=== PATIENT | male | born 1960 | race Caucasian/White ===

== ENCOUNTER 2019-10-15 14:21 | Outpatient (CLI) | payer MEDICARE, MEDICAID, SELFPAY ==
--- NOTE | 2019-10-15 14:45 | XR_ITS ---
WS: [id number] LUMBAR SPINE TECHNIQUE: 5 views of the lumbar spine CLINICAL INFORMATION: LOW BACK PAIN, CHRONIC COMPARISON: None. FINDINGS: Five [id number] lumbar vertebral bodies. Disc space heights are well preserved. No compression f ractures. No spondylolisthesis. Visualized sacroiliac joints are normal. Normal visualized soft tissu es. Partially visualized bowel gas pattern is normal. XR/XR lumbar spine min 4V [id number] IMPRESSION: Mild degenerative arthritis lumbar spine. Otherwise unremarkable.
== END 2019-10-15 14:22 | disposition home or self-care (01) ==
LOC: RADWPI 14:28
PROVIDERS: Family Provider Internal Medicine; PCP Internal Medicine; Visit Provider Nurse Practitioner Family
DX: M47.896 Other spondylosis, lumbar region (principal); M54.5 Low back pain; G89.29 Other chronic pain
CPT/HCPCS: 72114

== ENCOUNTER 2019-10-26 00:28 | Inpatient (IN) | payer MEDICARE, MEDICAID, SELFPAY ==
[2019-10-26] VITALS (28 sets, daily range): BP systolic 84–134; BP diastolic 51–93; PULSE 71–122; RESP 7–23; TEMP 36.8–37.1; O2SAT 95–99; BMI 25.0
--- NOTE | 2019-10-26 00:45 | ED_ITS ---
Entered by Dorinda Nichols, acting as scribe for Myah Levine HPI - Nausea/Vomiting/Diarrhea General: Chief complaint: Nausea/Vomiting/Diarrhea Stated complaint: n/v Time Seen by Provider: 10/26/19 00:44 Source: patient Mode of arrival: wheelchair Limitations: no limitations History of Present Illness: HPI Narrative: 59 yo m came to the er pov for nausea and vomiting. Pt states that he has pain in his lower abd. Pain started about 2199 last night. Pt said that he only has abd pain when he throws up. Pt said that he is diabetic as well. The patient's pain is described as cramping in nature. He states he feels like he is in diabetic ketoacidosis. He admits to being very noncompliant. MD elicited complaint: nausea and vomiting Onset (ago): day(s) (2199 last night ) Associated nausea: Yes Associated abdominal pain: Yes Location of pain: RLQ and LLQ Pain consistency: intermittent Severity: mild Relieving factors: none Associated symtoms: Reports nausea; Denies altered mental status, change in vision, chest pain or headache(s) Review of Systems General: Reports: other (negative unless marked) Const: Denies: fever Eyes: Denies: change in vision ENMT: Denies: throat pain Card: Denies: chest pain Resp: Denies: shortness of breath GI: Reports: abdominal pain, nausea and vomiting : Denies: flank pain Musc: Denies: neck pain Skin/Breast: Denies: rash Neuro: Denies: headache PFSH ED PFSH: Medical History Anxiety Chronic pain Hyperlipidemia Hypertension Insulin dependent diabetes mellitus Surgical History H/O shoulder surgery Family History Other COPD (chronic obstructive pulmonary disease) Cancer Social History Smoking and tobacco status: never smoked Physical Exam Const: COMMON NORMALS: no apparent distress, oriented x3, no limitations, healthy appearing and well nourished EXAM LIMITATIONS: no altered mental status GENERAL APPEARANCE: cooperative, well kempt and well developed ORIENTATION/CONSCIOUSNESS: Yes awake HENMT: COMMON NORMALS: normocephalic, head/scalp atraumatic, hearing grossly normal bilaterally, external ears normal, EAC's normal, external nose normal and moist oral mucous membranes HEAD & SCALP: normal to inspection, normocephalic and atraumatic FACE & SINUS: normal facial exam and face symmetric NOSE: external nose normal and nares normal EXTERNAL EAR: Yes external ears normal EXTERNAL AUDITORY CANAL: EAC's normal MOUTH: oral and palatal mucosa normal and tongue normal Eye: COMMON NORMALS: PERRL, EOMs intact bilaterally, conjunctivae normal and no scleral icterus GENERAL EYE: normal appearance of both eyes and normal light reflex CONJUNCTIVA: Yes conjunctivae normal SCLERA: sclerae normal CORNEA: Yes corneas normal PUPIL: Yes PERRL DIRECT OPHTHALMOSCOPY: Yes normal light reflex Neck/C-Spine: COMMON NORMALS: full ROM, no lymphadenopathy, supple, no meningeal signs and no JVD GENERAL: Yes normal visual inspection and Yes trachea midline CERVICAL SPINE: Yes cervical ROM normal Chest: COMMONS NORMALS: inspection of chest normal and palpation of chest normal Resp: COMMON NORMALS: normal respiratory effort, no retractions, no use of accessory muscles and clear to auscultation bilaterally EFFORT & INSPECTION: Yes able to speak in complete sentences AUSCULTATION: clear to auscultation bilaterally Cardio: COMMON NORMALS: no JVD, regular rate, regular rhythm, S1 normal heart sound, S2 normal heart sound, no gallops, no clicks, no murmurs and no rub JUGULAR VENOUS DISTENTION: no JVD RATE: regular rate RHYTHM: regular rhythm HEART SOUNDS: S1 normal and S2 normal GI: COMMON NORMALS: soft to palpation, non-tender, no hepatosplenomegaly and no masses INSPECTION: Yes normal to inspection PALPATION: Yes soft and Yes no hepatosplenomegaly : COMMON NORMALS: Yes no CVA tenderness BLADDER/KIDNEY EXAM: Yes no CVA tenderness Back/Pelvis: COMMON NORMALS: no CVA tenderness, thoracic and lumbar spine normal to inspection, no thoracic nor lumbar tenderness and thoraco-lumbar ROM normal Extremity: COMMON NORMALS: normal to inspection, full ROM, normal capillary refill, no joint enlargement, no clubbing, cyanosis or edema and no calf tenderness Neuro: COMMON NORMALS: oriented x3, CN's II-XII intact bilaterally, moves all extremities, no focal motor deficits and no sensory deficits noted MENINGEAL SIGNS: Yes no meningeal signs Psych: COMMON NORMALS: mental status grossly normal, thought process normal, cooperative, affect normal, speech normal and activity/motor behavior normal APPEARANCE: Yes well kempt SPEECH: Yes normal speech THOUGHT PROCESS: normal thought process Skin: COMMON NORMALS: no rashes or lesions noted, skin turgor normal, no jaundice, no petechiae and no mottling GENERAL SKIN EXAM: no rashes or lesions noted and turgor normal Course Vital Signs: Vital signs: Vital Signs Temperature 98.7 F 10/26/19 00:34 Pulse Rate 103 H 10/26/19 02:00 Respiratory Rate 16 10/26/19 02:00 Blood Pressure 119/76 10/26/19 02:00 Pulse Oximetry 97 10/26/19 02:00 MDM - Nausea/Vomiting/Diarrhea MDM Narrative: Medical decision making narrative: Wiliam is a 59-year-old male noncompliant and a poor historian. I found much more out about his past medical history from looking in the chart. He appears to be in diabetic ketoacidosis. Abdominal pain appears to be only cramping abdominal pain for vomiting. His abdominal exam is benign. He has anion gap acidosis. His blood sugar is not that high but after review with Dr. Britton she agrees to admit to the ICU and she will place orders for insulin drip. Lab Data: Attestation: I reviewed the patient's lab results. Labs: Lab Results 10/26/19 10/26/19 10/26/19 Range/Units 00:44 00:44 00:44 WBC 13.0 H (4.0-10.0) 10^3/ uL RBC 5.51 H (4.1-5.3) 10^6/u L Hgb 16.0 (11.7-16.6) g/dL Hct 50.3 (42.0-52.0) % MCV 91.3 (80-94) fL MCH 29.0 (28.0-34.0) pg MCHC 31.8 (30.0-36.0) g/dL RDW 12.5 (12.1-15.1) % Plt Count 298 (130-400) 10^3/c mm MPV 10.2 (7.4-10.4) fL Neut % (Auto) 79.0 % Lymph % (Auto) 14.9 % Arroyo % (Auto) 4.9 % Eos % (Auto) 0.2 % Baso % (Auto) 0.5 % Neut # (Auto) 10.3 H (1.8-7.7) 10^3/u L Lymph # (Auto) 1.9 (0.8-4.8) 10^3/u L [place] # (Auto) 0.6 (0.2-0.9) 10^3/u L Eos # (Auto) 0.0 (0.0-0.8) 10^3/u L Baso # (Auto) 0.1 (0.0-0.1) 10^3/u L Nucleated RBC % (a uto) 0 % Nucleated RBCs # 0.0 /100WBC Specimen Type Sample Site ABG pH (7.35-7.45) ABG pCO2 (35-45) mmHg ABG pO2 (80.0-100.0) mmH g ABG HCO3 (22-26) mmol/L ABG Base Excess (-2.0-2.0) mmol/ L Jefferson Test Hematocrit (42-52) % O2 Delivery Device Back Filler Operator ID Sodium 137 (136-145) mmol/L Potassium 4.6 (3.5-5.1) mmol/L Chloride 99 (98-107) mmol/L Carbon Dioxide 13 L (22-29) mmol/L Anion Gap 29.6 H (5-19) BUN 25 H (8-23) mg/dL Creatinine 0.9 (0.7-1.2) mg/dL GFR Calculation 86.1 L (90-130) mL/min Glucose 284 H (65-115) mg/dL Calculated Osmolal ity 291 (285-295) mOsm/k g Lactic Acid 1.4 (0.5-2.2) mmol/L Calcium 9.8 (8.5-10.5) mg/dL Magnesium 2.4 H (1.7-2.3) mg/dL Total Bilirubin 0.4 (0.15-1.2) mg/dL AST 13 (0-40) U/L ALT 20 (0-41) U/L Alkaline Phosphata se 83 (40-130) IU/L Troponin T Baselin e (0-15) ng/mL Total Protein 8.1 (6.6-8.7) g/dL Albumin 4.9 (3.5-5.2) g/dL Globulin 3.2 (1.3-4.6) g/dL Lipase 11 L (13-60) U/L Serum Ketones (Negative) 10/26/19 10/26/19 10/26/19 Range/Units 00:44 00:44 01:29 WBC (4.0-10.0) 10^3/ uL RBC (4.1-5.3) 10^6/u L Hgb (11.7-16.6) g/dL Hct (42.0-52.0) % MCV (80-94) fL MCH (28.0-34.0) pg MCHC (30.0-36.0) g/dL RDW (12.1-15.1) % Plt Count (130-400) 10^3/c mm MPV (7.4-10.4) fL Neut % (Auto) % Lymph % (Auto) % [place]royo % (Auto) % Eos % (Auto) % Baso % (Auto) % Neut # (Auto) (1.8-7.7) 10^3/u L Lymph # (Auto) (0.8-4.8) 10^3/u L [place] # (Auto) (0.2-0.9) 10^3/u L Eos # (Auto) (0.0-0.8) 10^3/u L Baso # (Auto) (0.0-0.1) 10^3/u L Nucleated RBC % (a uto) % Nucleated RBCs # /100WBC Specimen Type Arterial Sample Site Radial, right ABG pH 7.26 L (7.35-7.45) ABG pCO2 25.5 L (35-45) mmHg ABG pO2 106.0 H (80.0-100.0) mmH g ABG HCO3 11.3 L (22-26) mmol/L ABG Base Excess -14.0 L (-2.0-2.0) mmol/ L Jefferson Test Pos Hematocrit 46.7 (42-52) % O2 Delivery Device Room air Back Filler Operator ID [id number] Sodium (136-145) mmol/L Potassium (3.5-5.1) mmol/L Chloride (98-107) mmol/L Carbon Dioxide (22-29) mmol/L Anion Gap (5-19) BUN (8-23) mg/dL Creatinine (0.7-1.2) mg/dL GFR Calculation (90-130) mL/min Glucose (65-115) mg/dL Calculated Osmolal ity (285-295) mOsm/k g Lactic Acid (0.5-2.2) mmol/L Calcium (8.5-10.5) mg/dL Magnesium (1.7-2.3) mg/dL Total Bilirubin (0.15-1.2) mg/dL AST (0-40) U/L ALT (0-41) U/L Alkaline Phosphata se (40-130) IU/L Troponin T Baselin e 7 (0-15) ng/mL Total Protein (6.6-8.7) g/dL Albumin (3.5-5.2) g/dL Globulin (1.3-4.6) g/dL Lipase (13-60) U/L Serum Ketones Positive H (Negative) Imaging Data^: CXR: My impression: No acute cardiopulmonary findings. EKG Data^: EKG 1: Attestation: I personally reviewed and interpreted this EKG as follows: EKG interpretation date: 10/26/19 EKG interpretation time: 01:01 Interpretation: Sinus tachycardia with a ventricular rate of 112 beats a minute, left axis deviation, left anterior fascicular block, normal intervals, no blocks, nonspecific ST and T wave changes. Unchanged from previous. Discharge Plan Discharge Patient Disposition: Admitted As Inpatient Clinical Impression: DKA (diabetic ketoacidoses) Condition: Stable Referrals: JOANNE VO DO [Primary Care Provider] - Coding Level of Care Code ED Shredder Tender Peat for Chg Fwd Exam Comprehensive The documentation recorded by the Simone jennings Stephanie Lyn, accurately reflects the service I personally performed and the decisions made by , Myah Levine Oct 26, 2019 00:28
--- NOTE | 2019-10-26 00:48 | XR_ITS ---
WS: [id number] XR chest 1V portable [id number] REASON FOR EXAM: CHEST PAIN FINDINGS: The heart and mediastinal interfaces normal. The lung jenkins are well aerated. No pneumonia, pleural effusion, pulmonary edema, no pneumothorax. The hilum and apices are normal. No osseous abnormalities. XR/XR chest 1V portable [id number] IMPRESSION: No active cardiopulmonary changes.
[2019-10-26 00:55] LABS: Basophils # 0.1 10^3/uL (0.0-0.1); Basophils % 0.5 %; Eosinophils % 0.2 %; Hematocrit 50.3 % (42.0-52.0); Lymphocytes # 1.9 10^3/uL (0.8-4.8); Lymphocytes % 14.9 %; Mean Corpuscular HGB Conc 31.8 g/dL (30.0-36.0); Mean Corpuscular Volume 91.3 fL (80-94); Mean Platelet Volume 10.2 fL (7.4-10.4); Monocytes # 0.6 10^3/uL (0.2-0.9); Monocytes % 4.9 %; Neutrophils # 10.3 10^3/uL (1.8-7.7); Nucleated Red Blood Cells % 0 %; Platelet Count 298 10^3/cmm (130-400); Red Blood Count 5.51 10^6/uL (4.1-5.3); Red Cell Distribution Width 12.5 % (12.1-15.1)
[2019-10-26] MEDS: sodium chloride 0.9% 1,000 ML 999 ML IV ×2 (01:00→01:59)
[2019-10-26] MEDS: ondansetron 2 mg/ML SDV 2 mL 4 MG IVP (01:00)
[2019-10-26] MEDS: morphine 4 mg/mL SDV 1 mL IVP (01:06)
--- NOTE | 2019-10-26 01:07 | PC.NURSE ---
Blood glucose is 254, nurse and ER doctor were notified
[2019-10-26 01:08] LABS: Ketone (Acetest) Serum Positive (Negative)
[2019-10-26 01:16] LABS: Alanine Aminotransferase 20 U/L (0-41); Albumin Level 4.9 g/dL (3.5-5.2); Alkaline Phosphatase 83 IU/L (40-130); Anion Gap 29.6 (5-19); Aspartate Amino Transferase 13 U/L (0-40); Blood Urea Nitrogen 25 mg/dL (8-23); Calcium 9.8 mg/dL (8.5-10.5); Carbon Dioxide 13 mmol/L (22-29); Chloride 99 mmol/L (98-107); Globulin 3.2 g/dL (1.3-4.6); Glomerular Filtration Rate 86.1 mL/min (90-130); Glucose 284 mg/dL (65-115); Lipase 11 U/L (13-60); Magnesium 2.4 mg/dL (1.7-2.3); Osmolality Calculated 291 mOsm/kg (285-295); Potassium 4.6 mmol/L (3.5-5.1); Sodium 137 mmol/L (136-145); Total Bilirubin 0.4 mg/dL (0.15-1.2); Total Protein 8.1 g/dL (6.6-8.7)
[2019-10-26 01:17] LABS: Lactic Sepsis W/Reflex 1.4 mmol/L (0.5-2.2)
[2019-10-26 01:19] LABS: Troponin(5th) Baseline 7 ng/mL (0-15)
--- NOTE | 2019-10-26 01:29 | PC.NURSE ---
XRAY IN ROOM
[2019-10-26 01:41] LABS: ABG PCO2 25.5 mmHg (35-45); ABG PH Result 7.26 (7.35-7.45); Arterial Blood Gas Hematocrit 46.7 % (42-52); Blood Gas Allen Test Pos; Blood Gas Sample Site Radial, right; Blood Gas Sample Type Arterial; HCO3 ABG 11.3 mmol/L (22-26); Oxygen Device ROOM AIR
--- NOTE | 2019-10-26 02:04 | PM.HP ---
Providers/Chief Complaint Primary Care Provider: JOANNE VO DO Chief Complaint: n/v History of Present Illness Wiliam Rogers JR is a 59 year old male past medical history significant for hypertension, hyperlipidemia, anxiety, depression and uncontrolled diabetes mellitus with recurrent hospitalizations for diabetic ketoacidosis now presenting to the hospital with nausea, vomiting and abdominal pain. Upon arrival to emergency room he was noted to have anion gap metabolic acidosis, ketonuria and hyperglycemia c/f DKA. No recent h/o infections. No alcohol intake. Reporst complaince with his home medications including basiglar 62 units, trulicity once a week and metformin. Labs notable for WBC 13K, ABG 7.26/25.5/106/11.3, hc03 13, AG 29.6, glu 284, lipase 11, positive serum ketone. Review of Systems General: Reports: 10 or more systems reviewed and unremarkable except in HPI and below Const: Denies: fever, chills or body aches Eyes: Denies: change in vision, blurry vision or photophobia ENMT: Reports: hoarseness; Denies: throat pain, enlarged tonsils, painful swallowing or nasal congestion Card: Denies: chest pain, palpitations, irregular heart rhythm, edema, swelling of feet/ankles, lightheadedness, pre-syncope, shortness of breath on exertion or shortness of breath when lying down Resp: Denies: shortness of breath, productive cough, non-productive cough, wheezing, stridor, pain on inspiration, change in phlegm color, coughing up blood or chest congestion GI: Denies: abdominal pain, nausea, vomiting, vomiting blood, coffee grounds in vomit, difficulty swallowing, heartburn/indigestion, diarrhea, constipation, cramping, change in stool character, blood in stool or black tarry stool : Denies: flank pain, painful urination, urinary frequency, urinary urgency, urinary hesitancy or blood in urine Musc: Denies: neck pain, back pain, extremity pain, joint swelling, joint warmth or deformity Neuro: Denies: headache, numbness in extremities, weakness in extremities, changes in sensation, difficulty walking, frequent falls, dizziness, vertigo, behavioral changes, slurred speech or seizure-like activity Psych: Denies: anxiety, depression, suicidal ideation or homicidal ideation Endo: Denies: excessive urination, excessive thirst, tired all the time, cold intolerance or hot flashes Deep/Lymph: Denies: easy bruising or easy bleeding Medications/Allergies Allergies Allergy/AdvReac Type Severity Reaction Status Date / Time No Known Drug Allergies Allergy Unknown Unknown Unverified 10/26/19 00:40 PFSH Acute PFSH: Medical History Anxiety Chronic pain Hyperlipidemia Hypertension Insulin dependent diabetes mellitus Surgical History H/O shoulder surgery Family History Other COPD (chronic obstructive pulmonary disease) Cancer Social History Smoking and tobacco status: never smoked Vitals/I&O/Wt Last Vital Signs Temp 98.7 F 10/26/19 00:34 Pulse 103 H 10/26/19 02:00 Resp 16 10/26/19 02:00 BP 119/76 10/26/19 02:00 Pulse Ox 97 10/26/19 02:00 10/25/19 10/25/19 10/26/19 14:59 22:59 06:59 Intake Total 982.35 / 982.35 Balance 982.35 / 982.35 Weight last 48 hrs Weight 68.039 kg Physical Exam Narrative: EXAM NARRATIVE: GEN: Awake, alert and oriented, no acute distress CVS: S1S2 N RS: CTA B/L Abd: Soft, nt/nd , bs+ 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 Data : 10/26/19 00:44 10/26/19 00:44 A&P Assessment and plan (1) Insulin dependent diabetes mellitus: Status: Acute Code(s): E11.9 - Type 2 diabetes mellitus without complications; Z79.4 - [facility] (current) use of insulin (2) DKA (diabetic ketoacidoses): Status: Acute Code(s): E11.10 - Type 2 diabetes mellitus with ketoacidosis without coma (3) High anion gap metabolic acidosis: Status: Acute Code(s): E87.2 - Acidosis (4) Hypertension: Status: Acute Code(s): I10 - Essential (primary) hypertension (5) Hyperlipidemia: Status: Acute Code(s): E78.5 - Hyperlipidemia, unspecified Additional A&P Information Admit to ICU # Diabetic ketoacidosis: Start IV fluids with D5 1/2 NS at 150 cc/hour Start IV insulin per DKA protocol until anion gap closes Blood sugar checks q.1 hour Maintain blood sugars between 150- 200. Check BMP q3h For serum potassium between 3.3-5.5 add 20 mEq of KCl to each L bag of fluids. If serum potassium decreases below 3.3 hold insulin and administer KCl 40 mEq. Goal potassium between 4.0 to 5.0 Keep NPO for now until gap closes, once closed, can resume po intake with overlap with s/c insulin Hold OHAs Check HbA1c # Hypertension Per review of prior records, patient is on Metoprolol 25 mg extended release daily. However, at this time he denies any past h/o HTN. Reports not taking metoprolol. #Hyperlipidemia Simvastatin 20 mg qd previosuly, will start Check lipid panel # Anxiety/depression Full code Dvt ppx: lovenox Attestations Medical Necessity Statement*: anticipate > 2midnight admission for management of DKA Coding Level of Care Code Acute Production Assembler for g Fwd Diagnoses Insulin dependent diabetes mellitus E11.9; Z79.4 DKA (diabetic ketoacidoses) E11.10 High anion gap metabolic acidosis E87.2 Hypertension I10 Hyperlipidemia E78.5
--- NOTE | 2019-10-26 02:32 | PC.NURSE ---
Hospitalist in room
--- NOTE | 2019-10-26 02:44 | ECG_ITS ---
Measurements Intervals [place] Rate: 89 P: 56 DC: 175 QRS: -28 QRSD: 86 T: 48 QT: 363 QTc: 444 SINUS RHYTHM BORDERLINE LEFT AXIS DEVIATION [QRS AXIS < -20] WARNING: DATA QUALITY MAY AFFECT INTERPRETATION Compared to ECG 12/16/2018 21:16:34 Sinus tachycardia no longer present Electronically Signed On 10-26-2019 8:49:41 CDT by Andre Bateman [email or web address]
[2019-10-26] MEDS: sodium chloride 0.9% 1,000 ML 150 ML IV (02:53)
[2019-10-26 02:57] LABS: Glucose Point of Care 219 mg/dL (70-110)
[2019-10-26 02:57] LABS: Protein Urine Neg (Negative); Specific Gravity, Urine 1.025 (1.005-1.030); Urine Appearance Hazy (CLEAR); Urine Color Yellow (Yellow); pH Urine 5 (5-7)
[2019-10-26 02:58] LABS: Bilirubin Urine Neg (NEGATIVE); Blood Urine Neg (Negative); Glucose Urine UA 4+ (Normal); Ketones Urine 3+ (Negative); Leukocyte Esterase Urine Negative (Negative); Nitrate Urine Negative (Negative); Urobilinogen Urine Norm (Negative)
[2019-10-26 03:00] LABS: Coarse Granular Casts Urine 0-4 /lpf
[2019-10-26 03:02] LABS: Estmated Average Glucose 275; Hemoglobin A1C 11.2 % (4.0-6.0)
[2019-10-26 03:03] LABS: Add Urine Culture? No; Bacteria Urine TRACE; Renal Epithelial Cells Urine 0 /hpf
[2019-10-26] MEDS: insulin regular-human 250 UNIT in sodium chloride 0.9% 250 ML IV (03:15)
[2019-10-26 03:23] LABS: Alanine Aminotransferase 15 U/L (0-41); Albumin Level 4.1 g/dL (3.5-5.2); Alkaline Phosphatase 66 IU/L (40-130); Anion Gap 24.7 (5-19); Aspartate Amino Transferase 10 U/L (0-40); Blood Urea Nitrogen 23 mg/dL (8-23); Calcium 8.3 mg/dL (8.5-10.5); Carbon Dioxide 14 mmol/L (22-29); Chloride 106 mmol/L (98-107); Chol HDL Ratio 4.86 mg/dL (1.0-5.00); Cholesterol 209 mg/dL (0-200); Globulin 2.4 g/dL (1.3-4.6); Glucose 222 mg/dL (65-115); HDL Cholesterol 43 mg/dL (60-100); LDL Cholesterol Calculated 142 mg/dL (50-129); Osmolality Calculated 294 mOsm/kg (285-295); Potassium 4.7 mmol/L (3.5-5.1); Sodium 140 mmol/L (136-145); Total Bilirubin 0.3 mg/dL (0.15-1.2); Total Protein 6.5 g/dL (6.6-8.7); Triglycerides 122 mg/dL (0-150)
[2019-10-26 03:25] LABS: Troponin 5 2HR 6.66 ng/mL (0-15)
[2019-10-26 03:45] LABS: Troponin 5 2HR Delta -0.34 ABS# (0-10)
[2019-10-26 04:09] LABS: Glucose Point of Care 172 mg/dL (70-110)
[2019-10-26] MEDS: enoxaparin 40 mg/0.4 mL Syringe SUBCUT (04:41)
[2019-10-26] MEDS: D5-NS 0.45% + KCL 20 mEq 20 MEQ/1,000 ML BAG 150 MEQ IV (04:45)
--- NOTE | 2019-10-26 06:44 | ECG_ITS ---
Measurements Intervals [place] Rate: 112 P: 53 VT: 145 QRS: -46 QRSD: 89 T: 78 QT: 323 QTc: 441 SINUS TACHYCARDIA LEFT ANTERIOR FASCICULAR BLOCK [QRS AXIS <= -45, QR IN I, RS IN II] NONSPECIFIC T-WAVE ABNORMALITY Compared to ECG 12/16/2018 21:16:34 Left anterior fascicular block now present T-wave abnormality now present Electronically Signed On 10-26-2019 8:49:55 CDT by Andre Bateman [email or web address]
[2019-10-26 07:04] LABS: Alanine Aminotransferase 14 U/L (0-41); Albumin Level 3.5 g/dL (3.5-5.2); Alkaline Phosphatase 64 IU/L (40-130); Anion Gap 16.3 (5-19); Aspartate Amino Transferase 10 U/L (0-40); Blood Urea Nitrogen 18 mg/dL (8-23); Calcium 8.3 mg/dL (8.5-10.5); Carbon Dioxide 19 mmol/L (22-29); Chloride 105 mmol/L (98-107); Globulin 2.6 g/dL (1.3-4.6); Glomerular Filtration Rate 137.4 mL/min (90-130); Glucose 201 mg/dL (65-115); Osmolality Calculated 284 mOsm/kg (285-295); Potassium 4.3 mmol/L (3.5-5.1); Sodium 136 mmol/L (136-145); Total Bilirubin 0.2 mg/dL (0.15-1.2); Total Protein 6.1 g/dL (6.6-8.7)
[2019-10-26 07:06] LABS: Troponin 5 6HR 6.43 ng/mL (0-15)
[2019-10-26 07:07] LABS: Troponin 5 6HR Delta -0.57 ng/L (0-12)
[2019-10-26 08:30] LABS: Glucose Point of Care 181 mg/dL (70-110)
[2019-10-26 08:30] LABS: Glucose Point of Care 204 mg/dL (70-110)
[2019-10-26 08:30] LABS: Glucose Point of Care 171 mg/dL (70-110)
[2019-10-26 08:30] LABS: Glucose Point of Care 183 mg/dL (70-110)
[2019-10-26 08:47] LABS: Alanine Aminotransferase 13 U/L (0-41); Albumin Level 3.7 g/dL (3.5-5.2); Alkaline Phosphatase 62 IU/L (40-130); Anion Gap 15.1 (5-19); Aspartate Amino Transferase 10 U/L (0-40); Blood Urea Nitrogen 17 mg/dL (8-23); Calcium 8.3 mg/dL (8.5-10.5); Carbon Dioxide 20 mmol/L (22-29); Chloride 105 mmol/L (98-107); Globulin 2.5 g/dL (1.3-4.6); Glomerular Filtration Rate 169.6 mL/min (90-130); Glucose 206 mg/dL (65-115); Osmolality Calculated 284 mOsm/kg (285-295); Potassium 4.1 mmol/L (3.5-5.1); Sodium 136 mmol/L (136-145); Total Bilirubin 0.3 mg/dL (0.15-1.2); Total Protein 6.2 g/dL (6.6-8.7)
[2019-10-26 11:56] LABS: Glucose Point of Care 173 mg/dL (70-110)
[2019-10-26 11:56] LABS: Glucose Point of Care 167 mg/dL (70-110)
[2019-10-26 11:56] LABS: Glucose Point of Care 152 mg/dL (70-110)
[2019-10-26] MEDS: atorvastatin 40 mg Tablet 20 MG PO (12:10)
[2019-10-26] MEDS: pantoprazole DR 40 mg Tablet PO (12:10)
[2019-10-26] MEDS: citalopram 20 mg Tablet PO (12:10)
[2019-10-26 12:23] LABS: Alanine Aminotransferase 13 U/L (0-41); Albumin Level 3.8 g/dL (3.5-5.2); Alkaline Phosphatase 58 IU/L (40-130); Aspartate Amino Transferase 10 U/L (0-40); Blood Urea Nitrogen 17 mg/dL (8-23); Calcium 8.5 mg/dL (8.5-10.5); Carbon Dioxide 21 mmol/L (22-29); Chloride 105 mmol/L (98-107); Globulin 2.1 g/dL (1.3-4.6); Glomerular Filtration Rate 137.4 mL/min (90-130); Glucose 176 mg/dL (65-115); Osmolality Calculated 283 mOsm/kg (285-295); Sodium 136 mmol/L (136-145); Total Bilirubin 0.3 mg/dL (0.15-1.2); Total Protein 5.9 g/dL (6.6-8.7)
[2019-10-26] MEDS: acetaminophen 325 mg Tablet 650 MG PO (12:54)
[2019-10-26] MEDS: sodium chloride 0.9% 1,000 ML 125 ML IV ×2 (12:54→21:59)
[2019-10-26] MEDS: insulin glargine 100 units/1 mL 62 UNIT SUBCUT (12:55)
[2019-10-26 14:13] LABS: Glucose Point of Care 211 mg/dL (70-110)
[2019-10-26 14:13] LABS: Glucose Point of Care 170 mg/dL (70-110)
[2019-10-26 14:36] LABS: Alanine Aminotransferase 12 U/L (0-41); Albumin Level 3.7 g/dL (3.5-5.2); Alkaline Phosphatase 57 IU/L (40-130); Aspartate Amino Transferase 11 U/L (0-40); Blood Urea Nitrogen 18 mg/dL (8-23); Calcium 8.6 mg/dL (8.5-10.5); Carbon Dioxide 24 mmol/L (22-29); Chloride 103 mmol/L (98-107); Globulin 2.3 g/dL (1.3-4.6); Glomerular Filtration Rate 137.4 mL/min (90-130); Glucose 220 mg/dL (65-115); Osmolality Calculated 283 mOsm/kg (285-295); Sodium 135 mmol/L (136-145); Total Bilirubin 0.4 mg/dL (0.15-1.2)
--- NOTE | 2019-10-26 15:44 | P.PN_ITS ---
Subjective Subjective: Interval history: Admitted overnight. Labs noted. Overnight patient has been on D5 half NS along with insulin drip for high anion gap metabolic acidosis. This morning on evaluation his gap has closed. He denies of any nausea, vomiting, dizziness. He is complaining of headache. He states he takes metformin, Trulicity once a week, Basaglar 62 units every morning. He checks his blood sugar on a daily basis after breakfast and usually over 1 80-200. Vitals/I&O/Wt Last Vital Signs Temp 98.6 F 10/26/19 08:00 Pulse 87 10/26/19 13:00 Resp 21 H 10/26/19 13:00 BP 111/73 10/26/19 13:00 Pulse Ox 97 10/26/19 12:00 10/26/19 10/26/19 10/26/19 06:59 14:59 22:59 Intake Total 1987.925 / 4154.527 0893.55 / 1327.55 Output Total 475 / 475 Balance 1512.925 / 3059.195 6934.55 / 1327.55 Weight last 48 hrs Weight 68.039 kg Physical Exam Narrative: EXAM NARRATIVE: General: No acute distress, AO x3 HEENT: PERRLA, pupils bilaterally equal and reactive Chest: Normal vesicular breath sounds, no added sounds, equal good air entry bilaterally CVS: S1-S2 regular, no murmurs, no tachycardia, no gallops, no rubs Abdomen: Soft, nontender, no organomegaly, bowel sounds present Neuro: No focal deficits, no facial deformity, AO x3, power 5/5 in all limbs Data : 10/26/19 00:44 10/26/19 14:06 A&P Assessment and plan (1) Insulin dependent diabetes mellitus: Status: Acute Code(s): E11.9 - Type 2 diabetes mellitus without complications; 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 (2) DKA (diabetic ketoacidoses): Status: Acute Qualifiers: Diabetes mellitus complication detail: without coma Diabetes mellitus type: type 1 Qualified Code(s): E10.10 - Type 1 diabetes mellitus with ketoacidosis without coma Code(s): E11.10 - Type 2 diabetes mellitus with ketoacidosis without coma (3) High anion gap metabolic acidosis: Status: Acute Code(s): E87.2 - Acidosis (4) Hypertension: Status: Acute Code(s): I10 - Essential (primary) hypertension (5) Hyperlipidemia: Status: Acute Code(s): E78.5 - Hyperlipidemia, unspecified Additional A&P Information Diabetic ketoacidosis: As anion gap has closed will repeat BMP in 3 hours. If it continues to remain close will start him on his home dose of glargine 62 units. 30 minutes after giving him glargine can stop the insulin drip and also start him on carb consistent diet. Switch IV fluid to normal saline to 50 cc/h. Check BMP every 12 hourly. Monitor potassium given between 4 and 5. HbA1c noted. Most likely patient will need to be discharged on home dose of glargine, metformin but will have to change his Trulicity to insulin with meals according to sliding scale. Hypertension: Blood pressure well controlled. Per review of prior records, patient is on Metoprolol 25 mg extended release daily. However, at this time he denies any past h/o HTN. Reports not taking m etoprolol. Hyperlipidemia:At home suppose be taking Simvastatin 20 mg qd Lipid panel derranged. Will increase to 40 mg QD Anxiety/depression Full code Dvt ppx: lovenox Carb consistent diet. Attestations Medical Necessity Statement*: DKA Critical Care Time: Critical Care Time (min): 60 Coding Level of Care Code Acute Counterperson for g Fwd Diagnoses Insulin dependent diabetes mellitus E11.9; Z79.4 DKA (diabetic ketoacidoses) E10.10 Diabetes mellitus complication detail: without coma Diabetes mellitus type: type 1 High anion gap metabolic acidosis E87.2 Hypertension I10 Hyperlipidemia E78.5
[2019-10-26 16:21] LABS: Glucose Point of Care 179 mg/dL (70-110)
--- NOTE | 2019-10-26 16:26 | PC.NURSE ---
Orders received from Dr. Alexander to administer 1 mg morphine IV ONCE.
[2019-10-26] MEDS: morphine 4 mg/mL SDV 1 mL 1 MG IVP (16:44)
[2019-10-26 19:05] LABS: Glucose Point of Care 254 mg/dL (70-110)
[2019-10-27] VITALS: BP 101/57; PULSE 68; RESP 20; O2SAT 95
[2019-10-27 02:00] VITALS: BP 119/78; PULSE 89; RESP 12
[2019-10-27 02:54] LABS: Glucose Point of Care 242 mg/dL (70-110)
[2019-10-27 04:00] VITALS: BP 99/56; PULSE 60; RESP 15
[2019-10-27] MEDS: enoxaparin 40 mg/0.4 mL Syringe SUBCUT (05:18)
[2019-10-27 05:19] LABS: Basophils % 0.4 %; Eosinophils # 0.1 10^3/uL (0.0-0.8); Hematocrit 37.5 % (42.0-52.0); Hemoglobin 12.6 g/dL (11.7-16.6); Lymphocytes # 2.2 10^3/uL (0.8-4.8); Lymphocytes % 39.7 %; Mean Corpuscular HGB Conc 33.6 g/dL (30.0-36.0); Mean Corpuscular Hemoglobin 29.6 pg (28.0-34.0); Mean Platelet Volume 10.1 fL (7.4-10.4); Monocytes # 0.4 10^3/uL (0.2-0.9); Monocytes % 6.7 %; Neutrophils # 2.8 10^3/uL (1.8-7.7); Nucleated Red Blood Cells % 0 %; Platelet Count 194 10^3/cmm (130-400); Red Blood Count 4.26 10^6/uL (4.1-5.3); Red Cell Distribution Width 12.8 % (12.1-15.1); White Blood Count 5.5 10^3/uL (4.0-10.0)
[2019-10-27 05:46] LABS: Alanine Aminotransferase 13 U/L (0-41); Albumin Level 3.6 g/dL (3.5-5.2); Alkaline Phosphatase 57 IU/L (40-130); Anion Gap 8.7 (5-19); Aspartate Amino Transferase 14 U/L (0-40); Blood Urea Nitrogen 12 mg/dL (8-23); Calcium 8.9 mg/dL (8.5-10.5); Carbon Dioxide 29 mmol/L (22-29); Chloride 104 mmol/L (98-107); Globulin 2.3 g/dL (1.3-4.6); Glomerular Filtration Rate 169.6 mL/min (90-130); Glucose 114 mg/dL (65-115); Osmolality Calculated 283 mOsm/kg (285-295); Potassium 3.7 mmol/L (3.5-5.1); Sodium 138 mmol/L (136-145); Total Bilirubin 0.2 mg/dL (0.15-1.2); Total Protein 5.9 g/dL (6.6-8.7)
[2019-10-27 06:00] VITALS: BP 131/87; PULSE 65; RESP 17
[2019-10-27 08:00] VITALS: BP 130/86; PULSE 89; RESP 14
--- NOTE | 2019-10-27 08:14 | PM.DCS ---
Discharge Providers Date of Admission: 10/26/19 02:20 Date of Discharge: October 27, 2019 Attending Provider at Admission: Jocelyn Britton MD Attending Provider at Discharge: Jarred Santos Primary Care Provider: JOANNE VO DO Diagnoses at Discharge Discharge Diagnosis (1) Insulin dependent diabetes mellitus: Status: Acute (2) DKA (diabetic ketoacidoses): Status: Acute Qualifiers: Diabetes mellitus complication detail: without coma Diabetes mellitus type: type 1 Qualified Code(s): E10.10 - Type 1 diabetes mellitus with ketoacidosis without coma (3) High anion gap metabolic acidosis: Status: Acute (4) Hypertension: Status: Acute (5) Hyperlipidemia: Status: Acute Reason for Visit Reason for Visit: Reason For Visit: n/v Hospital Course Hospital Course: Pleasant 59-year-old gentleman with history of diabetes, HTN, HLD, anxiety, depression was admitted for treatment of diabetic ketoacidosis with insulin drip, IV fluids, electrolyte monitoring. He was transitioned off insulin drip and to subcutaneous insulin with 62 units of glargine which he takes at home. Rapid acting insulin will be added at this time in the morning and supper which is his largest meal. He is asked to monitor his blood glucose and record values. Please adjust insulin regimen according to his glucose. Continue to optimize diabetes control with a goal A1c of 8. Physical Exam Const: COMMON NORMALS: no apparent distress and oriented x3 HENMT: COMMON NORMALS: oropharynx normal Neck/C-Spine: COMMON NORMALS: no JVD Resp: COMMON NORMALS: normal respiratory effort and clear to auscultation bilaterally AUSCULTATION: clear to auscultation bilaterally Cardio: COMMON NORMALS: no JVD, regular rhythm, S1 normal heart sound, S2 normal heart sound and no murmurs RHYTHM: regular rhythm HEART SOUNDS: S1 normal and S2 normal GI: COMMON NORMALS: normal to inspection, nondistended, normoactive bowel sounds, soft to palpation and non-tender PALPATION: Yes soft Extremity: COMMON NORMALS: no joint enlargement and no pedal edema Neuro: COMMON NORMALS: oriented x3 and moves all extremities Skin: COMMON NORMALS: no rashes or lesions noted GENERAL SKIN EXAM: no rashes or lesions noted Discharge Data Data Completed and Pending: Completed Studies During Hospitalization Category Date Time Status XR chest 1V rao ble [id number] Stat Exams 10/26/19 00:48 Completed Labs from last 24 hours 10/27/19 10/27/19 10/26/19 04:11 04:11 21:09 WBC 5.5 RBC 4.26 Hgb 12.6 Hct 37.5 L MCV 88.0 MCH 29.6 MCHC 33.6 RDW 12.8 Plt Count 194 MPV 10.1 Neut % (Auto) 51.0 Lymph % (Auto) 39.7 [place] % (Auto) 6.7 Eos % (Auto) 2.0 Baso % (Auto) 0.4 Neut # (Auto) 2.8 Lymph # (Auto) 2.2 [place] # (Auto) 0.4 Eos # (Auto) 0.1 Baso # (Auto) 0.0 Nucleated RBC % (a uto) 0 Nucleated RBCs # 0.0 Sodium 138 Potassium 3.7 Chloride 104 Carbon Dioxide 29 Anion Gap 8.7 BUN 12 Creatinine 0.5 L GFR Calculation 169.6 H Glucose 114 POC Glucose 242 Calculated Osmolal ity 283 L Calcium 8.9 Total Bilirubin 0.2 AST 14 ALT 13 Alkaline Phosphata se 57 Total Protein 5.9 L Albumin 3.6 Globulin 2.3 10/26/19 10/26/19 10/26/19 16:17 14:06 14:00 WBC RBC Hgb Hct MCV MCH MCHC RDW Plt Count MPV Neut % (Auto) Lymph % (Auto) [place] % (Auto) Eos % (Auto) Baso % (Auto) Neut # (Auto) Lymph # (Auto) [place] # (Auto) Eos # (Auto) Baso # (Auto) Nucleated RBC % (a uto) Nucleated RBCs # Sodium 135 L Potassium 4.0 Chloride 103 Carbon Dioxide 24 Anion Gap 12.0 BUN 18 Creatinine 0.6 L GFR Calculation 137.4 H Glucose 220 H POC Glucose 179 211 Calculated Osmolal ity 283 L Calcium 8.6 Total Bilirubin 0.4 AST 11 ALT 12 Alkaline Phosphata se 57 Total Protein 6.0 L Albumin 3.7 Globulin 2.3 10/26/19 10/26/19 10/26/19 13:01 11:52 11:10 WBC RBC Hgb Hct MCV MCH MCHC RDW Plt Count MPV Neut % (Auto) Lymph % (Auto) [place] % (Auto) Eos % (Auto) Baso % (Auto) Neut # (Auto) Lymph # (Auto) [place] # (Auto) Eos # (Auto) Baso # (Auto) Nucleated RBC % (a uto) Nucleated RBCs # Sodium 136 Potassium 4.0 Chloride 105 Carbon Dioxide 21 L Anion Gap 14.0 BUN 17 Creatinine 0.6 L GFR Calculation 137.4 H Glucose 176 H POC Glucose 170 152 Calculated Osmolal ity 283 L Calcium 8.5 Total Bilirubin 0.3 AST 10 ALT 13 Alkaline Phosphata se 58 Total Protein 5.9 L Albumin 3.8 Globulin 2.1 10/26/19 10/26/19 10/26/19 10:30 09:32 08:26 WBC RBC Hgb Hct MCV MCH MCHC RDW Plt Count MPV Neut % (Auto) Lymph % (Auto) [place] % (Auto) Eos % (Auto) Baso % (Auto) Neut # (Auto) Lymph # (Auto) [place] # (Auto) Eos # (Auto) Baso # (Auto) Nucleated RBC % (a uto) Nucleated RBCs # Sodium Potassium Chloride Carbon Dioxide Anion Gap BUN Creatinine GFR Calculation Glucose POC Glucose 167 173 204 Calculated Osmolal ity Calcium Total Bilirubin AST ALT Alkaline Phosphata se Total Protein Albumin Globulin 10/26/19 10/26/19 10/26/19 08:22 07:21 05:58 WBC RBC Hgb Hct MCV MCH MCHC RDW Plt Count MPV Neut % (Auto) Lymph % (Auto) [place] % (Auto) Eos % (Auto) Baso % (Auto) Neut # (Auto) Lymph # (Auto) [place] # (Auto) Eos # (Auto) Baso # (Auto) Nucleated RBC % (a uto) Nucleated RBCs # Sodium 136 Potassium 4.1 Chloride 105 Carbon Dioxide 20 L Anion Gap 15.1 BUN 17 Creatinine 0.5 L GFR Calculation 169.6 H Glucose 206 H POC Glucose 181 183 Calculated Osmolal ity 284 L Calcium 8.3 L Total Bilirubin 0.3 AST 10 ALT 13 Alkaline Phosphata se 62 Total Protein 6.2 L Albumin 3.7 Globulin 2.5 10/26/19 10/26/19 04:43 01:06 WBC RBC Hgb Hct MCV MCH MCHC RDW Plt Count MPV Neut % (Auto) Lymph % (Auto) [place] % (Auto) Eos % (Auto) Baso % (Auto) Neut # (Auto) Lymph # (Auto) [place] # (Auto) Eos # (Auto) Baso # (Auto) Nucleated RBC % (a uto) Nucleated RBCs # Sodium Potassium Chloride Carbon Dioxide Anion Gap BUN Creatinine GFR Calculation Glucose POC Glucose 171 254 Calculated Osmolal ity Calcium Total Bilirubin AST ALT Alkaline Phosphata se Total Protein Albumin Globulin Vitals: Last Vital Signs Temp 98.6 F 10/26/19 08:00 Pulse 60 10/27/19 04:00 Resp 15 10/27/19 04:00 BP 99/56 10/27/19 04:00 Pulse Ox 95 10/27/19 00:00 Discharge Plan Discharge Patient Disposition: Home, Self-Care Condition: Stable Prescriptions: New insulin aspart U-100 [Novolog Flexpen U-100 Insulin] 100 unit/mL (3 mL) insulin pen See Rx Instructions .ROUTE .COMPLEX Qty: 15 RF: 0 No Action citalopram 40 mg Tablet 40 mg PO DAILY RF: 0 metformin 1,000 mg Tablet 1,000 mg PO DAILY RF: 0 trazodone 100 mg Tablet 100 mg PO BEDTIME RF: 0 Basaglar KwikPen U-100 Insulin 100 unit/mL (3 mL) Insulin Pen 62 unit SUBCUT DAILY RF: 0 Trulicity 1.5 mg/0.5 mL Pen Injector See Rx Instructions .ROUTE .COMPLEX RF: 0 Discharge Orders: Discharge Order (Routine); Ordered 10/27/19 Ordered By: Jarred Santos Referrals: JOANNE VO DO [Primary Care Provider] - 4-7 days Discharge Diet: Cardiac and Diabetic Discharge Activity: Increase activity as tolerated Activity Restrictions/Additional Instructions: Please continue to monitor your blood glucose 4 times daily, with meals and at night. Record values to bring to your appointment. At this time in addition to long-acting insulin, add rapid acting sliding scale with morning meal and supper (or 2 largest meals of the day). Continue to monitor blood pressures and record values to bring to your appointment. If you experience any kind of non-resolving chest pain, pressure, fever, cough, or other abnormal symptoms, please seek medical attention. Okay you know we had like 7 cases and I said very good doing well I am ready for you to come in usually plan so much for football games and advised nondisplaced again the hospital on the were drawn are the Discharge Attestations Time Spent in Discharge Care*: greater than 30 min Quality Metrics Clinical Quality Measures During this hospital stay, did patient experience: None Coding Level of Care Code Acute Director Of Child Welfare Services for Chg Fwd Diagnoses Insulin dependent diabetes mellitus E11.9; Z79.4 DKA (diabetic ketoacidoses) E10.10 Diabetes mellitus complication detail: without coma Diabetes mellitus type: type 1 High anion gap metabolic acidosis E87.2 Hypertension I10 Hyperlipidemia E78.5
--- NOTE | 2019-10-27 09:47 | PC.NURSE ---
preparing to discharge
--- NOTE | 2019-10-27 11:54 | PC.NURSE ---
0900 meds given but for some reason scanner didnt accept scan
--- NOTE | 2019-10-27 11:56 | PC.NURSE ---
discharge date and time put in before any completion of interventions 1045 b/p 122/78, hr-69 rr-13. am assessment wnl
== END 2019-10-27 11:15 | disposition home or self-care (01) | DRG 639 ==
LOC: ER 02:27 → ICU 04:02
PROVIDERS: Student in an Organized Health Care Education/Training Program; Admitting Provider Student in an Organized Health Care Education/Training Program; Emergency Provider Emergency Medicine; Family Provider Internal Medicine; PCP Internal Medicine; Visit Provider Internal Medicine
DX: E10.10 Type 1 diabetes mellitus with ketoacidosis without coma (principal); I10 Essential (primary) hypertension; E78.5 Hyperlipidemia, unspecified; F41.8 Other specified anxiety disorders; Z91.14 Patient's other noncompliance with medication regimen; Z79.4 Long term (current) use of insulin; Z79.84 Long term (current) use of oral hypoglycemic drugs; Z79.899 Other long term (current) drug therapy
CPT/HCPCS: 12345; 36415; 36416; 71045; 80053; 80061; 81001; 82009; 82803; 82962; 83036; 83605; 83690; 83735; 84484; 85025; 90471; 90686; 93005; 93010; 96372; 96374; 96375; 99284; J1650; J1815; J2270; J2405; J7030; J7050

== ENCOUNTER → 2020-03-10 10:46 | Outpatient (BNVA) | payer MEDICARE, MEDICAID, SELFPAY | PROVIDERS: Family Provider Internal Medicine; PCP Internal Medicine; Visit Provider Internal Medicine | DX: E11.9 Type 2 diabetes mellitus without complications (principal); Z79.4 Long term (current) use of insulin; E78.5 Hyperlipidemia, unspecified | CPT/HCPCS: 99203 ==

== ENCOUNTER 2020-03-17 13:23 | Outpatient (CLI) | payer MEDICARE, MEDICAID, SELFPAY ==
[2020-03-17 14:11] LABS: Anion Gap 10.4 (5-19); Blood Urea Nitrogen 15 mg/dL (8-23); Calcium 8.6 mg/dL (8.5-10.5); Carbon Dioxide 27 mmol/L (22-29); Chloride 103 mmol/L (98-107); Glomerular Filtration Rate 98.6 mL/min (90-130); Glucose 248 mg/dL (65-115); Osmolality Calculated 287 mOsm/kg (285-295); Potassium 4.4 mmol/L (3.5-5.1); Sodium 136 mmol/L (136-145)
[2020-03-17 14:13] LABS: Creatinine Urine, Random 57 mg/dL (39-259)
[2020-03-17 14:25] LABS: Microalbum Creatinine Ratio Ur 18 mg/dL (0-20); Microalbumin Random Urine < 1 ug/dL (0-20)
[2020-03-18 07:10] LABS: C-Peptide 0.17 ng/mL (0.80-3.85)
== END 2020-03-17 13:24 | disposition home or self-care (01) ==
LOC: LAB 13:29
PROVIDERS: PCP Internal Medicine; Visit Provider Internal Medicine
DX: E11.9 Type 2 diabetes mellitus without complications (principal); Z79.4 Long term (current) use of insulin
CPT/HCPCS: 80048; 82044; 84681

== ENCOUNTER → 2020-05-12 09:58 | Outpatient (BNVA) | payer MEDICARE, MEDICAID, SELFPAY | PROVIDERS: PCP Internal Medicine; Visit Provider Internal Medicine | DX: E11.9 Type 2 diabetes mellitus without complications (principal); Z79.4 Long term (current) use of insulin; E78.5 Hyperlipidemia, unspecified; F32.9 Major depressive disorder, single episode, unspecified | CPT/HCPCS: 99214 ==

== ENCOUNTER → 2020-08-12 14:59 | Outpatient (BNVA) | payer MEDICARE, MEDICAID, SELFPAY | PROVIDERS: PCP Internal Medicine; Visit Provider Internal Medicine | DX: E11.9 Type 2 diabetes mellitus without complications (principal); Z79.4 Long term (current) use of insulin; E78.5 Hyperlipidemia, unspecified | CPT/HCPCS: 99214 ==

== ENCOUNTER → 2021-08-26 11:22 | Outpatient (BNVA) | payer MEDICARE, MEDICAID, SELFPAY | PROVIDERS: PCP Internal Medicine; Visit Provider Internal Medicine | DX: E11.9 Type 2 diabetes mellitus without complications (principal); E78.5 Hyperlipidemia, unspecified; Z79.4 Long term (current) use of insulin; Z79.84 Long term (current) use of oral hypoglycemic drugs | CPT/HCPCS: 99214 ==

== ENCOUNTER → 2021-09-21 10:56 | Outpatient (BNVA) | payer MEDICARE, MEDICAID, SELFPAY | PROVIDERS: PCP Internal Medicine; Visit Provider Internal Medicine | DX: E11.9 Type 2 diabetes mellitus without complications (principal); E78.5 Hyperlipidemia, unspecified; Z79.4 Long term (current) use of insulin | CPT/HCPCS: 99214 ==

== ENCOUNTER 2022-06-30 08:15 | Inpatient (IN) | payer MEDICARE, MEDICAID, SELFPAY ==
[2022-06-30] VITALS (63 sets, daily range): BP systolic 101–167; BP diastolic 55–96; PULSE 87–130; RESP 17–27; TEMP 36.8–37; O2SAT 91–100; BMI 23.3
--- NOTE | 2022-06-30 08:18 | XRR_ITS ---
PROCEDURE INFORMATION: Exam: XR Chest Exam date and time: 06/30/2022 9:30 AM Age: 62 years old Clinical indication: Cough and dyspnea; Patient HX: Throwing up since last week; Additional info: Dyspnea/cough TECHNIQUE: Imaging protocol: Radiologic exam of the chest. Views: 1 view. COMPARISON: CR XR chest 1V portable [id number] 10/26/2019 1:24 AM FINDINGS: Lungs: Unremarkable. No consolidation. Pleural spaces: Unremarkable. No pleural effusion. No pneumothorax. Heart/Mediastinum: Unremarkable. No cardiomegaly. Bones/joints: Unremarkable. XR/XR chest 1V portable [id number] IMPRESSION: No acute findings.
[2022-06-30 08:30] LABS: Basophils # 0.1 10^3/uL (0.0-0.1); Basophils % 0.4 %; Eosinophils % 0.3 %; Hemoglobin 16.7 g/dL (11.7-16.6); Lymphocytes # 1.5 10^3/uL (0.8-4.8); Lymphocytes % 10.6 %; Mean Corpuscular HGB Conc 32.1 g/dL (30.0-36.0); Mean Corpuscular Hemoglobin 29.1 pg (28.0-34.0); Mean Corpuscular Volume 90.8 fl (80-94); Mean Platelet Volume 10.7 fL (7.4-10.4); Monocytes # 0.3 10^3/uL (0.2-0.9); Neutrophils # 12.43 10^3/uL (1.8-7.7); Nucleated Red Blood Cells % 0 %; Platelet Count 482 10^3/cmm (130-400); Red Blood Count 5.73 10^6/uL (4.1-5.3); Red Cell Distribution Width 12.4 % (12.1-15.1); White Blood Count 14.5 10^3/uL (4.0-10.0)
--- NOTE | 2022-06-30 08:31 | ED_ITS ---
HPI - Nausea/Vomiting/Diarrhea General: Chief complaint: Nausea/Vomiting/Diarrhea Stated complaint: Bloody Emesis Time Seen by Provider: 06/30/22 08:16 Source: patient Mode of arrival: EMS History of Present Illness: 62-year-old male presents emergency room complaining of nausea vomiting for the last several days. Some been vomiting a lot of food debris and watery vomitus. No jax blood. No coffee-ground emesis. Patient is alert and oriented he denies any chest pain denies any abdominal pain no dysuria urgency or frequency. Patient is an insulin-dependent diabetic states his blood sugars were markedly elevated recently. MD elicited complaint: nausea and vomiting Onset (ago): day(s) (2) Description of vomiting: food contents and watery Associated nausea: Yes Associated abdominal pain: Yes Location of pain: Diffuse Pain consistency: constant Severity: mild Quality: cramping Exacerbating factors: vomiting Relieving factors: none Associated symtoms: Reports fatigue, anorexia, malaise and nausea; Denies altered mental status, anxiety, bloating, change in vision, chest pain, cough, diaphoresis, decreased urine output, dizziness, dysuria, epistaxis, fecal incontinence, fevers/chills, headache(s), myalgias, numbness, palpitations, rash, short of breath, syncope, tenesmus, tinnitus or weakness Review of Systems Const: Reports: fatigue and malaise; Denies: fever(s), chills or diaphoresis Eyes: Denies: change in vision ENMT: Denies: tinnitus or epistaxis Card: Denies: chest pain, palpitations or syncope Resp: Denies: dyspnea, productive cough or non-productive cough GI: Reports: abdominal pain, nausea, vomiting and GI cramping; Denies: diarrhea, bloating or fecal incontinence : Denies: flank pain, difficulty urinating, dysuria, urinary frequency or urinary urgency Musc: Denies: neck pain or back pain Skin/Breast: Denies: rash or pruritus Neuro: Denies: headache(s) or dizziness Psych: Denies: anxiety PFSH ED PFSH: Medical History Anxiety Chronic pain Hyperlipidemia Hypertension Insulin dependent diabetes mellitus Surgical History H/O shoulder surgery Family History Other COPD (chronic obstructive pulmonary disease) Cancer Social History Smoking and tobacco status: never smoked Alcohol intake: never Physical Exam Const: EXAM LIMITATIONS: no altered mental status GENERAL APPEARANCE: cooperative and comfortable ORIENTATION/CONSCIOUSNESS: Yes awake, Yes oriented to person, Yes oriented to place and Yes oriented to time HENMT: COMMON NORMALS: normocephalic, atraumatic and hearing grossly normal bilaterally HEAD & SCALP: normocephalic and atraumatic Resp: COMMON NORMALS: normal respiratory effort, No retractions, No use of accessory muscles and clear to auscultation bilaterally AUSCULTATION: clear to auscultation bilaterally Cardio: COMMON NORMALS: regular rhythm and No murmurs present (Cardio) RATE: bradycardic RHYTHM: regular rhythm GI: COMMON NORMALS: Soft to palpation and No hepatosplenomegaly present AUSCULTATION: Yes normoactive bowel sounds PALPATION: Yes Soft to palpation, No Tenderness to palpation present (GI), No Guarding due to palpation present (GI) and Yes No hepatosplenomegaly present Extremity: COMMON NORMALS: normal to inspection, capillary refill normal, no clubbing, cyanosis or edema, no calf tenderness and no pedal edema Neuro: SENSORIUM/ORIENTATION: Yes oriented to person, Yes oriented to place and Yes oriented to time Skin: COMMON NORMALS: no rashes or lesions noted GENERAL SKIN EXAM: no rashes or lesions noted Course Vital Signs: Vital signs: Vital Signs Temperature 98.2 F 06/30/22 08:14 Pulse Rate 106 H 06/30/22 12:10 Respiratory Rate 18 06/30/22 12:10 Blood Pressure 128/66 06/30/22 12:10 Pulse Oximetry 97 06/30/22 12:10 Oxygen Delivery Me thod 06/30/22 08:14 MDM - Nausea/Vomiting/Diarrhea Medical Decision Making Acute DKA laboratory test reviewed discussed with the patient we will admit patient given IV fluids started on insulin drip. Medical Records I reviewed the patient's medical records. Lab Data I reviewed the patient's lab results. 06/30/22 08:28 06/30/22 08:28 Radiology Impressions Chest X-Ray 06/30/22 08:18 IMPRESSION: No acute findings. Laboratory Results WBC 14.5 10^3/uL (4.0-10.0) H 06/30/22 08:28 RBC 5.73 10^6/uL (4.1-5.3) H 06/30/22 08:28 Hgb 16.7 g/dL (11.7-16.6) H 06/30/22 08:28 Hct 52.0 % (42.0-52.0) 06/30/22 08:28 MCV 90.8 fl (80-94) 06/30/22 08:28 MCH 29.1 pg (28.0-34.0) 06/30/22 08:28 MCHC 32.1 g/dL (30.0-36.0) 06/30/22 08:28 RDW 12.4 % (12.1-15.1) 06/30/22 08:28 Plt Count 482 10^3/cmm (130-400) H 06/30/22 08:28 MPV 10.7 fL (7.4-10.4) H 06/30/22 08:28 Neut % (Auto) 86.0 % 06/30/22 08:28 Lymph % (Auto) 10.6 % 06/30/22 08:28 [place] % (Auto) 2.0 % 06/30/22 08:28 Eos % (Auto) 0.3 % 06/30/22 08:28 Baso % (Auto) 0.4 % 06/30/22 08:28 Neut # (Auto) 12.43 10^3/uL (1.8-7.7) H 06/30/22 08:28 Lymph # (Auto) 1.5 10^3/uL (0.8-4.8) 06/30/22 08:28 [place] # (Auto) 0.3 10^3/uL (0.2-0.9) 06/30/22 08:28 Eos # (Auto) 0.0 10^3/uL (0.0-0.8) 06/30/22 08:28 Baso # (Auto) 0.1 10^3/uL (0.0-0.1) 06/30/22 08:28 Nucleated RBC % (auto) 0 % 06/30/22 08:28 Nucleated RBCs # 0.0 /100WBC 06/30/22 08:28 Specimen Type Arterial 06/30/22 08:28 Sample Site Radial, left 06/30/22 08:28 ABG pH 7.07 (7.35-7.45) L* 06/30/22 08:28 ABG pCO2 21.2 mmHg (35-45) L 06/30/22 08:28 ABG pO2 120.0 mmHg (80.0-100.0) H 06/30/22 08:28 ABG HCO3 6.1 mmol/L (22-26) L 06/30/22 08:28 ABG O2 Saturation 98.0 06/30/22 08:28 ABG Base Excess -22.4 mmol/L (-2.0-2.0) L 06/30/22 08:28 [place] Test Pos 06/30/22 08:28 A-a O2 Gradient 0.1 mmHg (5-10) L 06/30/22 08:28 Hematocrit 50.2 % (42-52) 06/30/22 08:28 Hgb O2 Saturation 96.1 % (95-100) 06/30/22 08:28 Carboxyhemoglobin 0.9 %THgb (0.4-20.1) 06/30/22 08:28 Methemoglobin 1.0 % (0.4-1.5) 06/30/22 08:28 Total Hemoglobin 16.4 g/dL (14-18) 06/30/22 08:28 Sodium 136.0 mmol/L (131-143) 06/30/22 08:28 Potassium 5.2 mmol/L (3.5-5.0) H 06/30/22 08:28 Glucose 441.0 mg/dL (70-115) H 06/30/22 08:28 Ionized Calcium 1.4 mmol/L (1.1-1.4) 06/30/22 08:28 O2 Delivery Device Room air 06/30/22 08:28 FiO2 21.0 % 06/30/22 08:28 Plant Health Care Technician ID Cak 06/30/22 08:28 Sodium 138 mmol/L (136-145) 06/30/22 11:40 Potassium 5.2 mmol/L (3.5-5.1) H 06/30/22 11:40 Chloride 107 mmol/L (98-107) 06/30/22 11:40 Carbon Dioxide 8 mmol/L (22-29) L* 06/30/22 11:40 Anion Gap 28.2 (5-19) H 06/30/22 11:40 BUN 29 mg/dL (8-23) H 06/30/22 11:40 Creatinine 1.0 mg/dL (0.7-1.2) 06/30/22 11:40 GFR Calculation 75.5 mL/min (90-130) L 06/30/22 11:40 Glucose 306 mg/dL (65-115) H 06/30/22 11:40 POC Glucose 408 mg/dL (70-110) H 06/30/22 11:03 Estimat Average Glucose 306 06/30/22 08:28 Hemoglobin A1c 12.3 % (4.0-6.0) H 06/30/22 08:28 Calculated Osmolality 303 mOsm/kg (285-295) H 06/30/22 11:40 Lactic Acid 2.9 mmol/L (0.5-2.2) H 06/30/22 08:58 Lactic Acid (Sepsis) 1.8 mmol/L (0.5-2.2) 06/30/22 11:40 Calcium 8.6 mg/dL (8.5-10.5) 06/30/22 11:40 Magnesium 2.3 mg/dL (1.7-2.3) 06/30/22 08:28 Total Bilirubin 0.2 mg/dL (0.15-1.2) 06/30/22 08:28 AST 13 U/L (0-40) 06/30/22 08:28 ALT 21 U/L (0-41) 06/30/22 08:28 Alkaline Phosphatase 126 U/L (40-130) 06/30/22 08:28 Total Protein 8.8 g/dL (6.6-8.7) H 06/30/22 08:28 Albumin 4.8 g/dL (3.5-5.2) 06/30/22 08:28 Globulin 4.0 g/dL (1.3-4.6) 06/30/22 08:28 Lipase 110 U/L (13-60) H 06/30/22 08:28 TSH 0.42 uIU/mL (0.27-4.20) 06/30/22 08:28 Urine Color Yellow (Yellow) 06/30/22 11:11 Urine Appearance Clear (CLEAR) 06/30/22 11:11 Urine pH 5 (5-7) 06/30/22 11:11 Ur Specific [place] 1.020 (1.005-1.030) 06/30/22 11:11 Urine Protein Neg (Negative) 06/30/22 11:11 Urine Glucose (UA) 4+ (Normal) H 06/30/22 11:11 Urine Ketones 3+ (Negative) H 06/30/22 11:11 Urine Blood Neg (Negative) 06/30/22 11:11 Urine Nitrate Negative (Negative) 06/30/22 11:11 Urine Bilirubin Neg (Negative) 06/30/22 11:11 Urine Urobilinogen Norm mg/dL (Negative) 06/30/22 11:11 Ur Leukocyte Esterase Negative (Negative) 06/30/22 11:11 Gastric Occult Blood Positive (Negative) H 06/30/22 08:53 Serum Ketones Positive (Negative) H 06/30/22 08:28 Discharge Plan Discharge Condition: Stable Prescriptions: No Action hydrocodone-acetaminophen 5-325 mg tablet 1 tab PO TID PRN (Reason: Pain) aspirin [Adult Aspirin Regimen] 81 mg tablet,delayed release (DR/EC) 81 mg PO DAILY Tresiba FlexTouch U-100 100 unit/mL (3 mL) insulin pen 50 unit SUBCUT DAILY insulin aspart U-100 [Novolog Flexpen U-100 Insulin] 100 unit/mL (3 mL) insulin pen 5 unit SUBCUT TID Qty: 15 3RF Rx Instructions: Inject 5 units three times a day 15 minutes before meals. citalopram 40 mg Tablet 40 mg PO DAILY trazodone 100 mg Tablet 100 mg PO BEDTIME gabapentin 300 mg capsule 300 mg PO BID sertraline 50 mg tablet 50 mg PO DAILY Referrals: Bettina Erazo DO [Primary Care Provider] - Coding Level of Care Code ED Manager Books for Chg Fwd Exam Detailed
[2022-06-30] MEDS: sodium chloride 0.9% 1,000 ML 999 ML IV ×3 (08:33→11:16)
[2022-06-30] MEDS: ondansetron 2 mg/ML SDV 2 mL 4 MG IVP ×2 (08:37→14:02)
[2022-06-30 08:40] LABS: ABG PCO2 21.2 mmHg (35-45); ABG PH Result 7.07 (7.35-7.45); Alveolar-Arterial Oxygen Gradi 0.1 mmHg (5-10); Arterial Blood Gas Hematocrit 50.2 % (42-52); Base Excess ABG -22.4 mmol/L (-2.0-2.0); Blood Gas Allen Test Pos; Blood Gas Operator Identificat CAK; Blood Gas Sample Site Radial, left; Blood Gas Sample Type Arterial; Carboxyhemoglobin 0.9 %THgb (0.4-20.1); HCO3 ABG 6.1 mmol/L (22-26); HGB O2 Sat 96.1 % (95-100); Ionized Calcium Level - ABG 1.4 mmol/L (1.1-1.4); Oxygen Device ROOM AIR; Potassium Level - ABG 5.2 mmol/L (3.5-5.0); Total Hemoglobin 16.4 g/dL (14-18)
[2022-06-30 08:46] LABS: Glucose Point of Care 465 mg/dL (70-110)
--- NOTE | 2022-06-30 08:48 | ECG_ITS ---
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 Measurements Intervals [place] Rate: 115 P: 59 DE: 128 QRS: -54 QRSD: 84 T: 78 QT: 305 QTc: 422 Interpretive Statements SINUS TACHYCARDIA POSSIBLE LEFT ATRIAL ENLARGEMENT [-0.1mV P-WAVE IN V1/V2] LEFT ANTERIOR FASCICULAR BLOCK [QRS AXIS <= -45, QR IN I, RS IN II] MINIMAL ST DEPRESSION [0.025+ mV ST DEPRESSION] Compared to ECG 10/26/2019 04:37:03 Left anterior fascicular block now present ST (T wave) deviation now present Sinus rhythm no longer present Electronically Signed On 07-01-2022 12:32:13 TRIMMING CUTTER by Adrianne Coronado M.D. [id number]
[2022-06-30 08:49] LABS: Ketone (Acetest) Serum Positive (Negative); Magnesium 2.3 mg/dL (1.7-2.3)
[2022-06-30 08:50] LABS: Alanine Aminotransferase 21 U/L (0-41); Albumin Level 4.8 g/dL (3.5-5.2); Alkaline Phosphatase 126 U/L (40-130); Aspartate Amino Transferase 13 U/L (0-40); Blood Urea Nitrogen 29 mg/dL (8-23); Carbon Dioxide 10 mmol/L (22-29); Chloride 94 mmol/L (98-107); Glomerular Filtration Rate 67.6 mL/min (90-130); Glucose 426 mg/dL (65-115); Lipase 110 U/L (13-60); Osmolality Calculated 300 mOsm/kg (285-295); Sodium 133 mmol/L (136-145); Total Bilirubin 0.2 mg/dL (0.15-1.2); Total Protein 8.8 g/dL (6.6-8.7)
[2022-06-30 08:52] LABS: Anion Gap 34.8 (5-19); Potassium 5.8 mmol/L (3.5-5.1)
[2022-06-30 09:00] LABS: Gastricult Occult Blood Positive (Negative)
--- NOTE | 2022-06-30 09:00 | PC.NURSE ---
gastric hemocult collected and walked to lab
[2022-06-30 09:29] LABS: Lactic Sepsis W/Reflex 2.9 mmol/L (0.5-2.2)
[2022-06-30] MEDS: insulin regular-human 100 units/1 mL 10 UNIT IVP (09:41)
[2022-06-30] MEDS: pantoprazole 40 mg SDV IVP ×2 (09:45→21:02)
--- NOTE | 2022-06-30 10:00 | P.HP_ITS ---
Providers/Chief Complaint Admitting Physician: Marin Rosas MD Primary Care Provider: Bettina Erazo DO Chief Complaint: Bloody Emesis History of Present Illness Wiliam Rogers JR is a 62 year old male presenting to the emergency department with complaints of nausea, vomiting, fatigue, and eventually some coffee-ground emesis after multiple vomiting episodes over the last 3 days or so. He suspected he was in DKA, but has not checked his blood sugar in over a year. He reports he does not use any short acting insulin anymore, but does take his long-acting insulin 50 units every day. He reports no blood in his bowel movement or dark tarry bowel movements. He has not been sick lately with any fever. He reports that after multiple episodes of vomiting he started having some epigastric pain. Review of Systems General: Reports: 10 or more systems reviewed and unremarkable except in HPI a nd below Const: Reports: fatigue; Denies: fever(s) or chills Eyes: Denies: change in vision ENMT: Denies: throat pain Card: Denies: chest pain Resp: Denies: dyspnea GI: Reports: abdominal pain, nausea, vomiting and coffee ground emesis; Denies: hematochezia or melena : Denies: flank pain Musc: Reports: back pain; Denies: neck pain Skin/Breast: Denies: rash Neuro: Denies: headache(s) Psych: Denies: anxiety or depression Endo: Denies: polyuria Deep/Lymph: Denies: easy bruising All/Imm: Denies: urticaria Medications/Allergies Home Medications Medication Instructions Recorded Confirmed Last Taken Type citalopram 40 mg tablet 40 mg PO DAILY 10/26/19 06/30/22 06/29/22 History trazodone 100 mg tablet 100 mg PO BEDTIME 10/26/19 06/30/22 06/29/22 History hydrocodone 5 mg-acetaminophen 325 1 tab PO TID PRN Pain 03/10/20 06/30/22 06/29/22 History mg tablet aspirin 81 mg tablet,delayed 81 mg PO DAILY 05/12/20 06/30/22 06/29/22 History release (Adult Aspirin Regimen) insulin degludec 100 unit/mL (3 50 unit SUBCUT DAILY 09/07/21 06/30/22 06/29/22 History mL) subcutaneous pen (Tresiba FlexTouch U-100 insulin) insulin aspart U-100 100 unit/mL 5 unit (0.05 mL) SUBCUT TID #15 mL 09/21/21 06/30/22 06/29/22 Rx (3 mL) subcutaneous pen (Novolog Flexpen U-100 Insulin aspart) gabapentin 300 mg capsule 300 mg PO BID 06/30/22 06/30/22 Unknown History sertraline 50 mg tablet 50 mg PO DAILY 06/30/22 06/30/22 06/29/22 History Allergies Allergy/AdvReac Type Severity Reaction Status Date / Time No Known Drug Allergies Allergy Unknown Unknown Verified 06/30/22 10:13 PFSH Acute PFSH: Medical History (Updated 06/30/22 @ 10:58 by Marin Rosas MD) Anxiety Chronic pain Hyperlipidemia Hypertension Insulin dependent diabetes mellitus Surgical History H/O shoulder surgery Family History Other COPD (chronic obstructive pulmonary disease) Cancer Social History Smoking and tobacco status: never smoked Alcohol intake: never Vitals/I&O/Wt Last Vital Signs Temp 98.2 F 06/30/22 08:14 Pulse 118 H 06/30/22 08:50 Resp 18 06/30/22 08:50 BP 123/77 06/30/22 08:50 Pulse Ox 99 06/30/22 08:50 O2 Del Method 06/30/22 08:14 06/29/22 06/30/22 06/30/22 22:59 06:59 14:59 Intake Total 1000 / 1000 Balance 1000 / 1000 Weight last 48 hrs Weight 63.503 kg Physical Exam 2 Narrative: General exam is a white male, holding an emesis basin, in no distress HEENT: Atraumatic and normocephalic. Pupils equally round. Oropharynx clear. A dentulous. Neck is supple no lymphadenopathy or thyromegaly Cardiovascular tachycardic, no murmur Lungs clear no wheezing or crackles Abdomen is soft. Slight epigastric tenderness. No obvious organomegaly exams deferred Extremities no cyanosis clubbing or edema, cap refill brisk Skin no rash Neuro no focal deficits. Data 06/30/22 08:28 06/30/22 08:28 Other Labs: Initial ABG demonstrates pH 7.07, PCO2 of 21, PO2 of 120. Calcium elevated at 10.9 LFTs normal Lipase 110 Lactate 2.9 Gastric cult positive Serum ketones positive Chest x-ray no infiltrate EKG sinus tachycardia, left axis deviation, nonspecific ST-T wave changes A&P Assessment and plan (1) DKA (diabetic ketoacidoses): Patient presents with DKA. He does not monitor his blood sugars. He is only been taking long-acting insulin for the last year. Admission to ICU IV fluid boluses as per emergency department Insulin drip As blood sugar becomes less than 250 changed to D5 Will need education regarding medication at discharge. Check hemoglobin A1c Await urinalysis Qualifiers: Diabetes mellitus complication detail: without coma Diabetes mellitus type: type 1 Qualified Code(s): E10.10 - Type 1 diabetes mellitus with ketoacidosis without coma (2) Hyperkalemia: Secondary to severe acidosis Should decrease with hydration and treatment of acidosis (3) Coffee ground emesis: Likely secondary to repetitive vomiting Protonix IV Check hemoglobin tomorrow, sooner if clinically indicated Plan Other medical problems outlined in past medical history Full code SCDs for DVT prophylaxis. Anticoagulation contraindicated secondary to coffee- ground emesis Attestations Medical Necessity Statement*: May require less than 2 midnight stay for evaluation and treatment of DKA. Observation currently. Coding Level of Care Code Acute Research And Development Technician for [facility] Diagnoses DKA (diabetic ketoacidoses) E10.10 Diabetes mellitus complication detail: without coma Diabetes mellitus type: type 1 Hyperkalemia E87.5 Coffee ground emesis K92.0
[2022-06-30 10:21] LABS: Glucose Point of Care 380 mg/dL (70-110)
[2022-06-30 11:06] LABS: Glucose Point of Care 408 mg/dL (70-110)
[2022-06-30 11:07] LABS: Reflex Lactate Order REFLEX LACTIC ORDERD
[2022-06-30 11:18] LABS: Add Urine Microscopic? NO; Bilirubin Urine Neg (Negative); Blood Urine Neg (Negative); Glucose Urine UA 4+ (Normal); Ketones Urine 3+ (Negative); Leukocyte Esterase Urine Negative (Negative); Nitrate Urine Negative (Negative); Protein Urine Neg (Negative); Urine Appearance Clear (CLEAR); Urine Color Yellow (Yellow); Urobilinogen Urine Norm (Negative); pH Urine 5 (5-7)
[2022-06-30 11:20] LABS: Charge for UA Resulting for Rev
[2022-06-30 11:37] LABS: Thyroid Stimulating Hormone 0.42 uIU/mL (0.27-4.20)
[2022-06-30 11:47] LABS: Estmated Average Glucose 306; Hemoglobin A1C 12.3 % (4.0-6.0)
[2022-06-30 12:16] LABS: Anion Gap 28.2 (5-19); Blood Urea Nitrogen 29 mg/dL (8-23); Calcium 8.6 mg/dL (8.5-10.5); Chloride 107 mmol/L (98-107); Glomerular Filtration Rate 75.5 mL/min (90-130); Glucose 306 mg/dL (65-115); Lactic Acid level (Lactate) 1.8 mmol/L (0.5-2.2); Osmolality Calculated 303 mOsm/kg (285-295); Potassium 5.2 mmol/L (3.5-5.1); Sodium 138 mmol/L (136-145)
--- NOTE | 2022-06-30 12:18 | PC.NURSE ---
report called to KETAN Yin in ICU
[2022-06-30 12:19] LABS: Carbon Dioxide 8 mmol/L (22-29)
[2022-06-30 12:48] LABS: Glucose Point of Care 303 mg/dL (70-110)
--- NOTE | 2022-06-30 12:50 | PC.NURSE ---
Pt to Unit Pt brought to unit by ER staff via [facility]. Pt moved self from [place] to ICU bed. Pt is alert and oriented. IV to left arm patent. Pt has tshirt, plaid pants, wallet and brown house shoes all placed in the closet. Cell phone is at bedside. Pt has been oriented to room with call light within reach.
[2022-06-30] MEDS: insulin regular-human 250 UNIT in sodium chloride 0.9% 250 ML 9.1 UNIT IV (13:06)
[2022-06-30] MEDS: sodium chloride 0.9% 1,000 ML 175 ML IV (13:10)
[2022-06-30 14:04] LABS: Glucose Point of Care 285 mg/dL (70-110)
[2022-06-30 15:30] LABS: Glucose Point of Care 250 mg/dL (70-110)
[2022-06-30 16:32] LABS: Glucose Point of Care 229 mg/dL (70-110)
[2022-06-30 16:38] LABS: Blood Urea Nitrogen 24 mg/dL (8-23); Calcium 9.1 mg/dL (8.5-10.5); Carbon Dioxide 10 mmol/L (22-29); Chloride 108 mmol/L (98-107); Glomerular Filtration Rate 75.5 mL/min (90-130); Glucose 186 mg/dL (65-115); Magnesium 1.9 mg/dL (1.7-2.3); Osmolality Calculated 295 mOsm/kg (285-295); Phosphorus 2.7 mg/dL (2.5-4.5); Sodium 138 mmol/L (136-145)
[2022-06-30 17:06] LABS: Glucose Point of Care 204 mg/dL (70-110)
[2022-06-30 17:38] LABS: Glucose Point of Care 180 mg/dL (70-110)
[2022-06-30] MEDS: D5-NS 0.45% + KCL 20 mEq 20 MEQ/1,000 ML BAG 125 MEQ IV (17:43)
[2022-06-30 18:37] LABS: Glucose Point of Care 152 mg/dL (70-110)
[2022-06-30 20:21] LABS: Glucose Point of Care 148 mg/dL (70-110)
[2022-06-30 21:02] LABS: Glucose Point of Care 162 mg/dL (70-110)
[2022-06-30 22:12] LABS: Anion Gap 15.6 (5-19); Blood Urea Nitrogen 21 mg/dL (8-23); Calcium 8.7 mg/dL (8.5-10.5); Carbon Dioxide 18 mmol/L (22-29); Chloride 108 mmol/L (98-107); Glomerular Filtration Rate 97.6 mL/min (90-130); Glucose 174 mg/dL (65-115); Osmolality Calculated 291 mOsm/kg (285-295); Potassium 4.6 mmol/L (3.5-5.1); Sodium 137 mmol/L (136-145)
[2022-06-30 23:14] LABS: Glucose Point of Care 225 mg/dL (70-110)
[2022-06-30 23:14] LABS: Glucose Point of Care 174 mg/dL (70-110)
[2022-06-30] MEDS: sodium chloride 0.9% 1,000 ML 100 ML IV (23:32)
[2022-06-30] MEDS: insulin glargine 100 units/1 mL 45 UNIT SUBCUT (23:34)
[2022-07-01] VITALS (21 sets, daily range): BP systolic 95–138; BP diastolic 56–85; PULSE 66–91; RESP 16; TEMP 36.6–37.2; O2SAT 94–99
[2022-07-01 00:35] LABS: Glucose Point of Care 125 mg/dL (70-110)
[2022-07-01] MEDS: acetaminophen 325 mg Tablet 650 MG PO ×2 (03:12→15:23)
[2022-07-01 03:27] LABS: Basophils % 0.1 %; Eosinophils % 0.1 %; Hematocrit 40.4 % (42.0-52.0); Lymphocytes % 13.1 %; Mean Corpuscular HGB Conc 32.2 g/dL (30.0-36.0); Mean Corpuscular Hemoglobin 29.1 pg (28.0-34.0); Mean Corpuscular Volume 90.6 fl (80-94); Mean Platelet Volume 9.8 fL (7.4-10.4); Monocytes # 1.3 10^3/uL (0.2-0.9); Monocytes % 8.4 %; Neutrophils # 11.93 10^3/uL (1.8-7.7); Neutrophils % 77.7 %; Nucleated Red Blood Cells % 0 %; Platelet Count 319 10^3/cmm (130-400); Red Blood Count 4.46 10^6/uL (4.1-5.3); Red Cell Distribution Width 12.9 % (12.1-15.1); White Blood Count 15.4 10^3/uL (4.0-10.0)
[2022-07-01 03:51] LABS: Alanine Aminotransferase 14 U/L (0-41); Albumin Level 3.8 g/dL (3.5-5.2); Alkaline Phosphatase 85 U/L (40-130); Anion Gap 16.4 (5-19); Aspartate Amino Transferase 11 U/L (0-40); Blood Urea Nitrogen 20 mg/dL (8-23); Carbon Dioxide 17 mmol/L (22-29); Chloride 109 mmol/L (98-107); Creatinine Clr Calc Pharmacy 95.1824; Globulin 2.7 g/dL (1.3-4.6); Glomerular Filtration Rate 113.9 mL/min (90-130); Glucose 116 mg/dL (65-115); Magnesium 1.8 mg/dL (1.7-2.3); Osmolality Calculated 290 mOsm/kg (285-295); Phosphorus 1.9 mg/dL (2.5-4.5); Potassium 4.4 mmol/L (3.5-5.1); Sodium 138 mmol/L (136-145); Total Bilirubin 0.4 mg/dL (0.15-1.2); Total Protein 6.5 g/dL (6.6-8.7)
[2022-07-01 08:14] LABS: Glucose Point of Care 153 mg/dL (70-110)
[2022-07-01] MEDS: pantoprazole 40 mg SDV IVP ×2 (08:28→21:44)
[2022-07-01] MEDS: insulin lispro 100 unit/1 mL SUBCUT ×3 (08:28→17:16)
--- NOTE | 2022-07-01 11:02 | P.HP_ITS ---
Providers/Chief Complaint Admitting Physician: Marin Rosas MD Primary Care Provider: Bettina Erazo DO Chief Complaint: Bloody Emesis History of Present Illness Wiliam Rogers JR is a 62 year old male Review of Systems Const: Denies: fever(s) ENMT: Denies: nasal congestion Resp: Denies: dyspnea GI: Denies: abdominal pain, nausea or vomiting : Denies: dysuria Skin/Breast: Denies: rash Neuro: Denies: dizziness Medications/Allergies Home Medications Medication Instructions Recorded Confirmed Last Taken Type citalopram 40 mg tablet 40 mg PO DAILY 10/26/19 06/30/22 06/29/22 History trazodone 100 mg tablet 100 mg PO BEDTIME 10/26/19 06/30/22 06/29/22 History hydrocodone 5 mg-acetaminophen 325 1 tab PO TID PRN Pain 03/10/20 06/30/22 History mg tablet aspirin 81 mg tablet,delayed 81 mg PO DAILY 05/12/20 06/30/22 06/29/22 History release (Adult Aspirin Regimen) insulin degludec 100 unit/mL (3 50 unit SUBCUT DAILY 09/07/21 06/30/22 06/29/22 History mL) subcutaneous pen (Tresiba FlexTouch U-100 insulin) insulin aspart U-100 100 unit/mL 5 unit (0.05 mL) SUBCUT TID #15 mL 09/21/21 06/30/22 06/29/22 Rx (3 mL) subcutaneous pen (Novolog Flexpen U-100 Insulin aspart) gabapentin 300 mg capsule 300 mg PO BID 06/30/22 06/30/22 Unknown History sertraline 50 mg tablet 50 mg PO DAILY 06/30/22 06/30/22 06/29/22 History Allergies Allergy/AdvReac Type Severity Reaction Status Date / Time No Known Drug Allergies Allergy Unknown Unknown Verified 06/30/22 10:13 PFSH Acute PFSH: Medical History Anxiety Chronic pain Hyperlipidemia Hypertension Insulin dependent diabetes mellitus Surgical History H/O shoulder surgery Family History Other COPD (chronic obstructive pulmonary disease) Cancer Social History Smoking and tobacco status: never smoked Alcohol intake: never Vitals/I&O/Wt Last Vital Signs Temp 98.9 F 07/01/22 06:00 Pulse 89 07/01/22 10:00 Resp 18 06/30/22 18:00 BP 110/71 07/01/22 10:00 Pulse Ox 96 07/01/22 10:00 O2 Del Method 07/01/22 01:20 06/30/22 07/01/22 07/01/22 22:59 06:59 14:59 Intake Total 2072.496 / 4081.141 960.359 / 5041.500 1360 / 1360 Output Total 450 / 450 450 / 900 Balance 1622.496 / 3631.141 510.359 / 4141.500 1360 / 1360 Weight last 48 hrs Weight 64.047 kg Weight 63.503 kg Weight 63.503 kg Physical Exam Const: COMMON NORMALS: no acute distress and patient oriented x3 HENMT: COMMON NORMALS: normocephalic HEAD & SCALP: normocephalic Eye: COMMON NORMALS: Equal, round and reactive pupils present Resp: COMMON NORMALS: normal respiratory effort, No retractions, No use of accessory muscles and clear to auscultation bilaterally AUSCULTATION: clear to auscultation bilaterally Cardio: COMMON NORMALS: regular rate, regular rhythm, S1 normal heart sound present and S2 normal heart sound present RATE: regular rate RHYTHM: regular rhythm HEART SOUNDS: S1 normal heart sound present and S2 normal heart sound present GI: COMMON NORMALS: Normal to inspection, nondistended, normoactive bowel sounds present, Soft to palpation and non-tender PALPATION: Yes Soft to palpation Extremity: COMMON NORMALS: no calf tenderness and no pedal edema Neuro: COMMON NORMALS: patient oriented x3 and CN's II-XII intact bilaterally Psych: COMMON NORMALS: mental status grossly normal Data 07/01/22 03:15 07/01/22 03:15 A&P Assessment and plan (1) DKA (diabetic ketoacidoses): Out of DKA, moved out of ICU High-dose sliding scale Lantus 50 units in the morning Check hemoglobin A1c 12.3 Await urinalysis Qualifiers: Diabetes mellitus complication detail: without coma Diabetes mellitus type: type 1 Qualified Code(s): E10.10 - Type 1 diabetes mellitus with ketoacidosis without coma (2) Hyperkalemia: Resolved (3) Coffee ground emesis: Resolved Plan Other medical problems outlined in past medical history Full code SCDs for DVT prophylaxis. Attestations Medical Necessity Statement*: Patient requires hospitalization for DKA Coding Level of Care Code Acute Leather Stamper for [facility] Diagnoses DKA (diabetic ketoacidoses) E10.10 Diabetes mellitus complication detail: without coma Diabetes mellitus type: type 1 Hyperkalemia E87.5 Coffee ground emesis K92.0
[2022-07-01 11:09] LABS: Glucose Point of Care 204 mg/dL (70-110)
[2022-07-01] MEDS: heparin 5,000 unit/mL INJ 1 mL 5000 UNIT SUBCUT (12:28)
--- NOTE | 2022-07-01 17:07 | PC.NURSE ---
Report called to KETAN Seth on [facility] floor. Patient transferred to room 255-2 via wheelchair accompanied by this nurse. Patient noted to be A&Ox4 at time of transfer. Patient's belongings noted to be on bedside table.
[2022-07-01 17:16] LABS: Glucose Point of Care 312 mg/dL (70-110)
[2022-07-01] MEDS: gabapentin 300 mg Capsule PO (17:16)
[2022-07-01 20:40] LABS: Glucose Point of Care 285 mg/dL (70-110)
[2022-07-01] MEDS: trazodone 100 mg Tablet PO (21:44)
[2022-07-02] VITALS (7 sets, daily range): BP systolic 111–125; BP diastolic 65–78; PULSE 62–83; RESP 16–20; TEMP 36.7–36.9; O2SAT 94–97
[2022-07-02] MEDS: heparin 5,000 unit/mL INJ 1 mL 5000 UNIT SUBCUT (01:10)
[2022-07-02 06:02] LABS: Alanine Aminotransferase 12 U/L (0-41); Albumin Level 3.1 g/dL (3.5-5.2); Alkaline Phosphatase 68 U/L (40-130); Aspartate Amino Transferase 13 U/L (0-40); Blood Urea Nitrogen 12 mg/dL (8-23); Calcium 8.7 mg/dL (8.5-10.5); Carbon Dioxide 24 mmol/L (22-29); Chloride 107 mmol/L (98-107); Globulin 2.2 g/dL (1.3-4.6); Glomerular Filtration Rate 167.9 mL/min (90-130); Glucose 235 mg/dL (65-115); Magnesium 1.8 mg/dL (1.7-2.3); Osmolality Calculated 293 mOsm/kg (285-295); Sodium 138 mmol/L (136-145); Total Bilirubin 0.3 mg/dL (0.15-1.2); Total Protein 5.3 g/dL (6.6-8.7)
[2022-07-02 06:13] LABS: Anion Gap 10.7 (5-19); Potassium 3.7 mmol/L (3.5-5.1)
[2022-07-02] MEDS: insulin glargine 100 units/1 mL 40 UNIT SUBCUT (06:24)
[2022-07-02 06:47] LABS: Glucose Point of Care 227 mg/dL (70-110)
[2022-07-02] MEDS: insulin lispro 100 unit/1 mL SUBCUT (07:47)
[2022-07-02] MEDS: aspirin 81 mg EC Tablet PO (07:49)
[2022-07-02] MEDS: gabapentin 300 mg Capsule PO (07:51)
[2022-07-02] MEDS: pantoprazole 40 mg SDV IVP (07:51)
[2022-07-02 08:01] LABS: Basophils % 0.2 %; Eosinophils # 0.1 10^3/uL (0.0-0.8); Eosinophils % 1.7 %; Hematocrit 34.8 % (42.0-52.0); Hemoglobin 11.8 g/dL (11.7-16.6); Lymphocytes # 1.7 10^3/uL (0.8-4.8); Lymphocytes % 35.8 %; Mean Corpuscular HGB Conc 33.9 g/dL (30.0-36.0); Mean Corpuscular Hemoglobin 29.2 pg (28.0-34.0); Mean Corpuscular Volume 86.1 fl (80-94); Mean Platelet Volume 10.1 fL (7.4-10.4); Monocytes # 0.4 10^3/uL (0.2-0.9); Monocytes % 7.5 %; Neutrophils # 2.61 10^3/uL (1.8-7.7); Neutrophils % 54.6 %; Nucleated Red Blood Cells % 0 %; Platelet Count 217 10^3/cmm (130-400); Red Blood Count 4.04 10^6/uL (4.1-5.3); Red Cell Distribution Width 12.7 % (12.1-15.1); White Blood Count 4.8 10^3/uL (4.0-10.0)
--- NOTE | 2022-07-02 09:48 | PC.CHAP ---
Pastoral Care Encounter/Spiritual Assessment Type of Contact [] Declined pmp visit [] Patient/Family/Request visit [] Outpatient visit [] Follow-up visit [] Physician referral [] Code/Alert [x] Routine visit [] Staff referral [] Actively dying [] Patient sleeping [] Family support [] [] Out of room [] Palliative care [] [] Receiving care in room [] Pre-surgical visit [] Trauma [] Long length of stay [] ICU visit [] Other: Relational/Emotional Strength [] Patient feels connected with others/family/visitors/staff [] Distress [] Loneliness/isolation [] Abandonment Spirituality of Patient [] Person of Estefani [] Attends Lutheran of their Estefani [x] Believes in Prayer [] Reads Bible or Hinduism materials [] There are Spiritual issues to be addressed Reverse Unit Operator Interventions [x] Prayer [] Active listening [] Non-anxious presence [] Spiritual/emotional support [] Crisis/trauma care [] Spiritual counseling [] Bereavement support [] Provided bereavement packet [] Provided Bible/devotional materials [] Provided toy/stuffed animal, coloring book to patient or family member [] Provided Communion [] Anointing/[place] [] Salvation [] Completed spiritual assessment [] Other: Impact on Illness or Injury [] Angry [] Fearful [] Anxious [] Often cries [] Exhaustion [] Unable to work [] Unable to attend islam [] Unable to walk/stand [] Unable to read [] Unable to drive [] Unable to eat/drink [] Unable to sleep [] Unable to be with family [] Patient intubated [] Other: Summary Time spent with patient 5 min
--- NOTE | 2022-07-02 10:05 | P.DS_ITS ---
Discharge Providers Date of Admission: 07/01/22 18:04 Date of Discharge: July 02, 2022 Attending Provider at Admission: Marin Rosas MD Attending Provider at Discharge: Jules Gaitan MD Primary Care Provider: Bettina Erazo DO Diagnoses at Discharge Discharge Diagnosis (1) DKA (diabetic ketoacidoses): Status: Acute Qualifiers: Diabetes mellitus complication detail: without coma Diabetes mellitus type: type 1 Qualified Code(s): E10.10 - Type 1 diabetes mellitus with ketoacidosis without coma (2) Hyperkalemia: Status: Acute (3) Coffee ground emesis: Status: Acute Reason for Visit Reason for Visit: Bloody Emesis Hospital Course Hospital Course This is a 62-year-old male with a past medical history of insulin-dependent type 2 diabetes mellitus, depression, who presents [facility] due to nausea, vomiting, fatigue, coffee-ground emesis Patient was admitted to [facility] for diabetic ketoacidosis, admitted to ICU, received DKA protocol, fluid management, electrolyte placement. Overall patient clinically improved, anion gap closed, electrolytes replaced, hydration status improved, blood sugars improved, moved to [facility] or for the monitor for over 24 hours. Patient will be discharged home with his home Tresiba 50 units subcu daily, with his home NovoLog follow-up with Dr. Grubbs in 1 week. A1c 12.3. For his coffee-ground emesis, no recurrent episodes, likely secondary to intractable nausea vomiting, will discharge on Protonix if any recurrent episodes of nausea vomiting or diarrhea with black tarry stools emergency room given that he is Gastroccult positive I will discharge him on Protonix, with a follow-up with general surgery for consideration of EGD Physical Exam Const: COMMON NORMALS: no acute distress and patient oriented x3 Resp: COMMON NORMALS: normal respiratory effort, No retractions, No use of accessory muscles and clear to auscultation bilaterally AUSCULTATION: clear to auscultation bilaterally Cardio: COMMON NORMALS: regular rate, regular rhythm, S1 normal heart sound present and S2 normal heart sound present RATE: regular rate RHYTHM: regular rhythm HEART SOUNDS: S1 normal heart sound present and S2 normal heart sound present GI: COMMON NORMALS: Normal to inspection, nondistended, normoactive bowel sounds present and non-tender Extremity: COMMON NORMALS: no pedal edema Neuro: COMMON NORMALS: patient oriented x3 Psych: COMMON NORMALS: mental status grossly normal Discharge Data Studies Completed and Pending Completed Studies During Hospitalization Category Date Time Status XR chest 1V portable [id number] Stat Exams 06/30/22 08:18 Completed Pending at discharge Category Date Time Status Complete Blood Count w/Auto AM LABS Lab 07/03/22 04:00 Ordered Complete Blood Count w/Auto AM LABS Lab 07/04/22 04:00 Ordered Comprehensive Metabolic Panel AM LABS Lab 07/03/22 04:00 Ordered Comprehensive Metabolic Panel AM LABS Lab 07/04/22 04:00 Ordered Magnesium AM LABS Lab 07/03/22 04:00 Ordered Magnesium AM LABS Lab 07/04/22 04:00 Ordered Radiology Impressions Chest X-Ray 06/30/22 08:18 IMPRESSION: No acute findings. Laboratory Results WBC 4.8 10^3/uL (4.0-10.0) 07/02/22 07:37 Corrected WBC Cancelled 07/02/22 05:18 RBC 4.04 10^6/uL (4.1-5.3) L 07/02/22 07:37 Hgb 11.8 g/dL (11.7-16.6) 07/02/22 07:37 Hct 34.8 % (42.0-52.0) L 07/02/22 07:37 MCV 86.1 fl (80-94) 07/02/22 07:37 MCH 29.2 pg (28.0-34.0) 07/02/22 07:37 MCHC 33.9 g/dL (30.0-36.0) D 07/02/22 07:37 RDW 12.7 % (12.1-15.1) 07/02/22 07:37 Plt Count 217 10^3/cmm (130-400) D 07/02/22 07:37 MPV 10.1 fL (7.4-10.4) 07/02/22 07:37 Gran % Cancelled 07/02/22 05:18 Neut % (Auto) 54.6 % 07/02/22 07:37 Lymph % (Auto) 35.8 % 07/02/22 07:37 [place] % (Auto) 7.5 % 07/02/22 07:37 Eos % (Auto) 1.7 % 07/02/22 07:37 Baso % (Auto) 0.2 % 07/02/22 07:37 Neut # (Auto) 2.61 10^3/uL (1.8-7.7) 07/02/22 07:37 Lymph # (Auto) 1.7 10^3/uL (0.8-4.8) 07/02/22 07:37 [place] # (Auto) 0.4 10^3/uL (0.2-0.9) 07/02/22 07:37 Eos # (Auto) 0.1 10^3/uL (0.0-0.8) 07/02/22 07:37 Baso # (Auto) 0.0 10^3/uL (0.0-0.1) 07/02/22 07:37 Absolute Gran (auto) Cancelled 07/02/22 05:18 Nucleated RBC % (auto) 0 % 07/02/22 07:37 Nucleated RBCs # 0.0 /100WBC 07/02/22 07:37 Specimen Type Arterial 06/30/22 08:28 Sample Site Radial, left 06/30/22 08:28 ABG pH 7.07 (7.35-7.45) L* 06/30/22 08:28 ABG pCO2 21.2 mmHg (35-45) L 06/30/22 08:28 ABG pO2 120.0 mmHg (80.0-100.0) H 06/30/22 08:28 ABG HCO3 6.1 mmol/L (22-26) L 06/30/22 08:28 ABG O2 Saturation 98.0 06/30/22 08:28 ABG Base Excess -22.4 mmol/L (-2.0-2.0) L 06/30/22 08:28 Jefferson Test Pos 06/30/22 08:28 A-a O2 Gradient 0.1 mmHg (5-10) L 06/30/22 08:28 Hematocrit 50.2 % (42-52) 06/30/22 08:28 Hgb O2 Saturation 96.1 % (95-100) 06/30/22 08:28 Carboxyhemoglobin 0.9 %THgb (0.4-20.1) 06/30/22 08:28 Methemoglobin 1.0 % (0.4-1.5) 06/30/22 08:28 Total Hemoglobin 16.4 g/dL (14-18) 06/30/22 08:28 Sodium 136.0 mmol/L (131-143) 06/30/22 08:28 Potassium 5.2 mmol/L (3.5-5.0) H 06/30/22 08:28 Glucose 441.0 mg/dL (70-115) H 06/30/22 08:28 Ionized Calcium 1.4 mmol/L (1.1-1.4) 06/30/22 08:28 O2 Delivery Device Room air 06/30/22 08:28 FiO2 21.0 % 06/30/22 08:28 Surface Plate Finisher ID Cak 06/30/22 08:28 Sodium 138 mmol/L (136-145) 07/02/22 05:18 Potassium 3.7 mmol/L (3.5-5.1) 07/02/22 05:18 Chloride 107 mmol/L (98-107) 07/02/22 05:18 Carbon Dioxide 24 mmol/L (22-29) 07/02/22 05:18 Anion Gap 10.7 (5-19) 07/02/22 05:18 BUN 12 mg/dL (8-23) 07/02/22 05:18 Creatinine 0.5 mg/dL (0.7-1.2) L 07/02/22 05:18 GFR Calculation 167.9 mL/min (90-130) H 07/02/22 05:18 Glucose 235 mg/dL (65-115) H 07/02/22 05:18 POC Glucose 227 mg/dL (70-110) H 07/02/22 06:39 Estimat Average Glucose 306 06/30/22 08:28 Hemoglobin A1c 12.3 % (4.0-6.0) H 06/30/22 08:28 Calculated Osmolality 293 mOsm/kg (285-295) 07/02/22 05:18 Lactic Acid 2.9 mmol/L (0.5-2.2) H 06/30/22 08:58 Lactic Acid (Sepsis) 1.8 mmol/L (0.5-2.2) 06/30/22 11:40 Calcium 8.7 mg/dL (8.5-10.5) 07/02/22 05:18 Phosphorus 1.9 mg/dL (2.5-4.5) L 07/01/22 03:15 Magnesium 1.8 mg/dL (1.7-2.3) 07/02/22 05:18 Total Bilirubin 0.3 mg/dL (0.15-1.2) 07/02/22 05:18 AST 13 U/L (0-40) 07/02/22 05:18 ALT 12 U/L (0-41) 07/02/22 05:18 Alkaline Phosphatase 68 U/L (40-130) 07/02/22 05:18 Total Protein 5.3 g/dL (6.6-8.7) L 07/02/22 05:18 Albumin 3.1 g/dL (3.5-5.2) L 07/02/22 05:18 Globulin 2.2 g/dL (1.3-4.6) 07/02/22 05:18 Lipase 110 U/L (13-60) H 06/30/22 08:28 TSH 0.42 uIU/mL (0.27-4.20) 06/30/22 08:28 Urine Color Yellow (Yellow) 06/30/22 11:11 Urine Appearance Clear (CLEAR) 06/30/22 11:11 Urine pH 5 (5-7) 06/30/22 11:11 Ur Specific [place] 1.020 (1.005-1.030) 06/30/22 11:11 Urine Protein Neg (Negative) 06/30/22 11:11 Urine Glucose (UA) 4+ (Normal) H 06/30/22 11:11 Urine Ketones 3+ (Negative) H 06/30/22 11:11 Urine Blood Neg (Negative) 06/30/22 11:11 Urine Nitrate Negative (Negative) 06/30/22 11:11 Urine Bilirubin Neg (Negative) 06/30/22 11:11 Urine Urobilinogen Norm mg/dL (Negative) 06/30/22 11:11 Ur Leukocyte Esterase Negative (Negative) 06/30/22 11:11 Gastric Occult Blood Positive (Negative) H 06/30/22 08:53 Serum Ketones Positive (Negative) H 06/30/22 08:28 Vitals Last Vital Signs Temp 98.1 F 07/02/22 08:07 Pulse 83 07/02/22 09:24 Resp 16 07/02/22 08:07 BP 125/78 07/02/22 08:07 Pulse Ox 97 07/02/22 09:24 O2 Del Method 07/02/22 09:24 Discharge Plan Discharge Patient Disposition: Home Condition: Stable Prescriptions: Continued hydrocodone-acetaminophen 5-325 mg tablet 1 tab PO TID PRN (Reason: Pain) aspirin [Adult Aspirin Regimen] 81 mg tablet,delayed release (DR/EC) 81 mg PO DAILY Tresiba FlexTouch U-100 100 unit/mL (3 mL) insulin pen 50 unit SUBCUT DAILY insulin aspart U-100 [Novolog Flexpen U-100 Insulin] 100 unit/mL (3 mL) insulin pen 5 unit SUBCUT TID Qty: 15 3RF Rx Instructions: Inject 5 units three times a day 15 minutes before meals. citalopram 40 mg Tablet 40 mg PO DAILY trazodone 100 mg Tablet 100 mg PO BEDTIME gabapentin 300 mg capsule 300 mg PO BID sertraline 50 mg tablet 50 mg PO DAILY Discharge Orders: Discharge Order (Routine); Ordered 07/02/22 Ordered By: Jules Gaitan Referrals: Bettina Erazo DO [Primary Care Provider] - 1-3 days Colin Grubbs MD [Physician] - 1 week Discharge Diet: Diabetic Patient Instructions: Opioid Safety Activity Restrictions/Additional Instructions: - Monitor blood sugars closely -Please monitor your blood sugars closely -Monitor your blood sugars 3 times daily as after meals -Please record your blood sugars, and a blood sugar log -Please inject blood sugar after meals based on sliding scale provided -Do not inject insulin if you do not eat as hypoglycemia kills -If your blood sugar is greater than 500 go to the emergency room -If your blood sugar is less than 60 or at anytime you feel lightheaded or dizzy or diaphoretic or have chest palpitations check your blood sugar, and eat a hard candy or drink orange juice and go immediately to the emergency room -Remember hypoglycemia kills, so if his blood sugar is less than 60 we have to increase it by taking in a sugary meal such as a hard candy or orange juice and go to the emergency room -If you have any questions please call us where here to help - Continue your home Tresiba dose 50 units subcu daily -Follow-up with Dr. Grubbs in 1 week Discharge Attestations Time Spent in Discharge Care*: less than 30 min Quality Metrics Clinical Quality Measures [ No reported AMI, CVA or VTE this stay] Coding Level of Care Code Acute Chg FW DC note Diagnoses DKA (diabetic ketoacidoses) E10.10 Diabetes mellitus complication detail: without coma Diabetes mellitus type: type 1 Hyperkalemia E87.5 Coffee ground emesis K92.0
[2022-07-02 11:08] LABS: Glucose Point of Care 251 mg/dL (70-110)
== END 2022-07-02 11:30 | disposition home or self-care (01) | DRG 638 ==
LOC: ER 09:32 → ICU 12:43 → MEDSURG 07-01 17:05
PROVIDERS: Admitting Provider Internal Medicine; Emergency Provider Family Medicine; PCP Internal Medicine; Visit Provider Family Medicine
DX: E11.10 Type 2 diabetes mellitus with ketoacidosis without coma (principal); K92.0 Hematemesis; F41.9 Anxiety disorder, unspecified; G89.29 Other chronic pain; E78.5 Hyperlipidemia, unspecified; I10 Essential (primary) hypertension; E87.5 Hyperkalemia; F32.A Depression, unspecified; Z79.891 Long term (current) use of opiate analgesic; Z79.82 Long term (current) use of aspirin; Z79.4 Long term (current) use of insulin
CPT/HCPCS: 36415; 36416; 36600; 71045; 80048; 80051; 80053; 81003; 82009; 82271; 82330; 82805; 82962; 83036; 83605; 83690; 83735; 84100; 84443; 85025; 93005; 96361; 96372; 96374; 96375; 99285; C9113; G0378; J1644; J1815; J2405; J7030; J7050

== ENCOUNTER → 2022-11-30 09:21 | Outpatient (BNVA) | payer MEDICARE, MEDICAID, SELFPAY | PROVIDERS: PCP Nurse Practitioner Family; Visit Provider Internal Medicine | DX: E11.9 Type 2 diabetes mellitus without complications (principal); E78.5 Hyperlipidemia, unspecified; Z79.4 Long term (current) use of insulin | CPT/HCPCS: 99214 ==

== ENCOUNTER → 2023-03-03 08:25 | Outpatient (BNVA) | payer MEDICARE, MEDICAID, SELFPAY | PROVIDERS: PCP Nurse Practitioner Family; Visit Provider Internal Medicine | DX: E78.5 Hyperlipidemia, unspecified (principal); E11.9 Type 2 diabetes mellitus without complications; Z79.4 Long term (current) use of insulin | CPT/HCPCS: 99214 ==

== ENCOUNTER 2023-05-04 18:45 | Emergency (ER) | payer MEDICARE, MEDICAID, SELFPAY ==
[2023-05-04 18:49] VITALS: BP 97/68; PULSE 105; RESP 18; TEMP 37.1; O2SAT 96; BMI 23.6
[2023-05-04 19:21] LABS: Basophils # 0.1 10^3/uL (0.0-0.1); Basophils % 0.5 %; Eosinophils % 0.3 %; Hematocrit 43.3 % (37-53); Lymphocytes # 1.3 10^3/uL (0.8-4.8); Lymphocytes % 13.7 %; Mean Corpuscular HGB Conc 33.9 g/dL (30-55); Mean Corpuscular Hemoglobin 29.5 pg (27-33); Mean Corpuscular Volume 86.8 fl (82-101); Mean Platelet Volume 10.1 fL (7.4-10.4); Monocytes # 0.4 10^3/uL (0.2-0.9); Monocytes % 4.8 %; Neutrophils # 7.41 10^3/uL (1.8-7.7); Neutrophils % 80.4 %; Nucleated Red Blood Cells % 0 %; Platelet Count 280 10^3/cmm (157-399); Red Blood Count 4.99 10^6/uL (3.85-5.65); White Blood Count 9.22 10^3/uL (3.29-11.43)
[2023-05-04 19:34] LABS: Alanine Aminotransferase 18 U/L (0-41); Alkaline Phosphatase 90 U/L (40-130); Blood Urea Nitrogen 36 mg/dL (8-23); Calcium 10.2 mg/dL (8.5-10.5); Carbon Dioxide 17 mmol/L (22-29); Chloride 90 mmol/L (98-107); Globulin 3.1 g/dL (1.3-4.6); Glomerular Filtration Rate 67.6 mL/min (90-130); Glucose 487 mg/dL (65-115); Lipase 19 U/L (13-60); Osmolality Calculated 298 mOsm/kg (285-295); Sodium 129 mmol/L (136-145); Total Bilirubin 0.4 mg/dL (0.15-1.2); Total Protein 8.1 g/dL (6.6-8.7)
[2023-05-04 19:37] LABS: Anion Gap 27.3 (5-19); Potassium 5.3 mmol/L (3.5-5.1)
[2023-05-04 19:38] LABS: Aspartate Amino Transferase 13 U/L (0-40)
[2023-05-04 19:52] VITALS: BP 124/78; PULSE 97; RESP 23; O2SAT 96
[2023-05-04] MEDS: sodium chloride 0.9% 1,000 ML 999 ML IV (20:07)
[2023-05-04] MEDS: ondansetron 2 mg/ML SDV 2 mL 4 MG IVP (20:07)
[2023-05-04 20:10] VITALS: BP 126/79; PULSE 94; RESP 20; O2SAT 97
[2023-05-04 20:11] LABS: Ketone (Acetest) Serum Negative (Negative)
[2023-05-04] MEDS: insulin regular-human 100 units/1 mL 14 UNIT IVP (20:34)
[2023-05-04 20:37] VITALS: BP 132/78; PULSE 95; RESP 18; O2SAT 96
--- NOTE | 2023-05-04 20:58 | PC.NURSE ---
Dr lizarraga of blood sugar after insulin IVP. No new orders received at this time.
[2023-05-04 20:59] LABS: Glucose Point of Care 318 mg/dL (70-110)
--- NOTE | 2023-05-04 21:52 | PC.NURSE ---
Dr Ray informed that blood sugar was 223. No new orders received at this time.
[2023-05-04 21:53] LABS: Glucose Point of Care 223 mg/dL (70-110)
[2023-05-04 22:34] VITALS: BP 112/68; PULSE 95; PULSE 97; RESP 18; O2SAT 94; O2SAT 96
--- NOTE | 2023-05-04 22:39 | PC.NURSE ---
Patient was wobbly on feet upon getting up from bed after signing DC paperwork. patient refused to use wheelchair to get to vehicle, stating I go through this everyday. States now that he feels a lot better.
--- NOTE | 2023-05-04 22:57 | W.ED.NAVMDI ---
HPI - Nausea/Vomiting/Diarrhea General: Chief complaint: Nausea/Vomiting/Diarrhea Stated complaint: vomitting Time Seen by Provider: 05/04/23 19:03 History of Present Illness: This patient is a 62-year-old white male who presents to the emergency department stating that he feels like he may be in ketoacidosis. Patient is an insulin-dependent diabetic, type II. Patient states he has been vomiting today. He is feeling somewhat dizzy. He has a headache. Some mild shortness of breath. Review of Systems General: Reports: 10 or more systems reviewed and unremarkable except in HPI and below PFSH ED PFSH: Medical History (Updated 05/04/23 @ 21:55 by Osorio Ray MD) Anxiety Chronic pain Hyperlipidemia Hypertension Insulin dependent diabetes mellitus Surgical History H/O shoulder surgery Family History Other COPD (chronic obstructive pulmonary disease) Cancer Social History Smoking and tobacco status: never smoked Alcohol intake: never Substance/Drug Use: never Physical Exam Const: COMMON NORMALS: no acute distress, patient oriented x3 and no limitations GENERAL APPEARANCE: cooperative and comfortable HENMT: COMMON NORMALS: normocephalic, atraumatic, Normal nasal mucous membranes and turbinates present, moist oral mucous membranes and oropharynx normal HEAD & SCALP: normal to inspection, normocephalic and atraumatic FACE & SINUS: normal facial exam NOSE: Normal nasal mucous membranes and turbinates present Eye: COMMON NORMALS: Equal, round and reactive pupils present, EOMs intact bilaterally and conjunctivae normal GENERAL EYE: appearance normal, both eyes and all related structures CONJUNCTIVA: Yes conjunctivae normal PUPIL: Yes Equal, round and reactive pupils present Neck/C-Spine: COMMON NORMALS: supple and no JVD Chest: COMMONS NORMALS: normal inspection of the chest Resp: COMMON NORMALS: normal respiratory effort and clear to auscultation bilaterally AUSCULTATION: clear to auscultation bilaterally Cardio: COMMON NORMALS: no JVD, regular rate, regular rhythm, No gallops present (Cardio), No murmurs present (Cardio) and No rub (Cardio) RATE: regular rate RHYTHM: regular rhythm GI: COMMON NORMALS: Normal to inspection, nondistended, normoactive bowel sounds present, Soft to palpation and non-tender AUSCULTATION: Yes normoactive bowel sounds PALPATION: Yes Soft to palpation : COMMON NORMALS: Yes no CVA tenderness BLADDER/KIDNEY EXAM: Yes no CVA tenderness Back/Pelvis: COMMON NORMALS: no CVA tenderness and thoracic and lumbar spine normal to inspection Extremity: COMMON NORMALS: normal to inspection Neuro: COMMON NORMALS: patient oriented x3 and CN's II-XII intact bilaterally Psych: COMMON NORMALS: mental status grossly normal, Normal thought process present and cooperative THOUGHT PROCESS: Normal thought process present Skin: COMMON NORMALS: no rashes or lesions noted, turgor normal and no jaundice GENERAL SKIN EXAM: no rashes or lesions noted and turgor normal Course Vital Signs: Vital signs: Vital Signs Temperature 98.7 F 05/04/23 18:49 Pulse Rate 95 05/04/23 22:34 Respiratory Rate 18 05/04/23 22:34 Blood Pressure 112/68 05/04/23 22:34 Pulse Oximetry 96 05/04/23 22:34 Oxygen Delivery Me thod Room Air 05/04/23 22:34 MDM - Nausea/Vomiting/Diarrhea Medical Decision Making CBC was normal. CMP revealed a sodium of 129, potassium 5.3. Bicarb 17. BUN 36 and a creatinine of 1.1. Blood sugar was 487. Serum ketones negative. Patient was given 2 L of normal saline and 4 mg of Zofran IV. We also given 14 units of regular insulin IV. Blood sugar came down to 222. Patient feeling much improved. He was discharged in stable condition instructed to use a sliding scale insulin as needed. Follow-up with his primary care physician within the next several days for recheck. Lab Data 05/04/23 19:11 05/04/23 19:11 Laboratory Results WBC 9.22 10^3/uL (3.29-11.43) 05/04/23 19:11 RBC 4.99 10^6/uL (3.85-5.65) 05/04/23 19:11 Hgb 14.70 g/dL (11.27-16.99) 05/04/23 19:11 Hct 43.3 % (37-53) 05/04/23 19:11 MCV 86.8 fl (82-101) 05/04/23 19:11 MCH 29.5 pg (27-33) 05/04/23 19:11 MCHC 33.9 g/dL (30-55) 05/04/23 19:11 RDW 13.0 % (12.1-15.1) 05/04/23 19:11 Plt Count 280 10^3/cmm (157-399) 05/04/23 19:11 MPV 10.1 fL (7.4-10.4) 05/04/23 19:11 Neut % (Auto) 80.4 % 05/04/23 19:11 Lymph % (Auto) 13.7 % 05/04/23 19:11 [place] % (Auto) 4.8 % 05/04/23 19:11 Eos % (Auto) 0.3 % 05/04/23 19:11 Baso % (Auto) 0.5 % 05/04/23 19:11 Neut # (Auto) 7.41 10^3/uL (1.8-7.7) 05/04/23 19:11 Lymph # (Auto) 1.3 10^3/uL (0.8-4.8) 05/04/23 19:11 [place] # (Auto) 0.4 10^3/uL (0.2-0.9) 05/04/23 19:11 Eos # (Auto) 0.0 10^3/uL (0.0-0.8) 05/04/23 19:11 Baso # (Auto) 0.1 10^3/uL (0.0-0.1) 05/04/23 19:11 Nucleated RBC % (auto) 0 % 05/04/23 19:11 Nucleated RBCs # 0.0 /100WBC 05/04/23 19:11 Sodium 129 mmol/L (136-145) L 05/04/23 19:11 Potassium 5.3 mmol/L (3.5-5.1) H 05/04/23 19:11 Chloride 90 mmol/L (98-107) L 05/04/23 19:11 Carbon Dioxide 17 mmol/L (22-29) L 05/04/23 19:11 Anion Gap 27.3 (5-19) H 05/04/23 19:11 BUN 36 mg/dL (8-23) H 05/04/23 19:11 Creatinine 1.1 mg/dL (0.7-1.2) 05/04/23 19:11 GFR Calculation 67.6 mL/min (90-130) L 05/04/23 19:11 Glucose 487 mg/dL (65-115) H 05/04/23 19:11 POC Glucose 223 mg/dL (70-110) H 05/04/23 21:50 Calculated Osmolality 298 mOsm/kg (285-295) H 05/04/23 19:11 Calcium 10.2 mg/dL (8.5-10.5) 05/04/23 19:11 Total Bilirubin 0.4 mg/dL (0.15-1.2) 05/04/23 19:11 AST 13 U/L (0-40) 05/04/23 19:11 ALT 18 U/L (0-41) 05/04/23 19:11 Alkaline Phosphatase 90 U/L (40-130) 05/04/23 19:11 Total Protein 8.1 g/dL (6.6-8.7) 05/04/23 19:11 Albumin 5.0 g/dL (3.5-5.2) 05/04/23 19:11 Globulin 3.1 g/dL (1.3-4.6) 05/04/23 19:11 Lipase 19 U/L (13-60) 05/04/23 19:11 Serum Ketones Negative (Negative) 05/04/23 19:11 No radiology studies performed this visit Discharge Plan Discharge Patient Disposition: Home Clinical Impression: Hyperglycemia due to type 2 diabetes mellitus Condition: Stable Prescriptions: No Action hydrocodone-acetaminophen 5-325 mg tablet 1 tab PO TID PRN (Reason: Pain) aspirin [Adult Aspirin Regimen] 81 mg tablet,delayed release (DR/EC) 81 mg PO DAILY Tresiba FlexTouch U-100 100 unit/mL (3 mL) insulin pen 50 unit SUBCUT DAILY insulin aspart U-100 [Novolog FlexPen U-100 Insulin] 100 unit/mL (3 mL) insulin pen 5 unit SUBCUT TID Qty: 15 3RF Rx Instructions: Inject 5 units three times a day 15 minutes before meals. (DME) Dexcom G7 Stone Product Fabricator Misc See Rx Instructions .Route Qty: 1 0RF Rx Instructions: rew once a year (DME) Dexcom G7 Sensor Device See Rx Instructions .ROUTE .MEDSUPPLY Qty: 9 0RF Rx Instructions: Change every 10days citalopram 40 mg Tablet 40 mg PO DAILY trazodone 100 mg Tablet 100 mg PO BEDTIME gabapentin 300 mg capsule 300 mg PO BID sertraline 50 mg tablet 50 mg PO DAILY Discharge Orders: Discharge ED (Routine); Ordered 05/04/23 Ordered By: Osorio Ray Referrals: Hannah Jin FNP [Primary Care Provider] - Coding Level of Care Code ED Digital Traffic Coordinator for Aura Durán
[2023-05-06 14:58] LABS: Glucose Point of Care 464 mg/dL (70-110)
== END 2023-05-04 22:43 | disposition home or self-care (01) ==
PROVIDERS: Emergency Medicine; Emergency Provider Emergency Medicine; PCP Nurse Practitioner Family
DX: E11.65 Type 2 diabetes mellitus with hyperglycemia (principal); Z79.82 Long term (current) use of aspirin; Z79.4 Long term (current) use of insulin; E78.5 Hyperlipidemia, unspecified; I10 Essential (primary) hypertension
CPT/HCPCS: 36416; 80053; 82009; 82962; 83690; 85025; 96361; 96374; 96375; 99284; J1815; J2405; J7030

== ENCOUNTER → 2023-06-03 09:38 | Outpatient (BNVA) | payer MEDICARE, MEDICAID, SELFPAY | PROVIDERS: PCP Nurse Practitioner Family; Visit Provider Internal Medicine | DX: Z79.4 Long term (current) use of insulin; E78.5 Hyperlipidemia, unspecified; E11.649 Type 2 diabetes mellitus with hypoglycemia without coma | CPT/HCPCS: 99214 ==

== ENCOUNTER 2023-06-27 19:34 | Inpatient (IN) | payer MEDICARE, MEDICAID, SELFPAY ==
[2023-06-27 19:40] VITALS: BP 153/91; PULSE 126; RESP 18; TEMP 36.6; O2SAT 96; BMI 23.3
[2023-06-27 19:46] LABS: Glucose Point of Care 342 mg/dL (70-110)
--- NOTE | 2023-06-27 20:03 | XRR_ITS ---
PROCEDURE INFORMATION: Exam: XR Chest Exam date and time: 06/27/2023 9:17 PM Age: 62 years old Clinical indication: Other: Palpitaions; Additional info: Palpitations TECHNIQUE: Imaging protocol: Radiologic exam of the chest. Views: 1 view. COMPARISON: CR XR chest 1V portable [id number] 06/30/2022 9:30 AM FINDINGS: Lungs: Unremarkable. No consolidation. Pleural spaces: Unremarkable. No pleural effusion. No pneumothorax. Heart/Mediastinum: Unremarkable. No cardiomegaly. Bones/joints: Unremarkable. XR/XR chest 1V portable [id number] IMPRESSION: No acute findings.
--- NOTE | 2023-06-27 20:04 | ECG_ITS ---
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 Measurements Intervals [place] Rate: 122 P: 79 MA: 156 QRS: -64 QRSD: 85 T: 86 QT: 291 QTc: 415 Interpretive Statements SINUS TACHYCARDIA LEFT ANTERIOR FASCICULAR BLOCK [QRS AXIS <= -45, QR IN I, RS IN II] Nonspecific ST changes Compared to ECG 06/30/2022 08:48:10 No significant change Electronically Signed On 06-28-2023 14:28:11 RESIDENTIAL SALES ASSOCIATE by Rashaun Rehman M.D. https://[employer].H[employer] Control Systemsloma [facility].[employer]/store/NU/[id number] homero
[2023-06-27 20:15] LABS: Basophils # 0.1 10^3/uL (0.0-0.1); Basophils % 0.6 %; Eosinophils % 0.2 %; Hematocrit 48.7 % (37-53); Lymphocytes # 1.2 10^3/uL (0.8-4.8); Lymphocytes % 10.1 %; Mean Corpuscular HGB Conc 32.4 g/dL (30-55); Mean Corpuscular Hemoglobin 29.8 pg (27-33); Mean Corpuscular Volume 91.9 fl (82-101); Mean Platelet Volume 10.4 fL (7.4-10.4); Monocytes # 0.3 10^3/uL (0.2-0.9); Monocytes % 2.2 %; Neutrophils # 10.18 10^3/uL (1.8-7.7); Neutrophils % 86.2 %; Nucleated Red Blood Cells % 0 %; Platelet Count 360 10^3/cmm (157-399); Red Cell Distribution Width 12.9 % (12.1-15.1)
[2023-06-27 20:27] LABS: INR 1.02 (0.8-1.2); Partial Thromboplastin Time 22.1 SECONDS (23.9-36.7)
[2023-06-27 20:33] VITALS: BP 155/91; PULSE 116; RESP 17; O2SAT 98
[2023-06-27 20:33] LABS: Troponin(5th) Baseline 7 ng/L (0-15)
[2023-06-27 20:38] LABS: Ketone (Acetest) Serum Positive (Negative)
[2023-06-27 20:48] LABS: Alanine Aminotransferase 17 U/L (0-41); Albumin Level 5.1 g/dL (3.5-5.2); Alkaline Phosphatase 87 U/L (40-130); Anion Gap 35.4 (5-19); Aspartate Amino Transferase 12 U/L (0-40); Blood Urea Nitrogen 34 mg/dL (8-23); Calcium 10.3 mg/dL (8.5-10.5); Carbon Dioxide 11 mmol/L (22-29); Chloride 93 mmol/L (98-107); Glomerular Filtration Rate 67.6 mL/min (90-130); Glucose 387 mg/dL (65-115); Lipase 11 U/L (13-60); Magnesium 2.2 mg/dL (1.7-2.3); NT Pro B Type Natriuretic Pept 36 pg/mL (0-125); Osmolality Calculated 302 mOsm/kg (285-295); Potassium 5.4 mmol/L (3.5-5.1); Sodium 134 mmol/L (136-145); Total Bilirubin 0.3 mg/dL (0.15-1.2); Total Protein 8.1 g/dL (6.6-8.7)
[2023-06-27] MEDS: ondansetron 2 mg/ML SDV 2 mL 4 MG IVP (20:51)
--- NOTE | 2023-06-27 20:51 | W.ED.NAVMDI ---
HPI - Nausea/Vomiting/Diarrhea General: Chief complaint: Nausea/Vomiting/Diarrhea Stated complaint: N\V\Diabetic\Cant Stand Up Straight Time Seen by Provider: 06/27/23 20:02 History of Present Illness: 63-year-old male presents emergency department with complaints of nausea and vomiting for the previous 3 to 4 days. He states he has not been unable to take his insulin because he is excessively weak and fatigued. He started vomiting and was unable to stop which prompted him to come to the emergency department. He states he feels extremely weak and fatigued. Associated nausea: Yes Associated symtoms: Reports fatigue, malaise and nausea Review of Systems General: Reports: 10 or more systems reviewed and unremarkable except in HPI and below Const: Reports: fatigue and malaise GI: Reports: nausea and vomiting [facility] ED PFSH: Medical History (Updated 07/02/23 @ 20:55 by Ignacio Perez MD) Anxiety Chronic pain Hyperlipidemia Hypertension Insulin dependent diabetes mellitus Surgical History H/O shoulder surgery Family History Other COPD (chronic obstructive pulmonary disease) Cancer Social History Smoking and tobacco/nicotine status: never used tobacco/nicotine Alcohol intake: never Substance/Drug Use: never Physical Exam Narrative: EXAM NARRATIVE: Constitutional: the patient appears well nourished and with normal development. Vital signs reviewed as documented. HENMT: Normocephalic, atraumatic. Extermal ears with normal appearance without drainage. Nose without drainage, normal appearance. Mucus membranes moist. Neck is supple, No jugular venous distension, trachea is midline, no appreciable carotid bruits. No lymphadenopathy. No meningeal signs. Flexion, extension and lateral rotation is without pain. Eyes: Pupils are equal, round, reactive to light and accommodation. No scleral icterus. Extra-ocular movement are intact. Thorax is symmetrical and with equal rise and fall with respirations. Resp: Lungs are clear to auscultation. No wheezes, rales, crackles or ronchi at present. Cardio: Regular rate and rhythm. Positive S1, S2. No appreciable murmurs, rubs or gallops. GI: Abdominal exam reveals normal bowel sounds to all quadrants. No organomegaly. No obvious palpable masses noted. No hepatomegally appreciated. Soft, nontender to palpation. Extremity: Extremities are non-edematous and both femoral and pedal pulses are 2+ and equal bilaterally. Moves all extremities well, sensation in all extremities. Neuro: Alert and oriented x4, person, place, time and situation. Cranial nerves II through XII are grossly intact, there is no focal neurological deficits that I can appreciate at present. Motor strength in the upper and lower extremities are equal and bilateral 5/5. Psych: Cooperative, calm, normal thought process, appropriate judgment. Skin: No lesions, rashes. No gross abnormalities noted. Back: Symmetrical, no obvious deformity, No CVA tenderness Course Vital Signs: Vital signs: Vital Signs Temperature 98.4 F 06/28/23 07:35 Pulse Rate 65 06/29/23 13:22 Respiratory Rate 16 06/29/23 13:22 Blood Pressure 124/64 06/29/23 07:35 Pulse Oximetry 94 06/29/23 13:22 Oxygen Delivery Me thod Room Air 06/29/23 08:00 MDM - Nausea/Vomiting/Diarrhea Medical Decision Making Physical exam completed and documented, laboratory examination to include CBC, CMP, chest x-ray and serum ketones. Lab Data 06/29/23 05:20 06/29/23 05:20 Radiology Impressions Chest X-Ray 06/27/23 20:03 IMPRESSION: No acute findings. Laboratory Results WBC 11.80 10^3/uL (3.29-11.43) H 06/27/23 20:05 RBC 5.30 10^6/uL (3.85-5.65) 06/27/23 20:05 Hgb 15.80 g/dL (11.27-16.99) 06/27/23 20:05 Hct 48.7 % (37-53) 06/27/23 20:05 MCV 91.9 fl (82-101) 06/27/23 20:05 MCH 29.8 pg (27-33) 06/27/23 20:05 MCHC 32.4 g/dL (30-55) 06/27/23 20:05 RDW 12.9 % (12.1-15.1) 06/27/23 20:05 Plt Count 360 10^3/cmm (157-399) 06/27/23 20:05 MPV 10.4 fL (7.4-10.4) 06/27/23 20:05 Neut % (Auto) 86.2 % 06/27/23 20:05 Lymph % (Auto) 10.1 % 06/27/23 20:05 [place] % (Auto) 2.2 % 06/27/23 20:05 Eos % (Auto) 0.2 % 06/27/23 20:05 Baso % (Auto) 0.6 % 06/27/23 20:05 Neut # (Auto) 10.18 10^3/uL (1.8-7.7) H 06/27/23 20:05 Lymph # (Auto) 1.2 10^3/uL (0.8-4.8) 06/27/23 20:05 [place] # (Auto) 0.3 10^3/uL (0.2-0.9) 06/27/23 20:05 Eos # (Auto) 0.0 10^3/uL (0.0-0.8) 06/27/23 20:05 Baso # (Auto) 0.1 10^3/uL (0.0-0.1) 06/27/23 20:05 Nucleated RBC % (auto) 0 % 06/27/23 20:05 Nucleated RBCs # 0.0 /100WBC 06/27/23 20:05 PT 13.70 SECONDS (12.1-14.9) 06/27/23 20:05 INR 1.02 (0.8-1.2) 06/27/23 20:05 APTT 22.1 SECONDS (23.9-36.7) L 06/27/23 20:05 Sodium 138 mmol/L (136-145) 06/27/23 21:48 Potassium 5.0 mmol/L (3.5-5.1) 06/27/23 21:48 Chloride 101 mmol/L (98-107) 06/27/23 21:48 Carbon Dioxide 8 mmol/L (22-29) L* 06/27/23 21:48 Anion Gap 34.0 (5-19) H 06/27/23 21:48 BUN 35 mg/dL (8-23) H 06/27/23 21:48 Creatinine 1.1 mg/dL (0.7-1.2) 06/27/23 21:48 GFR Calculation 67.6 mL/min (90-130) L 06/27/23 21:48 Glucose 388 mg/dL (65-115) H 06/27/23 21:48 POC Glucose 274 mg/dL (70-110) H 06/27/23 22:36 Estimat Average Glucose 349 06/27/23 20:05 Hemoglobin A1c 13.8 % (4.0-6.0) H 06/27/23 20:05 Calculated Osmolality 310 mOsm/kg (285-295) H 06/27/23 21:48 Calcium 9.3 mg/dL (8.5-10.5) 06/27/23 21:48 Phosphorus 4.9 mg/dL (2.5-4.5) H 06/27/23 21:48 Magnesium 2.2 mg/dL (1.7-2.3) 06/27/23 20:05 Total Bilirubin 0.3 mg/dL (0.15-1.2) 06/27/23 20:05 AST 12 U/L (0-40) 06/27/23 20:05 ALT 17 U/L (0-41) 06/27/23 20:05 Alkaline Phosphatase 87 U/L (40-130) 06/27/23 20:05 Troponin T Baseline 7 ng/L (0-15) 06/27/23 20:05 Troponin T 120 Minute < 6.0 ng/L (0-15) 06/27/23 21:54 Delta Troponin T -1.0 ABS# (0-10) L 06/27/23 21:54 NT-Pro-B Natriuret Pep 36 pg/mL (0-125) 06/27/23 20:05 Total Protein 8.1 g/dL (6.6-8.7) 06/27/23 20:05 Albumin 5.1 g/dL (3.5-5.2) 06/27/23 20:05 Globulin 3.0 g/dL (1.3-4.6) 06/27/23 20:05 Lipase 11 U/L (13-60) L 06/27/23 20:05 Vitamin B12 966 pg/mL (232-1245) 06/27/23 21:48 Serum Ketones Positive (Negative) H 06/27/23 20:05 All radiology interpretation(s) finalized by discharge Critical Care Time Critical Care Time: Critical Care Time: Yes Total Critical Care Time: 65 Attestation: This case had a high probability of a clinically significant, sudden, or life threatening deterioration of this patient's condition which required my full and direct attention, intervention and personal management. Discharge Plan Discharge Patient Disposition: Admitted As Inpatient Admit Provider: Courtney Medel Clinical Impression: DKA (diabetic ketoacidosis), Nausea & vomiting Condition: Stable Discharge Diet: Cardiac Discharge Activity: Resume usual activity Coding Level of Care Code ED Geotechnical Department Manager for Aura Durán
[2023-06-27] MEDS: insulin regular-human 100 units/1 mL 10 UNIT IVP (21:27)
[2023-06-27] MEDS: sodium chloride 0.9% 1,000 ML 999 ML IV ×2 (21:28→22:04)
--- NOTE | 2023-06-27 21:35 | P.HP_ITS ---
Providers/Chief Complaint Primary Care Provider: Hannah Jin Chief Complaint: N\V\Diabetic\Cant Stand Up Straight History of Present Illness Wiliam Rogers JR is a 62 year old male with history of insulin-dependent diabetes presented with recurrent nausea vomiting generalized fatigue and malaise. Patient has been sick sick for last 3 to 4 days, did not take his insulin because of weakness and fatigue, today started vomiting that prompted his visit to the ER, In the ER he was diagnosed with DKA, Review of Systems Const: Denies: fever(s) Eyes: Denies: change in vision ENMT: Denies: throat pain Card: Denies: chest pain Resp: Reports: dyspnea GI: Denies: abdominal pain : Denies: flank pain Musc: Denies: neck pain Skin/Breast: Denies: rash Medications/Allergies Home Medications Medication Instructions Recorded Confirmed Last Taken Type citalopram 40 mg tablet 40 mg PO DAILY 10/26/19 06/03/23 03/27/23 History trazodone 100 mg tablet 100 mg PO BEDTIME 10/26/19 06/03/23 02/26/23 History hydrocodone 5 mg-acetaminophen 325 1 tab PO TID PRN Pain 03/10/20 06/03/23 03/27/23 History mg tablet aspirin 81 mg tablet,delayed 81 mg PO DAILY 05/12/20 06/03/23 03/27/23 History release (Adult Aspirin Regimen) insulin degludec 100 unit/mL (3 50 unit SUBCUT DAILY 09/07/21 06/03/23 03/27/23 History mL) subcutaneous pen (Tresiba FlexTouch U-100 insulin) insulin aspart U-100 100 unit/mL 5 unit (0.05 mL) SUBCUT TID #15 mL 09/21/21 06/03/23 03/27/23 Rx (3 mL) subcutaneous pen (Novolog FlexPen U-100 Insulin aspart) gabapentin 300 mg capsule 300 mg PO BID 06/30/22 06/03/23 03/27/23 History sertraline 50 mg tablet 50 mg PO DAILY 06/30/22 06/03/23 03/27/23 History blood-glucose meter,continuous #1 ea 11/30/22 06/03/23 Unknown Rx (Dexcom G7 Hydraulic Controls Technician) blood-glucose sensor (Dexcom G7 #9 ea 05/30/23 06/03/23 Unknown Rx Sensor device) Allergies Allergy/AdvReac Type Severity Reaction Status Date / Time No Known Drug Allergies Allergy Unknown Unknown Verified 06/03/23 07:43 PFSH Acute PFSH: Medical History Anxiety Chronic pain Hyperlipidemia Hypertension Insulin dependent diabetes mellitus Surgical History H/O shoulder surgery Family History Other COPD (chronic obstructive pulmonary disease) Cancer Social History Smoking and tobacco/nicotine status: never used tobacco/nicotine Alcohol intake: never Substance/Drug Use: never Vitals/I&O/Wt Last Vital Signs Temp 97.9 F 06/27/23 19:40 Pulse 116 H 06/27/23 20:33 Resp 17 06/27/23 20:33 BP 155/91 06/27/23 20:33 Pulse Ox 98 06/27/23 20:33 O2 Del Method Room Air 06/27/23 19:40 Weight last 48 hrs Weight 61.689 kg Physical Exam Narrative: Pleasant and cooperative Dehydrated GCS 15 Abdomen soft Nonfocal neuro exam Currently on room air Arlyne S1, S2 tachycardia Nonfocal exam Data 06/27/23 20:05 06/27/23 21:48 A&P Assessment and plan (1) Hyperkalemia: (2) High anion gap metabolic acidosis: (3) DKA (diabetic ketoacidoses): Qualifiers: Diabetes mellitus complication detail: without coma Diabetes mellitus type: type 1 Qualified Code(s): E10.10 - Type 1 diabetes mellitus with ketoacidosis without coma (4) Hypertension: (5) Insulin dependent diabetes mellitus: Plan Metabolic acidosis with DKA Start bicarb drip Start DKA protocol I will give another bolus of normal saline, he only received 1 L in the ER Check phosphorus magnesium& A1c level Potassium at 5.4 without kidney function abnormality Severe metabolic acidosis with anion gap and positive ketones Patient is type II diabetic We will request troponin and EKG N.p.o. Full code DVT prophylaxis heparin Attestations Medical Necessity Statement*: More than 2 midnights anticipated Diagnoses Hyperkalemia E87.5 High anion gap metabolic acidosis E87.2 DKA (diabetic ketoacidoses) E10.10 Diabetes mellitus complication detail: without coma Diabetes mellitus type: type 1 Hypertension I10 Insulin dependent diabetes mellitus E11.9; Z79.4
[2023-06-27] MEDS: enoxaparin 40 mg/0.4 mL Syringe SUBCUT (21:59)
[2023-06-27] MEDS: sodium chlor 0.9% + KCl 20 mEq 20 MEQ/1,000 ML BAG 100 MEQ IV (22:05)
[2023-06-27 22:14] LABS: Estmated Average Glucose 349; Hemoglobin A1C 13.8 % (4.0-6.0)
[2023-06-27 22:20] LABS: Blood Urea Nitrogen 35 mg/dL (8-23); Calcium 9.3 mg/dL (8.5-10.5); Chloride 101 mmol/L (98-107); Glomerular Filtration Rate 67.6 mL/min (90-130); Glucose 388 mg/dL (65-115); Osmolality Calculated 310 mOsm/kg (285-295); Sodium 138 mmol/L (136-145)
[2023-06-27 22:21] LABS: Carbon Dioxide 8 mmol/L (22-29)
[2023-06-27 22:35] LABS: Troponin 5 2HR < 6.0 ng/L (0-15)
[2023-06-27 22:42] VITALS: BP 149/87; PULSE 119; RESP 22; O2SAT 97
[2023-06-27 22:42] LABS: Glucose Point of Care 274 mg/dL (70-110)
[2023-06-27 23:06] VITALS: BP 135/75; PULSE 113; RESP 25; O2SAT 98
[2023-06-27 23:21] VITALS: BMI 23.8
[2023-06-27] MEDS: sodium bicarbonate 150 MEQ in dextrose 5% 1,000 ML 100 MEQ IV (23:39)
[2023-06-27] MEDS: insulin regular-human 250 UNIT in sodium chloride 0.9% 250 ML 6.06 UNIT IV (23:48)
[2023-06-28 00:07] LABS: Glucose Point of Care 272 mg/dL (70-110)
[2023-06-28 00:42] LABS: Phosphorus 4.9 mg/dL (2.5-4.5)
[2023-06-28 00:58] LABS: Vitamin B12 966 pg/mL (232-1245)
[2023-06-28 01:02] VITALS: BP 135/75; PULSE 113; RESP 25; O2SAT 98
[2023-06-28 01:14] LABS: Glucose Point of Care 252 mg/dL (70-110)
[2023-06-28 02:15] LABS: Glucose Point of Care 242 mg/dL (70-110)
[2023-06-28 02:26] LABS: Anion Gap 26.7 (5-19); Blood Urea Nitrogen 30 mg/dL (8-23); Calcium 8.5 mg/dL (8.5-10.5); Carbon Dioxide 10 mmol/L (22-29); Chloride 104 mmol/L (98-107); Glucose 259 mg/dL (65-115); Osmolality Calculated 297 mOsm/kg (285-295); Potassium 4.7 mmol/L (3.5-5.1); Sodium 136 mmol/L (136-145)
[2023-06-28 03:12] LABS: Glucose Point of Care 229 mg/dL (70-110)
[2023-06-28 04:17] LABS: Glucose Point of Care 200 mg/dL (70-110)
[2023-06-28] MEDS: acetaminophen 500 mg Tablet PO ×3 (04:48→14:31)
[2023-06-28 05:14] LABS: Glucose Point of Care 206 mg/dL (70-110)
[2023-06-28 05:52] LABS: Basophils % 0.3 %; Lymphocytes # 2.4 10^3/uL (0.8-4.8); Lymphocytes % 15.9 %; Mean Corpuscular Volume 91.1 fl (82-101); Mean Platelet Volume 10.6 fL (7.4-10.4); Monocytes # 1.4 10^3/uL (0.2-0.9); Monocytes % 8.9 %; Neutrophils # 11.26 10^3/uL (1.8-7.7); Neutrophils % 74.2 %; Nucleated Red Blood Cells % 0 %; Platelet Count 243 10^3/cmm (157-399); Red Blood Count 4.06 10^6/uL (3.85-5.65); Red Cell Distribution Width 12.8 % (12.1-15.1); White Blood Count 15.16 10^3/uL (3.29-11.43)
[2023-06-28 06:14] LABS: Glucose Point of Care 199 mg/dL (70-110)
[2023-06-28 06:38] LABS: Anion Gap 21.4 (5-19); Blood Urea Nitrogen 26 mg/dL (8-23); Calcium 8.4 mg/dL (8.5-10.5); Carbon Dioxide 14 mmol/L (22-29); Chloride 104 mmol/L (98-107); Glomerular Filtration Rate 97.3 mL/min (90-130); Glucose 182 mg/dL (65-115); Osmolality Calculated 289 mOsm/kg (285-295); Potassium 4.4 mmol/L (3.5-5.1); Sodium 135 mmol/L (136-145)
[2023-06-28 07:28] LABS: Glucose Point of Care 220 mg/dL (70-110)
[2023-06-28] MEDS: potassium chloride ER 20 mEq Tablet 40 MEQ PO (07:34)
[2023-06-28] MEDS: sodium chlor 0.9% + KCl 20 mEq 20 MEQ/1,000 ML BAG 100 MEQ IV (07:34)
[2023-06-28 07:35] VITALS: TEMP 36.9
[2023-06-28 07:58] LABS: Anion Gap 17.1 (5-19); Blood Urea Nitrogen 25 mg/dL (8-23); Carbon Dioxide 16 mmol/L (22-29); Chloride 104 mmol/L (98-107); Creatinine Clr Calc Pharmacy 91.5915; Glomerular Filtration Rate 113.5 mL/min (90-130); Glucose 213 mg/dL (65-115); Osmolality Calculated 287 mOsm/kg (285-295); Potassium 4.1 mmol/L (3.5-5.1); Sodium 133 mmol/L (136-145)
[2023-06-28 08:00] VITALS: PULSE 87; RESP 16; O2SAT 98
--- NOTE | 2023-06-28 08:20 | ECG_ITS ---
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 Measurements Intervals [place] Rate: 122 P: 79 TN: 156 QRS: -64 QRSD: 85 T: 86 QT: 291 QTc: 415 Interpretive Statements SINUS TACHYCARDIA LEFT AXIS DEVIATION DUE TO LEFT ANTERIOR FASCICULAR BLOCK [QRS AXIS <= -45, QR IN I, RS IN II] Compared to ECG 06/30/2022 08:48:10 No significant change Electronically Signed On 06-28-2023 14:29:02 CHILD SUPPORT SPECIALIST by Rashaun Rehman M.D. [email or web address].Numedeonmerit health natchezSihua Technologyvan wert county hospital.[employer]/store/NU/[id number] f
[2023-06-28 08:45] LABS: Alcohol Level < 10 mg/dL (0-10)
[2023-06-28] MEDS: dextrose 5%-ns 0.45% + KCl 40 1,000 ML 125 MEQ IV (08:46)
[2023-06-28 08:48] LABS: Troponin(5th) Baseline 9 ng/L (0-15)
--- NOTE | 2023-06-28 09:20 | ECG_ITS ---
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 Measurements Intervals [place] Rate: 75 P: 63 [place]: 164 QRS: -20 QRSD: 89 T: 43 QT: 380 QTc: 425 Interpretive Statements SINUS RHYTHM Compared to ECG 06/27/2023 19:57:31 Sinus tachycardia no longer present Electronically Signed On 06-28-2023 14:32:34 MEDICAL STAFF SERVICES MANAGER by Rashaun Rehman M.D. [email or web address] Systemsmarion general hospitalPadloccleveland clinic children's hospital for rehabilitationSiNode Systems/store/OM/[id number]
[2023-06-28 09:37] LABS: Add Urine Microscopic? NO; Charge for UA Resulting for Rev
[2023-06-28 09:49] LABS: Bilirubin Urine Neg (Negative); Blood Urine Neg (Negative); Glucose Urine UA 4+ (Normal); Ketones Urine 2+ (Negative); Leukocyte Esterase Urine Negative (Negative); Nitrate Urine Negative (Negative); Protein Urine Neg (Negative); Urine Appearance Clear (CLEAR); Urine Color Yellow (Yellow); Urobilinogen Urine Norm (Negative); pH Urine 5 (5-7)
[2023-06-28 09:54] LABS: Troponin 5 2HR 9.51 ng/L (0-15); Troponin 5 2HR Delta 0.51 ABS# (0-10)
[2023-06-28 09:58] LABS: Glucose Point of Care 219 mg/dL (70-110)
[2023-06-28 09:58] LABS: Amphetamines Screen Urine Negative (Negative); Barbiturates Screen Urine Negative (Negative); Benzodiazepines Screen Urine Negative (Negative); Cocaine Screen Urine Negative (Negative); Opiate Screen Urine Negative (Negative); PCP Screen Urine Negative (Negative); THC Screen Urine Negative (Negative)
[2023-06-28 11:11] LABS: Glucose Point of Care 295 mg/dL (70-110)
[2023-06-28 11:22] LABS: Anion Gap 18.6 (5-19); Blood Urea Nitrogen 23 mg/dL (8-23); Calcium 8.2 mg/dL (8.5-10.5); Carbon Dioxide 17 mmol/L (22-29); Chloride 102 mmol/L (98-107); Creatinine Clr Calc Pharmacy 91.5915; Glomerular Filtration Rate 113.5 mL/min (90-130); Glucose 249 mg/dL (65-115); Osmolality Calculated 288 mOsm/kg (285-295); Potassium 4.6 mmol/L (3.5-5.1); Sodium 133 mmol/L (136-145)
[2023-06-28 12:23] LABS: Glucose Point of Care 261 mg/dL (70-110)
[2023-06-28 12:47] LABS: Glucose Point of Care 258 mg/dL (70-110)
[2023-06-28 13:36] LABS: Troponin 5 6HR 8.29 ng/L (0-15); Troponin 5 6HR Delta -0.71 ng/L (0-12)
--- NOTE | 2023-06-28 14:20 | ECG_ITS ---
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 Measurements Intervals [place] Rate: 76 P: 63 NM: 160 QRS: -18 QRSD: 87 T: 46 QT: 370 QTc: 418 Interpretive Statements SINUS RHYTHM Compared to ECG 06/28/2023 09:20:23 No significant changes Electronically Signed On 06-28-2023 14:29:59 SNACK BAR ATTENDANT by Rashaun Rehman M.D. [email or web address]Fashion For Homemendocino coast district hospitalAntrad Medical/store/OM/[id number]
[2023-06-28 14:35] LABS: Glucose Point of Care 232 mg/dL (70-110)
--- NOTE | 2023-06-28 14:39 | P.PN_ITS ---
Subjective Subjective: Patient was seen this morning, anion gap 17, blood sugars over 200, denies any lightheadedness, dizziness, currently no nausea, no vomiting, will plan on getting insulin drip, monitor BMP, received potassium replacement Vitals/I&O/Wt Last Vital Signs Temp 98.4 F 06/28/23 07:35 Pulse 87 06/28/23 08:00 Resp 16 06/28/23 08:00 BP 135/75 06/28/23 01:02 Pulse Ox 98 06/28/23 08:00 O2 Del Method Room Air 06/28/23 08:00 06/27/23 06/28/23 06/28/23 22:59 06:59 14:59 Intake Total 1000 / 1000 30.828 / 1030.828 956.884 / 956.884 Output Total 600 / 600 Balance 1000 / 1000 -569.172 / 430.828 956.884 / 956.884 Weight last 48 hrs Weight 63.049 kg Weight 63.049 kg Weight 61.689 kg Physical Exam Const: COMMON NORMALS: no acute distress and patient oriented x3 Resp: COMMON NORMALS: normal respiratory effort, No retractions, No use of accessory muscles and clear to auscultation bilaterally AUSCULTATION: clear to auscultation bilaterally Cardio: COMMON NORMALS: regular rate, regular rhythm, S1 normal heart sound present and S2 normal heart sound present RATE: regular rate RHYTHM: regular rhythm HEART SOUNDS: S1 normal heart sound present and S2 normal heart sound present GI: COMMON NORMALS: Normal to inspection, nondistended, normoactive bowel sounds present and non-tender Extremity: COMMON NORMALS: no pedal edema Neuro: COMMON NORMALS: patient oriented x3 Psych: COMMON NORMALS: mental status grossly normal Data 06/28/23 05:00 06/28/23 10:57 A&P Assessment and plan (1) Hyperkalemia: (2) High anion gap metabolic acidosis: (3) DKA (diabetic ketoacidoses): Qualifiers: Diabetes mellitus complication detail: without coma Diabetes mellitus type: type 1 Qualified Code(s): E10.10 - Type 1 diabetes mellitus with ketoacidosis without coma (4) Hypertension: (5) Insulin dependent diabetes mellitus: Plan Metabolic acidosis with DKA Stop bicarb drip, switch to D5 half-normal saline Start DKA protocol Monitor serum potassium, serum magnesium, stop to drip switch to subcu insulin once anion gap has closed Check phosphorus magnesium& A1c level Severe metabolic acidosis with anion gap and positive ketones Patient is type II diabetic We will request troponin and EKG N.p.o. Full code DVT prophylaxis heparin Attestations Medical Necessity Statement*: Patient requires hospitalization for diabetic ketoacidosis, currently on insulin drip last anion gap 17, blood sugars over 200, plan D5 half-normal saline, add on 125 cc, on insulin drip Coding Level of Care Code Critical Care >/= 30 minutes Critical care time (in minutes): 45 The high probability of a clinically significant, sudden or life threatening deterioration, as referenced in this documentation, required my full and direct attention, intervention and personal management. The critical care time shown is in addition to time spent performing any reported separately billable procedures and includes the following: [x] Data and vital sign review and interpretation [x ] Patient assessment, examination and intervention [x] Medication orders and management [x] Patient/Family updates as able [x] Care Coordination and Documentation. Diagnoses Hyperkalemia E87.5 High anion gap metabolic acidosis E87.2 DKA (diabetic ketoacidoses) E10.10 Diabetes mellitus complication detail: without coma Diabetes mellitus type: type 1 Hypertension I10 Insulin dependent diabetes mellitus E11.9; Z79.4
[2023-06-28 15:43] LABS: Glucose Point of Care 259 mg/dL (70-110)
[2023-06-28 16:16] LABS: Anion Gap 14.2 (5-19); Blood Urea Nitrogen 18 mg/dL (8-23); Calcium 8.4 mg/dL (8.5-10.5); Carbon Dioxide 21 mmol/L (22-29); Chloride 103 mmol/L (98-107); Glomerular Filtration Rate 135.6 mL/min (90-130); Glucose 230 mg/dL (65-115); Osmolality Calculated 287 mOsm/kg (285-295); Phosphorus 1.1 mg/dL (2.5-4.5); Potassium 4.2 mmol/L (3.5-5.1); Sodium 134 mmol/L (136-145)
[2023-06-28] MEDS: insulin glargine 100 units/1 mL 20 UNIT SUBCUT (17:05)
[2023-06-28 18:09] LABS: Glucose Point of Care 188 mg/dL (70-110)
[2023-06-28] MEDS: insulin lispro 100 unit/1 mL SUBCUT ×2 (18:16→21:00)
[2023-06-28] MEDS: enoxaparin 40 mg/0.4 mL Syringe SUBCUT (19:31)
[2023-06-28 22:00] VITALS: PULSE 88
[2023-06-28 22:06] LABS: Glucose Point of Care 287 mg/dL (70-110)
[2023-06-29 05:33] LABS: Basophils % 0.5 %; Eosinophils # 0.1 10^3/uL (0.0-0.8); Eosinophils % 1.1 %; Hematocrit 36.9 % (37-53); Lymphocytes % 31.7 %; Mean Corpuscular HGB Conc 33.3 g/dL (30-55); Mean Corpuscular Hemoglobin 29.8 pg (27-33); Mean Corpuscular Volume 89.3 fl (82-101); Mean Platelet Volume 10.2 fL (7.4-10.4); Monocytes # 0.4 10^3/uL (0.2-0.9); Monocytes % 6.5 %; Neutrophils # 3.72 10^3/uL (1.8-7.7); Nucleated Red Blood Cells % 0 %; Platelet Count 193 10^3/cmm (157-399); Red Blood Count 4.13 10^6/uL (3.85-5.65); White Blood Count 6.19 10^3/uL (3.29-11.43)
[2023-06-29 05:57] LABS: Alanine Aminotransferase 13 U/L (0-41); Albumin Level 3.6 g/dL (3.5-5.2); Alkaline Phosphatase 60 U/L (40-130); Anion Gap 13.3 (5-19); Aspartate Amino Transferase 12 U/L (0-40); Blood Urea Nitrogen 14 mg/dL (8-23); Calcium 9.1 mg/dL (8.5-10.5); Carbon Dioxide 25 mmol/L (22-29); Chloride 102 mmol/L (98-107); Globulin 2.2 g/dL (1.3-4.6); Glomerular Filtration Rate 135.6 mL/min (90-130); Glucose 274 mg/dL (65-115); Osmolality Calculated 292 mOsm/kg (285-295); Potassium 4.3 mmol/L (3.5-5.1); Sodium 136 mmol/L (136-145); Total Bilirubin 0.2 mg/dL (0.15-1.2); Total Protein 5.8 g/dL (6.6-8.7)
[2023-06-29 06:00] VITALS: PULSE 59
[2023-06-29 07:35] VITALS: BP 124/64; PULSE 80; RESP 18; O2SAT 97
[2023-06-29 07:35] LABS: Glucose Point of Care 250 mg/dL (70-110)
[2023-06-29 08:00] VITALS: PULSE 65; RESP 16; O2SAT 94
[2023-06-29] MEDS: insulin lispro 100 unit/1 mL SUBCUT ×2 (08:10→11:29)
--- NOTE | 2023-06-29 09:00 | PC.SOCIAL ---
IMM Update pg 2 of IMM updated and reviewed w/ patient. Copy provided and copy dated, initialed and placed in chart.
[2023-06-29] MEDS: insulin glargine 100 units/1 mL 50 UNIT SUBCUT (09:12)
--- NOTE | 2023-06-29 11:16 | PM.DCS ---
Discharge Providers Date of Admission: 06/27/23 23:05 Date of Discharge: June 29, 2023 Attending Provider at Admission: Courtney Medel MD Attending Provider at Discharge: Jules Gaitan MD Primary Care Provider: Hannah Jin Diagnoses at Discharge Discharge Diagnosis (1) Hyperkalemia: Status: Acute (2) High anion gap metabolic acidosis: Status: Acute (3) DKA (diabetic ketoacidoses): Status: Acute Qualifiers: Diabetes mellitus complication detail: without coma Diabetes mellitus type: type 1 Qualified Code(s): E10.10 - Type 1 diabetes mellitus with ketoacidosis without coma (4) Hypertension: Status: Acute (5) Insulin dependent diabetes mellitus: Status: Acute Reason for Visit Reason for Visit: N\V\Diabetic\Cant Stand Up Straight Hospital Course Hospital Course Wiliam Rogers JR is a 62 year old male with history of insulin-dependent diabetes presented with recurrent nausea vomiting generalized fatigue and malaise. Patient has been sick sick for last 3 to 4 days, did not take his insulin because of weakness and fatigue, today started vomiting that prompted his visit to the ER, In the ER he was diagnosed with DKA, Patient was admitted to [facility] for diabetic ketoacidosis, received DKA protocol, remained on insulin drip, required IV replacement fluids, potassium, electrolytes, overall gap improved, transition to Lantus, subcu insulin, monitored for 24 hours, blood sugars reasonable, gap remains closed, patient is alert awake, following all commands, no nausea, vomiting, no fevers, no chills, no chest pain. Will be discharged on his home Tresiba 50 units at every morning, with a NovoLog sliding scale, monitor blood sugars closely, if blood sugar than 500 or less than 60 please come back to emergency room, please follow-up with primary care provider 1 week, follow-up with Dr. Grubbs in 1 week -Please monitor your blood sugars closely -Monitor your blood sugars 3 times daily as after meals -Please record your blood sugars, and a blood sugar log -For your NovoLog -Please inject blood sugar after meals based on sliding scale provided -Do not inject insulin if you do not eat as hypoglycemia kills -This is a NovoLog sliding scale -Insulin sliding ?fingerstick? Insulin ?141-180?0 units/sq 181-220?2 units/sq ?221-260?4 units/sq ?261-300 6 units/sq ?301-350?8 units/sq ?351-400 10 units/sq ?401-450?12 units/sq >450? 14units/sq -If your blood sugar is greater than 500 go to the emergency room -If your blood sugar is less than 60 or at anytime you feel lightheaded or dizzy or diaphoretic or have chest palpitations check your blood sugar, and eat a hard candy or drink orange juice and go immediately to the emergency room -Remember hypoglycemia kills, so if his blood sugar is less than 60 we have to increase it by taking in a sugary meal such as a hard candy or orange juice and go to the emergency room -If you have any questions please call us where here to help Physical Exam Const: COMMON NORMALS: no acute distress and patient oriented x3 Resp: COMMON NORMALS: normal respiratory effort, No retractions, No use of accessory muscles and clear to auscultation bilaterally AUSCULTATION: clear to auscultation bilaterally Cardio: COMMON NORMALS: regular rate, regular rhythm, S1 normal heart sound present and S2 normal heart sound present RATE: regular rate RHYTHM: regular rhythm HEART SOUNDS: S1 normal heart sound present and S2 normal heart sound present GI: COMMON NORMALS: Normal to inspection, nondistended, normoactive bowel sounds present and non-tender Extremity: COMMON NORMALS: no pedal edema Neuro: COMMON NORMALS: patient oriented x3 Psych: COMMON NORMALS: mental status grossly normal Discharge Data Studies Completed and Pending Completed Studies During Hospitalization Category Date Time Status XR chest 1V portable [id number] Stat Exams 06/27/23 20:03 Completed Radiology Impressions Chest X-Ray 06/27/23 20:03 IMPRESSION: No acute findings. Laboratory Results WBC 6.19 10^3/uL (3.29-11.43) 06/29/23 05:20 RBC 4.13 10^6/uL (3.85-5.65) 06/29/23 05:20 Hgb 12.30 g/dL (11.27-16.99) 06/29/23 05:20 Hct 36.9 % (37-53) L 06/29/23 05:20 MCV 89.3 fl (82-101) 06/29/23 05:20 MCH 29.8 pg (27-33) 06/29/23 05:20 MCHC 33.3 g/dL (30-55) 06/29/23 05:20 RDW 13.0 % (12.1-15.1) 06/29/23 05:20 Plt Count 193 10^3/cmm (157-399) 06/29/23 05:20 MPV 10.2 fL (7.4-10.4) 06/29/23 05:20 Neut % (Auto) 60.0 % 06/29/23 05:20 Lymph % (Auto) 31.7 % 06/29/23 05:20 [place] % (Auto) 6.5 % 06/29/23 05:20 Eos % (Auto) 1.1 % 06/29/23 05:20 Baso % (Auto) 0.5 % 06/29/23 05:20 Neut # (Auto) 3.72 10^3/uL (1.8-7.7) 06/29/23 05:20 Lymph # (Auto) 2.0 10^3/uL (0.8-4.8) 06/29/23 05:20 [place] # (Auto) 0.4 10^3/uL (0.2-0.9) 06/29/23 05:20 Eos # (Auto) 0.1 10^3/uL (0.0-0.8) 06/29/23 05:20 Baso # (Auto) 0.0 10^3/uL (0.0-0.1) 06/29/23 05:20 Nucleated RBC % (auto) 0 % 06/29/23 05:20 Nucleated RBCs # 0.0 /100WBC 06/29/23 05:20 PT 13.70 SECONDS (12.1-14.9) 06/27/23 20:05 INR 1.02 (0.8-1.2) 06/27/23 20:05 APTT 22.1 SECONDS (23.9-36.7) L 06/27/23 20:05 Sodium 136 mmol/L (136-145) 06/29/23 05:20 Potassium 4.3 mmol/L (3.5-5.1) 06/29/23 05:20 Chloride 102 mmol/L (98-107) 06/29/23 05:20 Carbon Dioxide 25 mmol/L (22-29) 06/29/23 05:20 Anion Gap 13.3 (5-19) 06/29/23 05:20 BUN 14 mg/dL (8-23) 06/29/23 05:20 Creatinine 0.6 mg/dL (0.7-1.2) L 06/29/23 05:20 GFR Calculation 135.6 mL/min (90-130) H 06/29/23 05:20 Glucose 274 mg/dL (65-115) H 06/29/23 05:20 POC Glucose 250 mg/dL (70-110) H 06/29/23 07:30 Estimat Average Glucose 349 06/27/23 20:05 Hemoglobin A1c 13.8 % (4.0-6.0) H 06/27/23 20:05 Calculated Osmolality 292 mOsm/kg (285-295) 06/29/23 05:20 Calcium 9.1 mg/dL (8.5-10.5) 06/29/23 05:20 Phosphorus 1.1 mg/dL (2.5-4.5) L D 06/28/23 15:50 Magnesium 2.0 mg/dL (1.7-2.3) 06/28/23 15:50 Total Bilirubin 0.2 mg/dL (0.15-1.2) 06/29/23 05:20 AST 12 U/L (0-40) 06/29/23 05:20 ALT 13 U/L (0-41) 06/29/23 05:20 Alkaline Phosphatase 60 U/L (40-130) 06/29/23 05:20 Troponin T Baseline 9 ng/L (0-15) 06/28/23 07:24 Troponin T 120 Minute 9.51 ng/L (0-15) 06/28/23 09:17 Delta Troponin T 0.51 ABS# (0-10) 06/28/23 09:17 Troponin T Hi Sens 6Hr 8.29 ng/L (0-15) 06/28/23 13:00 Troponin T Hi Sens 6Hr Delta -0.71 ng/L (0-12) L 06/28/23 13:00 NT-Pro-B Natriuret Pep 36 pg/mL (0-125) 06/27/23 20:05 Total Protein 5.8 g/dL (6.6-8.7) L 06/29/23 05:20 Albumin 3.6 g/dL (3.5-5.2) 06/29/23 05:20 Globulin 2.2 g/dL (1.3-4.6) 06/29/23 05:20 Lipase 11 U/L (13-60) L 06/27/23 20:05 Vitamin B12 966 pg/mL (232-1245) 06/27/23 21:48 Urine Color Yellow (Yellow) 06/28/23 09:20 Urine Appearance Clear (CLEAR) 06/28/23 09:20 Urine pH 5 (5-7) 06/28/23 09:20 Ur Specific [place] 1.020 (1.005-1.030) 06/28/23 09:20 Urine Protein Neg (Negative) 06/28/23 09:20 Urine Glucose (UA) 4+ (Normal) H 06/28/23 09:20 Urine Ketones 2+ (Negative) H 06/28/23 09:20 Urine Blood Neg (Negative) 06/28/23 09:20 Urine Nitrate Negative (Negative) 06/28/23 09:20 Urine Bilirubin Neg (Negative) 06/28/23 09:20 Urine Urobilinogen Norm mg/dL (Negative) 06/28/23 09:20 Ur Leukocyte Esterase Negative (Negative) 06/28/23 09:20 Urine Opiates Screen Negative ng/mL (Negative) 06/28/23 09:20 Ur Barbiturates Screen Negative ng/mL (Negative) 06/28/23 09:20 Ur Phencyclidine Scrn Negative ng/mL (Negative) 06/28/23 09:20 Ur Amphetamines Screen Negative ng/mL (Negative) 06/28/23 09:20 U Benzodiazepines Scrn Negative ng/mL (Negative) 06/28/23 09:20 Urine Cocaine Screen Negative ng/mL (Negative) 06/28/23 09:20 U Marijuana (THC) Screen Negative ng/mL (Negative) 06/28/23 09:20 Ethyl Alcohol < 10 mg/dL (0-10) 06/28/23 07:24 Serum Ketones Positive (Negative) H 06/27/23 20:05 Vitals Last Vital Signs Temp 98.4 F 06/28/23 07:35 Pulse 65 06/29/23 08:00 Resp 16 06/29/23 08:00 BP 124/64 06/29/23 07:35 Pulse Ox 94 06/29/23 08:00 O2 Del Method Room Air 06/29/23 08:00 Discharge Plan Discharge Patient Disposition: Home Condition: Stable Prescriptions: Continued aspirin [Adult Aspirin Regimen] 81 mg tablet,delayed release (DR/EC) 81 mg PO DAILY (DME) Dexcom G7 [employer] Misc See Rx Instructions .Route Qty: 1 0RF Rx Instructions: rew once a year (DME) Dexcom G7 Sensor Device See Rx Instructions .ROUTE .MEDSUPPLY Qty: 9 0RF Rx Instructions: Change every 10days citalopram 40 mg Tablet 40 mg PO DAILY trazodone 100 mg Tablet 100 mg PO BEDTIME gabapentin 300 mg capsule 300 mg PO BID sertraline 50 mg tablet 50 mg PO DAILY hydrocodone-acetaminophen 10-325 mg tablet 1 tab PO TID atorvastatin 40 mg tablet 40 mg PO QPM pantoprazole 40 mg tablet,delayed release (DR/EC) 40 mg PO BID Rybelsus 14 mg tablet 14 mg PO DAILY Changed Tresiba FlexTouch U-100 100 unit/mL (3 mL) insulin pen 50 unit SUBCUT DAILY Qty: 15 0RF insulin aspart U-100 [Novolog FlexPen U-100 Insulin] 100 unit/mL (3 mL) insulin pen See Rx Instructions .ROUTE .COMPLEX Qty: 15 3RF Rx Instructions: Inject, subcut, 3 times daily, after meals, based on sliding scale provided Discharge Orders: Discharge Order (Routine); Ordered 06/29/23 Ordered By: Jules Gaitan Referrals: Hannah Jin FNP [Primary Care Provider] - Colin Grubbs MD [Physician] - 1 week Discharge Diet: Cardiac Discharge Activity: Resume usual activity Patient Instructions: Diabetic Ketoacidosis (GEN), Hypoglycemia in a Person with Diabetes (DC), Opioid Safety Activity Restrictions/Additional Instructions: -Please monitor your blood sugars closely -Monitor your blood sugars 3 times daily as after meals -Please record your blood sugars, and a blood sugar log -For your NovoLog -Please inject blood sugar after meals based on sliding scale provided -Do not inject insulin if you do not eat as hypoglycemia kills -This is a NovoLog sliding scale -Insulin sliding ?fingerstick? Insulin ?141-180?0 units/sq 181-220?2 units/sq ?221-260?4 units/sq ?261-300 6 units/sq ?301-350?8 units/sq ?351-400 10 units/sq ?401-450?12 units/sq >450? 14units/sq -If your blood sugar is greater than 500 go to the emergency room -If your blood sugar is less than 60 or at anytime you feel lightheaded or dizzy or diaphoretic or have chest palpitations check your blood sugar, and eat a hard candy or drink orange juice and go immediately to the emergency room -Remember hypoglycemia kills, so if his blood sugar is less than 60 we have to increase it by taking in a sugary meal such as a hard candy or orange juice and go to the emergency room -If you have any questions please call us where here to help Discharge Attestations Time Spent in Discharge Care*: greater than 30 min Quality Metrics Clinical Quality Measures [ No reported AMI, CVA or VTE this stay] Coding Level of Care Code 78240 Total time (in minutes) for Discharge: 45 Diagnoses Hyperkalemia E87.5 High anion gap metabolic acidosis E87.2 DKA (diabetic ketoacidoses) E10.10 Diabetes mellitus complication detail: without coma Diabetes mellitus type: type 1 Hypertension I10 Insulin dependent diabetes mellitus E11.9; Z79.4
[2023-06-29 11:24] LABS: Glucose Point of Care 350 mg/dL (70-110)
[2023-06-29 13:22] VITALS: PULSE 65; RESP 16; O2SAT 94
== END 2023-06-29 13:24 | disposition home or self-care (01) | DRG 639 ==
LOC: ER 20:51 → ICU 23:05
PROVIDERS: Emergency Medicine; Admitting Provider Internal Medicine; Emergency Provider Internal Medicine; PCP Nurse Practitioner Family; Visit Provider Family Medicine
DX: E11.10 Type 2 diabetes mellitus with ketoacidosis without coma (principal); Z79.4 Long term (current) use of insulin; E87.5 Hyperkalemia; I10 Essential (primary) hypertension; E78.5 Hyperlipidemia, unspecified; G89.29 Other chronic pain; F41.9 Anxiety disorder, unspecified
CPT/HCPCS: 36415; 36416; 71045; 80048; 80053; 80306; 80307; 81003; 82009; 82607; 82962; 83036; 83690; 83735; 83880; 84100; 84484; 85025; 85610; 85730; 93005; 93010; 96365; 96366; 96367; 96372; 96375; 96376; 99291; J1650; J1815; J2405; J3480; J7030; J7050; J7070

== ENCOUNTER 2023-10-17 15:59 | Emergency (ER) | payer MEDICARE, MEDICAID, SELFPAY ==
[2023-10-17 16:08] VITALS: BMI 24.2
[2023-10-17 16:10] VITALS: BP 135/92; PULSE 96; RESP 16; TEMP 36.9; O2SAT 99
--- NOTE | 2023-10-17 16:34 | PC.PHAR ---
PT STATES HE TOOK MEDS THIS MORNING BUT NOT SURE HOW EFFECTIVE DUE TO THROWING THEM BACK UP AFTERWARD. 10/17/23
--- NOTE | 2023-10-17 16:35 | ED_ITS ---
HPI - Nausea/Vomiting/Diarrhea 2 General: Chief complaint: Nausea/Vomiting/Diarrhea Stated complaint: nausea with headache Time Seen by Provider: 10/17/23 16:03 History of Present Illness: Patient presents to the ER with complaints of nausea vomiting and headache. Patient says these all started about 3:00 this morning. Patient was given Zofran on route per EMS and he said his nausea is feeling better but he still has a headache. Patient is a insulin-dependent diabetic who says he thinks he is in DKA. Accu-Chek per EMS was 250 patient says it is pretty low for him usually runs 350+. Review of Systems 2 General: Reports: 10 or more systems reviewed and unremarkable except in HPI and below PFSH ED 2 PFSH: Medical History (Updated 10/17/23 @ 17:59 by Joce Remy DO) Hypertension Anxiety Hyperlipidemia Chronic pain Insulin dependent diabetes mellitus Surgical History H/O shoulder surgery Family History Other COPD (chronic obstructive pulmonary disease) Cancer Social History Smoking and tobacco/nicotine status: never used tobacco/nicotine Alcohol intake: never Substance/Drug Use: never Physical Exam 2 Const: COMMON NORMALS: no acute distress, average body habitus, patient oriented x3, no limitations, healthy appearing, alert and well nourished HENMT: COMMON NORMALS: normocephalic, atraumatic, hearing grossly normal bilaterally, external ears normal, Normal external nose present, moist oral mucous membranes and oropharynx normal HEAD & SCALP: normocephalic and atraumatic NOSE: Normal external nose present EXTERNAL EAR: Yes external ears normal Neck/C-Spine: COMMON NORMALS: no JVD Chest: COMMONS NORMALS: normal inspection of the chest and normal palpation of entire chest wall Resp: COMMON NORMALS: normal respiratory effort, No retractions, No use of accessory muscles and clear to auscultation bilaterally AUSCULTATION: clear to auscultation bilaterally Cardio: COMMON NORMALS: no JVD, regular rate, regular rhythm, S1 normal heart sound present, S2 normal heart sound present, No gallops present (Cardio), No clicks present (Cardio), No murmurs present (Cardio) and No rub (Cardio) R ATE: regular rate RHYTHM: regular rhythm HEART SOUNDS: S1 normal heart sound present and S2 normal heart sound present GI: COMMON NORMALS: Normal to inspection, nondistended, normoactive bowel sounds present, Soft to palpation, non-tender, No hepatosplenomegaly present and no masses PALPATION: Yes Soft to palpation and Yes No hepatosplenomegaly present Neuro: COMMON NORMALS: patient oriented x3 SENSORIUM/ORIENTATION: Yes alert Course 2 Vital Signs: Vital signs: Vital Signs Temperature 98.4 F 10/17/23 16:10 Pulse Rate 96 10/17/23 18:32 Respiratory Rate 16 10/17/23 16:10 Blood Pressure 165/97 10/17/23 18:32 Pulse Oximetry 99 10/17/23 18:32 Oxygen Delivery Me thod Room Air 10/17/23 16:10 MDM - Nausea/Vomiting/Diarrhea Medical Decision Making Patient had lab work done revealed he was not in DKA, he was given a liter normal saline syncope about a headache. He was given 4 mg Zofran and 30 mg Toradol IV which helped his headache. Patient be discharged on Zofran. Differential Diagnosis Likely gastroenteritis; Unlikely traveler's diarrhea, food poisoning, clostridium difficile infection, drug-induced nausea and vomiting or dehydration Medical Records I reviewed the patient's medical records. Lab Data I reviewed the patient's lab results. 10/17/23 16:19 10/17/23 16:19 Laboratory Results WBC 5.36 10^3/uL (3.29-11.43) 10/17/23 16:19 RBC 4.94 10^6/uL (3.85-5.65) 10/17/23 16:19 Hgb 14.90 g/dL (11.27-16.99) 10/17/23 16:19 Hct 44.5 % (37-53) 10/17/23 16:19 MCV 90.1 fl (82-101) 10/17/23 16:19 MCH 30.2 pg (27-33) 10/17/23 16:19 MCHC 33.5 g/dL (30-55) 10/17/23 16:19 RDW 13.0 % (12.1-15.1) 10/17/23 16:19 Plt Count 279 10^3/cmm (157-399) 10/17/23 16:19 MPV 10.4 fL (7.4-10.4) 10/17/23 16:19 Neut % (Auto) 70.8 % 10/17/23 16:19 Lymph % (Auto) 22.6 % 10/17/23 16:19 [place] % (Auto) 4.9 % 10/17/23 16:19 Eos % (Auto) 1.1 % 10/17/23 16:19 Baso % (Auto) 0.4 % 10/17/23 16:19 Neut # (Auto) 3.80 10^3/uL (1.8-7.7) 10/17/23 16:19 Lymph # (Auto) 1.2 10^3/uL (0.8-4.8) 10/17/23 16:19 [place] # (Auto) 0.3 10^3/uL (0.2-0.9) 10/17/23 16:19 Eos # (Auto) 0.1 10^3/uL (0.0-0.8) 10/17/23 16:19 Baso # (Auto) 0.0 10^3/uL (0.0-0.1) 10/17/23 16:19 Nucleated RBC % (auto) 0 % 10/17/23 16:19 Nucleated RBCs # 0.0 /100WBC 10/17/23 16:19 Sodium 139 mmol/L (136-145) 10/17/23 16:19 Potassium 4.0 mmol/L (3.5-5.1) 10/17/23 16:19 Chloride 100 mmol/L (98-107) 10/17/23 16:19 Carbon Dioxide 28 mmol/L (22-29) 10/17/23 16:19 Anion Gap 15.0 (5-19) 10/17/23 16:19 BUN 21 mg/dL (8-23) 10/17/23 16:19 Creatinine 0.6 mg/dL (0.7-1.2) L 10/17/23 16:19 GFR Calculation 135.6 mL/min (90-130) H 10/17/23 16:19 Glucose 189 mg/dL (65-115) H 10/17/23 16:19 Calculated Osmolality 296 mOsm/kg (285-295) H 10/17/23 16:19 Calcium 9.7 mg/dL (8.5-10.5) 10/17/23 16:19 Total Bilirubin 0.4 mg/dL (0.15-1.2) 10/17/23 16:19 AST 13 U/L (0-40) 10/17/23 16:19 ALT 16 U/L (0-41) 10/17/23 16:19 Alkaline Phosphatase 73 U/L (40-130) 10/17/23 16:19 Total Protein 7.6 g/dL (6.6-8.7) 10/17/23 16:19 Albumin 4.6 g/dL (3.5-5.2) 10/17/23 16:19 Globulin 3.0 g/dL (1.3-4.6) 10/17/23 16:19 Urine Color Yellow (Yellow) 10/17/23 16:58 Urine Appearance Clear (CLEAR) 10/17/23 16:58 Urine pH 7 (5-7) 10/17/23 16:58 Ur Specific [place] 1.010 (1.005-1.030) 10/17/23 16:58 Urine Protein Trace (Negative) 10/17/23 16:58 Urine Glucose (UA) 4+ (Normal) H 10/17/23 16:58 Urine Ketones Negative (Negative) 10/17/23 16:58 Urine Blood Neg (Negative) 10/17/23 16:58 Urine Nitrate Negative (Negative) 10/17/23 16:58 Urine Bilirubin Neg (Negative) 10/17/23 16:58 Urine Urobilinogen Norm mg/dL (Negative) 10/17/23 16:58 Ur Leukocyte Esterase Negative (Negative) 10/17/23 16:58 Urine RBC 0-4 /hpf (0-2) H 10/17/23 16:58 Urine WBC 0-4 /hpf (0-5) H 10/17/23 16:58 Ur Squamous Epith Cells 0-4 /hpf (0-5) H 10/17/23 16:58 Amorphous Sediment Trace /hpf 10/17/23 16:58 Urine Bacteria Trace /hpf (NONE) 10/17/23 16:58 Urine Mucus 1+ /hpf 10/17/23 16:58 Serum Ketones Negative (Negative) 10/17/23 16:19 All radiology interpretation(s) finalized by discharge Discharge Plan Discharge Patient Disposition: Home Clinical Impression: Dehydration Headache Qualifiers: Headache type: unspecified Headache chronicity pattern: acute headache I ntractability: not intractable Qualified Code(s): R51.9 - Headache, unspecified Condition: Stable Prescriptions: New ondansetron HCl 4 mg tablet 4 mg PO Q8H PRN (Reason: nausea and vomiting) Qty: 14 0RF No Action aspirin [Adult Aspirin Regimen] 81 mg tablet,delayed release (DR/EC) 81 mg PO QAM (DME) Dexcom G7 [employer]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 Misc See Rx Instructions .Route Qty: 1 0RF Rx Instructions: rew once a year (DME) Dexcom G7 Sensor Device See Rx Instructions .ROUTE .MEDSUPPLY Qty: 9 0RF Rx Instructions: Change every 10days trazodone 100 mg Tablet 100 mg PO BEDTIME gabapentin 300 mg capsule 300 mg PO BID sertraline 50 mg tablet 50 mg PO DAILY hydrocodone-acetaminophen 10-325 mg tablet 1 tab PO TID atorvastatin 40 mg tablet 40 mg PO QPM pantoprazole 40 mg tablet,delayed release (DR/EC) 40 mg PO BID PRN (Reason: Acid Reflux) Rybelsus 14 mg tablet 14 mg PO DAILY insulin aspart U-100 [Novolog FlexPen U-100 Insulin] 100 unit/mL (3 mL) insulin pen See Rx Instructions .ROUTE .COMPLEX Qty: 15 3RF Rx Instructions: Inject, subcut, 3 times daily, after meals, based on sliding scale provided Tresiba FlexTouch U-100 100 unit/mL (3 mL) insulin pen 50 unit SUBCUT QAM Discharge Orders: Discharge ED (Routine); Ordered 10/17/23 Ordered By: Joce Remy Referrals: Hannah Jin FNP [Primary Care Provider] - 1 week Patient Instructions: Dehydration - Adult, Acute Headache (DC) Activity Restrictions/Additional Instructions: Please push plenty of fluids, please take all antiemetics as directed. Please follow-up with your family practitioner within next 7 to 10 days for further evaluation and treatment. Coding Level of Care Code ED Binder Fixer for Aura Durán
[2023-10-17 16:39] LABS: Basophils % 0.4 %; Eosinophils # 0.1 10^3/uL (0.0-0.8); Eosinophils % 1.1 %; Hematocrit 44.5 % (37-53); Lymphocytes # 1.2 10^3/uL (0.8-4.8); Lymphocytes % 22.6 %; Mean Corpuscular HGB Conc 33.5 g/dL (30-55); Mean Corpuscular Hemoglobin 30.2 pg (27-33); Mean Corpuscular Volume 90.1 fl (82-101); Mean Platelet Volume 10.4 fL (7.4-10.4); Monocytes # 0.3 10^3/uL (0.2-0.9); Monocytes % 4.9 %; Neutrophils % 70.8 %; Nucleated Red Blood Cells % 0 %; Platelet Count 279 10^3/cmm (157-399); Red Blood Count 4.94 10^6/uL (3.85-5.65); White Blood Count 5.36 10^3/uL (3.29-11.43)
[2023-10-17] MEDS: sodium chloride 0.9% 1,000 ML 999 ML IV (16:40)
[2023-10-17 16:46] LABS: Alanine Aminotransferase 16 U/L (0-41); Albumin Level 4.6 g/dL (3.5-5.2); Alkaline Phosphatase 73 U/L (40-130); Aspartate Amino Transferase 13 U/L (0-40); Blood Urea Nitrogen 21 mg/dL (8-23); Calcium 9.7 mg/dL (8.5-10.5); Carbon Dioxide 28 mmol/L (22-29); Chloride 100 mmol/L (98-107); Glomerular Filtration Rate 135.6 mL/min (90-130); Glucose 189 mg/dL (65-115); Osmolality Calculated 296 mOsm/kg (285-295); Sodium 139 mmol/L (136-145); Total Bilirubin 0.4 mg/dL (0.15-1.2); Total Protein 7.6 g/dL (6.6-8.7)
[2023-10-17 16:49] LABS: Creatinine Clr Calc Pharmacy 107.4957
[2023-10-17 16:51] LABS: Ketone (Acetest) Serum Negative (Negative)
[2023-10-17 17:13] VITALS: BP 151/95; PULSE 91; O2SAT 96
[2023-10-17 17:47] LABS: Bilirubin Urine Neg (Negative); Blood Urine Neg (Negative); Glucose Urine UA 4+ (Normal); Ketones Urine Negative (Negative); Leukocyte Esterase Urine Negative (Negative); Nitrate Urine Negative (Negative); Protein Urine Trace (Negative); Urine Appearance Clear (CLEAR); Urine Color Yellow (Yellow); Urobilinogen Urine Norm (Negative); pH Urine 7 (5-7)
[2023-10-17 17:48] LABS: Add Urine Culture? No; Add Urine Microscopic? YES; Amorphous Sediment Urine TRACE /hpf; Bacteria Urine TRACE /hpf; Mucus Urine 1+ /hpf; RBC Urine 0-4 /hpf (0-2); Squamous Epithelial Cell Urine 0-4 /hpf (0-5); WBC Urine 0-4 /hpf (0-5)
[2023-10-17] MEDS: ketorolac 30 mg/mL INJ IVP (18:22)
[2023-10-17 18:32] VITALS: BP 165/97; PULSE 96; O2SAT 99
== END 2023-10-17 18:33 | disposition home or self-care (01) ==
PROVIDERS: Emergency Provider Emergency Medicine; PCP Nurse Practitioner Family
DX: R51.9 Headache, unspecified (principal); E86.0 Dehydration; Z79.82 Long term (current) use of aspirin; Z79.4 Long term (current) use of insulin; I10 Essential (primary) hypertension; E78.5 Hyperlipidemia, unspecified; E11.9 Type 2 diabetes mellitus without complications
CPT/HCPCS: 80053; 81001; 82009; 85025; 96361; 96374; 99284; J1885; J7030

== ENCOUNTER → 2023-11-21 07:58 | Outpatient (BNVA) | payer MEDICARE, MEDICAID, SELFPAY | PROVIDERS: PCP Nurse Practitioner Family; Visit Provider Internal Medicine | DX: E11.649 Type 2 diabetes mellitus with hypoglycemia without coma; Z79.4 Long term (current) use of insulin; E78.5 Hyperlipidemia, unspecified | CPT/HCPCS: 99214 ==

== ENCOUNTER → 2024-02-21 09:20 | Outpatient (BNVA) | payer MEDICARE, MEDICAID, SELFPAY | PROVIDERS: PCP Nurse Practitioner Family; Visit Provider Internal Medicine | DX: E11.649 Type 2 diabetes mellitus with hypoglycemia without coma; Z79.4 Long term (current) use of insulin; E78.5 Hyperlipidemia, unspecified | CPT/HCPCS: 99214 ==

== ENCOUNTER → 2024-04-02 09:40 | Outpatient (BNVA) | payer MEDICARE, MEDICAID, SELFPAY | PROVIDERS: PCP Nurse Practitioner Family; Visit Provider Surgery | DX: R19.5 Other fecal abnormalities (principal) | CPT/HCPCS: 99204 ==

== ENCOUNTER → 2024-04-12 11:28 | Outpatient (BNVA) | payer MEDICARE, MEDICAID, SELFPAY | PROVIDERS: PCP Nurse Practitioner Family; Visit Provider Internal Medicine | DX: Z79.4 Long term (current) use of insulin; E78.5 Hyperlipidemia, unspecified; E11.649 Type 2 diabetes mellitus with hypoglycemia without coma | CPT/HCPCS: 99214 ==

== ENCOUNTER 2024-05-02 12:36 | Emergency (ER) | payer MEDICARE, MEDICAID, SELFPAY ==
[2024-05-02] VITALS (27 sets, daily range): BP systolic 115–130; BP diastolic 66–81; PULSE 72–93; RESP 13–30; TEMP 36.4; O2SAT 93–100; BMI 24.0
--- NOTE | 2024-05-02 14:07 | ECG_ITS ---
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 Measurements Intervals Exchange Rate: 83 P: 68 TX: 155 QRS: -14 QRSD: 84 T: 68 QT: 351 QTc: 413 Interpretive Statements SINUS RHYTHM EARLY REPOLARIZATION [ST ELEVATION WITH NORMALLY INFLECTED T-WAVE] Compared to ECG 06/28/2023 13:37:58 Early repolarization now present Electronically Signed On 05-02-2024 23:01:23 CDT by Adrianne Coronado M.D. [id number]
--- NOTE | 2024-05-02 14:07 | XRR_ITS ---
PROCEDURE INFORMATION: Exam: XR Chest Exam date and time: 05/02/2024 2:11 PM Age: 63 years old Clinical indication: Other: Dizzy TECHNIQUE: Imaging protocol: Radiologic exam of the chest. Views: 1 view. COMPARISON: CR (CHEST, ) 06/27/2023 9:17 PM FINDINGS: Lungs: Unremarkable. No consolidation. Pleural spaces: Unremarkable. No pleural effusion. No pneumothorax. Heart/Mediastinum: Unremarkable. No cardiomegaly. Bones/joints: No acute findings. XR/XR chest 1V portable [id number] IMPRESSION: No acute findings.
--- NOTE | 2024-05-02 14:07 | CT_ITS ---
WS: [id number] CT HEAD TECHNIQUE: Noncontrast CT of the head obtained from the skullbase to the vertex. CLINICAL INFORMATION: dizzy COMPARISON: None. DLP: 1025.[address] scans at [facility] use at least one of these dose optimization techniques: automated e xposure control; mA and/or kV adjustment per patient size (includes targeted exams where dose is matc hed to clinical indication); or iterative reconstruction. FINDINGS: No evidence of intracranial hemorrhage or mass effect. Ventricular system and basal cisterns are palacio nt. Mild small vessel changes with mild parenchymal volume loss. No extra-axial fluid collections. No evidence of mass or mass effect. Normal rodriguez-white differentiation. Paranasal sinuses and mastoid air cells are well aerated. .Normal visualized soft tissues. CT/CT head wo con* [id number] IMPRESSION: 1. No evidence of intracranial hemorrhage or mass effect. 2. Mild small vessel changes. Mild parenchymal volume loss. 3. No acute intracranial findings.
--- NOTE | 2024-05-02 14:09 | ED_ITS ---
HPI - Dizziness 2 General: Chief Complaint: Dizziness Stated Complaint: dizzy, unstable, blood sugar 373 Time Seen by Provider: 05/02/24 14:01 Source: patient Mode of arrival: ambulatory Limitations: no limitations History of Present Illness: HPI Narrative: 63-year-old male states that over the la st month he has been feeling dizzy lightheaded with general malaise and fatigue he does have a history of diabetes. States that seems to be worse after he goes to the bathroom. He denies any focal weakness Related Data Home Medications Medication Instructions Recorded Confirmed trazodone 100 mg tablet 100 mg PO BEDTIME 10/26/19 05/02/24 aspirin 81 mg tablet,delayed 81 mg PO QAM 05/12/20 05/02/24 release (Adult Aspirin Regimen) gabapentin 300 mg capsule 300 mg PO BID 06/30/22 05/02/24 sertraline 50 mg tablet 50 mg PO DAILY 06/30/22 05/02/24 atorvastatin 40 mg tablet 40 mg PO QPM 06/28/23 05/02/24 hydrocodone 10 mg-acetaminophen 1 tab PO TID 06/28/23 05/02/24 325 mg tablet semaglutide 14 mg tablet (Rybelsus) 14 mg PO DAILY 06/28/23 05/02/24 insulin aspart U-100 100 unit/mL See Rx Instructions .ROUTE 05/02/24 05/02/24 (3 mL) subcutaneous pen (Novolog .COMPLEX PRN sliding scale FlexPen U-100 Insulin aspart) Previous Rx's Medication Instructions Recorded blood-glucose meter,continuous #1 ea 11/30/22 (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) blood-glucose sensor (Dexcom G7 #9 ea 05/30/23 Sensor device) insulin degludec 100 unit/mL (3 60 unit (0.6 mL) SUBCUT QAM #60 mL 04/02/24 mL) subcutaneous pen (Tresiba FlexTouch U-100 insulin) Allergies Allergy/AdvReac Type Severity Reaction Status Date / Time No Known Drug Allergies Allergy Unknown Unknown Verified 04/12/24 07:52 PFS ED 2 PFSH: Medical History Hypertension Anxiety Hyperlipidemia Chronic pain Insulin dependent diabetes mellitus Surgical History H/O shoulder surgery Family History Father Colon cancer Other COPD (chronic obstructive pulmonary disease) Cancer Social History Smoking and tobacco/nicotine status: never used tobacco/nicotine Alcohol intake: never Substance/Drug Use: never Course 2 Vital Signs: Vital signs: Vital Signs Temperature 97.6 F 05/02/24 12:54 Pulse Rate 73 05/02/24 16:35 Respiratory Rate 18 05/02/24 16:35 Blood Pressure 130/77 05/02/24 16:35 Pulse Oximetry 98 05/02/24 16:35 Oxygen Delivery Me thod Room Air 05/02/24 16:20 MDM - Dizziness Medical Decision Making Patient presents here with feelings of lightheadedness at times feels much improved here after IV fluids had some hyperglycemia improved as well he is no signs of stroke no vertigo he has had no chest pain he is stable for discharge follow-up with PCP return if worsening Medical Records I reviewed the patient's medical records. Lab Data I reviewed the patient's lab results. 05/02/24 14:22 05/02/24 16:10 Radiology Impressions Chest X-Ray 05/02/24 14:07 IMPRESSION: No acute findings. Head CT 05/02/24 14:07 IMPRESSION: 1. No evidence of intracranial hemorrhage or mass effect. 2. Mild small vessel changes. Mild parenchymal volume loss. 3. No acute intracranial findings. Laboratory Results WBC 6.80 10^3/uL (3.29-11.43) 05/02/24 14:22 RBC 4.80 10^6/uL (3.85-5.65) 05/02/24 14:22 Hgb 14.20 g/dL (11.27-16.99) 05/02/24 14:22 Hct 43.5 % (37-53) 05/02/24 14:22 MCV 90.6 fl (82-101) 05/02/24 14:22 MCH 29.6 pg (27-33) 05/02/24 14:22 MCHC 32.6 g/dL (30-55) 05/02/24 14:22 RDW 12.7 % (12.1-15.1) 05/02/24 14:22 Plt Count 232 10^3/cmm (157-399) 05/02/24 14:22 MPV 10.4 fL (7.4-10.4) 05/02/24 14:22 Neut % (Auto) 73.8 % 05/02/24 14:22 Lymph % (Auto) 18.8 % 05/02/24 14:22 [place] % (Auto) 5.7 % 05/02/24 14:22 Eos % (Auto) 0.7 % 05/02/24 14:22 Baso % (Auto) 0.6 % 05/02/24 14:22 Neut # (Auto) 5.01 10^3/uL (1.8-7.7) 05/02/24 14:22 Lymph # (Auto) 1.3 10^3/uL (0.8-4.8) 05/02/24 14:22 [place] # (Auto) 0.4 10^3/uL (0.2-0.9) 05/02/24 14:22 Eos # (Auto) 0.1 10^3/uL (0.0-0.8) 05/02/24 14:22 Baso # (Auto) 0.0 10^3/uL (0.0-0.1) 05/02/24 14:22 Nucleated RBC % (auto) 0 % 05/02/24 14:22 Nucleated RBCs # 0.0 /100WBC 05/02/24 14:22 Sodium 132 mmol/L (136-145) L 05/02/24 16:10 Potassium 4.6 mmol/L (3.5-5.1) 05/02/24 16:10 Chloride 98 mmol/L (98-107) 05/02/24 16:10 Carbon Dioxide 16 mmol/L (22-29) L 05/02/24 16:10 Anion Gap 22.6 (5-19) H 05/02/24 16:10 BUN 26 mg/dL (8-23) H 05/02/24 16:10 Creatinine 0.8 mg/dL (0.7-1.2) 05/02/24 16:10 GFR Calculation 97.3 mL/min (90-130) 05/02/24 16:10 Glucose 261 mg/dL (65-115) H 05/02/24 16:10 Calculated Osmolality 288 mOsm/kg (285-295) 05/02/24 16:10 Calcium 8.6 mg/dL (8.5-10.5) 05/02/24 16:10 Total Bilirubin 0.4 mg/dL (0.15-1.2) 05/02/24 14:22 AST 11 U/L (0-40) 05/02/24 14:22 ALT 21 U/L (0-41) 05/02/24 14:22 Alkaline Phosphatase 86 U/L (40-130) 05/02/24 14:22 Troponin T Baseline 13 ng/L (0-15) 05/02/24 14:22 Troponin T 120 Minute 12.16 ng/L (0-15) 05/02/24 16:10 Delta Troponin T -0.84 ABS# (0-10) L 05/02/24 16:10 Total Protein 7.1 g/dL (6.6-8.7) 05/02/24 14:22 Albumin 4.7 g/dL (3.5-5.2) 05/02/24 14:22 Globulin 2.4 g/dL (1.3-4.6) 05/02/24 14:22 All radiology interpretation(s) finalized by discharge EKG Data EKG 1: I personally reviewed and interpreted this EKG as follows: EKG interpretation date: 05/02/24 EKG interpretation time: 14:32 Interpretation: nsr hr [address] elevation qrs 84 qtc 390 Discharge Plan Discharge Patient Disposition: Home Clinical Impression: Hyperglycemia, Dizziness Condition: Stable Prescriptions: No Action aspirin [Adult Aspirin Regimen] 81 mg tablet,delayed release (DR/EC) 81 mg PO QAM (DME) 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 Misc See Rx Instructions .Route Qty: 1 0RF Rx Instructions: rew once a year (DME) Dexcom G7 Sensor Device See Rx Instructions .ROUTE .MEDSUPPLY Qty: 9 0RF Rx Instructions: Change every 10days Tresiba FlexTouch U-100 100 unit/mL (3 mL) insulin pen 60 unit SUBCUT QAM Qty: 60 1RF trazodone 100 mg Tablet 100 mg PO BEDTIME gabapentin 300 mg capsule 300 mg PO BID sertraline 50 mg tablet 50 mg PO DAILY Novolog FlexPen U-100 Insulin 100 unit/mL (3 mL) insulin pen See Rx Instructions .ROUTE .COMPLEX PRN (Reason: sliding scale) Rx Instructions: Inject, subcut, 3 times daily, after meals, based on sliding scale provided hydrocodone-acetaminophen 10-325 mg tablet 1 tab PO TID atorvastatin 40 mg tablet 40 mg PO QPM Rybelsus 14 mg tablet 14 mg PO DAILY Discharge Orders: Discharge ED (Routine); Ordered 05/02/24 Ordered By: Estefania Mcgowan Referrals: Hannah Jin CAKE MAKER [Primary Care Provider] - 4-7 days Discharge Diet: Advance as tolerated Discharge Activity: Resume usual activity Patient Instructions: Dizziness (ED), Diabetic Hyperglycemia (ED) Coding Level of Care Code ED Blower Installer for Aura Durán
[2024-05-02 14:29] LABS: Basophils % 0.6 %; Eosinophils # 0.1 10^3/uL (0.0-0.8); Eosinophils % 0.7 %; Hematocrit 43.5 % (37-53); Lymphocytes # 1.3 10^3/uL (0.8-4.8); Lymphocytes % 18.8 %; Mean Corpuscular HGB Conc 32.6 g/dL (30-55); Mean Corpuscular Hemoglobin 29.6 pg (27-33); Mean Corpuscular Volume 90.6 fl (82-101); Mean Platelet Volume 10.4 fL (7.4-10.4); Monocytes # 0.4 10^3/uL (0.2-0.9); Monocytes % 5.7 %; Neutrophils # 5.01 10^3/uL (1.8-7.7); Neutrophils % 73.8 %; Nucleated Red Blood Cells % 0 %; Platelet Count 232 10^3/cmm (157-399); Red Cell Distribution Width 12.7 % (12.1-15.1)
[2024-05-02 14:46] LABS: Troponin(5th) Baseline 13 ng/L (0-15)
[2024-05-02] MEDS: sodium chloride 0.9% 1,000 ML 999 ML IV ×2 (14:50→15:46)
[2024-05-02] MEDS: meclizine 25 mg tablet 50 MG PO (14:51)
[2024-05-02 14:52] LABS: Alanine Aminotransferase 21 U/L (0-41); Albumin Level 4.7 g/dL (3.5-5.2); Alkaline Phosphatase 86 U/L (40-130); Anion Gap 27.4 (5-19); Aspartate Amino Transferase 11 U/L (0-40); Blood Urea Nitrogen 29 mg/dL (8-23); Calcium 9.5 mg/dL (8.5-10.5); Carbon Dioxide 15 mmol/L (22-29); Chloride 95 mmol/L (98-107); Creatinine Clr Calc Pharmacy 71.4508; Globulin 2.4 g/dL (1.3-4.6); Glucose 314 mg/dL (65-115); Osmolality Calculated 292 mOsm/kg (285-295); Potassium 5.4 mmol/L (3.5-5.1); Sodium 132 mmol/L (136-145); Total Bilirubin 0.4 mg/dL (0.15-1.2); Total Protein 7.1 g/dL (6.6-8.7)
--- NOTE | 2024-05-02 16:07 | ECG_ITS ---
[facility] Test Date: 2024-05-02 Pat Name: Wiliam Rogers Department: Room: Gender: Male Technical Support Intern: : 1960 Requested By: Estefania Mcgowan Order Number: [id number] Catrachito MD: Adrianne Coronado M.D. Measurements Intervals [place] Rate: 75 P: 64 ME: 166 QRS: -15 QRSD: 92 T: 63 QT: 376 QTc: 422 Interpretive Statements SINUS RHYTHM Compared to ECG 05/02/2024 14:32:40 Early repolarization no longer present Electronically Signed On 05-02-2024 23:10:14 CDT by Adrianne Coronado M.D. [id number]
[2024-05-02 16:34] LABS: Troponin 5 2HR 12.16 ng/L (0-15)
[2024-05-02 16:35] LABS: Anion Gap 22.6 (5-19); Blood Urea Nitrogen 26 mg/dL (8-23); Calcium 8.6 mg/dL (8.5-10.5); Carbon Dioxide 16 mmol/L (22-29); Chloride 98 mmol/L (98-107); Creatinine Clr Calc Pharmacy 80.3821; Glomerular Filtration Rate 97.3 mL/min (90-130); Glucose 261 mg/dL (65-115); Osmolality Calculated 288 mOsm/kg (285-295); Potassium 4.6 mmol/L (3.5-5.1); Sodium 132 mmol/L (136-145)
[2024-05-02 16:36] LABS: Troponin 5 2HR Delta -0.84 ABS# (0-10)
== END 2024-05-02 17:01 | disposition home or self-care (01) ==
PROVIDERS: Emergency Provider Emergency Medicine; PCP Nurse Practitioner Family
DX: E11.65 Type 2 diabetes mellitus with hyperglycemia (principal); R42 Dizziness and giddiness; Z79.82 Long term (current) use of aspirin; Z79.4 Long term (current) use of insulin; I10 Essential (primary) hypertension; E78.5 Hyperlipidemia, unspecified
CPT/HCPCS: 36415; 70450; 71045; 80048; 80053; 84484; 85025; 93005; 99285; J7030; J8597

== ENCOUNTER 2024-05-16 07:54 | Day surgery (SDC) | payer MEDICARE, MEDICAID, SELFPAY ==
[2024-05-16 08:14] VITALS: BP 127/77; PULSE 71; RESP 17; TEMP 36.3; O2SAT 98; BMI 22.9
--- NOTE | 2024-05-16 08:19 | ANES.PREANE2 ---
Pre-Anesthetic Assessment Height/Weight: Height 1.65 m Weight 62.596 kg Temp Pulse Resp BP Pulse Ox O2 Del Method 97.4 F L 71 17 127/77 98 Room Air 05/16/24 08:14 05/16/24 08:14 05/16/24 08:14 05/16/24 08:14 05/16/24 08:14 05/16/24 08:14 Operation Date: 05/16/24 09:00 Proposed Procedures p Colonoscopy - 98419, G0105, R19.5(Not Applicable) - Luis Rivers DO Familial anesthetic complications: none Was Beta Bekah taken within 24 hours: N/A Was Clonidine taken within 24 hours: N/A Last intake: Intake Last Liquid Date 05/15/24 Last Liquid Time 20:00 Last Solid Date 05/14/24 Last Solid Time 18:00 Social No alcohol and No tobacco Exam alert and oriented x 3 Airway Submandibular: within normal limits Cervical ROM: within normal limits Mallampati: Class I Dentition: false Pulmonary None reported CV/HEM Hypertension None reported Hepatic None reported GI None reported Metabolic Diabetes Mellitus and Hyperlipidemia [facility] Osteoarthritis/DJD Neuropsych Anxiety and Neuropathy Anesthetic Plan ASA status: 3 Anesthesia: Anesthesia Evaluation and MAC Medications/Allergies Home Medications Medication Instructions Recorded Confirmed Last Taken Type trazodone 100 mg tablet 100 mg PO BEDTIME PRN Sleep 10/26/19 05/16/24 05/13/24 History aspirin 81 mg tablet,delayed 81 mg PO QAM 05/12/20 05/14/24 05/14/24 History release (Adult Aspirin Regimen) gabapentin 300 mg capsule 300 mg PO BID 06/30/22 05/16/24 05/15/24 History sertraline 50 mg tablet 50 mg PO DAILY 06/30/22 05/16/24 05/14/24 History blood-glucose meter,continuous #1 ea 11/30/22 05/02/24 Unknown Rx (Dexcom G7 Finance Clerk) blood-glucose sensor (Dexcom G7 #9 ea 05/30/23 05/02/24 Unknown Rx Sensor device) atorvastatin 40 mg tablet 40 mg PO QPM 06/28/23 05/16/24 05/15/24 History hydrocodone 10 mg-acetaminophen 1 tab PO TID 06/28/23 05/16/24 05/01/24 History 325 mg tablet semaglutide 14 mg tablet (Rybelsus) 14 mg PO DAILY 06/28/23 05/16/24 05/14/24 History insulin degludec 100 unit/mL (3 60 unit (0.6 mL) SUBCUT QAM #60 mL 04/02/24 05/16/24 05/15/24 Rx mL) subcutaneous pen (Tresiba FlexTouch U-100 insulin) insulin aspart U-100 100 unit/mL See Rx Instructions .ROUTE 05/02/24 05/16/24 05/15/24 History (3 mL) subcutaneous pen (Novolog .COMPLEX PRN sliding scale FlexPen U-100 Insulin aspart) Allergies Allergy/AdvReac Type Severity Reaction Status Date / Time No Known Drug Allergies Allergy Unknown Unknown Verified 05/14/24 11:28 [facility] Anesthesia Medical History Hypertension Anxiety Hyperlipidemia Chronic pain Insulin dependent diabetes mellitus Surgical History H/O shoulder surgery Family History Father Colon cancer Other COPD (chronic obstructive pulmonary disease) Cancer Social History Smoking and tobacco/nicotine status: never used tobacco/nicotine Alcohol intake: never Substance/Drug Use: never Data Anesthesia Cardiac Studies: No Data to Display
[2024-05-16] MEDS: sodium chloride 0.9% 1,000 ML 30 ML IV (08:29)
[2024-05-16 08:32] LABS: Glucose Point of Care 154 mg/dL (70-110)
--- NOTE | 2024-05-16 08:54 | P.HP_ITS ---
Providers/Chief Complaint Primary Care Provider: Hannah Jin Chief Complaint: R19.5 History of Present Illness Wiliam Rogers is a 63 year old male Review of Systems General: Reports: 10 or more systems reviewed and unremarkable except in HPI and below Medications/Allergies Home Medications Medication Instructions Recorded Confirmed Last Taken Type trazodone 100 mg tablet 100 mg PO BEDTIME PRN Sleep 10/26/19 05/16/24 05/13/24 History aspirin 81 mg tablet,delayed 81 mg PO QAM 05/12/20 05/14/24 05/14/24 History release (Adult Aspirin Regimen) gabapentin 300 mg capsule 300 mg PO BID 06/30/22 05/16/24 05/15/24 History sertraline 50 mg tablet 50 mg PO DAILY 06/30/22 05/16/24 05/14/24 History blood-glucose meter,continuous #1 ea 11/30/22 05/02/24 Unknown Rx (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) blood-glucose sensor (Dexcom G7 #9 ea 05/30/23 05/02/24 Unknown Rx Sensor device) atorvastatin 40 mg tablet 40 mg PO QPM 06/28/23 05/16/24 05/15/24 History hydrocodone 10 mg-acetaminophen 1 tab PO TID 06/28/23 05/16/24 05/01/24 History 325 mg tablet semaglutide 14 mg tablet (Rybelsus) 14 mg PO DAILY 06/28/23 05/16/24 05/14/24 History insulin degludec 100 unit/mL (3 60 unit (0.6 mL) SUBCUT QAM #60 mL 04/02/24 05/16/24 05/15/24 Rx mL) subcutaneous pen (Tresiba FlexTouch U-100 insulin) insulin aspart U-100 100 unit/mL See Rx Instructions .ROUTE 05/02/24 05/16/24 05/15/24 History (3 mL) subcutaneous pen (Novolog .COMPLEX PRN sliding scale FlexPen U-100 Insulin aspart) Allergies Allergy/AdvReac Type Severity Reaction Status Date / Time No Known Drug Allergies Allergy Unknown Unknown Verified 05/14/24 11:28 PFSH Acute PFSH: Medical History Hypertension Anxiety Hyperlipidemia Chronic pain Insulin dependent diabetes mellitus Surgical History H/O shoulder surgery Family History Father Colon cancer Other COPD (chronic obstructive pulmonary disease) Cancer Social History Smoking and tobacco/nicotine status: never used tobacco/nicotine Alcohol intake: never Substance/Drug Use: never Vitals/I&O/Wt Last Vital Signs Temp 97.4 F L 05/16/24 08:14 Pulse 71 05/16/24 08:14 Resp 17 05/16/24 08:14 BP 127/77 05/16/24 08:14 Pulse Ox 98 05/16/24 08:14 O2 Del Method Room Air 05/16/24 08:14 Weight last 48 hrs Weight 138 lb A&P Assessment and plan (1) Positive colorectal cancer screening using Cologuard test: Plan Diagnostic colonoscopy Attestations Medical Necessity Statement*: Home Coding Level of Care Code Acute Code for Chg Fwd Diagnoses Positive colorectal cancer screening using Cologuard test R19.5
[2024-05-16 09:12] VITALS: BP 98/69; PULSE 65; RESP 16; TEMP 36.1; O2SAT 98
[2024-05-16 09:26] VITALS: BP 109/75; PULSE 65; RESP 18; O2SAT 98
--- NOTE | 2024-05-16 09:32 | ANE.PACU2 ---
Inpatient post-anesthesia follow up: Airway intact: Yes Vital signs: Temperature 97 F Pulse Rate 65 Respiratory Rate 18 Blood Pressure 109/75 Pulse Oximetry 98 Oxygen Delivery Me thod Room Air Oxygen Flow Rate Fraction of Inspir ed Oxygen Hydration adequate: Yes Nausea and vomiting: No Pain level: 1 Mental status: Baseline
== END 2024-05-16 09:48 | disposition home or self-care (01) ==
PROVIDERS: PCP Nurse Practitioner Family; Visit Provider Surgery
PROC: 0DJD8ZZ Inspection of Lower Intestinal Tract, Via Natural or Artificial Opening Endoscopic (ICD-10-PCS; CPT 45378; principal; 2024-05-16 09:00)
DX: Z12.11 Encounter for screening for malignant neoplasm of colon (principal); I10 Essential (primary) hypertension; F41.9 Anxiety disorder, unspecified; E78.5 Hyperlipidemia, unspecified; E11.40 Type 2 diabetes mellitus with diabetic neuropathy, unspecified; Z79.4 Long term (current) use of insulin; Z79.82 Long term (current) use of aspirin
CPT/HCPCS: 36416; 82962; G0121; J2704; J7030

== ENCOUNTER 2024-06-20 12:22 | Outpatient (CLI) | payer MEDICARE, MEDICAID, SELFPAY ==
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
== END 2024-06-20 12:23 | disposition home or self-care (01) ==
LOC: RAD 12:24
PROVIDERS: PCP Nurse Practitioner Family; Visit Provider Family Medicine
DX: M25.569 Pain in unspecified knee (principal); M25.552 Pain in left hip; M25.551 Pain in right hip
CPT/HCPCS: 73522; 73562

== ENCOUNTER → 2024-07-13 11:00 | Outpatient (BNVA) | payer MEDICARE, MEDICAID, SELFPAY | PROVIDERS: PCP Nurse Practitioner Family; Visit Provider Internal Medicine | DX: E78.5 Hyperlipidemia, unspecified; Z79.4 Long term (current) use of insulin; E11.649 Type 2 diabetes mellitus with hypoglycemia without coma | CPT/HCPCS: 99214 ==

== ENCOUNTER 2024-07-24 15:52 | Outpatient (CLI) | payer MEDICARE, MEDICAID, SELFPAY ==
[2024-07-24 17:57] LABS: Alanine Aminotransferase 16 U/L (0-41); Albumin Level 4.3 g/dL (3.5-5.2); Alkaline Phosphatase 63 U/L (40-130); Anion Gap 21.9 (5-19); Aspartate Amino Transferase 13 U/L (0-40); Blood Urea Nitrogen 20 mg/dL (8-23); Calcium 9.6 mg/dL (8.5-10.5); Carbon Dioxide 28 mmol/L (22-29); Chloride 95 mmol/L (98-107); Chol HDL Ratio 7.73 mg/dL (1.0-5.00); Cholesterol 255 mg/dL (0-200); Globulin 2.3 g/dL (1.3-4.6); Glomerular Filtration Rate 135.2 mL/min (90-130); Glucose 445 mg/dL (65-115); HDL Cholesterol 33 mg/dL (60-100); LDL Cholesterol Calculated 152 mg/dL (50-129); LDL HDL Ratio 4.61 RATIO (0.00-3.22); Osmolality Calculated 312 mOsm/kg (285-295); Potassium 4.9 mmol/L (3.5-5.1); Sodium 140 mmol/L (136-145); Total Bilirubin 0.2 mg/dL (0.15-1.2); Total Protein 6.6 g/dL (6.6-8.7); Triglycerides 352 mg/dL (0-150)
[2024-07-24 18:19] LABS: Creatinine Urine, Random 35 mg/dL (39-259); Microalbumin Random Urine 2 ug/dL (0-20)
[2024-07-24 18:20] LABS: Microalbum Creatinine Ratio Ur 57 mg/dL (0-20)
[2024-07-24 19:42] LABS: Estmated Average Glucose 318; Hemoglobin A1C 12.7 % (4.0-6.0)
== END 2024-07-24 15:53 | disposition home or self-care (01) ==
PROVIDERS: PCP Nurse Practitioner Family; Visit Provider Internal Medicine
DX: E78.5 Hyperlipidemia, unspecified (principal); E11.9 Type 2 diabetes mellitus without complications; Z79.4 Long term (current) use of insulin; E16.2 Hypoglycemia, unspecified
CPT/HCPCS: 36415; 80053; 80061; 82044; 83036

== ENCOUNTER 2024-07-31 09:04 | Inpatient (IN) | payer MEDICARE, MEDICAID, SELFPAY ==
[2024-07-31] VITALS (44 sets, daily range): BP systolic 134–188; BP diastolic 84–109; PULSE 86–122; RESP 9–40; TEMP 36.6–38; O2SAT 92–97; BMI 25.6; BMI 23.3
--- NOTE | 2024-07-31 09:22 | CT_ITS ---
WS: [id number] CT ABDOMEN AND PELVIS WITH CONTRAST HISTORY: abd pain TECHNIQUE: Imaging performed of the abdomen and pelvis with IV contrast. Single phase imaging of the abdomen. Coronal and sagittal reformats are submitted. All CT scans at [facility] use at [address] one of these dose optimization techniques: automated exposure control; mA and/or kV adjustment per patient size (includes targeted exams where dose is matched to clinical indication); or iterative re construction. IV CONTRAST: Omnipaque 350; 100 mL IV. Oral contrast: No DLP: 383.11 mGy.cm COMPARISON: None available. Lower thorax: Lung bases are clear. Heart is normal size. Small hiatal hernia. Liver/biliary system: Normal size with no intrahepatic dilatation. Normal superior mesenteric and por agapito veins. Gallbladder: Motion artifact. Gallbladder appears normal size with no obvious abnormality. Pancreas: Mild pancreatic atrophy. No duct dilatation. Spleen: Normal size spleen. No mass or infarct. Adrenal glands: Normal. Right kidney: Normal size kidney. 2.3 cm cyst upper pole. No obstruction. Left kidney: Normal. Aorta: Mild atherosclerotic plaque. Mesenteric arteries are patent with a small amount of atheroscler otic plaque. Lymphadenopathy: None. Free fluid: None. GI tract: Stomach is moderately distended with fluid and air. Duodenal C-loop is normal. There is sev eral abnormal small bowel loops in the RIGHT upper quadrant and mid abdomen. Small bowel loops are di lated with fluid to 2.8 cm. Area of stricture in the mid RIGHT abdomen, best seen on image 35 of seri es 3. There is distortion of the loop which may represent an adhesion. Mild hyperemia of the wall. St randing within the adjacent mesentery. The more distal small bowel loops are normal. There is diffuse marked constipation in the colon. Normal appendix. Abdominal wall: Unremarkable abdominal wall. No hernia. Pelvis: No free fluid or adenopathy within the pelvis. Urinary bladder is slightly over distended. No free fluid. Bones: Unremarkable. CT/CT abdomen pelvis w con* [id number] IMPRESSION: 1. High-grade small bowel obstruction. Obstructed small bowel loops in the mid RIGHT and central abdomen. Abnormal small bowel loop extends over a length of at least 13 cm. Transition point noted at image 35 of series 3. Adhesions versu s internal hernia. No free air is identified. Small bowel loops associated at t he obstruction site demonstrate mild hyperemia. 2. Associated mesenteric edema at the site of the obstruction. This can be an early sign of ischemia. 3. No free fluid.
[2024-07-31 09:23] LABS: Basophils # 0.1 10^3/uL (0.0-0.1); Basophils % 0.5 %; Eosinophils % 0.3 %; Hematocrit 45.6 % (37-53); Lymphocytes # 1.2 10^3/uL (0.8-4.8); Lymphocytes % 11.4 %; Mean Corpuscular Hemoglobin 29.8 pg (27-33); Mean Corpuscular Volume 87.7 fl (82-101); Mean Platelet Volume 10.9 fL (7.4-10.4); Monocytes # 0.5 10^3/uL (0.2-0.9); Monocytes % 4.5 %; Neutrophils # 8.95 10^3/uL (1.8-7.7); Neutrophils % 82.7 %; Nucleated Red Blood Cells % 0 %; Platelet Count 252 10^3/cmm (157-399); Red Cell Distribution Width 12.1 % (12.1-15.1); White Blood Count 10.81 10^3/uL (3.29-11.43)
--- NOTE | 2024-07-31 09:24 | W.ED.ABDPA2 ---
HPI - Abdominal Pain General: Chief Complaint: Abdominal Pain Stated Complaint: Abd pain, n/v/d Time Seen by Provider: 07/31/24 09:06 History of Present Illness: 64-year-old male presents emergency room complaining of nausea and vomiting the left upper quadrant abdominal pain that began this morning at around 3 or 4 AM. Patient denies any chest pain send several episodes of vomiting denies any medic easy melena hematemesis coffee-ground emesis. No fever sweats or chills. Patient states she had 1 normal bowel movements morning then after that had 3 very loose stools. No dysuria urgency or frequency. Associated Symptoms: Reports diarrhea, nausea and vomiting; Denies chills, coffee ground emesis, dysuria, fever(s), hematochezia, hematemesis and melena Related Data Home Medications Medication Instructions Recorded Confirmed trazodone 100 mg tablet 100 mg PO BEDTIME PRN Sleep 10/26/19 07/31/24 aspirin 81 mg tablet,delayed 81 mg PO QAM 05/12/20 07/31/24 release (Adult Aspirin Regimen) gabapentin 300 mg capsule 300 mg PO BID 06/30/22 07/31/24 sertraline 50 mg tablet 50 mg PO DAILY 06/30/22 07/31/24 atorvastatin 40 mg tablet 40 mg PO QPM 06/28/23 07/31/24 hydrocodone 10 mg-acetaminophen 1 tab PO TID 06/28/23 07/31/24 325 mg tablet semaglutide 14 mg tablet (Rybelsus) 14 mg PO DAILY 06/28/23 07/31/24 insulin aspart U-100 100 unit/mL See Rx Instructions .Route 05/02/24 07/31/24 (3 mL) subcutaneous pen (Novolog .COMPLEX PRN sliding scale FlexPen U-100 Insulin aspart) ezetimibe 10 mg tablet 10 mg PO DAILY 07/31/24 07/31/24 Previous Rx's Medication Instructions Recorded blood-glucose meter,continuous #1 ea 11/30/22 (Dexcom G7 Coating Machine Helper) blood-glucose sensor (Dexcom G7 #9 ea 05/30/23 Sensor device) insulin degludec 100 unit/mL (3 60 unit (0.6 mL) SUBCUT QAM #60 mL 04/02/24 mL) subcutaneous pen (Tresiba FlexTouch U-100 insulin) Allergies Allergy/AdvReac Type Severity Reaction Status Date / Time No Known Drug Allergies Allergy Unknown Unknown Verified 07/31/24 09:08 Review of Systems Const: Denies: fever(s) or chills Card: Denies: chest pain Resp: Denies: dyspnea GI: Reports: abdominal pain, nausea, vomiting and diarrhea; Denies: hematemesis, coffee ground emesis, hematochezia or melena : Denies: dysuria, urinary frequency or urinary urgency Musc: Denies: neck pain or back pain Skin/Breast: Denies: rash PFSH ED PFSH: Medical History Depression Hypertension Anxiety Hyperlipidemia Chronic pain Insulin dependent diabetes mellitus Surgical History Hx of colonoscopy 18 years ago [facility] [place] H/O shoulder surgery Family History Father Colon cancer Other COPD (chronic obstructive pulmonary disease) Cancer Social History Smoking and tobacco/nicotine status: never used tobacco/nicotine Alcohol intake: never Substance/Drug Use: never Physical Exam Const: GENERAL APPEARANCE: cooperative ORIENTATION/CONSCIOUSNESS: Yes awake, Yes oriented to person, Yes oriented to place and Yes oriented to time HENMT: COMMON NORMALS: normocephalic, atraumatic and hearing grossly normal bilaterally HEAD & SCALP: normocephalic and atraumatic Resp: COMMON NORMALS: normal respiratory effort, No retractions, No use of accessory muscles and clear to auscultation bilaterally AUSCULTATION: clear to auscultation bilaterally Cardio: COMMON NORMALS: regular rate, regular rhythm and No murmurs present (Cardio) RATE: regular rate RHYTHM: regular rhythm GI: COMMON NORMALS: No hepatosplenomegaly present AUSCULTATION: Yes Absent bowel sounds PALPATION: Yes Tenderness to palpation present (GI), No Guarding due to palpation present (GI) and Yes No hepatosplenomegaly present Extremity: COMMON NORMALS: normal to inspection, capillary refill normal, no clubbing, cyanosis or edema, no calf tenderness and no pedal edema Neuro: SENSORIUM/ORIENTATION: Yes oriented to person, Yes oriented to place and Yes oriented to time Skin: COMMON NORMALS: no rashes or lesions noted GENERAL SKIN EXAM: no rashes or lesions noted Course Vital Signs: Vital signs: Vital Signs Temperature 97.8 F 07/31/24 09:05 Pulse Rate 110 H 07/31/24 13:23 Respiratory Rate 25 H 07/31/24 13:05 Blood Pressure 165/102 07/31/24 13:23 Pulse Oximetry 95 07/31/24 13:23 Oxygen Delivery Me thod Room Air 07/31/24 14:05 MDM - Abdominal Pain Medical Decision Making CT shows small bowel obstruction with a large segment of transition at 13 cm. NG placed. Discussed consult surgery. Admit to hospitalist. Lactic acid 2.0. X-ray confirms NG tube placement IV fluids started as well as Zosyn. Medical Records I reviewed the patient's medical records. Lab Data I reviewed the patient's lab results. 07/31/24 08:37 07/31/24 08:37 Labs/Radiology: Radiology Impressions Abdomen/Pelvis CT 07/31/24 09:22 IMPRESSION: 1. High-grade small bowel obstruction. Obstructed small bowel loops in the mid RIGHT and central abdomen. Abnormal small bowel loop extends over a length of at least 13 cm. Transition point noted at image 35 of series 3. Adhesions versus internal hernia. No free air is identified. Small bowel loops associated at the obstruction site demonstrate mild hyperemia. 2. Associated mesenteric edema at the site of the obstruction. This can be an early sign of ischemia. 3. No free fluid. Chest X-Ray 07/31/24 11:34 IMPRESSION: Lungs are well aerated without a focal area of consolidation. Laboratory Results WBC 10.81 10^3/uL (3.29-11.43) 07/31/24 08:37 RBC 5.20 10^6/uL (3.85-5.65) 07/31/24 08:37 Hgb 15.50 g/dL (11.27-16.99) 07/31/24 08:37 Hct 45.6 % (37-53) 07/31/24 08:37 MCV 87.7 fl (82-101) 07/31/24 08:37 MCH 29.8 pg (27-33) 07/31/24 08:37 MCHC 34.0 g/dL (30-55) 07/31/24 08:37 RDW 12.1 % (12.1-15.1) 07/31/24 08:37 Plt Count 252 10^3/cmm (157-399) 07/31/24 08:37 MPV 10.9 fL (7.4-10.4) H 07/31/24 08:37 Neut % (Auto) 82.7 % 07/31/24 08:37 Lymph % (Auto) 11.4 % 07/31/24 08:37 [place] % (Auto) 4.5 % 07/31/24 08:37 Eos % (Auto) 0.3 % 07/31/24 08:37 Baso % (Auto) 0.5 % 07/31/24 08:37 Neut # (Auto) 8.95 10^3/uL (1.8-7.7) H 07/31/24 08:37 Lymph # (Auto) 1.2 10^3/uL (0.8-4.8) 07/31/24 08:37 [place] # (Auto) 0.5 10^3/uL (0.2-0.9) 07/31/24 08:37 Eos # (Auto) 0.0 10^3/uL (0.0-0.8) 07/31/24 08:37 Baso # (Auto) 0.1 10^3/uL (0.0-0.1) 07/31/24 08:37 Nucleated RBC % (auto) 0 % 07/31/24 08:37 Nucleated RBCs # 0.0 /100WBC 07/31/24 08:37 Sodium 140 mmol/L (136-145) 07/31/24 08:37 Potassium 3.8 mmol/L (3.5-5.1) 07/31/24 08:37 Chloride 97 mmol/L (98-107) L 07/31/24 08:37 Carbon Dioxide 29 mmol/L (22-29) 07/31/24 08:37 Anion Gap 17.8 (5-19) 07/31/24 08:37 BUN 18 mg/dL (8-23) 07/31/24 08:37 Creatinine 0.6 mg/dL (0.7-1.2) L 07/31/24 08:37 GFR Calculation 135.2 mL/min (90-130) H 07/31/24 08:37 Glucose 285 mg/dL (65-115) H 07/31/24 08:37 POC Glucose 221 mg/dL (70-110) H 07/31/24 11:58 Calculated Osmolality 302 mOsm/kg (285-295) H 07/31/24 08:37 Lactic Acid 2.0 mmol/L (0.5-2.2) 07/31/24 08:37 Calcium 10.6 mg/dL (8.5-10.5) H 07/31/24 08:37 Total Bilirubin 0.3 mg/dL (0.15-1.2) 07/31/24 08:37 AST 12 U/L (0-40) 07/31/24 08:37 ALT 15 U/L (0-41) 07/31/24 08:37 Alkaline Phosphatase 74 U/L (40-130) 07/31/24 08:37 Total Protein 8.3 g/dL (6.6-8.7) 07/31/24 08:37 Albumin 5.1 g/dL (3.5-5.2) 07/31/24 08:37 Globulin 3.2 g/dL (1.3-4.6) 07/31/24 08:37 Lipase 15 U/L (13-60) 07/31/24 08:37 Urine Color Yellow (Yellow) 07/31/24 09:48 Urine Appearance Clear (CLEAR) 07/31/24 09:48 Urine pH 6.5 (5-7) 07/31/24 09:48 Ur Specific [place] 1.056 (1.005-1.030) H 07/31/24 09:48 Urine Protein 2+ (Negative) A 07/31/24 09:48 Urine Glucose (UA) 3+ (Normal) H 07/31/24 09:48 Urine Ketones 2+ (Negative) H 07/31/24 09:48 Urine Blood Negative (Negative) 07/31/24 09:48 Urine Nitrate Negative (Negative) 07/31/24 09:48 Urine Bilirubin Negative (Negative) 07/31/24 09:48 Urine Urobilinogen 0.2 mg/dL (Negative) 07/31/24 09:48 Ur Leukocyte Esterase Negative (Negative) 07/31/24 09:48 Urine RBC 0-2 /hpf (0-2) 07/31/24 09:48 Urine WBC 0-5 /hpf (0-5) 07/31/24 09:48 Ur Squamous Epith Cells 0-5 /hpf (0-5) 07/31/24 09:48 Amorphous Sediment Not Reportable 07/31/24 09:48 Urine Bacteria None seen /hpf (NONE) 07/31/24 09:48 Hyaline Casts 1.21 /lpf 07/31/24 09:48 All radiology interpretation(s) finalized by discharge Discharge Plan Discharge Patient Disposition: Admitted As Inpatient Admit Provider: Marin Rosas Clinical Impression: Small bowel obstruction, Insulin dependent diabetes mellitus, Hypertension Condition: Stable Coding Level of Care Code ED Senior Information Developer for Aura Durán
[2024-07-31 09:42] LABS: Alanine Aminotransferase 15 U/L (0-41); Albumin Level 5.1 g/dL (3.5-5.2); Alkaline Phosphatase 74 U/L (40-130); Anion Gap 17.8 (5-19); Aspartate Amino Transferase 12 U/L (0-40); Blood Urea Nitrogen 18 mg/dL (8-23); Calcium 10.6 mg/dL (8.5-10.5); Carbon Dioxide 29 mmol/L (22-29); Chloride 97 mmol/L (98-107); Creatinine Clr Calc Pharmacy 84.4286; Globulin 3.2 g/dL (1.3-4.6); Glomerular Filtration Rate 135.2 mL/min (90-130); Glucose 285 mg/dL (65-115); Lipase 15 U/L (13-60); Osmolality Calculated 302 mOsm/kg (285-295); Potassium 3.8 mmol/L (3.5-5.1); Sodium 140 mmol/L (136-145); Total Bilirubin 0.3 mg/dL (0.15-1.2); Total Protein 8.3 g/dL (6.6-8.7)
[2024-07-31] MEDS: iohexol 350 mg/mL 500 mL Btl (per mL) IV (09:43)
[2024-07-31 10:01] LABS: Bilirubin Urine Negative (Negative); Blood Urine Negative (Negative); Glucose Urine UA 3+ (Normal); Ketones Urine 2+ (Negative); Leukocyte Esterase Urine Negative (Negative); Nitrate Urine Negative (Negative); Protein Urine 2+ (Negative); Urine Appearance Clear (CLEAR); Urine Color Yellow (Yellow); Urobilinogen Urine 0.2 mg/dL (Negative); pH Urine 6.5 (5-7)
[2024-07-31 10:06] LABS: Add Urine Microscopic? YES; Bacteria Urine None Seen /hpf; Hyaline Casts Urine 1.21 /lpf; RBC Urine 0-2 /hpf (0-2); Squamous Epithelial Cell Urine 0-5 /hpf (0-5); WBC Urine 0-5 /hpf (0-5)
[2024-07-31 10:07] LABS: Specific Gravity, Urine 1.056 (1.005-1.030)
[2024-07-31 10:08] LABS: Add Urine Culture? No
[2024-07-31] MEDS: sodium chloride 0.9% 1,000 ML 999 ML IV (10:33)
[2024-07-31] MEDS: ondansetron 2 mg/ML SDV 2 mL 4 MG IVP (10:35)
[2024-07-31] MEDS: morphine 4 mg/mL SDV 1 mL IVP ×2 (10:39→16:06)
--- NOTE | 2024-07-31 10:48 | P.HP_ITS ---
Providers/Chief Complaint 2 Admitting Physician: Marin Rosas MD Primary Care Provider: Hannah Jin Chief Complaint: Abd pain, n/v/d History of Present Illness Wiliam Rogers Jr is a 64 year old male who reports around 3 AM he got nauseated, and vomited multiple times, a little less than 10. He reports it was mainly mucus in his stomach, and slightly yellowish. He reports he had several bowel movements this morning as well, after vomiting. He is still having significant abdominal pain, and nausea. He reports no prior history of abdominal surgery. Denies any fever, blood in stool, black or tarry stool. Patient reports no prior history of heart disease, stroke, bowel obstruction. In the emergency department there is concern for small bowel obstruction on CT. Morphine, Zofran, and an NG have been ordered. Surgery has been consulted. Review of Systems 2 General: Reports: 10 or more systems reviewed and unremarkable except in HPI and below Card: Denies: chest pain Resp: Denies: dyspnea GI: Reports: abdominal pain, nausea and vomiting; Denies: hematochezia or melena Medications/Allergies Home Medications Medication Instructions Recorded Confirmed Last Taken Type trazodone 100 mg tablet 100 mg PO BEDTIME PRN Sleep 10/26/19 07/31/24 05/13/24 History aspirin 81 mg tablet,delayed 81 mg PO QAM 05/12/20 07/31/24 05/14/24 History release (Adult Aspirin Regimen) gabapentin 300 mg capsule 300 mg PO BID 06/30/22 07/31/24 05/15/24 History sertraline 50 mg tablet 50 mg PO DAILY 06/30/22 07/31/24 05/14/24 History blood-glucose meter,continuous #1 ea 11/30/22 07/31/24 Unknown Rx (Dexcom G7 Wildlife Conservation Professor) blood-glucose sensor (Dexcom G7 #9 ea 05/30/23 07/31/24 Unknown Rx Sensor device) atorvastatin 40 mg tablet 40 mg PO QPM 06/28/23 07/31/24 05/15/24 History hydrocodone 10 mg-acetaminophen 1 tab PO TID 06/28/23 07/31/24 05/01/24 History 325 mg tablet semaglutide 14 mg tablet (Rybelsus) 14 mg PO DAILY 06/28/23 07/31/24 05/14/24 History insulin degludec 100 unit/mL (3 60 unit (0.6 mL) SUBCUT QAM #60 mL 04/02/24 07/31/24 05/15/24 Rx mL) subcutaneous pen (Tresiba FlexTouch U-100 insulin) insulin aspart U-100 100 unit/mL See Rx Instructions .Route 05/02/24 07/31/24 05/15/24 History (3 mL) subcutaneous pen (Novolog .COMPLEX PRN sliding scale FlexPen U-100 Insulin aspart) ezetimibe 10 mg tablet 10 mg PO DAILY 07/31/24 07/31/24 Unknown History Allergies Allergy/AdvReac Type Severity Reaction Status Date / Time No Known Drug Allergies Allergy Unknown Unknown Verified 07/31/24 09:08 PFSH Acute 2 PFSH: Medical History (Updated 07/31/24 @ 10:53 by Marin Rosas MD) Depression Hypertension Anxiety Hyperlipidemia Chronic pain Insulin dependent diabetes mellitus Surgical History Hx of colonoscopy 18 years ago [facility] [place] H/O shoulder surgery Family History Father Colon cancer Other COPD (chronic obstructive pulmonary disease) Cancer Social History Smoking and tobacco/nicotine status: never used tobacco/nicotine Alcohol intake: never Substance/Drug Use: never Vitals/I&O/Wt Last Vital Signs Temp 97.8 F 07/31/24 09:05 Pulse 105 H 07/31/24 10:40 Resp 25 H 07/31/24 10:25 BP 158/94 07/31/24 10:45 Pulse Ox 96 07/31/24 10:40 O2 Del Method Room Air 07/31/24 10:02 07/30/24 07/31/24 07/31/24 22:59 06:59 14:59 Intake Total 0 / 0 Balance 0 / 0 Weight last 48 hrs Weight 69.853 kg Physical Exam 2 Narrative: General exam is a white male, reporting abdominal pain, holding an emesis bag HEENT: Atraumatic normocephalic. Oropharynx clear Neck is supple no lymphadenopathy thyromegaly Cardiovascular tachycardic, regular, no murmur Lungs clear Abdomen is tender, soft. Hypoactive bowel sounds. No obvious organomegaly exam is deferred Extremities no cyanosis clubbing or edema, cap refill brisk Skin no rash Neuro no obvious focal deficits Data 07/31/24 08:37 07/31/24 08:37 Other Labs: Calcium 10.6, albumin 5.1, LFTs normal, urinalysis with 0-2 reds 0-5 whites, 2+ protein Lipase normal CT which I reviewed demonstrates a high-grade small bowel obstruction, with some mesenteric edema and small bowel hyperemia. Concern on scan of adhesions versus internal hernia A&P Assessment and plan (1) Small bowel obstruction: Patient presents with small bowel obstruction Note that he did have a bowel movement this morning Await lactate that has been drawn NG tube will be placed Pain control Hydration. N.p.o. status Protonix 40 mg IV every 12 hours Surgery consult. (2) Insulin dependent diabetes mellitus: Patient with past history of DKA He will need to have long-acting insulin continue even though he is NPO with his history of DKA and insulin-dependent diabetes. Will give him 10 units of Lantus, this is 1/6 of his usual dose as well as sliding scale. Close follow-up of electrolytes tomorrow. If he runs low, we will need to start D5 and his fluids. Sliding scale insulin (3) Hypertension: Monitor blood pressures Plan Other medical problems as outlined in his past medical history Full code Lovenox for DVT prophylaxis will be initiated. Attestations 2 Medical Necessity Statement*: Will need greater than 2 midnight stay for evaluation and treatment of small bowel obstruction with need for NG tube placement Diagnoses Small bowel obstruction K56.609 Insulin dependent diabetes mellitus E11.9; Z79.4 Hypertension I10 Time Spent (min) 44
--- NOTE | 2024-07-31 11:34 | XRR_ITS ---
PROCEDURE INFORMATION: Exam: XR Chest Exam date and time: 07/31/2024 11:38 AM Age: 64 years old Clinical indication: Device placement; Ng tube; Additional info: Ng tube placement TECHNIQUE: Imaging protocol: Radiologic exam of the chest. Views: 1 view. COMPARISON: CR XR chest 1V portable [id number] 05/02/2024 2:11 PM FINDINGS: Tubes, catheters and devices: Nasogastric tube extends slightly below the diaphragm with the tip projecting over the body of the stomach. Lungs: Lungs are well aerated without a focal area of consolidation. Pleural spaces: Unremarkable. No pleural effusion. No pneumothorax. Heart/Mediastinum: Unremarkable. No cardiomegaly. Bones/joints: Unremarkable. XR/XR chest 1V portable [id number] IMPRESSION: Lungs are well aerated without a focal area of consolidation.
[2024-07-31 12:02] LABS: Glucose Point of Care 221 mg/dL (70-110)
[2024-07-31] MEDS: insulin glargine 100 units/1 mL 10 UNIT SUBCUT (12:13)
[2024-07-31] MEDS: insulin lispro 100 unit/1 mL SUBCUT (12:38)
[2024-07-31 13:11] LABS: Glucose Point of Care 231 mg/dL (70-110)
--- NOTE | 2024-07-31 14:01 | P.CONIM_ITS ---
Providers/Reason For Consult 2 Consulting Physician/Specialty*: Dr. Luis Rivers, DO/General Surgery Reason for Consult*: Small bowel obstruction Attending Physician: Marin Rosas MD Primary Care Provider: Hannah Jin History of Present Illness History of Present Illness Wiliam Rogers Jr is a 64 year old male who presented to the hospital with a 1 day history of diffuse abdominal pain. The pain is sharp and constant and does not radiate. Palpation makes pain worse. Nothing makes pain better. He endorses nausea and emesis without hematemesis. He had some diarrhea and was passing flatus prior to arrival Review of Systems 2 General: Reports: 10 or more systems reviewed and unremarkable except in HPI and below Medications/Allergies Home Medications Medication Instructions Recorded Confirmed Last Taken Type trazodone 100 mg tablet 100 mg PO BEDTIME PRN Sleep 10/26/19 07/31/24 05/13/24 History aspirin 81 mg tablet,delayed 81 mg PO QAM 05/12/20 07/31/24 05/14/24 History release (Adult Aspirin Regimen) gabapentin 300 mg capsule 300 mg PO BID 06/30/22 07/31/24 05/15/24 History sertraline 50 mg tablet 50 mg PO DAILY 06/30/22 07/31/24 05/14/24 History blood-glucose meter,continuous #1 ea 11/30/22 07/31/24 Unknown Rx (Dexcom G7 Physiotherapy Aide) blood-glucose sensor (Dexcom G7 #9 ea 05/30/23 07/31/24 Unknown Rx Sensor device) atorvastatin 40 mg tablet 40 mg PO QPM 06/28/23 07/31/24 05/15/24 History hydrocodone 10 mg-acetaminophen 1 tab PO TID 06/28/23 07/31/24 05/01/24 History 325 mg tablet semaglutide 14 mg tablet (Rybelsus) 14 mg PO DAILY 06/28/23 07/31/24 05/14/24 History insulin degludec 100 unit/mL (3 60 unit (0.6 mL) SUBCUT QAM #60 mL 04/02/24 07/31/24 05/15/24 Rx mL) subcutaneous pen (Tresiba FlexTouch U-100 insulin) insulin aspart U-100 100 unit/mL See Rx Instructions .Route 05/02/24 07/31/24 05/15/24 History (3 mL) subcutaneous pen (Novolog .COMPLEX PRN sliding scale FlexPen U-100 Insulin aspart) ezetimibe 10 mg tablet 10 mg PO DAILY 07/31/24 07/31/24 Unknown History Allergies Allergy/AdvReac Type Severity Reaction Status Date / Time No Known Drug Allergies Allergy Unknown Unknown Verified 07/31/24 09:08 Current Medications Generic Name Dose Route Start Last Admin Trade Name Freq PRN Reason Stop Dose Admin Insulin Glargine 10 unit 07/31/24 11:00 07/31/24 12:13 Insulin Glargine 100 Units/1 Ml SUBCUT 10 unit Q24H LUIS Administration Insulin Human Lispro 0 unit 07/31/24 12:00 07/31/24 12:38 Insulin Lispro 100 Unit/1 Ml SUBCUT 6 unit WM&BEDTIME LUIS Administration Protocol PFSH Acute 2 PFSH: Medical History Depression Hypertension Anxiety Hyperlipidemia Chronic pain Insulin dependent diabetes mellitus Surgical History [place] [facility] [place] Family History Father Colon cancer Other COPD (chronic obstructive pulmonary disease) Cancer Social History Smoking and tobacco/nicotine status: never used tobacco/nicotine Alcohol intake: never Substance/Drug Use: never Vitals/I&O/Wt Last Vital Signs Temp 97.8 F 07/31/24 09:05 Pulse 110 H 07/31/24 13:23 Resp 25 H 07/31/24 13:05 BP 165/102 07/31/24 13:23 Pulse Ox 95 07/31/24 13:23 O2 Del Method Room Air 07/31/24 12:15 07/30/24 07/31/24 07/31/24 22:59 06:59 14:59 Intake Total 1000 / 1000 Balance 1000 / 1000 Weight last 48 hrs Weight 154 lb Physical Exam 2 Narrative: General : Patient is well developed , no acute distress, oriented x3 Head : Normal cephalic, a-traumatic. Ears : Pinnae and external canal are normal. Hearing is normal. Eyes : PERRLA, Sclera and injection are normal. No conjunctival discharge. Nose : Mucous membranes are without erythema. Throat : buccal mucosa is normal, gums are without significant recession or hypertrophy. Lungs : Equal chest rise bilaterally, no use of accessory muscles, trachea is midline. Cor : Rate and rhythm are normal. Abdomen : Soft, minimally distended and minimally tender no g/r/m Extremities : No edema, no cyanosis or clubbing, dorsalis pedis pulses are present bilaterally, non-tender to palpation of calves. Upper extremities are normal bilaterally. Back : non-tender to palpation, no CVA tenderness. Neuro : CN II - XII intact, Upper and lower extremities have equal and full strength Data 07/31/24 08:37 07/31/24 08:37 A&P Assessment and plan (1) Partial small bowel obstruction: Plan Admit to hospitalist NG tube to low intermittent wall suction IV fluids Conservative management for now. If he fails conservative management over the next few days, we will have to consider exploratory laparotomy Medical management per hospitalist Coding Level of Care Code 37099 Diagnoses Partial small bowel obstruction K56.600
[2024-07-31] MEDS: sodium chloride 0.9% 1,000 ML 150 ML IV ×2 (14:41→21:03)
[2024-07-31] MEDS: pantoprazole 40 mg SDV IVP (14:42)
[2024-07-31 16:47] LABS: Glucose Point of Care 156 mg/dL (70-110)
[2024-07-31] MEDS: piperacillin-tazobactam 3.375 GM in sodium chloride 0.9% (plus) 50 ML IV (18:02)
[2024-07-31] MEDS: gabapentin 300 mg Capsule PO (18:03)
[2024-07-31 20:43] LABS: Glucose Point of Care 140 mg/dL (70-110)
[2024-07-31] MEDS: enoxaparin 40 mg/0.4 mL Syringe SUBCUT (21:03)
[2024-07-31] MEDS: lanolin oint 7 gm 1 APPLIC TOPICAL (21:31)
[2024-07-31] MEDS: phenol oral Spray 177 mL 3 SPRAY MUCOUS MEM (21:31)
[2024-08-01] VITALS (8 sets, daily range): BP systolic 118–171; BP diastolic 73–86; PULSE 82–93; RESP 16–18; TEMP 36.2–37.8; O2SAT 94–96
[2024-08-01] MEDS: piperacillin-tazobactam 3.375 GM in sodium chloride 0.9% (plus) 50 ML IV ×3 (01:26→17:25)
[2024-08-01] MEDS: pantoprazole 40 mg SDV IVP ×2 (01:28→14:38)
--- NOTE | 2024-08-01 01:32 | PC.NURSE ---
Dr. Gautam notified of patient c/o headache. Patient is NPO and has NG to suction. Toradol IV x1 ordered.
[2024-08-01] MEDS: ketorolac 30 mg/mL INJ IVP (02:03)
[2024-08-01] MEDS: sodium chloride 0.9% 1,000 ML 150 ML IV (05:06)
[2024-08-01 05:43] LABS: Basophils % 0.4 %; Eosinophils % 0.4 %; Hematocrit 36.9 % (37-53); Lymphocytes # 1.5 10^3/uL (0.8-4.8); Lymphocytes % 17.8 %; Mean Corpuscular HGB Conc 33.1 g/dL (30-55); Mean Corpuscular Hemoglobin 29.4 pg (27-33); Mean Corpuscular Volume 88.9 fl (82-101); Mean Platelet Volume 10.6 fL (7.4-10.4); Monocytes # 0.7 10^3/uL (0.2-0.9); Monocytes % 8.2 %; Neutrophils # 6.03 10^3/uL (1.8-7.7); Neutrophils % 72.7 %; Nucleated Red Blood Cells % 0 %; Platelet Count 205 10^3/cmm (157-399); Red Blood Count 4.15 10^6/uL (3.85-5.65); Red Cell Distribution Width 12.6 % (12.1-15.1); White Blood Count 8.28 10^3/uL (3.29-11.43)
[2024-08-01 06:06] LABS: Alanine Aminotransferase 10 U/L (0-41); Albumin Level 3.6 g/dL (3.5-5.2); Alkaline Phosphatase 51 U/L (40-130); Anion Gap 14.2 (5-19); Aspartate Amino Transferase 11 U/L (0-40); Blood Urea Nitrogen 18 mg/dL (8-23); Calcium 8.5 mg/dL (8.5-10.5); Carbon Dioxide 26 mmol/L (22-29); Chloride 104 mmol/L (98-107); Creatinine Clr Calc Pharmacy 81.6885; Glomerular Filtration Rate 135.2 mL/min (90-130); Glucose 85 mg/dL (65-115); Magnesium 1.7 mg/dL (1.7-2.3); Osmolality Calculated 293 mOsm/kg (285-295); Potassium 3.2 mmol/L (3.5-5.1); Sodium 141 mmol/L (136-145); Total Bilirubin 0.3 mg/dL (0.15-1.2); Total Protein 5.6 g/dL (6.6-8.7)
[2024-08-01 06:28] LABS: Glucose Point of Care 86 mg/dL (70-110)
[2024-08-01] MEDS: morphine 4 mg/mL SDV 1 mL IVP (08:09)
[2024-08-01 09:31] LABS: Glucose Point of Care 89 mg/dL (70-110)
--- NOTE | 2024-08-01 09:36 | PC.CHAP ---
Pastoral Care Encounter/Spiritual Assessment Type of Contact [] Declined child welfare worker visit [] Patient/Family/Request visit [] Outpatient visit [] Follow-up visit [] Physician referral [] Code/Alert [x] Routine visit [] Staff referral [] Actively dying [] Patient sleeping [x] Family support [] [] Out of room [] Palliative care [] [] Receiving care in room [] Pre-surgical visit [] Trauma [] Long length of stay [] ICU visit [] Other: Relational/Emotional Strength [x] Patient feels connected with others/family/visitors/staff [] Distress [] Loneliness/isolation [] Abandonment Spirituality of Patient [x] Person of Estefani [] Attends Yazdanism of their Estefani [x] Believes in Prayer [] Reads Bible or Baptist materials [] There are Spiritual issues to be addressed High Voltage Electrician Interventions [x] Prayer [x] Active listening [] Non-anxious presence [x] Spiritual/emotional support [] Crisis/trauma care [] Spiritual counseling [] Bereavement support [] Provided bereavement packet [] Provided Bible/devotional materials [] Provided toy/stuffed animal, coloring book to patient or family member [] Provided Communion [] Anointing/[place] [] Salvation [x] Completed spiritual assessment [] Other: Impact on Illness or Injury [] Angry [] Fearful [] Anxious [] Often cries [] Exhaustion [] Unable to work [] Unable to attend quaker [] Unable to walk/stand [] Unable to read [] Unable to drive [] Unable to eat/drink [] Unable to sleep [] Unable to be with family [] Patient intubated [] Other: Summary Time spent with patient 5 min
[2024-08-01 11:17] LABS: Glucose Point of Care 79 mg/dL (70-110)
[2024-08-01] MEDS: dextrose 5%-sod chloride 0.9% 1,000 ML 100 ML IV (12:57)
--- NOTE | 2024-08-01 15:40 | P.PN_ITS ---
Subjective 2 Subjective: Patient was seen this morning, has not passed gas from below, abdominal pain is well-controlled, no fevers, no nausea Vitals/I&O/Wt Last Vital Signs Temp 97.1 F L 08/01/24 11:01 Pulse 82 08/01/24 11:01 Resp 16 08/01/24 11:01 BP 144/79 08/01/24 11:01 Pulse Ox 95 08/01/24 11:01 O2 Del Method Room Air 08/01/24 11:01 08/01/24 08/01/24 08/01/24 06:59 14:59 22:59 Intake Total 1032.5 / 3037.5 1050 / 1050 Balance 1032.5 / 3037.5 1050 / 1050 Weight last 48 hrs Weight 64.592 kg Weight 63.458 kg Weight 69.853 kg Physical Exam 2 Const: COMMON NORMALS: no acute distress and patient oriented x3 Resp: COMMON NORMALS: normal respiratory effort, No retractions, No use of accessory muscles and clear to auscultation bilaterally AUSCULTATION: clear to auscultation bilaterally Cardio: COMMON NORMALS: regular rate, regular rhythm, S1 normal heart sound present and S2 normal heart sound present RATE: regular rate RHYTHM: r egular rhythm HEART SOUNDS: S1 normal heart sound present and S2 normal heart sound present GI: OTHER: Abdomen soft, slightly distended, tenderness bowel sounds in all 4 quadrants, no guarding, no rebound, no rigidity Extremity: COMMON NORMALS: no pedal edema Neuro: COMMON NORMALS: patient oriented x3 Psych: COMMON NORMALS: mental status grossly normal Data 08/01/24 04:56 08/01/24 04:56 A&P Assessment and plan (1) Small bowel obstruction: CT/CT abdomen pelvis w con* [id number] IMPRESSION: 1. High-grade small bowel obstruction. Obstructed small bowel loops in the mid RIGHT and central abdomen. Abnormal small bowel loop extends over a length of at least 13 cm. Transition point noted at image 35 of series 3. Adhesions versus internal hernia. No free air is identified. Small bowel loops associated at the obstruction site demonstrate mild hyperemia. 2. Associated mesenteric edema at the site of the obstruction. This can be an early sign of ischemia. 3. No free fluid. -Lactic acid 2.0 Plan N.p.o. NG tube in place Morphine for pain control D5 normal saline at 100 cc an hour Protonix 40 mg IV every 12 hours Surgery on consult. (2) Insulin dependent diabetes mellitus: - Continue Lantus -Continue insulin (3) Hypertension: Monitor blood pressures Plan Other medical problems as outlined in his past medical history Full code Lovenox for DVT prophylaxis will be initiated. Attestations 2 Medical Necessity Statement*: Patient requires hospitalization for bowel obstruction, Diagnoses Small bowel obstruction K56.609 Insulin dependent diabetes mellitus E11.9; Z79.4 Hypertension I10
--- NOTE | 2024-08-01 16:02 | P.PN_ITS ---
Subjective 2 Subjective: Patient seen and examined. He had a small bowel movement and denies any abdominal pain Vitals/I&O/Wt Last Vital Signs Temp 98.4 F 08/02/24 11:20 Pulse 78 08/02/24 11:20 Resp 17 08/02/24 11:20 BP 147/84 08/02/24 11:20 Pulse Ox 95 08/02/24 11:20 O2 Del Method Room Air 08/02/24 11:20 O2 Flow Rate 96 08/02/24 07:46 08/01/24 08/02/24 08/02/24 22:59 06:59 14:59 Intake Total 2372.000 / 3422.000 50 / 3472.000 770 / 770 Balance 2372.000 / 3422.000 50 / 3472.000 770 / 770 Weight last 48 hrs Weight 141 lb 12.8 oz Weight 142 lb 6.4 oz Weight 139 lb 14.4 oz Physical Exam 2 Narrative: General: No acute distress, awake alert and oriented x 3 Abdomen: Soft, nontender, nondistended Data 08/02/24 05:21 08/02/24 05:21 A&P Assessment and plan (1) Partial small bowel obstruction: Plan NG tube removed Clear liquid diet Medical management per hospitalist Attestations 2 Medical Necessity Statement*: Per primary Coding Level of Care Code 96832 Diagnoses Partial small bowel obstruction K56.600
[2024-08-01 17:00] LABS: Glucose Point of Care 118 mg/dL (70-110)
[2024-08-01] MEDS: gabapentin 300 mg Capsule PO (17:25)
[2024-08-01] MEDS: enoxaparin 40 mg/0.4 mL Syringe SUBCUT (20:33)
[2024-08-01] MEDS: insulin lispro 100 unit/1 mL SUBCUT (20:33)
[2024-08-01] MEDS: trazodone 100 mg Tablet PO (20:33)
--- NOTE | 2024-08-01 20:38 | PC.NURSE ---
D5 NS discontinued due to elevated blood sugars per Dr. Gautam. Patient is now on a clear liquid diet and is no longer NPO.
[2024-08-01 20:49] LABS: Glucose Point of Care 292 mg/dL (70-110)
[2024-08-01] MEDS: acetaminophen 325 mg Tablet 650 MG PO (21:15)
[2024-08-02] MEDS: piperacillin-tazobactam 3.375 GM in sodium chloride 0.9% (plus) 50 ML IV ×2 (02:14→08:57)
[2024-08-02] MEDS: pantoprazole 40 mg SDV IVP (02:14)
[2024-08-02 04:00] VITALS: BP 141/80; PULSE 80; RESP 16; TEMP 36.9; O2SAT 95
[2024-08-02 06:10] LABS: Basophils % 0.5 %; Eosinophils # 0.1 10^3/uL (0.0-0.8); Eosinophils % 2.3 %; Lymphocytes # 1.5 10^3/uL (0.8-4.8); Lymphocytes % 26.5 %; Mean Corpuscular Hemoglobin 29.8 pg (27-33); Mean Corpuscular Volume 87.7 fl (82-101); Mean Platelet Volume 10.3 fL (7.4-10.4); Monocytes # 0.5 10^3/uL (0.2-0.9); Monocytes % 8.8 %; Neutrophils # 3.46 10^3/uL (1.8-7.7); Neutrophils % 61.2 %; Nucleated Red Blood Cells % 0 %; Platelet Count 191 10^3/cmm (157-399); Red Blood Count 3.99 10^6/uL (3.85-5.65); Red Cell Distribution Width 12.4 % (12.1-15.1); White Blood Count 5.66 10^3/uL (3.29-11.43)
[2024-08-02 06:16] LABS: Glucose Point of Care 99 mg/dL (70-110)
[2024-08-02 06:17] LABS: Alanine Aminotransferase 8 U/L (0-41); Albumin Level 3.4 g/dL (3.5-5.2); Alkaline Phosphatase 50 U/L (40-130); Anion Gap 11.4 (5-19); Aspartate Amino Transferase 10 U/L (0-40); Blood Urea Nitrogen 10 mg/dL (8-23); Calcium 8.6 mg/dL (8.5-10.5); Carbon Dioxide 28 mmol/L (22-29); Chloride 105 mmol/L (98-107); Creatinine Clr Calc Pharmacy 81.5464; Globulin 1.9 g/dL (1.3-4.6); Glomerular Filtration Rate 215.9 mL/min (90-130); Glucose 92 mg/dL (65-115); Magnesium 1.8 mg/dL (1.7-2.3); Osmolality Calculated 291 mOsm/kg (285-295); Phosphorus 2.6 mg/dL (2.5-4.5); Potassium 3.4 mmol/L (3.5-5.1); Sodium 141 mmol/L (136-145); Total Bilirubin 0.5 mg/dL (0.15-1.2); Total Protein 5.3 g/dL (6.6-8.7)
[2024-08-02 07:43] VITALS: RESP 18
[2024-08-02] MEDS: morphine 4 mg/mL SDV 1 mL IVP (07:43)
[2024-08-02 07:46] VITALS: BP 138/81; PULSE 82; TEMP 36.8
[2024-08-02] MEDS: ondansetron 2 mg/ML SDV 2 mL 4 MG IVP (07:56)
[2024-08-02] MEDS: gabapentin 300 mg Capsule PO (08:57)
[2024-08-02] MEDS: sertraline 50 mg Tablet PO (08:57)
--- NOTE | 2024-08-02 10:07 | CT_ITS ---
WS: [id number] CT HEAD NONCONTRAST HISTORY: persistent headache TECHNIQUE: Contiguous axial imaging performed through the brain. Bone and soft tissue windows. Sagitt al and coronal reformats reviewed. All CT scans at [facility] use at least one of these dose optimization techniques: automated exposure control; mA and/or kV adjustment per patient size (includ es targeted exams where dose is matched to clinical indication); or iterative reconstruction. DLP: 1117.98 mGy.cm COMPARISON: 05/02/2024 No acute intracranial hemorrhage, midline shift or mass effect. Mild small vessel disease and mild volume loss. No interval change since the prior study. Ventricles: Normal size with no hydrocephalus. No inferior displacement of the cerebellar tonsils. Paranasal sinuses: As visualized are clear. Mastoid air cells: Well pneumatized. Calvarium and scalp: Skull is intact with no soft tissue edema or swelling. CT/CT head wo con* [id number] IMPRESSION: 1. No acute intracranial hemorrhage or edema. 2. Mild cerebral atrophy and small vessel disease. 3. No paranasal sinus disease.
[2024-08-02 10:53] LABS: Glucose Point of Care 302 mg/dL (70-110)
[2024-08-02] MEDS: insulin glargine 100 units/1 mL 10 UNIT SUBCUT (10:58)
[2024-08-02 11:20] VITALS: BP 147/84; PULSE 78; RESP 17; TEMP 36.9; O2SAT 95
[2024-08-02] MEDS: insulin lispro 100 unit/1 mL SUBCUT (11:47)
--- NOTE | 2024-08-02 12:52 | PM.DCS ---
Discharge Providers Date of Admission: 07/31/24 12:26 Date of Discharge: August 02, 2024 Attending Provider at Admission: Marin Rosas MD Attending Provider at Discharge: Jules Gaitan MD Primary Care Provider: Hannah Jin Diagnoses at Discharge Discharge Diagnosis (1) Small bowel obstruction: Status: Acute (2) Insulin dependent diabetes mellitus: Status: Acute (3) Hypertension: Status: Acute Reason for Visit Reason for Visit: Abd pain, n/v/d Hospital Course Hospital Course This is a 64-year-old male with a past medical history of type 2 diabetes mellitus, who presents [facility] due to nausea vomiting Patient was admitted to [facility] for small bowel obstruction, managed on IV fluids, n.p.o., Protonix, overall clinically improved, passing gas, abdominal pain resolved, NG tube removed, transition to diet, will be discharged with a close follow-up with primary care as outpatient Physical Exam Const: COMMON NORMALS: no acute distress and patient oriented x3 Resp: COMMON NORMALS: normal respiratory effort, No retractions, No use of accessory muscles and clear to auscultation bilaterally AUSCULTATION: clear to auscultation bilaterally Cardio: COMMON NORMALS: regular rate, regular rhythm, S1 normal heart sound present and S2 normal heart sound present RATE: regular rate RHYTHM: regular rhythm HEART SOUNDS: S1 normal heart sound present and S2 normal heart sound present GI: COMMON NORMALS: Normal to inspection, nondistended, normoactive bowel sounds present and non-tender Extremity: COMMON NORMALS: no pedal edema Neuro: COMMON NORMALS: patient oriented x3 Psych: COMMON NORMALS: mental status grossly normal Discharge Data Studies Completed and Pending Completed Studies During Hospitalization Category Date Time Status CT abdomen pelvis w con* [id number] Stat Cat Scan 07/31/24 09:[address] head wo con* [id number] Routine Cat Scan 08/02/24 10:07 Completed XR chest 1V portable [id number] Stat Exams 07/31/24 11:34 Completed Pending at discharge Category Date Time Status Complete Blood Count w/Auto AM LABS Lab 08/03/24 04:00 Ordered Complete Blood Count w/Auto AM LABS Lab 08/04/24 04:00 Ordered Comprehensive Metabolic Panel AM LABS Lab 08/03/24 04:00 Ordered Comprehensive Metabolic Panel AM LABS Lab 08/04/24 04:00 Ordered Magnesium AM LABS Lab 08/03/24 04:00 Ordered Magnesium AM LABS Lab 08/04/24 04:00 Ordered Phosphorus AM LABS Lab 08/03/24 04:00 Ordered Phosphorus AM LABS Lab 08/04/24 04:00 Ordered Radiology Impressions Abdomen/Pelvis CT 07/31/24 09:22 IMPRESSION: 1. High-grade small bowel obstruction. Obstructed small bowel loops in the mid RIGHT and central abdomen. Abnormal small bowel loop extends over a length of at least 13 cm. Transition point noted at image 35 of series 3. Adhesions versus internal hernia. No free air is identified. Small bowel loops associated at the obstruction site demonstrate mild hyperemia. 2. Associated mesenteric edema at the site of the obstruction. This can be an early sign of ischemia. 3. No free fluid. Chest X-Ray 07/31/24 11:34 IMPRESSION: Lungs are well aerated without a focal area of consolidation. Head CT 08/02/24 10:07 IMPRESSION: 1. No acute intracranial hemorrhage or edema. 2. Mild cerebral atrophy and small vessel disease. 3. No paranasal sinus disease. Laboratory Results WBC 5.66 10^3/uL (3.29-11.43) 08/02/24 05:21 RBC 3.99 10^6/uL (3.85-5.65) 08/02/24 05:21 Hgb 11.90 g/dL (11.27-16.99) 08/02/24 05:21 Hct 35.0 % (37-53) L 08/02/24 05:21 MCV 87.7 fl (82-101) 08/02/24 05:21 MCH 29.8 pg (27-33) 08/02/24 05:21 MCHC 34.0 g/dL (30-55) 08/02/24 05:21 RDW 12.4 % (12.1-15.1) 08/02/24 05:21 Plt Count 191 10^3/cmm (157-399) 08/02/24 05:21 MPV 10.3 fL (7.4-10.4) 08/02/24 05:21 Neut % (Auto) 61.2 % 08/02/24 05:21 Lymph % (Auto) 26.5 % 08/02/24 05:21 [place] % (Auto) 8.8 % 08/02/24 05:21 Eos % (Auto) 2.3 % 08/02/24 05:21 Baso % (Auto) 0.5 % 08/02/24 05:21 Neut # (Auto) 3.46 10^3/uL (1.8-7.7) 08/02/24 05:21 Lymph # (Auto) 1.5 10^3/uL (0.8-4.8) 08/02/24 05:21 [place] # (Auto) 0.5 10^3/uL (0.2-0.9) 08/02/24 05:21 Eos # (Auto) 0.1 10^3/uL (0.0-0.8) 08/02/24 05:21 Baso # (Auto) 0.0 10^3/uL (0.0-0.1) 08/02/24 05:21 Nucleated RBC % (auto) 0 % 08/02/24 05:21 Nucleated RBCs # 0.0 /100WBC 08/02/24 05:21 Sodium 141 mmol/L (136-145) 08/02/24 05:21 Potassium 3.4 mmol/L (3.5-5.1) L 08/02/24 05:21 Chloride 105 mmol/L (98-107) 08/02/24 05:21 Carbon Dioxide 28 mmol/L (22-29) 08/02/24 05:21 Anion Gap 11.4 (5-19) 08/02/24 05:21 BUN 10 mg/dL (8-23) 08/02/24 05:21 Creatinine 0.4 mg/dL (0.7-1.2) L 08/02/24 05:21 GFR Calculation 215.9 mL/min (90-130) H 08/02/24 05:21 Glucose 92 mg/dL (65-115) 08/02/24 05:21 POC Glucose 302 mg/dL (70-110) H 08/02/24 10:50 Calculated Osmolality 291 mOsm/kg (285-295) 08/02/24 05:21 Lactic Acid 2.0 mmol/L (0.5-2.2) 07/31/24 08:37 Calcium 8.6 mg/dL (8.5-10.5) 08/02/24 05:21 Phosphorus 2.6 mg/dL (2.5-4.5) 08/02/24 05:21 Magnesium 1.8 mg/dL (1.7-2.3) 08/02/24 05:21 Total Bilirubin 0.5 mg/dL (0.15-1.2) 08/02/24 05:21 AST 10 U/L (0-40) 08/02/24 05:21 ALT 8 U/L (0-41) 08/02/24 05:21 Alkaline Phosphatase 50 U/L (40-130) 08/02/24 05:21 Total Protein 5.3 g/dL (6.6-8.7) L 08/02/24 05:21 Albumin 3.4 g/dL (3.5-5.2) L 08/02/24 05:21 Globulin 1.9 g/dL (1.3-4.6) 08/02/24 05:21 Lipase 15 U/L (13-60) 07/31/24 08:37 Urine Color Yellow (Yellow) 07/31/24 09:48 Urine Appearance Clear (CLEAR) 07/31/24 09:48 Urine pH 6.5 (5-7) 07/31/24 09:48 Ur Specific [place] 1.056 (1.005-1.030) H 07/31/24 09:48 Urine Protein 2+ (Negative) A 07/31/24 09:48 Urine Glucose (UA) 3+ (Normal) H 07/31/24 09:48 Urine Ketones 2+ (Negative) H 07/31/24 09:48 Urine Blood Negative (Negative) 07/31/24 09:48 Urine Nitrate Negative (Negative) 07/31/24 09:48 Urine Bilirubin Negative (Negative) 07/31/24 09:48 Urine Urobilinogen 0.2 mg/dL (Negative) 07/31/24 09:48 Ur Leukocyte Esterase Negative (Negative) 07/31/24 09:48 Urine RBC 0-2 /hpf (0-2) 07/31/24 09:48 Urine WBC 0-5 /hpf (0-5) 07/31/24 09:48 Ur Squamous Epith Cells 0-5 /hpf (0-5) 07/31/24 09:48 Amorphous Sediment Not Reportable 07/31/24 09:48 Urine Bacteria None seen /hpf (NONE) 07/31/24 09:48 Hyaline Casts 1.21 /lpf 07/31/24 09:48 Vitals Last Vital Signs Temp 98.4 F 08/02/24 11:20 Pulse 78 08/02/24 11:20 Resp 17 08/02/24 11:20 BP 147/84 08/02/24 11:20 Pulse Ox 95 08/02/24 11:20 O2 Del Method Room Air 08/02/24 11:20 O2 Flow Rate 96 08/02/24 07:46 Discharge Plan Discharge Patient Disposition: Home Condition: Stable Prescriptions: Continued aspirin [Adult Aspirin Regimen] 81 mg tablet,delayed release (DR/EC) 81 mg PO QAM (DME) Dexcom G7 Lead 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 Misc See Rx Instructions .Route Qty: 1 0RF Rx Instructions: rew once a year (DME) Dexcom G7 Sensor Device See Rx Instructions .ROUTE .MEDSUPPLY Qty: 9 0RF Rx Instructions: Change every 10days trazodone 100 mg Tablet 100 mg PO BEDTIME PRN (Reason: Sleep) gabapentin 300 mg capsule 300 mg PO BID sertraline 50 mg tablet 50 mg PO DAILY insulin aspart U-100 [Novolog FlexPen U-100 Insulin] 100 unit/mL (3 mL) insulin pen See Rx Instructions .Route .COMPLEX PRN (Reason: sliding scale) Rx Instructions: Inject, subcut, 3 times daily, after meals, based on sliding scale provided hydrocodone-acetaminophen 10-325 mg tablet 1 tab PO TID atorvastatin 40 mg tablet 40 mg PO QPM Rybelsus 14 mg tablet 14 mg PO DAILY ezetimibe 10 mg tablet 10 mg PO DAILY Changed insulin degludec [Tresiba FlexTouch U-100] 100 unit/mL (3 mL) insulin pen 30 unit SUBCUT QAM Qty: 60 1RF Discharge Orders: Discharge Order (Routine); Ordered 08/02/24 Ordered By: Jules Gaitan Referrals: Luis Rivers DO [Physician] - 1 week (We have notified your physician's clinic of the need for a follow-up appointment to be scheduled. If you have not heard from them within the next 2 business days, please call them directly. SENT MESSAGE) Hannah Jin FNP [Primary Care Provider] - 08/13/24 1:30 pm Discharge Diet: Cardiac Discharge Activity: Resume usual activity Patient Instructions: Bowel Obstruction (GEN), GI (Gastrointestinal) Soft Diet (GEN), Opioid Safety Activity Restrictions/Additional Instructions: - Follow-up with Dr. Rivers in 1 to 2 weeks Discharge Attestations Time Spent in Discharge Care*: greater than 30 min Quality Metrics Clinical Quality Measures [ No reported AMI, CVA or VTE this stay] Coding Level of Care Code 06413 Total time (in minutes) for Discharge: 45 Diagnoses Small bowel obstruction K56.609 Insulin dependent diabetes mellitus E11.9; Z79.4 Hypertension I10
--- NOTE | 2024-08-02 14:28 | P.PN_ITS ---
Subjective 2 Subjective: Patient seen and examined. Is now tolerating a soft diet without nausea or emesis Vitals/I&O/Wt Last Vital Signs Temp 98.4 F 08/02/24 11:20 Pulse 78 08/02/24 11:20 Resp 17 08/02/24 11:20 BP 147/84 08/02/24 11:20 Pulse Ox 95 08/02/24 11:20 O2 Del Method Room Air 08/02/24 11:20 O2 Flow Rate 96 08/02/24 07:46 08/01/24 08/02/24 08/02/24 22:59 06:59 14:59 Intake Total 2372.000 / 3422.000 50 / 3472.000 770 / 770 Balance 2372.000 / 3422.000 50 / 3472.000 770 / 770 Weight last 48 hrs Weight 141 lb 12.8 oz Weight 142 lb 6.4 oz Physical Exam 2 Narrative: General: No acute distress, awake alert and oriented x 3 Abdomen: Soft, nontender, nondistended Data 08/02/24 05:21 08/02/24 05:21 A&P Assessment and plan (1) Partial small bowel obstruction: Plan Surgically stable for discharge Medical management per hospitalist Attestations 2 Medical Necessity Statement*: Per primary Coding Level of Care Code 08562 Diagnoses Partial small bowel obstruction K56.600
[2024-08-02 17:06] VITALS: BP 147/84; PULSE 78; RESP 17; TEMP 36.9; O2SAT 95
== END 2024-08-02 15:30 | disposition home or self-care (01) | DRG 390 ==
LOC: ER 10:43 → MEDSURG 12:27
PROVIDERS: Admitting Provider Internal Medicine; Emergency Provider Family Medicine; PCP Nurse Practitioner Family; Visit Provider Family Medicine
DX: K56.600 Partial intestinal obstruction, unspecified as to cause (principal); E11.9 Type 2 diabetes mellitus without complications; I10 Essential (primary) hypertension; F32.A Depression, unspecified; F41.9 Anxiety disorder, unspecified; E78.5 Hyperlipidemia, unspecified; Z79.4 Long term (current) use of insulin; Z79.84 Long term (current) use of oral hypoglycemic drugs; Z79.82 Long term (current) use of aspirin
CPT/HCPCS: 36415; 36416; 70450; 71045; 74177; 80053; 81001; 82962; 83605; 83690; 83735; 84100; 85025; 96372; J1650; J1815; J1885; J2270; J2405; J2470; J2543; J7030; J7042

== ENCOUNTER 2024-08-11 05:29 | Inpatient (IN) | payer MEDICARE, MEDICAID, SELFPAY ==
[2024-08-11] VITALS (36 sets, daily range): BP systolic 117–151; BP diastolic 57–96; PULSE 0–130; RESP 13–25; TEMP 36.4–37.7; O2SAT 96–99; BMI 23.3
[2024-08-11 05:55] LABS: Basophils # 0.1 10^3/uL (0.0-0.1); Basophils % 0.4 %; Hematocrit 49.6 % (37-53); Lymphocytes # 1.9 10^3/uL (0.8-4.8); Lymphocytes % 8.1 %; Mean Corpuscular HGB Conc 31.3 g/dL (30-55); Mean Corpuscular Hemoglobin 29.5 pg (27-33); Mean Corpuscular Volume 94.5 fl (82-101); Mean Platelet Volume 10.3 fL (7.4-10.4); Monocytes # 1.2 10^3/uL (0.2-0.9); Monocytes % 4.9 %; Neutrophils # 20.44 10^3/uL (1.8-7.7); Nucleated Red Blood Cells % 0 %; Platelet Count 417 10^3/cmm (157-399); Red Blood Count 5.25 10^6/uL (3.85-5.65); Red Cell Distribution Width 12.7 % (12.1-15.1); White Blood Count 23.79 10^3/uL (3.29-11.43)
[2024-08-11 06:11] LABS: Blood Urea Nitrogen 34 mg/dL (8-23); Calcium 10.2 mg/dL (8.5-10.5); Chloride 88 mmol/L (98-107); Creatinine Clr Calc Pharmacy 46.3551; Glomerular Filtration Rate 50.9 mL/min (90-130); Osmolality Calculated 315 mOsm/kg (285-295); Sodium 135 mmol/L (136-145)
[2024-08-11 06:12] LABS: Anion Gap 45.4 (5-19); Potassium 5.4 mmol/L (3.5-5.1)
--- NOTE | 2024-08-11 06:13 | XRR_ITS ---
PROCEDURE INFORMATION: Exam: XR Chest Exam date and time: 08/11/2024 6:40 AM Age: 64 years old Clinical indication: Cough and dyspnea; Additional info: Dyspnea/cough TECHNIQUE: Imaging protocol: Radiologic exam of the chest. Views: 1 view. COMPARISON: CR (CHEST, ) 07/31/2024 11:38 AM FINDINGS: Lungs: Unremarkable. No consolidation. Pleural spaces: Unremarkable. No pleural effusion. No pneumothorax. Heart/Mediastinum: Unremarkable. No cardiomegaly. Bones/joints: Moderate degenerative disease of bilateral acromioclavicular joints. There are moderate degenerative changes of the glenohumeral joints. The thoracic spine demonstrates mild degenerative changes at multiple levels. XR/XR chest 1V portable [id number] IMPRESSION: No acute cardiopulmonary process.
--- NOTE | 2024-08-11 06:13 | ECG_ITS ---
[employer] Test Date: 2024-08-11 Pat Name: Wiliam Rogers Jr Department: Room: [id number] Gender: Male Case Briefer: : 1960 Requested By: Garrett Carrillo Order Number: [id number] Catrachito MD: Adrianne Coronado M.D. Measurements Intervals [place] Rate: 129 P: 77 SD: 143 QRS: -68 QRSD: 85 T: 80 QT: 306 QTc: 449 Interpretive Statements SINUS TACHYCARDIA LEFT ANTERIOR FASCICULAR BLOCK [QRS AXIS <= -45, QR IN I, RS IN II] No previous ECG available for comparison Electronically Signed On 08-11-2024 21:27:34 INDUSTRIAL STAFF NURSE by Adrianne Coronado M.D. [email or web address]
--- NOTE | 2024-08-11 06:13 | ED_ITS ---
HPI - Weakness 2 General: Chief complaint: Weakness Stated complaint: WEAKNESS Time Seen by Provider: 08/11/24 06:02 History of Present Illness: 64-year-old male presents to the emergen cy room with complaints of nausea and vomiting. Began last night around 9 PM. He has not felt well for the last several days. The vomiting began last night around 9 AM and got progressively worse throughout the evening has not been able to keep anything down. Patient is an insulin-dependent diabetic. Has had episodes of DKA prior. He denies fever shortness of breath complaining of abdominal discomfort related to multiple episodes of vomiting. He denies any diarrhea. No chest pain. No dysuria urgency or frequency does not had a fever. Associated symptoms: Reports nausea and vomiting; Denies chest pain, chills, dysuria or fever(s) Review of Systems 2 Const: Denies: fever(s) or chills Card: Denies: chest pain Resp: Denies: dyspnea GI: Reports: nausea and vomiting; Denies: abdominal pain, hematemesis, coffee ground emesis or diarrhea : Denies: dysuria, urinary frequency or urinary urgency Musc: Denies: neck pain or back pain Skin/Breast: Denies: rash PFSH ED 2 PFSH: Medical History Depression Hypertension Anxiety Hyperlipidemia Chronic pain Insulin dependent diabetes mellitus Surgical History Hx of colonoscopy 18 years ago [facility] [place] H/O shoulder surgery Family History Father Colon cancer Other COPD (chronic obstructive pulmonary disease) Cancer Social History Smoking and tobacco/nicotine status: never used tobacco/nicotine Alcohol intake: never Substance/Drug Use: never Physical Exam 2 Const: GENERAL APPEARANCE: cooperative ORIENTATION/CONSCIOUSNESS: Yes awake, Yes oriented to person, Yes oriented to place and Yes oriented to time HENMT: COMMON NORMALS: normocephalic, atraumatic and hearing grossly normal bilaterally HEAD & SCALP: normocephalic and atraumatic Resp: COMMON NORMALS: normal respiratory effort, No retractions, No use of accessory muscles and clear to auscultation bilaterally AUSCULTATION: clear to auscultation bilaterally Cardio: COMMON NORMALS: regular rate, regular rhythm and No murmurs present (Cardio) RATE: regular rate RHYTHM: regular rhythm GI: COMMON NORMALS: Soft to palpation and No hepatosplenomegaly present A USCULTATION: Yes normoactive bowel sounds PALPATION: Yes Soft to palpation, No Tenderness to palpation present (GI), No Guarding due to palpation present (GI) and Yes No hepatosplenomegaly present Extremity: COMMON NORMALS: normal to inspection, capillary refill normal, no clubbing, cyanosis or edema, no calf tenderness and no pedal edema Neuro: SENSORIUM/ORIENTATION: Yes oriented to person, Yes oriented to place and Yes oriented to time Skin: COMMON NORMALS: no rashes or lesions noted GENERAL SKIN EXAM: no rashes or lesions noted Course 2 Vital Signs: Vital signs: Vital Signs Temperature 97.6 F 08/11/24 05:33 Pulse Rate 125 H 08/11/24 06:49 Respiratory Rate 23 H 08/11/24 06:49 Blood Pressure 119/63 08/11/24 06:49 Pulse Oximetry 98 08/11/24 06:49 Oxygen Delivery Me thod Room Air 08/11/24 06:49 MDM - Weakness Medical Decision Making DKA. Evaluating for signs of secondary infection. Fluids given initial IV bolus given as well. Drip ordered. Has mild hyperkalemia at the time and his fluids and the insulin should resolve that. He had been does have a pretty significant anion gap and acidosis. Ketones also positive. Discussed with Dr. Medel orders written for ICU admission Lab Data 08/11/24 05:49 08/11/24 05:49 Laboratory Results WBC 23.79 10^3/uL (3.29-11.43) H 08/11/24 05:49 RBC 5.25 10^6/uL (3.85-5.65) 08/11/24 05:49 Hgb 15.50 g/dL (11.27-16.99) 08/11/24 05:49 Hct 49.6 % (37-53) 08/11/24 05:49 MCV 94.5 fl (82-101) 08/11/24 05:49 MCH 29.5 pg (27-33) 08/11/24 05:49 MCHC 31.3 g/dL (30-55) 08/11/24 05:49 RDW 12.7 % (12.1-15.1) 08/11/24 05:49 Plt Count 417 10^3/cmm (157-399) H 08/11/24 05:49 MPV 10.3 fL (7.4-10.4) 08/11/24 05:49 Neut % (Auto) 86.0 % 08/11/24 05:49 Lymph % (Auto) 8.1 % 08/11/24 05:49 [place] % (Auto) 4.9 % 08/11/24 05:49 Eos % (Auto) 0.0 % 08/11/24 05:49 Baso % (Auto) 0.4 % 08/11/24 05:49 Neut # (Auto) 20.44 10^3/uL (1.8-7.7) H 08/11/24 05:49 Lymph # (Auto) 1.9 10^3/uL (0.8-4.8) 08/11/24 05:49 [place] # (Auto) 1.2 10^3/uL (0.2-0.9) H 08/11/24 05:49 Eos # (Auto) 0.0 10^3/uL (0.0-0.8) 08/11/24 05:49 Baso # (Auto) 0.1 10^3/uL (0.0-0.1) 08/11/24 05:49 Nucleated RBC % (auto) 0 % 08/11/24 05:49 Nucleated RBCs # 0.0 /100WBC 08/11/24 05:49 Specimen Type Arterial 08/11/24 06:25 Sample Site Brachial, right 08/11/24 06:25 ABG pH 7.04 (7.35-7.45) L* 08/11/24 06:25 ABG pCO2 15.9 mmHg (35-45) L* 08/11/24 06:25 ABG pO2 123.0 mmHg (80.0-100.0) H 08/11/24 06:25 ABG PO2/FiO2 Ratio 585 08/11/24 06:25 ABG HCO3 4.3 mmol/L (22-26) L 08/11/24 06:25 ABG O2 Saturation 97.6 08/11/24 06:25 ABG Base Excess -24.4 mmol/L (-2.0-2.0) L 08/11/24 06:25 Jfeferson Test Pos 08/11/24 06:25 A-a O2 Gradient 0.7 mmHg (5-10) L 08/11/24 06:25 Hematocrit 43.8 % (42-52) 08/11/24 06:25 Hgb O2 Saturation 95.4 % (95-100) 08/11/24 06:25 Carboxyhemoglobin 0.7 %THgb (0.4-20.1) 08/11/24 06:25 Methemoglobin 1.6 % (0.4-1.5) H 08/11/24 06:25 Total Hemoglobin 14.3 g/dL (14-18) 08/11/24 06:25 Sodium 140.0 mmol/L (131-143) 08/11/24 06:25 Potassium 5.4 mmol/L (3.5-5.0) H 08/11/24 06:25 Glucose 576.0 mg/dL (70-115) H 08/11/24 06:25 Ionized Calcium 1.3 mmol/L (1.1-1.4) 08/11/24 06:25 O2 Delivery Device None 08/11/24 06:25 FiO2 21.0 % 08/11/24 06:25 Bottle Sorter ID [email or web address] 08/11/24 06:25 Sodium 135 mmol/L (136-145) L 08/11/24 05:49 Potassium 5.4 mmol/L (3.5-5.1) H 08/11/24 05:49 Chloride 88 mmol/L (98-107) L 08/11/24 05:49 Carbon Dioxide 7 mmol/L (22-29) L* 08/11/24 05:49 Anion Gap 45.4 (5-19) H 08/11/24 05:49 BUN 34 mg/dL (8-23) H 08/11/24 05:49 Creatinine 1.4 mg/dL (0.7-1.2) H 08/11/24 05:49 GFR Calculation 50.9 mL/min (90-130) L 08/11/24 05:49 Glucose 594 mg/dL (65-115) H* 08/11/24 05:49 Calculated Osmolality 315 mOsm/kg (285-295) H 08/11/24 05:49 Lactic Acid 5.6 mmol/L (0.5-2.2) H* 08/11/24 05:49 Calcium 10.2 mg/dL (8.5-10.5) 08/11/24 05:49 Serum Ketones Positive (Negative) H 08/11/24 05:49 All radiology interpretation(s) finalized by discharge Discharge Plan Discharge Patient Disposition: Admitted As Inpatient Admit Provider: Courtney Medel Clinical Impression: DKA (diabetic ketoacidosis), Insulin dependent diabetes mellitus Condition: Stable Coding Level of Care Code ED Offensive Coordinator for Chg Fwd Related Data Home Medications Medication Instructions Recorded Confirmed trazodone 100 mg tablet 100 mg PO BEDTIME PRN Sleep 10/26/19 07/31/24 aspirin 81 mg tablet,delayed 81 mg PO QAM 05/12/20 07/31/24 release (Adult Aspirin Regimen) gabapentin 300 mg capsule 300 mg PO BID 06/30/22 07/31/24 sertraline 50 mg tablet 50 mg PO DAILY 06/30/22 07/31/24 atorvastatin 40 mg tablet 40 mg PO QPM 06/28/23 07/31/24 hydrocodone 10 mg-acetaminophen 1 tab PO TID 06/28/23 07/31/24 325 mg tablet semaglutide 14 mg tablet (Rybelsus) 14 mg PO DAILY 06/28/23 07/31/24 insulin aspart U-100 100 unit/mL See Rx Instructions .Route 05/02/24 07/31/24 (3 mL) subcutaneous pen (Novolog .COMPLEX PRN sliding scale FlexPen U-100 Insulin aspart) ezetimibe 10 mg tablet 10 mg PO DAILY 07/31/24 07/31/24 Previous Rx's Medication Instructions Recorded blood-glucose meter,continuous #1 ea 11/30/22 (Dexcom G7 Couples Therapist) blood-glucose sensor (Dexcom G7 #9 ea 05/30/23 Sensor device) insulin degludec 100 unit/mL (3 30 unit (0.3 mL) SUBCUT QAM #60 mL 08/02/24 mL) subcutaneous pen (Tresiba FlexTouch U-100 insulin) Allergies Allergy/AdvReac Type Severity Reaction Status Date / Time No Known Drug Allergies Allergy Unknown Unknown Verified 07/31/24 09:08
[2024-08-11 06:14] LABS: Carbon Dioxide 7 mmol/L (22-29); Glucose 594 mg/dL (65-115)
[2024-08-11 06:19] LABS: Ketone (Acetest) Serum Positive (Negative)
[2024-08-11 06:32] LABS: Alveolar-Arterial Oxygen Gradi 0.7 mmHg (5-10); Arterial Blood Gas Hematocrit 43.8 % (42-52); Base Excess ABG -24.4 mmol/L (-2.0-2.0); Blood Gas Allen Test Pos; Blood Gas Sample Site Brachial, right; Blood Gas Sample Type Arterial; Carboxyhemoglobin 0.7 %THgb (0.4-20.1); HCO3 ABG 4.3 mmol/L (22-26); HGB O2 Sat 95.4 % (95-100); Ionized Calcium Level - ABG 1.3 mmol/L (1.1-1.4); Methemoglobin 1.6 % (0.4-1.5); Oxygen Saturation ABG 97.6; PO2 FiO2 Ratio Arterial Blood 585; Potassium Level - ABG 5.4 mmol/L (3.5-5.0); Total Hemoglobin 14.3 g/dL (14-18)
[2024-08-11 06:33] LABS: ABG PH Result 7.04 (7.35-7.45)
[2024-08-11 06:34] LABS: ABG PCO2 15.9 mmHg (35-45)
[2024-08-11] MEDS: sodium chloride 0.9% 1,000 ML 999 ML IV ×3 (06:38→10:23)
[2024-08-11] MEDS: insulin regular-human 100 units/1 mL 10 UNIT IVP (06:38)
[2024-08-11] MEDS: ondansetron 2 mg/ML SDV 2 mL 4 MG IVP (06:38)
[2024-08-11 06:44] LABS: Lactic Sepsis W/Reflex 5.6 mmol/L (0.5-2.2)
[2024-08-11 07:19] LABS: Covid PCR NEGATIVE (Negative); Influenza A NEGATIVE (Negative); Influenza B NEGATIVE (Negative); Respiratory Syncytial Virus Ce NEGATIVE (Negative)
--- NOTE | 2024-08-11 07:23 | P.HP_ITS ---
Providers/Chief Complaint 2 Admitting Physician: Courtney Medel MD Primary Care Provider: Hannah Jin Chief Complaint: WEAKNESS History of Present Illness Wiliam Rogers Jr is a 64 year old male who is presenting today with chief complaint of recurrent nausea vomiting, coffee-ground emesis, takes Tresiba for insulin-dependent diabetes, patient is stating that he is type II, in the ER he was diagnosed with DKA. Severe electrolyte imbalance, JUAN PABLO, hyperkalemia, severe dehydration. Patient is not endorsing previous history of gastric or duodenal ulcer. Patient is stating that his nausea vomiting started 9 PM 08/10 since then he has not stopped at all. He has not taken his insulin regularly in last 4 to 5 days because of nausea. He has not noticed any fever, signs of UTI. His UA is pending in the ER. Review of Systems 2 Const: Denies: fever(s) Eyes: Denies: change in vision ENMT: Denies: throat pain Card: Denies: chest pain Resp: Reports: dyspnea GI: Reports: abdominal pain, nausea and coffee ground emesis Medications/Allergies Home Medications Medication Instructions Recorded Confirmed Last Taken Type trazodone 100 mg tablet 100 mg PO BEDTIME PRN Sleep 10/26/19 07/31/24 05/13/24 History aspirin 81 mg tablet,delayed 81 mg PO QAM 05/12/20 07/31/24 05/14/24 History release (Adult Aspirin Regimen) gabapentin 300 mg capsule 300 mg PO BID 06/30/22 07/31/24 05/15/24 History sertraline 50 mg tablet 50 mg PO DAILY 06/30/22 07/31/24 05/14/24 History blood-glucose meter,continuous #1 ea 11/30/22 07/31/24 Unknown Rx (Dexcom G7 Manager Pet) blood-glucose sensor (Dexcom G7 #9 ea 05/30/23 07/31/24 Unknown Rx Sensor device) atorvastatin 40 mg tablet 40 mg PO QPM 06/28/23 07/31/24 05/15/24 History hydrocodone 10 mg-acetaminophen 1 tab PO TID 06/28/23 07/31/24 05/01/24 History 325 mg tablet semaglutide 14 mg tablet (Rybelsus) 14 mg PO DAILY 06/28/23 07/31/24 05/14/24 History insulin aspart U-100 100 unit/mL See Rx Instructions .Route 05/02/24 07/31/24 05/15/24 History (3 mL) subcutaneous pen (Novolog .COMPLEX PRN sliding scale FlexPen U-100 Insulin aspart) ezetimibe 10 mg tablet 10 mg PO DAILY 07/31/24 07/31/24 Unknown History insulin degludec 100 unit/mL (3 30 unit (0.3 mL) SUBCUT QAM #60 mL 08/02/24 07/31/24 05/15/24 Rx mL) subcutaneous pen (Tresiba FlexTouch U-100 insulin) Allergies Allergy/AdvReac Type Severity Reaction Status Date / Time No Known Drug Allergies Allergy Unknown Unknown Verified 07/31/24 09:08 PFSH Acute 2 PFSH: Medical History Depression Hypertension Anxiety Hyperlipidemia Chronic pain Insulin dependent diabetes mellitus Surgical History Hx of colonoscopy 18 years ago [facility] H/O shoulder surgery Family History Father Colon cancer Other COPD (chronic obstructive pulmonary disease) Cancer Social History Smoking and tobacco/nicotine status: never used tobacco/nicotine Alcohol intake: never Substance/Drug Use: never Vitals/I&O/Wt Last Vital Signs Temp 97.6 F 08/11/24 05:33 Pulse 125 H 08/11/24 06:49 Resp 23 H 08/11/24 06:49 BP 119/63 08/11/24 06:49 Pulse Ox 98 08/11/24 06:49 O2 Del Method Room Air 08/11/24 06:49 08/10/24 08/11/24 08/11/24 22:59 06:59 14:59 Intake Total 1000 / 1000 Balance 1000 / 1000 Weight last 48 hrs Weight 63.503 kg Physical Exam 2 Narrative: Patient is awake and alert GCS 15 Dehydration Abdomen tender/sore from vomiting Nonfocal neuroexam Sarcopenia Protein calorie malnourishment No sign of meningitis Nonfocal neuroexam S1, S2 tachycardia Dried blood around the lips Data 08/11/24 05:49 08/11/24 05:49 Micro: Microbiology 08/11/24 06:35 Blood Culture - Preliminary Blood SPECIMEN COLLECTED 08/11/24 06:32 Blood Culture - Preliminary Blood SPECIMEN COLLECTED A&P Assessment and plan (1) DKA (diabetic ketoacidoses): Qualifiers: Diabetes mellitus complication detail: without coma Diabetes mellitus type: type 1 Qualified Code(s): E10.10 - Type 1 diabetes mellitus with ketoacidosis without coma (2) Nausea & vomiting: (3) Coffee ground emesis: Plan Severe DKA Admit to ICU Start DKA protocol Start normal saline without potassium supplementation BMP every 4 hours Recurrent nausea vomiting Coffee-ground emesis Start Protonix Will request KUB to rule out obstruction No previous history of gastric ulcer Hemoglobin is stable If his hemoglobin started dropping and if patient gets recurrent coffee-ground emesis he may need an EGD JUAN PABLO related to dehydration Full code N.p.o. DVT prophylaxis: Heparin Attestations 2 Medical Necessity Statement*: More than 2 midnights anticipated Diagnoses DKA (diabetic ketoacidoses) E10.10 Diabetes mellitus complication detail: without coma Diabetes mellitus type: type 1 Nausea & vomiting R11.2 Coffee ground emesis K92.0
--- NOTE | 2024-08-11 07:30 | CTR_ITS ---
PROCEDURE INFORMATION: Exam: CT Abdomen And Pelvis Without Contrast Exam date and time: 08/11/2024 7:35 AM Age: 64 years old Clinical indication: Nausea and vomiting; Additional info: Sbo? TECHNIQUE: Imaging protocol: Computed tomography of the abdomen and pelvis without contrast. Radiation optimization: All CT scans at this facility use at least one of these dose optimization techniques: automated exposure control; mA and/or kV adjustment per patient size (includes targeted exams where dose is matched to clinical indication); or iterative reconstruction. COMPARISON: CT abdomen pelvis w con* [id number] 07/31/2024 9:37 AM RADIATION DOSE METRICS: Total DLP (mGy-cm): 341.26 FINDINGS: Lungs: 4 mm ground-glass opacity in the right lower lobe, likely infectious/inflammatory. Calcified granulomas in the right lower lobe. Diaphragm: Small hiatal hernia. Liver: Normal. No mass. Gallbladder and biliary ducts: Normal. No calcified stones. No ductal dilation. Pancreas: Normal. No ductal dilation. Spleen: Normal. No splenomegaly. Adrenal glands: Normal. No mass. Kidneys and ureters: Simple cyst in the interpolar region of the right kidney measuring 3.2 cm. There is no evidence of hydronephrosis. Stomach and bowel: Unremarkable. No obstruction. No mucosal thickening. Appendix: No evidence of appendicitis. Intraperitoneal space: Unremarkable. No free air. No significant fluid collection. Vasculature: Vascular calcifications. Lymph nodes: Unremarkable. No enlarged lymph nodes. Urinary bladder: Unremarkable as visualized. Reproductive: The prostate gland demonstrates nonspecific parenchymal calcifications. Bones/joints: There are mild degenerative changes of the hip joints. The lumbar spine demonstrates mild degenerative changes at multiple levels. Soft tissues: Unremarkable. CT/CT abdomen pelvis wo con [id number] IMPRESSION: No acute intra-abdominal process. COMMENTS: Consistent with the [employer]'s Incidental Findings Committee white paper (J Am Deirdre Radiol 2018): Any incidental renal lesion less than 1 cm or classified as too small to characterize, or any incidental cystic renal lesion characterized as simple-appearing, is likely benign. No follow-up imaging is recommended for these lesions per consensus recommendations based on imaging criteria.
[2024-08-11 07:31] LABS: Bilirubin Urine Negative (Negative); Blood Urine Negative (Negative); Glucose Urine UA 1+ (Normal); Ketones Urine 4+ (Negative); Leukocyte Esterase Urine Negative (Negative); Nitrate Urine Negative (Negative); Protein Urine 1+ (Negative); Specific Gravity, Urine 1.022 (1.005-1.030); Urine Appearance Clear (CLEAR); Urine Color Yellow (Yellow); Urobilinogen Urine 0.2 mg/dL (Negative)
[2024-08-11 07:33] LABS: Add Urine Microscopic? YES; Bacteria Urine None Seen /hpf; Hyaline Casts Urine 16.53 /lpf; Squamous Epithelial Cell Urine 0-5 /hpf (0-5); WBC Urine 0-5 /hpf (0-5)
[2024-08-11 07:36] LABS: Add Urine Culture? No; UA Slide Review UA Slide Review Perf
[2024-08-11] MEDS: INSULIN REGULAR IN 0.9 % NACL 100 UNIT/100 ML BAG 6 UNIT IV (07:58)
[2024-08-11] MEDS: sodium chloride 0.9% 1,000 ML 150 ML IV ×2 (07:58→14:00)
[2024-08-11] MEDS: pantoprazole 40 mg SDV IVP ×2 (07:58→18:00)
[2024-08-11 07:59] LABS: Estmated Average Glucose 315; Hemoglobin A1C 12.6 % (4.0-6.0)
[2024-08-11 08:04] LABS: Reflex Lactate Order REFLEX LACTIC ORDERD
[2024-08-11 08:40] LABS: Anion Gap 39.7 (5-19); Blood Urea Nitrogen 36 mg/dL (8-23); Calcium 9.3 mg/dL (8.5-10.5); Chloride 97 mmol/L (98-107); Creatinine Clr Calc Pharmacy 49.9208; Glomerular Filtration Rate 55.4 mL/min (90-130); Osmolality Calculated 320 mOsm/kg (285-295); Potassium 4.7 mmol/L (3.5-5.1); Sodium 139 mmol/L (136-145)
[2024-08-11 08:43] LABS: Glucose Point of Care 458 mg/dL (70-110)
[2024-08-11 08:49] LABS: Carbon Dioxide 7 mmol/L (22-29); Glucose 526 mg/dL (65-115)
[2024-08-11 09:15] LABS: Glucose Point of Care 464 mg/dL (70-110)
[2024-08-11 09:56] LABS: Glucose Point of Care 409 mg/dL (70-110)
[2024-08-11 10:56] LABS: Glucose Point of Care 429 mg/dL (70-110)
[2024-08-11 12:01] LABS: Glucose Point of Care 490 mg/dL (70-110)
[2024-08-11 12:01] LABS: Glucose Point of Care 438 mg/dL (70-110)
[2024-08-11 12:33] LABS: Anion Gap 31.6 (5-19); Blood Urea Nitrogen 34 mg/dL (8-23); Calcium 9.3 mg/dL (8.5-10.5); Carbon Dioxide 11 mmol/L (22-29); Chloride 102 mmol/L (98-107); Creatinine Clr Calc Pharmacy 58.9973; Glomerular Filtration Rate 67.2 mL/min (90-130); Glucose 301 mg/dL (65-115); Osmolality Calculated 309 mOsm/kg (285-295); Potassium 4.6 mmol/L (3.5-5.1); Sodium 140 mmol/L (136-145)
[2024-08-11 12:57] LABS: Glucose Point of Care 292 mg/dL (70-110)
[2024-08-11 14:00] LABS: Glucose Point of Care 309 mg/dL (70-110)
--- NOTE | 2024-08-11 14:04 | PM.MISC ---
Miscellaneous Note Note: Seen this morning. Anion gap still elevated at 39. Bicarb 11. Blood bicarb drip at this time. Continue DKA protocol. Patient states this is not the first time he has had DKA. Continue management as per assessment and plan.
[2024-08-11] MEDS: sodium bicarbonate 150 MEQ in dextrose 5% 1,000 ML 75 MEQ IV (14:45)
[2024-08-11] MEDS: INSULIN REGULAR IN 0.9 % NACL 100 UNIT/100 ML BAG 18 UNIT IV (15:04)
[2024-08-11 15:06] LABS: Glucose Point of Care 224 mg/dL (70-110)
[2024-08-11 15:57] LABS: Glucose Point of Care 245 mg/dL (70-110)
--- NOTE | 2024-08-11 17:08 | PC.PHAR ---
Patient states he hasn't had any medicine or Insuline in over 4 days from being sick and he couldn't keep it down .
[2024-08-11 17:13] LABS: Glucose Point of Care 186 mg/dL (70-110)
[2024-08-11 17:23] LABS: Anion Gap 20.2 (5-19); Blood Urea Nitrogen 30 mg/dL (8-23); Calcium 9.5 mg/dL (8.5-10.5); Carbon Dioxide 17 mmol/L (22-29); Chloride 108 mmol/L (98-107); Creatinine Clr Calc Pharmacy 72.1079; Glomerular Filtration Rate 84.7 mL/min (90-130); Glucose 194 mg/dL (65-115); Osmolality Calculated 303 mOsm/kg (285-295); Potassium 4.2 mmol/L (3.5-5.1); Sodium 141 mmol/L (136-145)
[2024-08-11 18:01] LABS: Glucose Point of Care 202 mg/dL (70-110)
[2024-08-11] MEDS: D5-NS 0.45% + KCL 20 mEq 20 MEQ/1,000 ML BAG 125 MEQ IV ×2 (18:30→23:45)
[2024-08-11 18:57] LABS: Glucose Point of Care 176 mg/dL (70-110)
--- NOTE | 2024-08-11 19:00 | PC.NURSE ---
Fluids Upon initial assessment of patient, D5-1/2NS with 20 meq KCL administering at 125 ml/hr while MAR displayed NS administering at 150 ml/hr. MAR updated to reflect administration of D5-1/2NS with [address] of NS.
[2024-08-11 21:39] LABS: Glucose Point of Care 176 mg/dL (70-110)
[2024-08-11 21:39] LABS: Anion Gap 25.1 (5-19); Blood Urea Nitrogen 29 mg/dL (8-23); Calcium 9.1 mg/dL (8.5-10.5); Carbon Dioxide 22 mmol/L (22-29); Chloride 98 mmol/L (98-107); Creatinine Clr Calc Pharmacy 81.1214; Glucose 189 mg/dL (65-115); Osmolality Calculated 303 mOsm/kg (285-295); Potassium 4.1 mmol/L (3.5-5.1); Sodium 141 mmol/L (136-145)
[2024-08-11 21:39] LABS: Glucose Point of Care 178 mg/dL (70-110)
[2024-08-11 23:16] LABS: Glucose Point of Care 204 mg/dL (70-110)
[2024-08-11 23:32] LABS: Glucose Point of Care 200 mg/dL (70-110)
[2024-08-12] VITALS (48 sets, daily range): BP systolic 105–166; BP diastolic 64–91; PULSE 76–116; RESP 0–30; TEMP 36.9–37.2; O2SAT 91–100; BMI 21.4
[2024-08-12 00:13] LABS: Glucose Point of Care 216 mg/dL (70-110)
[2024-08-12 00:57] LABS: Glucose Point of Care 233 mg/dL (70-110)
[2024-08-12 02:02] LABS: Anion Gap 25.8 (5-19); Blood Urea Nitrogen 25 mg/dL (8-23); Calcium 8.7 mg/dL (8.5-10.5); Carbon Dioxide 22 mmol/L (22-29); Chloride 97 mmol/L (98-107); Creatinine Clr Calc Pharmacy 81.1214; Glomerular Filtration Rate 113.2 mL/min (90-130); Glucose 243 mg/dL (65-115); Magnesium 1.9 mg/dL (1.7-2.3); Osmolality Calculated 304 mOsm/kg (285-295); Phosphorus 1.5 mg/dL (2.5-4.5); Potassium 3.8 mmol/L (3.5-5.1); Sodium 141 mmol/L (136-145)
[2024-08-12 02:19] LABS: Glucose Point of Care 249 mg/dL (70-110)
[2024-08-12 03:14] LABS: Glucose Point of Care 275 mg/dL (70-110)
[2024-08-12] MEDS: ondansetron 2 mg/ML SDV 2 mL 4 MG IVP ×2 (03:25→21:23)
[2024-08-12 04:18] LABS: Glucose Point of Care 247 mg/dL (70-110)
[2024-08-12 05:15] LABS: Glucose Point of Care 261 mg/dL (70-110)
[2024-08-12] MEDS: sodium bicarbonate 150 MEQ in dextrose 5% 1,000 ML 75 MEQ IV (05:22)
[2024-08-12 05:36] LABS: Basophils % 0.1 %; Hematocrit 33.4 % (37-53); Lymphocytes % 7.7 %; Mean Corpuscular HGB Conc 33.8 g/dL (30-55); Mean Corpuscular Hemoglobin 29.4 pg (27-33); Mean Corpuscular Volume 86.8 fl (82-101); Mean Platelet Volume 9.7 fL (7.4-10.4); Monocytes # 0.8 10^3/uL (0.2-0.9); Monocytes % 6.2 %; Neutrophils # 11.08 10^3/uL (1.8-7.7); Neutrophils % 85.4 %; Nucleated Red Blood Cells % 0 %; Platelet Count 231 10^3/cmm (157-399); Red Blood Count 3.85 10^6/uL (3.85-5.65); Red Cell Distribution Width 13.2 % (12.1-15.1); White Blood Count 12.98 10^3/uL (3.29-11.43)
[2024-08-12 05:54] LABS: Alanine Aminotransferase 7 U/L (0-41); Albumin Level 3.4 g/dL (3.5-5.2); Alkaline Phosphatase 54 U/L (40-130); Anion Gap 23.9 (5-19); Aspartate Amino Transferase 9 U/L (0-40); Blood Urea Nitrogen 21 mg/dL (8-23); Calcium 8.4 mg/dL (8.5-10.5); Carbon Dioxide 23 mmol/L (22-29); Chloride 97 mmol/L (98-107); Creatinine Clr Calc Pharmacy 78.5156; Globulin 1.8 g/dL (1.3-4.6); Glomerular Filtration Rate 135.2 mL/min (90-130); Glucose 273 mg/dL (65-115); Magnesium 1.9 mg/dL (1.7-2.3); Osmolality Calculated 303 mOsm/kg (285-295); Potassium 3.9 mmol/L (3.5-5.1); Sodium 140 mmol/L (136-145); Total Bilirubin 0.5 mg/dL (0.15-1.2); Total Protein 5.2 g/dL (6.6-8.7)
[2024-08-12 06:20] LABS: Glucose Point of Care 235 mg/dL (70-110)
--- NOTE | 2024-08-12 06:20 | P.PN_ITS ---
Subjective 2 Subjective: Seen this morning. Anion gap is still elevated at 21. Patient states he starting to feel better. Vitals/I&O/Wt Last Vital Signs Temp 98.6 F 08/12/24 03:30 Pulse 96 08/12/24 05:58 Resp 19 H 08/12/24 04:00 BP 110/64 08/12/24 04:00 Pulse Ox 97 08/12/24 04:00 O2 Del Method Room Air 08/12/24 03:30 08/11/24 08/11/24 08/12/24 14:59 22:59 06:59 Intake Total 2943.859 / 2943.859 957.483 / 3901.342 2308.884 / 6210.226 Output Total 550 / 550 300 / 850 385 / 1235 Balance 2393.859 / 2393.859 657.483 / 3051.342 1923.884 / 4975.226 Weight last 48 hrs Weight 58.5 kg Weight 63.503 kg Weight 63.503 kg Physical Exam 2 Narrative: Patient is awake and alert GCS 15 Lungs clear to auscultation bilaterally no wheezes or rhonchi. Nonfocal neuroexam Sarcopenia Protein calorie malnourishment No sign of meningitis Nonfocal neuroexam S1, S2, regular rate rhythm. Data 08/12/24 05:11 08/12/24 11:25 Micro: Microbiology 08/11/24 06:35 Blood Culture - Preliminary Blood SPECIMEN COLLECTED 08/11/24 06:32 Blood Culture - Preliminary Blood SPECIMEN COLLECTED A&P Assessment and plan (1) DKA (diabetic ketoacidoses): Qualifiers: Diabetes mellitus complication detail: without coma Diabetes mellitus type: type 1 Qualified Code(s): E10.10 - Type 1 diabetes mellitus with ketoacidosis without coma (2) Nausea & vomiting: (3) Coffee ground emesis: Plan Severe DKA Admit to ICU Start DKA protocol Start normal saline without potassium supplementation BMP every 4 hours Recurrent nausea vomiting Coffee-ground emesis Start Protonix Will request KUB to rule out obstruction No previous history of gastric ulcer Hemoglobin is stable If his hemoglobin started dropping and if patient gets recurrent coffee-ground emesis he may need an EGD JUAN PABLO related to dehydration Full code N.p.o. DVT prophylaxis: Heparin 08/12/2024 -Anion gap still open ? Order normal saline bolus 1 L x 1 ? Continue as per DKA protocol ? Replete phosphorus, potassium ? Continue insulin drip. Will bridge to Lantus once gap closes ? Hemoglobin A1c 12 Attestations 2 Medical Necessity Statement*: More than 2 midnights anticipated Diagnoses DKA (diabetic ketoacidoses) E10.10 Diabetes mellitus complication detail: without coma Diabetes mellitus type: type 1 Nausea & vomiting R11.2 Coffee ground emesis K92.0
[2024-08-12 07:21] LABS: Glucose Point of Care 229 mg/dL (70-110)
[2024-08-12] MEDS: INSULIN REGULAR IN 0.9 % NACL 100 UNIT/100 ML BAG IV (07:59)
[2024-08-12] MEDS: D5-NS 0.45% + KCL 20 mEq 20 MEQ/1,000 ML BAG 125 MEQ IV ×2 (07:59→16:07)
[2024-08-12 08:07] LABS: Glucose Point of Care 201 mg/dL (70-110)
[2024-08-12 08:59] LABS: Glucose Point of Care 207 mg/dL (70-110)
[2024-08-12] MEDS: pantoprazole 40 mg SDV IVP ×2 (09:39→16:08)
[2024-08-12 09:47] LABS: Glucose Point of Care 176 mg/dL (70-110)
--- NOTE | 2024-08-12 09:50 | PC.NURSE ---
c/o lugo tylenol pulled but pt refused wants hydrocodone order from home
[2024-08-12] MEDS: HYDROcodone-acetaminophen 5-325 mg Tablet 1 TAB PO ×3 (10:07→21:23)
[2024-08-12 11:14] LABS: Glucose Point of Care 202 mg/dL (70-110)
[2024-08-12 11:56] LABS: Glucose Point of Care 189 mg/dL (70-110)
[2024-08-12 12:00] LABS: Alanine Aminotransferase 9 U/L (0-41); Albumin Level 3.6 g/dL (3.5-5.2); Alkaline Phosphatase 56 U/L (40-130); Anion Gap 21.8 (5-19); Aspartate Amino Transferase 10 U/L (0-40); Blood Urea Nitrogen 18 mg/dL (8-23); Calcium 8.6 mg/dL (8.5-10.5); Carbon Dioxide 26 mmol/L (22-29); Chloride 96 mmol/L (98-107); Creatinine Clr Calc Pharmacy 78.5156; Globulin 1.9 g/dL (1.3-4.6); Glomerular Filtration Rate 135.2 mL/min (90-130); Glucose 193 mg/dL (65-115); Osmolality Calculated 297 mOsm/kg (285-295); Potassium 3.8 mmol/L (3.5-5.1); Sodium 140 mmol/L (136-145); Total Bilirubin 0.5 mg/dL (0.15-1.2); Total Protein 5.5 g/dL (6.6-8.7)
[2024-08-12 13:10] LABS: Glucose Point of Care 223 mg/dL (70-110)
[2024-08-12] MEDS: sodium chloride 0.9% 1,000 ML 999 ML IV (14:32)
[2024-08-12 14:43] LABS: Glucose Point of Care 205 mg/dL (70-110)
[2024-08-12 15:16] LABS: Anion Gap 21.8 (5-19); Blood Urea Nitrogen 17 mg/dL (8-23); Calcium 8.3 mg/dL (8.5-10.5); Carbon Dioxide 25 mmol/L (22-29); Chloride 96 mmol/L (98-107); Creatinine Clr Calc Pharmacy 78.5156; Glomerular Filtration Rate 166.9 mL/min (90-130); Glucose 229 mg/dL (65-115); Osmolality Calculated 297 mOsm/kg (285-295); Potassium 3.8 mmol/L (3.5-5.1); Sodium 139 mmol/L (136-145)
[2024-08-12 16:14] LABS: Glucose Point of Care 373 mg/dL (70-110)
[2024-08-12 16:14] LABS: Glucose Point of Care 217 mg/dL (70-110)
--- NOTE | 2024-08-12 16:14 | PC.NURSE ---
pt c/o lugo now because i have done without food for 2 and 1/2 days , pain medicine given and bloodsugar check done
[2024-08-12 17:14] LABS: Glucose Point of Care 191 mg/dL (70-110)
[2024-08-12 18:07] LABS: Glucose Point of Care 215 mg/dL (70-110)
[2024-08-12 18:51] LABS: Anion Gap 10.5 (5-19); Blood Urea Nitrogen 15 mg/dL (8-23); Calcium 8.4 mg/dL (8.5-10.5); Carbon Dioxide 26 mmol/L (22-29); Chloride 102 mmol/L (98-107); Creatinine Clr Calc Pharmacy 78.5156; Glomerular Filtration Rate 166.9 mL/min (90-130); Glucose 217 mg/dL (65-115); Osmolality Calculated 287 mOsm/kg (285-295); Potassium 3.5 mmol/L (3.5-5.1); Sodium 135 mmol/L (136-145)
[2024-08-12 19:13] LABS: Glucose Point of Care 221 mg/dL (70-110)
[2024-08-12 20:54] LABS: Glucose Point of Care 221 mg/dL (70-110)
[2024-08-12 21:31] LABS: Glucose Point of Care 196 mg/dL (70-110)
--- NOTE | 2024-08-12 22:00 | PC.NURSE ---
Trazodone Patient complaining of severe headache and insomnia. Patient states he typically takes 100 mg trazodone nightly as a sleep aid as well as hydrocodone 10-325 PRN TID for pain. PRN Hydrocodone 5-325 PO administered per OCT. Dr[address] Medel contacted and order received for 100 mg trazodone PO nightly PRN for insomnia.
[2024-08-12 22:32] LABS: Glucose Point of Care 206 mg/dL (70-110)
[2024-08-12 22:50] LABS: Anion Gap 13.5 (5-19); Blood Urea Nitrogen 11 mg/dL (8-23); Calcium 8.2 mg/dL (8.5-10.5); Carbon Dioxide 24 mmol/L (22-29); Chloride 99 mmol/L (98-107); Creatinine Clr Calc Pharmacy 78.5156; Glomerular Filtration Rate 166.9 mL/min (90-130); Glucose 234 mg/dL (65-115); Osmolality Calculated 283 mOsm/kg (285-295); Potassium 3.5 mmol/L (3.5-5.1); Sodium 133 mmol/L (136-145)
[2024-08-12] MEDS: insulin glargine 100 units/1 mL 30 UNIT SUBCUT (23:27)
[2024-08-12 23:43] LABS: Glucose Point of Care 213 mg/dL (70-110)
[2024-08-13] VITALS (47 sets, daily range): BP systolic 106–200; BP diastolic 48–109; PULSE 70–103; RESP 1–95; TEMP 36.8–37.1; O2SAT 93–99; BMI 21.8
[2024-08-13] MEDS: D5-NS 0.45% + KCL 20 mEq 20 MEQ/1,000 ML BAG 125 MEQ IV (00:08)
[2024-08-13 00:39] LABS: Glucose Point of Care 260 mg/dL (70-110)
[2024-08-13 01:45] LABS: Glucose Point of Care 264 mg/dL (70-110)
[2024-08-13 05:54] LABS: Basophils % 0.3 %; Eosinophils % 0.7 %; Hematocrit 32.7 % (37-53); Lymphocytes # 1.6 10^3/uL (0.8-4.8); Lymphocytes % 25.9 %; Mean Corpuscular HGB Conc 33.6 g/dL (30-55); Mean Corpuscular Hemoglobin 29.9 pg (27-33); Mean Corpuscular Volume 88.9 fl (82-101); Mean Platelet Volume 9.9 fL (7.4-10.4); Monocytes # 0.4 10^3/uL (0.2-0.9); Monocytes % 5.9 %; Neutrophils % 66.9 %; Nucleated Red Blood Cells % 0 %; Platelet Count 174 10^3/cmm (157-399); Red Blood Count 3.68 10^6/uL (3.85-5.65); Red Cell Distribution Width 12.9 % (12.1-15.1); White Blood Count 6.13 10^3/uL (3.29-11.43)
[2024-08-13 06:08] LABS: Anion Gap 9.7 (5-19); Blood Urea Nitrogen 9 mg/dL (8-23); Calcium 8.8 mg/dL (8.5-10.5); Carbon Dioxide 28 mmol/L (22-29); Chloride 102 mmol/L (98-107); Creatinine Clr Calc Pharmacy 79.0365; Glomerular Filtration Rate 215.9 mL/min (90-130); Glucose 217 mg/dL (65-115); Magnesium 1.9 mg/dL (1.7-2.3); Osmolality Calculated 287 mOsm/kg (285-295); Phosphorus 1.5 mg/dL (2.5-4.5); Potassium 3.7 mmol/L (3.5-5.1); Sodium 136 mmol/L (136-145)
[2024-08-13] MEDS: insulin lispro 100 unit/1 mL SUBCUT ×4 (08:17→20:55)
[2024-08-13] MEDS: pantoprazole 40 mg SDV IVP (08:17)
[2024-08-13 11:00] LABS: Anion Gap 10.9 (5-19); Blood Urea Nitrogen 9 mg/dL (8-23); Calcium 9.1 mg/dL (8.5-10.5); Carbon Dioxide 28 mmol/L (22-29); Chloride 100 mmol/L (98-107); Creatinine Clr Calc Pharmacy 79.0365; Glomerular Filtration Rate 215.9 mL/min (90-130); Glucose 263 mg/dL (65-115); Osmolality Calculated 288 mOsm/kg (285-295); Potassium 3.9 mmol/L (3.5-5.1); Sodium 135 mmol/L (136-145)
--- NOTE | 2024-08-13 14:29 | P.PN_ITS ---
Subjective 2 Subjective: DKA now resolved. Patient states he is nauseous. Having bowel movements. Recent admission revealed for possible SBO., Managed conservatively. Medications: Reviewed: Yes Vitals/I&O/Wt Last Vital Signs Temp 98.5 F 08/13/24 12:00 Pulse 80 08/13/24 14:00 Resp 16 08/13/24 14:00 BP 147/88 08/13/24 14:00 Pulse Ox 98 08/13/24 14:00 O2 Del Method Room Air 08/13/24 10:06 08/12/24 08/13/24 08/13/24 22:59 06:59 14:59 Intake Total 2160.233 / 3321.850 1676.917 / 4998.767 480 / 480 Output Total 900 / 1950 1150 / 3100 Balance 1260.233 / 1371.850 526.917 / 1898.767 480 / 480 Weight last 48 hrs Weight 59.5 kg Weight 58.5 kg Physical Exam 2 Narrative: General: No acute distress, AO x3 HEENT: PERRLA, pupils bilaterally equal and reactive, pallors not present Chest: Normal vesicular breath sounds, no added sounds, equal good air entry bilaterally CVS: S1-S2 regular, no murmurs, no tachycardia, no gallops, no rubs Abdomen: Soft, nontender, no organomegaly, bowel sounds present Neuro: No focal deficits, no facial deformity, AO x3, power 5/5 in all limbs Data 08/13/24 05:08 08/13/24 10:19 A&P Assessment and plan (1) DKA (diabetic ketoacidoses): Qualifiers: Diabetes mellitus complication detail: without coma Diabetes mellitus type: type 1 Qualified Code(s): E10.10 - Type 1 diabetes mellitus with ketoacidosis without coma (2) Nausea & vomiting: (3) Coffee ground emesis: Plan Severe DKA Admit to ICU Start DKA protocol Start normal saline without potassium supplementation BMP every 4 hours Recurrent nausea vomiting Coffee-ground emesis Start Protonix Will request KUB to rule out obstruction No previous history of gastric ulcer Hemoglobin is stable If his hemoglobin started dropping and if patient gets recurrent coffee-ground emesis he may need an EGD JUAN PABLO related to dehydration Full code N.p.o. DVT prophylaxis: Heparin 08/12/2024 -Anion gap still open ? Order normal saline bolus 1 L x 1 ? Continue as per DKA protocol ? Replete phosphorus, potassium ? Continue insulin drip. Will bridge to Lantus once gap closes ? Hemoglobin A1c August 13, 2024. Anion gap close last evening. He was transitioned to sliding scale insulin medium dose and also Lantus 30 units of insulin overnight. His blood sugar this afternoon is ranging at 300s. Increase sliding scale to high-dose. Add Lantus 20 units in the a.m. additionally. In reviewing his outpatient notes, patient was recently seen by Dr. Neumann as outpatient and prescribed to be on 62 units of Tresiba twice daily. He has only been doing 30 units of Tresiba since his most recent hospital discharge for SBO as he was instructed at discharge.. States that his Dexcom has been reading his blood sugar as high (>300) at home. Suspect DKA may have been precipitated by underdosing on insulin. Also has been c/o persistent nausea and vomiting for about a month- concern for gastroparesis- check gastric emptying study Transfer out of ICU Attestations 2 Medical Necessity Statement*: estimate 24 hr insulin requirements for discharge, gastric emptying study Coding Level of Care Code Acute Code for Chg Fwd High MDM includes number and complexity of problems actively addressed during encounter, amount and/or complexity of data reviewed/ordered and described risk of complication, morbidity or mortality of management as documented Diagnoses DKA (diabetic ketoacidoses) E10.10 Diabetes mellitus complication detail: without coma Diabetes mellitus type: type 1 Nausea & vomiting R11.2 Coffee ground emesis K92.0
--- NOTE | 2024-08-13 14:30 | PC.SOCIAL ---
IMM updated IMM dated and initialed, copy given to patient and copy placed in chart.
[2024-08-13] MEDS: pantoprazole DR 40 mg Tablet PO (18:41)
[2024-08-13] MEDS: atorvastatin 40 mg Tablet PO (18:41)
[2024-08-13] MEDS: gabapentin 300 mg Capsule PO (18:41)
[2024-08-13] MEDS: insulin glargine 100 units/1 mL 30 UNIT SUBCUT (20:55)
[2024-08-13] MEDS: trazodone 100 mg Tablet PO ×2 (22:29)
[2024-08-14] VITALS (7 sets, daily range): BP systolic 124–154; BP diastolic 64–92; PULSE 60–89; RESP 14–19; TEMP 36.5–36.9; O2SAT 94–96; BMI 21.8
[2024-08-14 04:48] LABS: Basophils % 0.7 %; Eosinophils # 0.1 10^3/uL (0.0-0.8); Eosinophils % 1.5 %; Hematocrit 35.3 % (37-53); Lymphocytes # 1.7 10^3/uL (0.8-4.8); Lymphocytes % 41.9 %; Mean Corpuscular HGB Conc 33.1 g/dL (30-55); Mean Corpuscular Volume 87.6 fl (82-101); Mean Platelet Volume 10.1 fL (7.4-10.4); Monocytes # 0.3 10^3/uL (0.2-0.9); Neutrophils # 1.97 10^3/uL (1.8-7.7); Neutrophils % 47.7 %; Nucleated Red Blood Cells % 0 %; Platelet Count 165 10^3/cmm (157-399); Red Blood Count 4.03 10^6/uL (3.85-5.65); Red Cell Distribution Width 12.8 % (12.1-15.1); White Blood Count 4.13 10^3/uL (3.29-11.43)
[2024-08-14 05:18] LABS: Alanine Aminotransferase 11 U/L (0-41); Albumin Level 3.3 g/dL (3.5-5.2); Alkaline Phosphatase 58 U/L (40-130); Anion Gap 12.9 (5-19); Aspartate Amino Transferase 12 U/L (0-40); Blood Urea Nitrogen 9 mg/dL (8-23); Calcium 9.1 mg/dL (8.5-10.5); Carbon Dioxide 29 mmol/L (22-29); Chloride 103 mmol/L (98-107); Creatinine Clr Calc Pharmacy 79.0365; Globulin 2.1 g/dL (1.3-4.6); Glomerular Filtration Rate 166.9 mL/min (90-130); Glucose 207 mg/dL (65-115); Osmolality Calculated 297 mOsm/kg (285-295); Potassium 3.9 mmol/L (3.5-5.1); Sodium 141 mmol/L (136-145); Total Bilirubin 0.4 mg/dL (0.15-1.2); Total Protein 5.4 g/dL (6.6-8.7)
[2024-08-14 08:33] LABS: Glucose Point of Care 247 mg/dL (70-110)
[2024-08-14] MEDS: fenofibrate 145 mg Tablet PO (08:40)
[2024-08-14] MEDS: insulin lispro 100 unit/1 mL SUBCUT ×2 (08:40→11:33)
[2024-08-14] MEDS: pantoprazole DR 40 mg Tablet PO (08:40)
[2024-08-14] MEDS: gabapentin 300 mg Capsule PO (08:40)
[2024-08-14] MEDS: insulin glargine 100 units/1 mL 20 UNIT SUBCUT (08:40)
[2024-08-14] MEDS: aspirin 81 mg EC Tablet PO (08:40)
[2024-08-14 11:43] LABS: Glucose Point of Care 270 mg/dL (70-110)
[2024-08-14 11:45] LABS: Glucose Point of Care 392 mg/dL (70-110)
[2024-08-14 11:45] LABS: Glucose Point of Care 196 mg/dL (70-110)
[2024-08-14 11:45] LABS: Glucose Point of Care 167 mg/dL (70-110)
[2024-08-14 11:45] LABS: Glucose Point of Care 268 mg/dL (70-110)
--- NOTE | 2024-08-14 13:51 | PC.NURSE ---
Discharge instructions provided to pt at this time. Verbalizes understanding. Sports Medicine Coordinator has seen pt. No questions or concerns voiced. Awaiting ride home as well as meds to beds.
--- NOTE | 2024-08-14 14:28 | NM_ITS ---
WS: [id number] NUCLEAR MEDICINE GASTRIC STUDY CLINICAL INFORMATION: gastroparesis TECHNIQUE: Following oral ingestion of cooked egg mixed with 1.1 mCi technetium 99m sulfur colloid, a nterior images of the stomach were obtained over the course of 90 minutes. Activity curve was perform ed over the course of 90 minutes with linear regression analysis. FINDINGS: Oral ingestion of cooked egg mixture. T1 half emptying 241.68 minutes Only 11% emptying at 60 minutes. Only 27% emptying at 120 minutes MO/NM gastric [place] st [id number] IMPRESSION: Significantly delayed gastric emptying. *Normal median T1 half 90 minutes for solid egg meal (45-110 minutes). Delayed gastric retention is defined as 90% retained at 1 hour, 60% at 2 hour s, 30% at 3 hours, and 10% at 4 hours (normal percent gastric retention is 37-9 0% at 1 hour, 30-60% at 2 hours, and 0-10% at 4 hours).
--- NOTE | 2024-08-14 16:26 | P.DS_ITS ---
Discharge Providers Date of Admission: 08/11/24 06:30 Date of Discharge: August 14, 2024 Attending Provider at Admission: Courtney Medel MD Attending Provider at Discharge: Jocelyn Britton MD Primary Care Provider: Hannah Jin Diagnoses at Discharge Discharge Diagnosis (1) DKA (diabetic ketoacidoses): Status: Acute Qualifiers: Diabetes mellitus complication detail: without coma Diabetes mellitus type: type 1 Qualified Code(s): E10.10 - Type 1 diabetes mellitus with ketoacidosis without coma (2) Nausea & vomiting: Status: Acute (3) Gastroparesis: Status: Acute Reason for Visit Reason for Visit: WEAKNESS Brief History: Patient is a 64-year-old male with uncontrolled diabetes mellitus who was recently in the hospital around [place] for suspected SBO. At this time at discharge his regular Tresiba was reduced from 62 units to 30 units at the time of discharge. He presented to the ER on August 11, 2023 with DKA. He states that his Dexcom has been reading high blood sugar over several days. For DKA he was started with insulin drip, IV fluids per DKA protocol. His anion gap eventually resolved on the evening of August 12, 2024 and he transitioned to subcutaneous and sliding scale insulin. At this present time his daily insulin requirement has been calculated to be 84 units. He is being discharged today with recommendations to continue 62 units of Tresiba as recommended per last endocrinology visit along with a sliding scale insulin at mealtime. Additionally patient reported longstanding nausea and recurrent episodes of vomiting over the past many months. Due to high suspicion for diabetic gastrop aresis he underwent a gastric emptying study and this morning. Results confirmed significantly delayed gastric emptying with only 11% emptying at 60 minutes and 27% emptying at 120 minutes. He has been started on Reglan 5 mg p.o. 3 times daily, recommended to follow-up with gastroenterology and primary care physician, if tolerates Reglan without significant extraparametal symptoms, then attempt to uptitrate dose to 10 mg 3 times daily. Additionally he is recommended to optimize his glycemic control, most recent A1c is at 12. Follow- up arranged with Dr. Neumann later this week to further address. It appears she was supposed to get an insulin pump but has been having insurance issues with the same. Nutrition services were consulted and patient was extensively counseled with regards to eating small frequent meals and dietary modifications related to diabetes mellitus and gastroparesis. He is being discharged today in stable to improved condition. His hB remained remained stable during admission course. There were no noted hematemesis episodes during admission course here. Physical Exam Narrative: General: No acute distress, AO x3 HEENT: PERRLA, pupils bilaterally equal and reactive, pallors not present Chest: Normal vesicular breath sounds, no added sounds, equal good air entry bilaterally CVS: S1-S2 regular, no murmurs, no tachycardia, no gallops, no rubs Abdomen: Soft, nontender, no organomegaly, bowel sounds present Neuro: No focal deficits, no facial deformity, AO x3, power 5/5 in all limbs Discharge Data Studies Completed and Pending Completed Studies During Hospitalization Category Date Time Status CT abdomen pelvis wo con [id number] Stat Cat Scan 08/11/24 07:30 Completed XR chest 1V portable [id number] Stat Exams 08/11/24 06:13 [place] [id number] Routine Nuc Med 08/14/24 14:28 Completed Pending at discharge Category Date Time Status Blood Culture Stat Lab 08/11/24 06:35 Results Radiology Impressions Chest X-Ray 08/11/24 06:13 IMPRESSION: No acute cardiopulmonary process. Abdomen/Pelvis CT 08/11/24 07:30 IMPRESSION: No acute intra-abdominal process. COMMENTS: Consistent with the [employer]'s Incidental Findings Committee white paper (J Am Deirdre Radiol 2018): Any incidental renal lesion less than 1 cm or classified as too small to characterize, or any incidental cystic renal lesion characterized as simple-appearing, is likely benign. No follow-up imaging is recommended for these lesions per consensus recommendations based on imaging criteria. Gastric Emptying Nuclear Medicine 08/14/24 14:28 IMPRESSION: Significantly delayed gastric emptying. *Normal median T1 half 90 minutes for solid egg meal (45-110 minutes). Delayed gastric retention is defined as 90% retained at 1 hour, 60% at 2 hours, 30% at 3 hours, and 10% at 4 hours (normal percent gastric retention is 37-90% at 1 hour, 30-60% at 2 hours, and 0-10% at 4 hours). Laboratory Results WBC 4.13 10^3/uL (3.29-11.43) 08/14/24 04:24 RBC 4.03 10^6/uL (3.85-5.65) 08/14/24 04:24 Hgb 11.70 g/dL (11.27-16.99) 08/14/24 04:24 Hct 35.3 % (37-53) L 08/14/24 04:24 MCV 87.6 fl (82-101) 08/14/24 04:24 MCH 29.0 pg (27-33) 08/14/24 04:24 MCHC 33.1 g/dL (30-55) 08/14/24 04:24 RDW 12.8 % (12.1-15.1) 08/14/24 04:24 Plt Count 165 10^3/cmm (157-399) 08/14/24 04:24 MPV 10.1 fL (7.4-10.4) 08/14/24 04:24 Neut % (Auto) 47.7 % 08/14/24 04:24 Lymph % (Auto) 41.9 % 08/14/24 04:24 Cecil % (Auto) 8.0 % 08/14/24 04:24 Eos % (Auto) 1.5 % 08/14/24 04:24 Baso % (Auto) 0.7 % 08/14/24 04:24 Neut # (Auto) 1.97 10^3/uL (1.8-7.7) 08/14/24 04:24 Lymph # (Auto) 1.7 10^3/uL (0.8-4.8) 08/14/24 04:24 Cecil # (Auto) 0.3 10^3/uL (0.2-0.9) 08/14/24 04:24 Eos # (Auto) 0.1 10^3/uL (0.0-0.8) 08/14/24 04:24 Baso # (Auto) 0.0 10^3/uL (0.0-0.1) 08/14/24 04:24 Nucleated RBC % (auto) 0 % 08/14/24 04:24 Nucleated RBCs # 0.0 /100WBC 08/14/24 04:24 Specimen Type Arterial 08/11/24 06:25 Sample Site Brachial, right 08/11/24 06:25 ABG pH 7.04 (7.35-7.45) L* 08/11/24 06:25 ABG pCO2 15.9 mmHg (35-45) L* 08/11/24 06:25 ABG pO2 123.0 mmHg (80.0-100.0) H 08/11/24 06:25 ABG PO2/FiO2 Ratio 585 08/11/24 06:25 ABG HCO3 4.3 mmol/L (22-26) L 08/11/24 06:25 ABG O2 Saturation 97.6 08/11/24 06:25 ABG Base Excess -24.4 mmol/L (-2.0-2.0) L 08/11/24 06:25 Jefferson Test Pos 08/11/24 06:25 A-a O2 Gradient 0.7 mmHg (5-10) L 08/11/24 06:25 Hematocrit 43.8 % (42-52) 08/11/24 06:25 Hgb O2 Saturation 95.4 % (95-100) 08/11/24 06:25 Carboxyhemoglobin 0.7 %THgb (0.4-20.1) 08/11/24 06:25 Methemoglobin 1.6 % (0.4-1.5) H 08/11/24 06:25 Total Hemoglobin 14.3 g/dL (14-18) 08/11/24 06:25 Sodium 140.0 mmol/L (131-143) 08/11/24 06:25 Potassium 5.4 mmol/L (3.5-5.0) H 08/11/24 06:25 Glucose 576.0 mg/dL (70-115) H 08/11/24 06:25 Ionized Calcium 1.3 mmol/L (1.1-1.4) 08/11/24 06:25 O2 Delivery Device None 08/11/24 06:25 FiO2 21.0 % 08/11/24 06:25 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 ID [email or web address] 08/11/24 06:25 Sodium 141 mmol/L (136-145) 08/14/24 04:24 Potassium 3.9 mmol/L (3.5-5.1) 08/14/24 04:24 Chloride 103 mmol/L (98-107) 08/14/24 04:24 Carbon Dioxide 29 mmol/L (22-29) 08/14/24 04:24 Anion Gap 12.9 (5-19) 08/14/24 04:24 BUN 9 mg/dL (8-23) 08/14/24 04:24 Creatinine 0.5 mg/dL (0.7-1.2) L 08/14/24 04:24 GFR Calculation 166.9 mL/min (90-130) H 08/14/24 04:24 Glucose 207 mg/dL (65-115) H 08/14/24 04:24 POC Glucose 270 mg/dL (70-110) H 08/14/24 11:30 Estimat Average Glucose 315 08/11/24 05:49 Hemoglobin A1c 12.6 % (4.0-6.0) H 08/11/24 05:49 Calculated Osmolality 297 mOsm/kg (285-295) H 08/14/24 04:24 Lactic Acid 5.6 mmol/L (0.5-2.2) H* 08/11/24 05:49 Lactic Acid (Sepsis) 2.0 mmol/L (0.5-2.2) 08/11/24 11:45 Calcium 9.1 mg/dL (8.5-10.5) 08/14/24 04:24 Phosphorus 1.5 mg/dL (2.5-4.5) L 08/13/24 05:08 Magnesium 1.9 mg/dL (1.7-2.3) 08/13/24 05:08 Total Bilirubin 0.4 mg/dL (0.15-1.2) 08/14/24 04:24 AST 12 U/L (0-40) 08/14/24 04:24 ALT 11 U/L (0-41) 08/14/24 04:24 Alkaline Phosphatase 58 U/L (40-130) 08/14/24 04:24 Total Protein 5.4 g/dL (6.6-8.7) L 08/14/24 04:24 Albumin 3.3 g/dL (3.5-5.2) L 08/14/24 04:24 Globulin 2.1 g/dL (1.3-4.6) 08/14/24 04:24 Urine Color Yellow (Yellow) 08/11/24 06:48 Urine Appearance Clear (CLEAR) 08/11/24 06:48 Urine pH 5.0 (5-7) 08/11/24 06:48 Ur Specific [place] 1.022 (1.005-1.030) 08/11/24 06:48 Urine Protein 1+ (Negative) A 08/11/24 06:48 Urine Glucose (UA) 1+ (Normal) H 08/11/24 06:48 Urine Ketones 4+ (Negative) 08/11/24 06:48 Urine Blood Negative (Negative) 08/11/24 06:48 Urine Nitrate Negative (Negative) 08/11/24 06:48 Urine Bilirubin Negative (Negative) 08/11/24 06:48 Urine Urobilinogen 0.2 mg/dL (Negative) 08/11/24 06:48 Ur Leukocyte Esterase Negative (Negative) 08/11/24 06:48 Urine RBC 3-5 /hpf (0-2) 08/11/24 06:48 Urine WBC 0-5 /hpf (0-5) 08/11/24 06:48 Ur Squamous Epith Cells 0-5 /hpf (0-5) 08/11/24 06:48 Amorphous Sediment Not Reportable 08/11/24 06:48 Urine Bacteria None seen /hpf (NONE) 08/11/24 06:48 Hyaline Casts 16.53 /lpf 08/11/24 06:48 Serum Ketones Positive (Negative) H 08/11/24 05:49 Coronavirus (PCR) Negative (Negative) 08/11/24 06:20 Influenza A (PCR) Negative (Negative) 08/11/24 06:20 Influenza Type B (PCR) Negative (Negative) 08/11/24 06:20 RSV (PCR) Negative (Negative) 08/11/24 06:20 Vitals Last Vital Signs Temp 98.5 F 08/14/24 13:23 Pulse 89 08/14/24 13:23 Resp 16 08/14/24 13:23 BP 144/82 08/14/24 13:23 Pulse Ox 94 08/14/24 13:23 O2 Del Method Room Air 08/14/24 12:31 Discharge Plan Discharge Patient Disposition: Home Condition: Stable Prescriptions: New metoclopramide HCl [Reglan] 10 mg tablet 5 mg PO TID 30 Days Qty: 45 0RF pantoprazole [Protonix] 40 mg tablet,delayed release (DR/EC) 40 mg PO DAILY 28 Days Qty: 30 0RF Continued aspirin [Adult Aspirin Regimen] 81 mg tablet,delayed release (DR/EC) 81 mg PO QAM (DME) Dexcom G7 Super[employer] Misc See Rx Instructions .Route Qty: 1 0RF Rx Instructions: rew once a year (DME) Dexcom G7 Sensor Device See Rx Instructions .ROUTE .MEDSUPPLY Qty: 9 0RF Rx Instructions: Change every 10days gabapentin 300 mg capsule 300 mg PO BID insulin aspart U-100 [Novolog FlexPen U-100 Insulin] 100 unit/mL (3 mL) insulin pen See Rx Instructions .Route .COMPLEX PRN (Reason: sliding scale) Rx Instructions: Inject, subcut, 3 times daily, after meals, based on sliding scale provided fenofibrate nanocrystallized 145 mg tablet 145 mg PO DAILY trazodone 100 mg tablet 100 mg PO BEDTIME hydrocodone-acetaminophen 10-325 mg tablet 1 tab PO TID atorvastatin 40 mg tablet 40 mg PO QPM Changed insulin degludec [Tresiba FlexTouch U-100] 100 unit/mL (3 mL) insulin pen 62 unit SUBCUT QAM Qty: 60 1RF Discharge Orders: Discharge Order (Routine); Ordered 08/14/24 Ordered By: Jocelyn Britton Referrals: Phuc Pope MD [Referring] - 3 weeks (We have faxed your information to Dr. Pope in [place] with a follow up appointment. If you do not hear from them in 2 business days give them a call at [phone].) Hannah Jin FNP [Primary Care Provider] - 08/16/24 9:30 am Colin Grubbs MD [Physician] - 08/16/24 9:30 am () Patient Instructions: Metoclopramide (By mouth), Diabetic Gastroparesis (GEN), Opioid Safety Discharge Attestations Time Spent in Discharge Care*: greater than 30 min Quality Metrics Clinical Quality Measures [ No reported AMI, CVA or VTE this stay] Coding Level of Care Code Acute Code for Chg Fwd Diagnoses DKA (diabetic ketoacidoses) E10.10 Diabetes mellitus complication detail: without coma Diabetes mellitus type: type 1 Nausea & vomiting R11.2 Gastroparesis K31.84
== END 2024-08-14 14:27 | disposition home or self-care (01) | DRG 638 ==
LOC: ER 06:39 → ICU 06:45 → MEDSURG 08-14 08:26
PROVIDERS: General Practice; Internal Medicine; Admitting Provider Internal Medicine; Emergency Provider Family Medicine; PCP Nurse Practitioner Family; Visit Provider Student in an Organized Health Care Education/Training Program
DX: E10.10 Type 1 diabetes mellitus with ketoacidosis without coma (principal); N17.9 Acute kidney failure, unspecified; E10.43 Type 1 diabetes mellitus with diabetic autonomic (poly)neuropathy; K31.84 Gastroparesis; E86.0 Dehydration; G89.29 Other chronic pain; F32.A Depression, unspecified; I10 Essential (primary) hypertension; E78.5 Hyperlipidemia, unspecified; M62.84 Sarcopenia; Z79.82 Long term (current) use of aspirin; Z79.4 Long term (current) use of insulin; Z79.891 Long term (current) use of opiate analgesic; Z79.85 Long-term (current) use of injectable non-insulin antidiabetic drugs; Z80.0 Family history of malignant neoplasm of digestive organs
CPT/HCPCS: 36415; 36416; 36600; 71045; 74176; 78264; 80048; 80051; 80053; 81001; 82009; 82330; 82805; 82962; 83036; 83605; 83735; 84100; 85025; 87040; 87637; 93005; 96372; 96374; 96375; 99285; A9541; J1815; J2405; J2470; J7030; J7070

== ENCOUNTER → 2024-08-16 09:30 | Outpatient (BNVA) | payer MEDICARE, MEDICAID, SELFPAY | PROVIDERS: PCP Nurse Practitioner Family; Visit Provider Internal Medicine | DX: E16.2 Hypoglycemia, unspecified (principal); E11.9 Type 2 diabetes mellitus without complications; Z79.4 Long term (current) use of insulin; E78.5 Hyperlipidemia, unspecified | CPT/HCPCS: 99214 ==

== ENCOUNTER → 2024-10-11 10:49 | Outpatient (BNVA) | payer MEDICARE, MEDICAID, SELFPAY | PROVIDERS: PCP Nurse Practitioner Family; Visit Provider Internal Medicine | DX: E11.10 Type 2 diabetes mellitus with ketoacidosis without coma (principal); E11.9 Type 2 diabetes mellitus without complications; Z79.4 Long term (current) use of insulin; E78.5 Hyperlipidemia, unspecified; E16.2 Hypoglycemia, unspecified | CPT/HCPCS: 99214 ==

== ENCOUNTER 2024-10-18 10:49 | Outpatient (CLI) | payer MEDICARE, MEDICAID, SELFPAY ==
[2024-10-18 11:55] LABS: Alanine Aminotransferase 13 U/L (0-41); Albumin Level 4.3 g/dL (3.5-5.2); Alkaline Phosphatase 60 U/L (40-130); Aspartate Amino Transferase 15 U/L (0-40); Blood Urea Nitrogen 24 mg/dL (8-23); Calcium 9.4 mg/dL (8.5-10.5); Carbon Dioxide 28 mmol/L (22-29); Chloride 101 mmol/L (98-107); Chol HDL Ratio 3.57 mg/dL (1.0-5.00); Cholesterol 182 mg/dL (0-200); Globulin 2.7 g/dL (1.3-4.6); Glomerular Filtration Rate 135.2 mL/min (90-130); Glucose 95 mg/dL (65-115); HDL Cholesterol 51 mg/dL (60-100); LDL Cholesterol Calculated 113 mg/dL (50-129); LDL HDL Ratio 2.22 RATIO (0.00-3.22); Osmolality Calculated 290 mOsm/kg (285-295); Sodium 138 mmol/L (136-145); Total Bilirubin 0.3 mg/dL (0.15-1.2); Triglycerides 92 mg/dL (0-150)
[2024-10-18 11:58] LABS: Anion Gap 13.2 (5-19); Potassium 4.2 mmol/L (3.5-5.1)
[2024-10-18 11:59] LABS: Estmated Average Glucose 295; Hemoglobin A1C 11.9 % (4.0-6.0)
[2024-10-18 12:36] LABS: Creatinine Urine, Random 123 mg/dL (39-259); Microalbum Creatinine Ratio Ur 33 mg/dL (0-20); Microalbumin Random Urine 4 ug/dL (0-20)
== END 2024-10-18 10:50 | disposition home or self-care (01) ==
PROVIDERS: PCP Nurse Practitioner Family; Visit Provider Internal Medicine
DX: E11.9 Type 2 diabetes mellitus without complications (principal); Z79.4 Long term (current) use of insulin; E78.5 Hyperlipidemia, unspecified; E16.2 Hypoglycemia, unspecified
CPT/HCPCS: 36415; 80053; 80061; 82044; 83036

== ENCOUNTER 2024-11-10 15:19 | Emergency (ER) | payer MEDICARE, SELFPAY ==
[2024-11-10 15:26] VITALS: BP 147/86; PULSE 83; RESP 16; TEMP 36.6; O2SAT 99; BMI 22.8
--- NOTE | 2024-11-10 15:45 | XRR_ITS ---
PROCEDURE INFORMATION: Exam: XR Lumbosacral Spine Exam date and time: 11/10/2024 3:55 PM Age: 64 years old Clinical indication: Lumbago with sciatica; Lower back pain with right sciatica post fall TECHNIQUE: Imaging protocol: Radiologic exam of the lumbosacral spine. Views: 2 or 3 views. COMPARISON: CR XR lumbar spine min 4V [id number] 10/15/2019 2:52 PM FINDINGS: Bones/joints: No acute fracture. Normal alignment. Mild multilevel, multifactorial degenerative changes along the spine. Soft tissues: Unremarkable. Vasculature: Mild aortoiliac atherosclerotic calcification. XR/XR lumbar spine 2-3V* [id number] IMPRESSION: No acute findings.
--- NOTE | 2024-11-10 15:46 | W.ED.BACK ---
HPI - Back Pain/Injury General: Chief Complaint: Back Pain/Injury Stated Complaint: fell and popped back , severe back pain Time Seen by Provider: 11/10/24 15:35 Source: patient Mode of arrival: ambulatory Limitations: no limitations History of Present Illness: 64yo male presents with low back pain that started when he fell while attempting to sit in his recliner. Patient reports that his recliner does have a removable back that came loose when he went to sit down. Patient states he fell backwards and felt a pop in his back. States this occurred 2 to 3 days ago. States that he is having increased pain with movement of the right leg. He reports a remote history of a back fracture when he was 14 years old. Patient denies incontinence, previous back surgery, recent illness, fever, any other concerns at this time. Associated symptoms: Deny chills, fever(s) or vomiting Related Data Home Medications ?Medication ?Instructions ?Recorded ?Confirmed aspirin 81 mg tablet,delayed 81 mg PO QAM 05/12/20 10/10/24 release (Adult Aspirin Regimen) gabapentin 300 mg capsule 300 mg PO BID 06/30/22 10/10/24 atorvastatin 40 mg tablet 40 mg PO QPM 06/28/23 10/10/24 hydrocodone 10 mg-acetaminophen 1 tab PO TID 06/28/23 10/10/24 325 mg tablet insulin aspart U-100 100 unit/mL See Rx Instructions .Route 05/02/24 10/10/24 (3 mL) subcutaneous pen (Novolog .COMPLEX PRN sliding scale FlexPen U-100 Insulin aspart) fenofibrate nanocrystallized 145 145 mg PO DAILY 08/11/24 10/10/24 mg tablet trazodone 100 mg tablet 100 mg PO BEDTIME 08/12/24 10/10/24 Previous Rx's ?Medication ?Instructions ?Recorded blood-glucose meter,continuous #1 ea 11/30/22 (Dexcom G7 Store Lead) blood-glucose sensor (Dexcom G7 #9 ea 05/30/23 Sensor device) insulin degludec 100 unit/mL (3 See Rx Instructions .Route 10/08/24 mL) subcutaneous pen (Tresiba .COMPLEX #15 mL FlexTouch U-100 insulin) ketorolac 10 mg tablet 10 mg PO Q6H PRN pain 5 days #20 04/05/25 tabs tizanidine 2 mg tablet 2 mg PO Q8H PRN muscle spasticity 11/10/24 #20 tabs Allergies Allergy/AdvReac Type Severity Reaction Status Date / Time No Known Drug Allergies Allergy Unknown Unknown Verified 11/10/24 15:32 Review of Systems Const: Denies: fever(s), chills or body aches GI: Denies: vomiting Musc: Reports: back pain (Lumbar) PFSH ED PFSH: Medical History Depression Hypertension Anxiety Hyperlipidemia Chronic pain Insulin dependent diabetes mellitus Surgical History [place] of [place] [facility] [place] Family History Father Colon cancer Other COPD (chronic obstructive pulmonary disease) Cancer Social History Smoking and tobacco/nicotine status: never used tobacco/nicotine Alcohol intake: never Substance/Drug Use: never Physical Exam Const: COMMON NORMALS: no acute distress, patient oriented x3 and alert GENERAL APPEARANCE: cooperative ORIENTATION/CONSCIOUSNESS: Yes awake OTHER: Patient is sitting upright on the stretcher in no acute distress. He is able to make position changes with no difficulty. He is interactive with exam appropriately. No family is at bedside HENMT: COMMON NORMALS: normocephalic and atraumatic HEAD & SCALP: normocephalic and atraumatic Neck/C-Spine: COMMON NORMALS: full ROM Chest: CHEST: Yes Symmetrical chest wall rise Resp: COMMON NORMALS: normal respiratory effort EFFORT & INSPECTION: Yes able to speak in complete sentences, Yes symmetric chest movement and No abnormal respiratory pattern Back/Pelvis: GENERAL BACK: No erythema, No ecchymosis and Yes tenderness (lumbar, no step-offs noted) LUMBAR SPINE/LOWER BACK: Yes paraspinal muscle tenderness Lumbar paraspinal muscle tenderness: right Right lumbar paraspinal muscle tenderness: L3 Neuro: COMMON NORMALS: patient oriented x3 and moves all extremities SENSORIUM/ORIENTATION: Yes alert Psych: COMMON NORMALS: cooperative ATTITUDE: Yes calm Course Vital Signs: Vital signs: Vital Signs Temperature 97.8 F 11/10/24 15:26 Pulse Rate 83 11/10/24 15:26 Respiratory Rate 16 11/10/24 15:26 Blood Pressure 147/86 11/10/24 15:26 Pulse Oximetry 99 11/10/24 15:26 Oxygen Delivery Me thod Room Air 11/10/24 15:26 MDM - Back Pain/Injury Medical Decision Making 64yo male presents with low back pain that started when he fell while attempting to sit in his recliner. Patient reports that his recliner does have a removable back that came loose when he went to sit down. Patient states he fell backwards and felt a pop in his back. States this occurred 2 to 3 days ago. States that he is having increased pain with movement of the right leg. He reports a remote history of a back fracture when he was 14 years old. Patient denies incontinence, previous back surgery, recent illness, fever, any other concerns at this time. Patient is nontoxic in appearance. Vital signs are stable. Will proceed with x-ray imaging. No acute findings noted on lumbar spine x-ray. Mild multilevel multifactorial degenerative changes are noted along the spine. Discussed findings with patient. Will proceed with ketorolac and tizanidine to help with pain. Sedation precautions provided for tizanidine. Recommend range of motion exercises. Advise follow-up with primary care, call in 2 to 3 days with an update of symptoms and to discuss a recheck. Return precautions provided. Patient states understanding and has no further questions or concerns at this time. Medical Records I reviewed the patient's medical records. Labs Radiology Impressions Lumbar Spine X-Ray 11/10/24 15:45 IMPRESSION: No acute findings. All radiology interpretation(s) finalized by discharge Discharge Plan Discharge Patient Disposition: Home Clinical Impression: Fall from chair, initial encounter Back pain Qualifiers: Back pain location: low back pain Chronicity: acute Back pain laterality: midline Sciatica presence: without sciatica Qualified Code(s): M54.50 - Low back pain, unspecified Condition: Stable Prescriptions: New ketorolac 10 mg tablet 10 mg PO Q6H PRN (Reason: pain) 5 Days Qty: 20 0RF tizanidine 2 mg tablet 2 mg PO Q8H PRN (Reason: muscle spasticity) Qty: 20 0RF No Action aspirin [Adult Aspirin Regimen] 81 mg tablet,delayed release (DR/EC) 81 mg PO QAM (DME) Dexcom G7 Store Lead Misc See Rx Instructions .Route Qty: 1 0RF Rx Instructions: rew once a year (DME) Dexcom G7 Sensor Device See Rx Instructions .ROUTE .MEDSUPPLY Qty: 9 0RF Rx Instructions: Change every 10days insulin degludec [Tresiba FlexTouch U-100] 100 unit/mL (3 mL) insulin pen See Rx Instructions .ROUTE .COMPLEX Qty: 15 2RF Dose Instruction: INJECT 60 UNITS SUBCUTANEOUSLY EVERY MORNING Rx Instructions: INJECT 60 UNITS SUBCUTANEOUSLY EVERY MORNING gabapentin 300 mg capsule 300 mg PO BID insulin aspart U-100 [Novolog FlexPen U-100 Insulin] 100 unit/mL (3 mL) insulin pen See Rx Instructions .Route .COMPLEX PRN (Reason: sliding scale) Rx Instructions: Inject, subcut, 3 times daily, after meals, based on sliding scale provided fenofibrate nanocrystallized 145 mg tablet 145 mg PO DAILY trazodone 100 mg tablet 100 mg PO BEDTIME hydrocodone-acetaminophen 10-325 mg tablet 1 tab PO TID atorvastatin 40 mg tablet 40 mg PO QPM Discharge Orders: Discharge ED (Routine); Ordered 11/10/24 Ordered By: Driss Rossi Referrals: Hannah Jin, MARINE D[employer] TECHNICIAN [Primary Care Provider] - Discharge Diet: Usual diet Discharge Activity: Increase activity as tolerated Patient Instructions: Acute Low Back Pain (ED), Lower Back Exercises (ED) Activity Restrictions/Additional Instructions: Ketorolac and tizanidine have been sent to the pharmacy on file to help with your back pain. Please do not drive or operate heavy machinery while taking tizanidine See provided handout with information about low back pain and lower back exercises Follow-up with primary care, call in 2 to 3 days with an update of symptoms and to discuss to recheck Return to the emergency department if any further injury, rapid worsening pain, and as needed Print Language: Vietnamese Coding Level of Care Code ED [place] [facility] Department Supervisor for Aura Durán
[2024-11-10 17:26] VITALS: BP 132/86; PULSE 80; RESP 17; O2SAT 99
== END 2024-11-10 17:26 | disposition home or self-care (01) ==
PROVIDERS: Emergency Provider Nurse Practitioner; PCP Nurse Practitioner Family
DX: M54.50 Low back pain, unspecified (principal); W07.XXXA Fall from chair, initial encounter; Z79.82 Long term (current) use of aspirin; Z79.4 Long term (current) use of insulin; I10 Essential (primary) hypertension; E78.5 Hyperlipidemia, unspecified; E11.9 Type 2 diabetes mellitus without complications
CPT/HCPCS: 72100; 99283

== ENCOUNTER → 2024-12-06 09:54 | Outpatient (BNVA) | payer MEDICARE, SELFPAY | PROVIDERS: PCP Nurse Practitioner Family; Visit Provider Internal Medicine | DX: E10.9 Type 1 diabetes mellitus without complications (principal); Z79.4 Long term (current) use of insulin; E78.5 Hyperlipidemia, unspecified; E16.2 Hypoglycemia, unspecified | CPT/HCPCS: 99214 ==

== ENCOUNTER 2025-02-18 17:01 | Observation (INO) | payer MEDICARE, SELFPAY ==
--- OUTSIDE RECORDS SUMMARY | 2025-02-14 05:20 | XMS_ITS ---
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 Name Role Phone Gary Cardona MD Primary Care Provider Sven Huerta Unavailable [phone] Nan Hernandez Unavailable [phone] Allergies No Known Allergies Results Component Value Reference Range Notes Urine Drug Screen (cup read) - 35416 Reviewed date:02/14/2025 12:32:04 PM Interpretation: Performing Lab: Notes/Report: OPI + REASON FOR VISIT 2 month f/u Medications Medication SIG (Take, Route, Frequency, Duration) Notes Start Date End Date Status Novolin R Regular U-100 Insuln *Reorder from [facility] for eRx and Interaction Alerts* Active HYDROcodone-Acetami nophen 10-325 MG Tablet 1 tablet as needed Orally every 8 hrs; Duration: 30 days As needed Do not exceed 3 per day Fill on 01-19-25 12/12/2024 02/18/2025 Active Citalopram *[facility]order from [facility] for eRx and Interaction Alerts* Active Metformin *Reorder from [facility] for eRx and Interaction Alerts* Active Aspirin *Pick strength-f orm from [facility] for eRX* Active Social History Social History Additional Details Category Social Info Options Details Migrated Social History Migrated Social History Smoking - No Vital Signs Height 64.00 in 02/14/2025 Weight 132 lbs 02/14/2025 BMI 22.66 kg/m2 02/14/2025 Height-cm 162.56 cm 02/14/2025 Weight-kg 59.87 kg 02/14/2025 Encounters Encounter Location Date Provider Diagnosis [facility] [address] [place] [address] 02/14/2025 Nan Hernandez Chronic pain syndrom e G89.4 ; Unspecified mononeuropathy of bilateral lower limbs G57.93 ; Degeneration of intervertebral disc of lumbosacral region with discogenic back pain M51.370 ; Radiculopathy, lumbar region M54.16 ; Primary generalized (osteo)arthritis M15.0 and custodial (current) use of opiate analgesic Z79.891 Assessments Encounter Date Diagnosis (ICD Code) Assessment Notes Treatment Notes Treatment Clinical Notes Section Notes 02/14/2025 Chronic pain syndrome (ICD-10 - G89.4) I had a nice discussion with the patient today regarding his chronic pain complaints. He continues with lower back pain as well as multiple joint pain. He defers any interventional procedures. I did discuss lifestyle modifications as well as a bowel regimen. He states he is doing well on his current medication regimen and allows him to function better overall. He denies any changes in his health since we last seen him or any untoward side effects of the medication. He will continue his medication at present level and return to clinic in 2 months to monitor for treatment effectiveness and compliance. The patient continues with chronic pain requiring treatment to help restore function and improve quality of life. Risks of opioid therapy as well as interaction of opioids with alcohol, illicit drugs, muscle relaxers, and other sedative medications are reviewed briefly with patient again today. The patient has trialed all other reasonable treatment options and uses the medication to alleviate pain in order to remain active and rest with less pain. No clinically relevant medication side effects are noted. Last UDS and [place] [employer]ILD ADOLESCENT PSYCHIATRIST reviewed today. Patient is advised that best long-term goals include increased activity, core strengthening, proper weight management, coping strategies, avoidance of painful triggers, and targeted interventional therapy. We will see the patient for routine follow up in accordance with all clinic policies. We did remind patient today of current guidelines to decrease opioid when possible. We will continue to stress nonopioid treatment. RECOMMEND URINE TESTING TODAY Urine drug screening will be performed today to monitor compliance with opioid therapy or to serve as a baseline screen for a patient who may be a candidate for opioid therapy in the future, pending UDS results. We will monitor with in-office testing (rapid testing) today and review the results prior to dispensing prescription. All positive results will be sent for quantitative analysis to ensure accuracy and quantify amounts. Any expected positive results that return negative will also be sent for quantitative analysis. Any questionable read or any medication we cannot test for in the office confidently will be sent for quantitative analysis, as well. Patient has been made aware of this policy and agrees to abide by our urine testing policy. 02/14/2025 Unspecified mononeuropathy of bilateral lower limbs (ICD-10 - G57.93) 02/14/2025 Degeneration of intervertebral disc of lumbosacral region with discogenic back pain (ICD-10 - M51.370) 02/14/2025 Radiculopathy, lumbar region (ICD-10 - M54.16) 02/14/2025 Primary generalized (osteo)arthritis (ICD-10 - M15.0) 02/14/2025 custodial (current) use of opiate analgesic (ICD-10 - Z79.891) Plan Of Treatment Treatment Notes Assessment Notes Chronic pain syndrome I had a nice discussion with the patient today regarding his chronic pain complaints. He continues with lower back pain as well as multiple joint pain. He defers any interventional procedures. I did discuss lifestyle modifications as well as a bowel regimen. He states he is doing well on his current medication regimen and allows him to function better overall. He denies any changes in his health since we last seen him or any untoward side effects of the medication. He will continue his medication at present level and return to clinic in 2 months to monitor for treatment effectiveness and compliance. The patient continues with chronic pain requiring treatment to help restore function and improve quality of life. Risks of opioid therapy as well as interaction of opioids with alcohol, illicit drugs, muscle relaxers, and other sedative medications are reviewed briefly with patient again today. The patient has trialed all other reasonable treatment options and uses the medication to alleviate pain in order to remain active and rest with less pain. No clinically relevant medication side effects are noted. Last UDS and [place] [employer]OLESCENT PSYCHIATRIST reviewed today. Patient is advised that best long-term goals include increased activity, core strengthening, proper weight management, coping strategies, avoidance of painful triggers, and targeted interventional therapy. We will see the patient for routine follow up in accordance with all clinic policies. We did remind patient today of current guidelines to decrease opioid when possible. We will continue to stress nonopioid treatment. RECOMMEND URINE TESTING TODAY Urine drug screening will be performed today to monitor compliance with opioid therapy or to serve as a baseline screen for a patient who may be a candidate for opioid therapy in the future, pending UDS results. We will monitor with in-office testing (rapid testing) today and review the results prior to dispensing prescription. All positive results will be sent for quantitative analysis to ensure accuracy and quantify amounts. Any expected positive results that return negative will also be sent for quantitative analysis. Any questionable read or any medication we cannot test for in the office confidently will be sent for quantitative analysis, as well. Patient has been made aware of this policy and agrees to abide by our urine testing policy. Pending Test Test Name Order Date Urine Confirmation Panel (instrument) - [id number] 02/14/2025 Next Appt Details Follow Up: 2 Months, Reason: Provider Name:Nan oreilly, 04/18/2025 11:00:00 AM, [address] [place], [address], History and Physical Notes * HPI (History of Present Illness) Category Sub-Category Detail Notes Category Not es Pain Details Pain Location Lower back My meds are d oing ok. Working on lots of lawn mowers. Quality Sharp, Stabbing, Num bness Severity of pain at its worst 9/10 Severity of pain at its best 3/10 Severity of average pain 7/10 Severity of pain right now 6/10 Severity of pain on medication 3/10 When did you last take your pain medicin e 02/14/2025 Medication Details Do you have a lock b ox or safe place for medication away from minors and/or others? Yes Do you have any leftover pain medication building up at your house? No Do you understand that pain medication c an be addicting and can cause overdose? Yes Do you feel you can REDUCE the amount of medication you take today? No Opioid Assessment Tools Pill Count 11 pills , Essentially consistent pill count at today's visit (within 1 to 2 days of expected) Last Urine Drug Screen 10/11/2024 Conf Today's Rapid Urine Drug Screen [facility] [place], found to be consistent with treatment history, reviewed today Treatment History Test undergone in the past 0 Lumbar MRI Past medication you have taken hydrocodo ne 10/325 #90 Treatments you have had 2019 LESI L4-5 Examination Category Sub-Category Detail Notes Category Not es General Examination General patient is w ell developed, well-nourished, alert and oriented, has good hygiene ENT oral mucosa moist an d pink Eyes pupils are equal, ro und and reactive to light, sclera/conjuctiva normal Lumbar Spine Palpation of Lumbar Spine reveal s hyperextension of lumbar spine and bilateral palpitation of lumbar facets reproduces back pain Palpation of Lumbar Intervertebral Space (Discs) there is no pain noted Bilateral Palpation of Sacroiliac Joint reveals no pain Palpation of Greater Trochanteric Bursa reveals no tenderness on both sides Musculoskeletal - Low Back Muscles Trigger Point s no palpable trigger points are noted Gaenslen's Test Negative Neurological Mental Status awake, oriented to person, oriented to place, oriented to time, memory intact, mood and affect are normal Motor Strength Left UE strength - Flexors: 5/5 Right UE strength - Flexors: 5/5 Left UE strength - Extensors: 5/5 Right UE strength - Extensors: 5/5 Left UE Tone: normal Right UE Tone: normal Left LE strength - Flexors: 5/5 Right LE strength - Flexors: 5/5 Left LE strength - Extensors: 5/5 Right LE strength - Extensors: 5/5 Left LE Tone: normal Right LE Tone: normal Progress Notes * Wiliam AVALOSDOB:1960 (64 yo M)Acc No.[id number]:02/14/2025 Progress Notes Patient: Wiliam Holland Provider: DARON Aldridge :1960 A ge:64 Y S ex:Male Date:02/14/2025 Address:[address] [place], [place] [id number] Pcp:Gary Cardona MD 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 Quality S harp, Stabbing, Numbness . Severity of pain at its worst /10. Severity of pain at its best /10. Severity of pain on medication /10. Severity of average pain . Severity of pain right now . When did you last take your pain medicine . My meds are doing ok. Working on lots of lawn mowers. . M edication Details: Do you have a lock box or safe place for medication away from minors and/or others? Y es. Do you have any leftover pain medication building up at your house? N o. Do you understand that pain medication can be addicting and can cause overdose? Y es. Do you feel you can REDUCE the amount of medication you take today? N o. O pioid Assessment Tools: Pill Count 1 1 pills, Essentially consistent pill count at today's visit (within 1 to 2 days of expected). Last Urine Drug Screen 0 10/11/2024 Conf. Today's Rapid Urine Drug Screen c onfirmation. [place] Prescription Monitoring Program [place], found to be consistent with treatment history, reviewed today. T reatment History: Test undergone in the past 0 04/15/2020 Lumbar MRI. Past medication you have taken h ydrocodone 10/325 #90.? Treatments you have had 2 020 LESI L4-5. P zaida Note: The patient presents today for 2-month follow-up. He is currently prescribed hydrocodone 10/325 3/day which is working reasonably well for him. Last UDS was consistent. UDS was collected today and will be sent to lab for reference. We will review results with patient at next visit. PDMP was reviewed and found to be compliant with care. Pill count is accurate today. * ROS: G eneral - Multi System: Constitutional D enies, f ever, recent weight gain, recent weight loss, fatigue. R espiratory D enies, wheezing, shortness of breath, cough, snoring. G astrointestinal D enies, nausea, vomiting, constipation, abdominal pain. P sychiatric D enies, , anxiety, depression, panic attacks, suicidal thoughts. * Medical History: Arthritis, D epression, D iabetes, H eadache, Medical History Verified * Surgical History: left shoulder surgery Surgical History verified. * Social History: M igrated Social History: M igrated Social History: Smoking - No. S ocial History Verified. * Medications: T Jasonspirin , Notes to Pharmacist: *Pick strength-form from [facility] for eRX*Citalopram , Notes to Pharmacist: *Reorder from [facility] for eRx and Interaction Alerts*HYDROcodone-Acetaminophen 10-325 MG Tablet 1 tablet as needed Orally every 8 hrs As needed Do not exceed 3 per day, stop date 02/18/2025, Notes to Pharmacist: Fill on 4-27-23Lxuaruhks , Notes to Pharmacist: *Reorder from [facility] for eRx and Interaction Alerts*Novolin R Regular U-100 Insuln , Notes to Pharmacist: *Reorder from [facility] for eRx and Interaction Alerts*Medication List reviewed and reconciled with the patientTaking Aspirin , Notes to Pharmacist: *Pick strength-form from [facility] for eRX*Taking Citalopram , Notes to Pharmacist: *Reorder from [facility] for eRx and Interaction Alerts*Taking HYDROcodone-Acetaminophen 10-325 MG Tablet 1 tablet as needed Orally every 8 hrs As needed Do not exceed 3 per day, stop date 02/18/2025, Notes to Pharmacist: Fill on [id number] Metformin , Notes to Pharmacist: *Reorder from [facility] for eRx and Interaction Alerts*Taking Novolin R Regular U-100 Insuln , Notes to Pharmacist: *Reorder from [facility] for eRx and Interaction Alerts*Medication List reviewed and reconciled with the patient * Allergies: N .K.D.A.yesAllergies Verified. Objective: * Vitals: H t: 64.00 in, Wt:132lbs, Wt-k.87 kg, BMI:22.66Index, Ht-cm: 162.56 cm. * Examination: G eneral Examination: General p atient is well developed, well-nourished, alert and oriented, has good hygiene. ENT o ral mucosa moist and pink. Eyes p upils are equal, round and reactive to light, sclera/conjuctiva normal. L umbar Spine: Palpation of Lumbar Spine r eveals hyperextension of lumbar spine and bilateral palpitation of lumbar facets reproduces back pain. Palpation of Lumbar Intervertebral Space (Discs) t here is no pain noted. Bilateral Palpation of Sacroiliac Joint r eveals no pain.? Palpation of Greater Trochanteric Bursa r eveals no tenderness on both sides. M usculoskeletal - Low Back Muscles: Trigger Points n o palpable trigger points are noted. Gaenslen's Test N egative. N eurological: Mental Status a wake, oriented to person, oriented to place, oriented to time, memory intact, mood and affect are normal. Motor Strength ? Right UE strength - Flexors ? Left UE strength - E xtensors ? Right UE strength - Extensors / ? Left UE Tone n ormal ? Right UE Tone n ormal ? Left LE strength - F lexors ? Right LE strength - Flexors ? Left LE strength - E xtensors ? Right LE strength - Extensors ? Left LE Tone n ormal ? Right LE Tone n ormal ? Assessment: * Assessment: 1. C hronic pain syndrome - G89.4 (Primary) 2 . U nspecified mononeuropathy of bilateral lower limbs - G57.93 3 . D egeneration of intervertebral disc of lumbosacral region with discogenic back pain - M51.370 4 . R adiculopathy, lumbar region - M54.16 5 . P rimary generalized (osteo)arthritis - M15.0 ?6. L komal term (current) use of opiate analgesic - Z79.891 Plan: * Treatment: 2. L komal term (current) use of opiate analgesic L AB: Urine Drug Screen (cup read) - 34348 (Collection Date & Time - 02/14/2025) Value Reference Range O PI + ?LAB: Urine Confirmation Panel (instrument) - [id number] (Collection Date & Time - 02/14/2025) * Procedure Codes: 8 0305 DRUG TEST PRSMV DIR OPT OBS [id number] DRUG TEST PRSMV CHEM ANLYZR * Follow Up: 2 Months Billing Information: * Procedure Codes: 13913 DRUG TEST PRSMV DIR OPT OBS IH. 00511 DRUG TEST PRSMV CHEM ANLYZR. Care Plan Details* * Electronic signature of Ama Hernandez APRN on 02/18/2025 at 05:05 PM CDT Sign off status: Pending * Provider: DARON Aldridge Date: 02/14/2025 Generated for Margareth parker/Ronal/Kaylee on: 02/18/2025 05:05 PM CDT
--- OUTSIDE RECORDS SUMMARY | 2025-02-14 05:20 | XMS_ITS ---
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 Role Phone Gary Cardona MD Primary Care Provider Yonatana Sven Morris Unavailable [phone] Nan Hernandez Unavailable [phone] Allergies No Known Allergies Results Component Value Reference Range Flag Notes Urine Drug Screen (cup read) - 65469 Reviewed date:02/14/2025 12:32:04 PM Interpretation: Performing Lab: Notes/Report: OPI + Urine Confirmation Panel (in strument) - [id number] Reviewed date:02/20/2025 03:07:52 PM Interpretation: Performing Lab: Notes/Report: 6-Acetylmorphine 0 <6 ng/mL N This pily t was developed and its performance characteristics determined by [facility]. It has not been cleared or approved by the U.S. Food and Drug Administration. 7-Aminoclonazepam 0 <60 ng/mL N This te st was developed and its performance characteristics determined by [facility]. It has not been cleared or approved by the U.S. Food and Drug Administration. Alprazolam 0 <60 ng/mL N This test was developed and its performance characteristics determined by [facility]. It has not been cleared or approved by the U.S. Food and Drug Administration. Amphetamine 0 <75 ng/mL N This test was developed and its performance characteristics determined by [facility]. It has not been cleared or approved by the U.S. Food and Drug Administration. aOH-Alprazolam 0 <60 ng/mL N This test was developed and its performance characteristics determined by [facility]. It has not been cleared or approved by the U.S. Food and Drug Administration. Buprenorphine 0.0 <7.5 ng/mL N This test w as developed and its performance characteristics determined by [facility]. It has not been cleared or approved by the U.S. Food and Drug Administration. Norbuprenorphine 0.0 <37.5 ng/mL N This te st was developed and its performance characteristics determined by [facility]. It has not been cleared or approved by the U.S. Food and Drug Administration. Carisoprodol 0 <75 ng/mL N This test wa s developed and its performance characteristics determined by [facility]. It has not been cleared or approved by the U.S. Food and Drug Administration. Codeine 0 <75 ng/mL N This test was developed and its performance characteristics determined by [facility]. It has not been cleared or approved by the U.S. Food and Drug Administration. EDDP 0 <75 ng/mL N This test was developed and its performance characteristics determined by [facility]. It has not been cleared or approved by the U.S. Food and Drug Administration. Fentanyl 0 <6 ng/mL N This test was developed and its performance characteristics determined by [facility]. It has not been cleared or approved by the U.S. Food and Drug Administration. Hydrocodone 1769 <75 ng/mL H This test was developed and its performance characteristics determined by [facility]. It has not been cleared or approved by the U.S. Food and Drug Administration. Hydromorphone 85 <75 ng/mL H This test w as developed and its performance characteristics determined by [facility]. It has not been cleared or approved by the U.S. Food and Drug Administration. Lorazepam 0 <60 ng/mL N This test was developed and its performance characteristics determined by [facility]. It has not been cleared or approved by the U.S. Food and Drug Administration. MDMA 0 <75 ng/mL N This test was developed and its performance characteristics determined by [facility]. It has not been cleared or approved by the U.S. Food and Drug Administration. Meperidine 0.0 <37.5 ng/mL N This test was developed and its performance characteristics determined by [facility]. It has not been cleared or approved by the U.S. Food and Drug Administration. Meprobamate 0 <75 ng/mL N This test was developed and its performance characteristics determined by [facility]. It has not been cleared or approved by the U.S. Food and Drug Administration. Methamphetamine 0 <75 ng/mL N This test was developed and its performance characteristics determined by [facility]. It has not been cleared or approved by the U.S. Food and Drug Administration. Methadone 0 <75 ng/mL N This test was developed and its performance characteristics determined by [facility]. It has not been cleared or approved by the U.S. Food and Drug Administration. Morphine 0 <75 ng/mL N This test was developed and its performance characteristics determined by [facility]. It has not been cleared or approved by the U.S. Food and Drug Administration. Nordiazepam 0 <60 ng/mL N This test was developed and its performance characteristics determined by [facility]. It has not been cleared or approved by the U.S. Food and Drug Administration. Norfentanyl 0 <6 ng/mL N This test was developed and its performance characteristics determined by [facility]. It has not been cleared or approved by the U.S. Food and Drug Administration. Normeperidine 0.0 <37.5 ng/mL N This test was developed and its performance characteristics determined by [facility]. It has not been cleared or approved by the U.S. Food and Drug Administration. O-desmethyltramadol 0 <75 ng/mL N This test was developed and its performance characteristics determined by [facility]. It has not been cleared or approved by the U.S. Food and Drug Administration. Oxazepam 0 <60 ng/mL N This test was developed and its performance characteristics determined by [facility]. It has not been cleared or approved by the U.S. Food and Drug Administration. Oxycodone 0.0 <37.5 ng/mL N This test was developed and its performance characteristics determined by [facility]. It has not been cleared or approved by the U.S. Food and Drug Administration. Oxymorphone 0 <75 ng/mL N This test was developed and its performance characteristics determined by [facility]. It has not been cleared or approved by the U.S. Food and Drug Administration. Phencyclidine 0.0 <7.5 ng/mL N This test w as developed and its performance characteristics determined by [facility]. It has not been cleared or approved by the U.S. Food and Drug Administration. Tapentadol 0.0 <37.5 ng/mL N This test was developed and its performance characteristics determined by [facility]. It has not been cleared or approved by the U.S. Food and Drug Administration. Temazepam 0 <60 ng/mL N This test was developed and its performance characteristics determined by [facility]. It has not been cleared or approved by the U.S. Food and Drug Administration. Tramadol 0 <75 ng/mL N This test was developed and its performance characteristics determined by [facility]. It has not been cleared or approved by the U.S. Food and Drug Administration. Norhydrocodone >5000 <75 ng/mL > This test was developed and its performance characteristics determined by [facility]. It has not been cleared or approved by the U.S. Food and Drug Administration. Noroxycodone 0 <38 ng/mL N This test wa s developed and its performance characteristics determined by [facility]. It has not been cleared or approved by the U.S. Food and Drug Administration. Pregabalin 0 <225 ng/mL N This test was developed and its performance characteristics determined by [facility]. It has not been cleared or approved by the U.S. Food and Drug Administration. Gabapentin >48927 <225 ng/mL > This test was developed and its performance characteristics determined by [facility]. It has not been cleared or approved by the U.S. Food and Drug Administration. Benzoylecgonine 0.0 <37.5 ng/mL N This pily t was developed and its performance characteristics determined by [facility]. It has not been cleared or approved by the U.S. Food and Drug Administration. 4-Hydroxy Xylazine 0 <25 ng/mL N This t est was developed and its performance characteristics determined by [facility]. It has not been cleared or approved by the U.S. Food and Drug Administration. REASON FOR VISIT 2 month f/u Medications Medication SIG (Take, Route, Frequency, Duration) Notes Start Date End Date Status Novolin R Regular U-100 Insuln *Reorder from [facility] [employer] for eRx and Interaction Alerts* Active HYDROcodone-Acetami nophen 10-325 MG Tablet 1 tablet as needed Orally every 8 hrs; Duration: 30 days As needed Do not exceed 3 per day Fill on 01-19-25 12/12/2024 02/18/2025 Active Citalopram *Reorder from [employer] for eRx and Interaction Alerts* Active Metformin *Reorder from [employer] for eRx and Interaction Alerts* Active Aspirin *Pick strength-f orm from [employer] for eRX* Active Social History Social History Additional Details Category Social Info Options Details Migrated Social History Migrated Social History Smoking - No Vital Signs Height 64.00 in 02/14/2025 Weight 132 lbs 02/14/2025 BMI 22.66 kg/m2 02/14/2025 Height-cm 162.56 cm 02/14/2025 Weight-kg 59.87 kg 02/14/2025 Encounters Encounter Location Date Provider Diagnosis [facility] [place] [address] [place] [id number] 02/14/2025 Nan Hernandez Chronic pain syndrom e G89.4 ; Unspecified mononeuropathy of bilateral lower limbs G57.93 ; Degeneration of intervertebral disc of lumbosacral region with discogenic back pain M51.370 ; Radiculopathy, lumbar region M54.16 ; Primary generalized (osteo)arthritis M15.0 and 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 Last UDS and AR PARTS FACILITATOR reviewed today. 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 Last UDS and AR PARTS FACILITATOR reviewed today. Patient is advised that best [...] to abide by our urine testing policy. Next Appt Details Follow Up: 2 Months, Reason: Provider Name:Nan oreilly, 04/18/2025 11:00:00 AM, [address] [place], [id number], History and Physical Notes * HPI (History [...] Conf Today's Rapid Urine Drug Screen confirma tion [place] Prescription Monitoring Program [place] PDMP, found to be consistent with treatment history, reviewed today Treatment History Test undergone in the past 0 Lumbar MRI Past medication you have taken hydrocodo ne #90 Treatments you have had 2019 LESI [...] LE Tone: normal Progress Notes * Wiliam AVALOSDOBryan:1960 (64 yo M)Acc No.[id number]:02/14/2025 Progress Notes Patient: Wiliam Holland Provider: DARON Aldridge :1960 A ge:64 Y S ex:Male Date:02/14/2025 Address:[address] [place], [place] [id number] Pcp:Gary Cardona MD Check 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 Quality S harp, Stabbing, Numbness . Severity of pain at its worst . Severity of pain at its best . Severity of pain on medication . Severity of average pain . Severity of [...] Today's Rapid Urine Drug Screen c onfirmation. [place]cription Monitoring [place], found to be consistent with treatment history, reviewed today. T reatment History: Test undergone in the past 0 04/15/2020 Lumbar MRI. Past medication you have taken h ydrocodone 10/325 #90.? Treatments you have had 2 020 LESI L4-5. Jaun cerda Note: The patient presents today for 2-month [...] S ocial History Verified. * Medications: T akingAspirin , Notes to Pharmacist: *Pick strength-form from [employer] for eRX*Citalopram , Notes to Pharmacist: *Reorder from [employer] for eRx and Interaction Alerts*HYDROcodone-Acetaminophen 10-325 MG Tablet 1 tablet as needed Orally every 8 hrs As needed Do not exceed 3 per day, stop date 02/18/2025, Notes to Pharmacist: Fill on [id number] , Notes to Pharmacist: *Reorder from [facility] [...] date 02/18/2025, Notes to Pharmacist: Fill on [id number] Metformin , Notes to Pharmacist: *Reorder from [...] Strength ? Right UE strength - Flexors 5 /5 ? Left UE strength - E xtensors 5 /5 ? Right UE strength - Extensors 5 /5 ? Left UE Tone n ormal ? Right UE Tone n ormal ? Left LE strength - F lexors 5 /5 ? Right LE strength - Flexors 5 /5 ? Left LE strength - E xtensors 5 /5 ? Right LE strength - Extensors 5 /5 ? Left LE Tone n ormal ? [...] AB: Urine Drug Screen (cup read) - [id number] (Collection Date & Time - 02/14/2025) Value Reference Range O PI + ?LAB: Urine Confirmation Panel (instrument) - [id number] (Collection Date & Time - 02/14/2025) * Procedure Codes: 8 0305 DRUG TEST PRSMV DIR OPT OBS [id number] DRUG TEST PRSMV CHEM ANLYZR * Follow Up: 2 Months Billing Information: * Procedure Codes: 26377 DRUG TEST PRSMV DIR OPT OBS IH. [address] DRUG TEST PRSMV CHEM ANLYZR. Care Plan Details* * Electronic signature of Ama Hernandez APRN on 02/22/2025 at 10:07 AM CDT Sign off status: Pending * Provider: DARON Aldridge Date: 0 02/14/2025 Generated for Margareth parker/Ronal/Kaylee on: 0 02/22/2025 10:07 AM CDT
[2025-02-18] VITALS (37 sets, daily range): BP systolic 91–144; BP diastolic 59–83; PULSE 91–110; RESP 13–21; TEMP 36.6–37.3; O2SAT 94–99; BMI 22.1; BMI 21.4
--- OUTSIDE RECORDS SUMMARY | 2025-02-18 17:06 | XMS_ITS | Patient Health Record ---
Author Organization [facility] Address [address] [place] [address] Care Team Providers Care Varnish Inspector Name Role Phone Gary Cardona MD Primary Care Provider Unavaila Sven Morris Unavailable [phone] Migration, Provider Unavailable Unavailable David Nan Unavailable [phone] Joseph Fernandez Unavailable [phone] Allergies No Known Allergies Results Component Value Reference Range Flag Notes Urine Drug Screen (cup read) - [id number] Reviewed date:02/14/2025 12:32:04 PM Interpretation: Performing Lab: Notes/Report: OPI + zzzUrine Drug Screen (confir mation by instrument) - [id number] Reviewed date:08/14/2024 12:53:49 PM Interpretation: Performing Lab: Notes/Report: Tox Results Reviewed date:10/16/2024 02:20:09 PM Interpretation: Performing Lab: Notes/Report: Urine Confirmation Panel (in strument) - [id number] Reviewed date:10/16/2024 01:52:55 PM Interpretation: Performing Lab: Notes/Report: 6-Acetylmorphine 0 [...] the U.S. Food and Drug Administration. Hydrocodone 1693 <75 ng/mL H This test was developed and its performance characteristics determined by [facility]. It has not been cleared or approved by the U.S. Food and Drug Administration. Hydromorphone 71 <75 ng/mL N This test w as developed [...] the U.S. Food and Drug Administration. Norhydrocodone 935 <75 ng/mL H This test was developed [...] the U.S. Food and Drug Administration. Gabapentin 29465 <225 ng/mL H This test was developed and [...] by the U.S. Food and Drug Administration. Urine Drug Screen (cup read) - 76212 Reviewed date:10/11/2024 03:55:43 PM Interpretation: Performing Lab: Notes/Report: OXY + Reason For Referral No Information Medications Medication SIG (Take, Route, Frequency, Duration) Notes Start Date End Date Status Novolin R Regular U-100 Insuln *Reorder from Median for eRx and Interaction Alerts* Active [facility]* Active HYDROcodone-Acetami nophen 10-325 MG Tablet 1 tablet as needed Orally every 8 hrs; Duration: 30 days As needed Do not exceed 3 per day Fill on 02-18-25 02/14/2025 03/20/2025 Active Metformin *Reorder from Median for eRx and Interaction Alerts* Active HYDROcodone-Acetami nophen 10-325 MG Tablet 1 tablet as needed Orally every 8 hrs; Duration: 30 days As needed Do not exceed 3 per day Fill on 03-20-25 02/14/2025 04/19/2025 Active Aspirin *Pick strength-f [facility]m from [facility] for eRX* Active Social History Social History Additional Details Category Social Info Options Details Migrated Social History Migrated Social History Smoking - No Problems Problem Type SNOMED Code ICD Code Onset Dates Problem Status W/U Status Risk Notes Problem Chronic pain syndrome (280362888) Chronic pain syndrome (G89.4) 12/15/19 24 Active confirmed Problem Primary generalised osteoarthritis (118867335) Primary generalized (osteo)arthritis (M15.0) Active confirmed Problem Osteoarthritis (659419045) Unspecified osteoarthritis, unspecified site (M19.90) 12/15/19 24 Active confirmed Problem Solitary sacroiliitis (798361404) Sacroiliitis, not elsewhere classified (M46.1) 12/15/19 24 Active confirmed Problem Degeneration of lumbosacral intervertebral disc (42467785) Other intervertebral disc degeneration, lumbosacral region (M51.37) 12/15/19 24 Active confirmed Problem Lumbar radiculopathy (983123277) Radiculopathy, lumbar region (M54.16) 12/15/19 24 Active confirmed Problem Mononeuropathy of lower limb (907959221) Unspecified mononeuropathy of bilateral lower limbs (G57.93) 12/15/19 24 Active confirmed Problem Abnormal gait (17923823) Abnormality of gait and mobility (R26.9) Active confirmed Vital Signs Height-cm 162.56 cm 02/14/2025 Weight-kg 59.87 kg 02/14/2025 Height 64.00 in 02/14/2025 Weight 132 lbs 02/14/2025 BMI 22.66 kg/m2 02/14/2025 Encounters Encounter Location Date Provider Diagnosis Migrated_Facility 0 0 06/02/2024 Provider Migration Migrated_Facility 0 0 06/03/2024 Provider Migration [facility] [address] [place] [place] [address] 08/09/2024 Sven [facility] [place] [address] [place] [place] [address] 08/14/2024 Sven [facility] [place] [address] [place] [address] 10/11/2024 Sven [facility] [place] [address] [place] [address] 02/14/2025 Sven Hernadez Radiculopathy, lumba r region M54.16 [facility] [place] [address] [place] [address] 02/14/2025 Nan Hernandez Chronic pain syndrom e G89.4 ; Unspecified mononeuropathy of bilateral lower limbs G57.93 ; Degeneration of intervertebral disc of lumbosacral region with discogenic back pain M51.370 ; Radiculopathy, lumbar region M54.16 ; Primary generalized (osteo)arthritis M15.0 and nursing home (current) use of opiate analgesic Z79.891 [facility] [place] [address] [place] [facility] [place] [address] [facility] [place] [address] [place] [address] 06/07/2024 Nan Hernandez [facility] [place] [address] [place] [address] 08/09/2024 Joseph Jim Chronic pain syndrom e G89.4 ; Unspecified mononeuropathy of bilateral lower limbs G57.93 ; Degeneration of intervertebral disc of lumbosacral region with discogenic back pain M51.370 ; Radiculopathy, lumbar region M54.16 ; Primary generalized (osteo)arthritis M15.0 and 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 Z79.891 [facility] [address] [address] 10/11/2024 Nan Hernandez Chronic pain syndrom e G89.4 ; Unspecified mononeuropathy of bilateral lower limbs G57.93 ; Degeneration of intervertebral disc of lumbosacral region with discogenic back pain M51.370 ; Radiculopathy, lumbar region M54.16 ; Primary generalized (osteo)arthritis M15.0 and 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 Z79.891 [facility] [address] [address] 12/12/2024 Sven Hernadez Chronic pain syndrom e G89.4 ; Unspecified mononeuropathy of bilateral lower limbs G57.93 ; Degeneration of intervertebral disc of lumbosacral region with discogenic back pain M51.370 ; Radiculopathy, lumbar region M54.16 ; Primary generalized (osteo)arthritis M15.0 ; Abnormality of gait and mobility R26.9 and 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 Z79.891 Assessments Encounter Date Diagnosis (ICD Code) Assessment Notes Treatment Notes Treatment Clinical Notes Section Notes 08/09/2024 Chronic pain syndrome (ICD-10 - G89.4) I had a nice discussion with the patient today regarding his chronic pain complaints. He states that he was hospitalized for a few days due to blockage but he is doing slightly better now. He does report increased pain in his lower back and he was supposed to have a lumbar MRI done previously but he has not completed that. He was advised to call the scheduling center to get this scheduled which she plans on doing prior to his next visit. For now, his hydrocodone will be continued as it does provide some relief. He will follow-up with us in a couple months to review his imaging and proceed accordingly. 08/09/2024 Unspecified mononeuropathy of bilateral lower limbs (ICD-10 - G57.93) I had a nice discussion with the patient today regarding his chronic pain complaints. He states that he was hospitalized for a few days due to blockage but he is doing slightly better now. He does report increased pain in his lower back and he was supposed to have a lumbar MRI done previously but he has not completed that. He was advised to call the scheduling center to get this scheduled which she plans on doing prior to his next visit. For now, his hydrocodone will be continued as it does provide some relief. He will follow-up with us in a couple months to review his imaging and proceed accordingly. 10/11/2024 Chronic pain syndrome (ICD-10 - G89.4) I had a nice discussion with the patient today regarding his chronic pain complaints. He is still not got his lumbar MRI done. I did advise him that he needs to get this scheduled. He continues with lower back pain as well as radicular symptoms and multiple joint pain. He feels his medications working reasonably well and allows him to function better overall. He will continue his medication at present level and return to clinic in 2 months to monitor for treatment effectiveness and compliance as well as for biannual appointment with Dr. Hernadez. 12/12/2024 Chronic pain syndrome (ICD-10 - G89.4) I had a nice visit with the patient today regarding his chronic pain issues. Other than having a fall a couple of weeks ago when he sat down in a chair, he's doing pretty well. He went into an ER, but doesn't feel like they did much for him. He seems to be maintaining fairly well on the medications. He's busy working on [employer] this time of year, and he's overall doing relatively well. We will continue his medications unchanged and follow up with him thereafter. 12/12/2024 Unspecified mononeuropathy of bilateral lower limbs (ICD-10 - G57.93) 02/14/2025 Chronic pain syndrome (ICD-10 - G89.4) [...] effects are noted. 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 Patient is advised that best [...] abide by our urine testing policy. 02/14/2025 Radiculopathy, lumbar region (ICD-10 - M54.16) 12/12/2024 Degeneration of intervertebral disc of lumbosacral region with discogenic back pain (ICD-10 - M51.370) 02/14/2025 Unspecified mononeuropathy of bilateral lower limbs (ICD-10 - G57.93) 10/11/2024 Unspecified mononeuropathy of bilateral lower limbs (ICD-10 - G57.93) 08/09/2024 Degeneration of intervertebral disc of lumbosacral region with discogenic back pain (ICD-10 - M51.370) I had a nice discussion with the patient today regarding his chronic pain complaints. He states that he was hospitalized for a few days due to blockage but he is doing slightly better now. He does report increased pain in his lower back and he was supposed to have a lumbar MRI done previously but he has not completed that. He was advised to call the scheduling center to get this scheduled which she plans on doing prior to his next visit. For now, his hydrocodone will be continued as it does provide some relief. He will follow-up with us in a couple months to review his imaging and proceed accordingly. 08/09/2024 Radiculopathy, lumbar region (ICD-10 - M54.16) I had a nice discussion with the patient today regarding his chronic pain complaints. He states that he was hospitalized for a few days due to blockage but he is doing slightly better now. He does report increased pain in his lower back and he was supposed to have a lumbar MRI done previously but he has not completed that. He was advised to call the scheduling center to get this scheduled which she plans on doing prior to his next visit. For now, his hydrocodone will be continued as it does provide some relief. He will follow-up with us in a couple months to review his imaging and proceed accordingly. 10/11/2024 Degeneration of intervertebral disc of lumbosacral region with discogenic back pain (ICD-10 - M51.370) 12/12/2024 Radiculopathy, lumbar region (ICD-10 - M54.16) 02/14/2025 Degeneration of intervertebral disc of lumbosacral region with discogenic back pain (ICD-10 - M51.370) 02/14/2025 Radiculopathy, lumbar region (ICD-10 - M54.16) 12/12/2024 Primary generalized (osteo)arthritis (ICD-10 - M15.0) 10/11/2024 Radiculopathy, lumbar region (ICD-10 - M54.16) 08/09/2024 Primary generalized (osteo)arthritis (ICD-10 - M15.0) I had a nice discussion with the patient today regarding his chronic pain complaints. He states that he was hospitalized for a few days due to blockage but he is doing slightly better now. He does report increased pain in his lower back and he was supposed to have a lumbar MRI done previously but he has not completed that. He was advised to call the scheduling center to get this scheduled which she plans on doing prior to his next visit. For now, his hydrocodone will be continued as it does provide some relief. He will follow-up with us in a couple months to review his imaging and proceed accordingly. 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 He states that he was hospitalized for a few days due to blockage but he is doing slightly better now. He does report increased pain in his lower back and he was supposed to have a lumbar MRI done previously but he has not completed that. He was advised to call the scheduling center to get this scheduled which she plans on doing prior to his next visit. For now, his hydrocodone will be continued as it does provide some relief. He will follow-up with us in a couple months to review his imaging and proceed accordingly. 12/12/2024 Abnormality of gait and mobility (ICD-10 - R26.9) 02/14/2025 Primary generalized (osteo)arthritis (ICD-10 - M15.0) 02/14/2025 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 (ICD-10 - Z79.891) 12/12/2024 nursing home (current) use of opiate analgesic (ICD-10 - Z79.891) 10/11/2024 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 (ICD-10 - Z79.891) RECOMMEND URINE TESTING TODAY Urine drug screening [...] to abide by our urine testing policy. 12/12/2024 Other I, INDIANA Palomares, am scribing for Dr. Sven Hernadez. I, Dr. Sven Hernadez, personally performed the services described in this documentation, as scribed by INDIANA Palomares , and it is both accurate and complete. Plan Of Treatment Pending Test Test Name Order Date Urine Confirmation Panel (instrument) - [id number] 02/14/2025 Next Appt Details Provider Name:Nan Gino oreilly, 04/18/2025 11:00:00 AM, [address] [place], [address], Insurance Providers Payer Name Payer Address Payer Phone Subscriber Number Group Number Insured Name Patient Relationship to Insured Coverage Start Date Coverage End Date [employer] Medicare Replacement [address] [address] [place] [address] [id number] Wiliam Rogers Self - patient is the insured [place] Medicare [address] [address] [place] [address] [id number] Wiliam Rogers Self - patient is the insured Medical (General) History Surgical History Surgery Date(Month/Year) left shoulder surgery
--- NOTE | 2025-02-18 17:12 | ECG_ITS ---
[employer] Test Date: 2025-02-18 Pat Name: Wiliam Rogers Jr Department: Room: Gender: Male Pattern Maker: : 1960 Requested By: Garrett Carrillo Order Number: [id number] Cartachito MD: Adrianne Coronado M.D. Measurements Intervals [place] Rate: 107 P: 80 KS: 154 QRS: -59 QRSD: 89 T: 80 QT: 322 QTc: 431 Interpretive Statements SINUS TACHYCARDIA POSSIBLE RIGHT ATRIAL ENLARGEMENT [0.25mV P-WAVE] LEFT ATRIAL ENLARGEMENT [-0.15mV P-WAVE IN V1/V2] POSSIBLE RIGHT VENTRICULAR CONDUCTION DELAY [RSR (QR) IN V1/V2] LEFT ANTERIOR FASCICULAR BLOCK [QRS AXIS <= -45, QR IN I, RS IN II] Compared to ECG 08/11/2024 06:43:56 Atrial abnormality now present Electronically Signed On 02-19-2025 09:49:10 CDT by Adrianne Coronado M.D. [email or web address]
--- NOTE | 2025-02-18 17:22 | ED_ITS ---
HPI - General Adult 2 General: Chief complaint: General Medical Stated complaint: high blood sugar, high hr, off balance Time Seen by Provider: 02/18/25 17:15 Source: patient Mode of arrival: ambulatory Limitations: no limitations History of Present Illness: 64-year-old male with a type I diabetic states that he has been hurting all over for the last 2 days states he has been feeling short of breath he is also states he is concerned he is going in DKA. He denies any vomiting or diarrhea he denies any fevers. He denies any worse improved factors Associated symptoms: Reports chest pain, dyspnea and nausea; Deny headache(s), rash or vomiting Related Data Home Medications ?Medication ?Instructions ?Recorded ?Confirmed aspirin 81 mg tablet,delayed 81 mg PO QAM 05/12/2009/01 release (Adult Aspirin Regimen) gabapentin 300 mg capsule 300 mg PO BID 06/30/2212/06 atorvastatin 40 mg tablet 40 mg PO QPM 06/28/23 hydrocodone 10 mg-acetaminophen 1 tab PO TID 06/28/23 12/06/24 325 mg tablet insulin aspart U-100 100 unit/mL See Rx Instructions . Route 05/02/24 12/06/24 (3 mL) subcutaneous pen (Novolog .COMPLEX PRN sliding scale FlexPen U-100 Insulin aspart) fenofibrate nanocrystallized 145 145 mg PO DAILY 08/1112/06/24 mg tablet trazodone 100 mg tablet 100 mg PO BEDTIME 08/12/24 0 12/06/24 Previous Rx's ?Medication ?Instructions ?Recorded blood-glucose,cable television program director,cont #1 ea 11/30/22 (Dexcom G7 First Assistant Manager) blood-glucose sensor (Dexcom G7 #9 ea 05/30/23 Sensor device) tizanidine 2 mg tablet 2 mg PO Q8H PRN muscle spast icity 11/10/24 #20 tabs insulin glargine 100 unit/mL (3 60 unit (0.6 mL) SUBCU T DAILY 30 01/01/25 mL) subcutaneous pen (Lantus days #15 mL Solostar U-100 Insulin) Allergies Allergy/AdvReac Type Severity Reaction Status Date / Time No Known Drug Allergies Allergy Unknown Unknown Verified 12/06/24 07:23 Review of Systems 2 Const: Reports: body aches; Denies: fever(s), chills or change in appetite ENMT: Denies: throat pain or dental pain Card: Reports: chest pain Resp: Reports: dyspnea GI: Reports: nausea; Denies: abdominal pain, vomiting or diarrhea Musc: Denies: neck pain or back pain Skin/Breast: Denies: rash Neuro: Denies: headache(s) PFSH ED 2 PFSH: Medical History (Updated 02/18/25 @ 18:13 by Estefania Mcgowan MD) Depression Hypertension Anxiety Hyperlipidemia Chronic pain Insulin dependent diabetes mellitus Surgical History Hx of colonoscopy 18 years ago [facility] H/O shoulder surgery Family History Father Colon cancer Other COPD (chronic obstructive pulmonary disease) Cancer Social History Smoking and tobacco/nicotine status: never used tobacco/nicotine Alcohol intake: never Substance/Drug Use: never Physical Exam 2 Const: COMMON NORMALS: no acute distress, patient oriented x3 and healthy appearing HENMT: COMMON NORMALS: normocephalic and atraumatic HEAD & SCALP: n ormocephalic and atraumatic Eye: COMMON NORMALS: Equal, round and reactive pupils present and EOMs intact bilaterally PUPIL: Yes Equal, round and reactive pupils present Neck/C-Spine: COMMON NORMALS: full ROM and supple Chest: COMMONS NORMALS: normal inspection of the chest and normal palpation of entire chest wall Resp: COMMON NORMALS: normal respiratory effort, No retractions, No use of accessory muscles and clear to auscultation bilaterally AUSCULTATION: clear to auscultation bilaterally Cardio: COMMON NORMALS: regular rate, regular rhythm and No murmurs present (Cardio) RATE: regular rate RHYTHM: regular rhythm GI: COMMON NORMALS: Normal to inspection, nondistended, normoactive bowel sounds present, Soft to palpation, non-tender and no masses PALPATION: Yes Soft to palpation Extremity: COMMON NORMALS: normal to inspection and full ROM Neuro: COMMON NORMALS: patient oriented x3, moves all extremities and no focal motor deficits Psych: COMMON NORMALS: mental status grossly normal, Normal thought process present and cooperative THOUGHT PROCESS: Normal thought process present Skin: COMMON NORMALS: no rashes or lesions noted and no wounds GENERAL SKIN EXAM: no rashes or lesions noted Course 2 Vital Signs: Vital signs: Vital Signs Temperature 97.8 F 02/18/25 17:03 Pulse Rate 110 H 02/18/25 17:03 Respiratory Rate 16 02/18/25 17:51 Blood Pressure 109/72 02/18/25 17:03 Pulse Oximetry 98 02/18/25 17:03 Oxygen Delivery Me thod Room Air 02/18/25 17:03 MDM - General Adult Medical Decision Making Patient presents here in DKA does have an anion gap pH 7.2 we will start him on insulin drip given fluids spoke to the hospitalist will admit at this time Medical Records I reviewed the patient's medical records. Lab Data 02/18/25 17:36 02/18/25 17:36 Laboratory Results WBC 5.37 10^3/uL (3.29-11.43) 02/18/25 17:36 RBC 4.72 10^6/uL (3.85-5.65) 02/18/25 17:36 Hgb 13.80 g/dL (11.27-16.99) 02/18/25 17:36 Hct 42.3 % (37-53) 02/18/25 17:36 MCV 89.6 fl (82-101) 02/18/25 17:36 MCH 29.2 pg (27-33) 02/18/25 17:36 MCHC 32.6 g/dL (30-55) 02/18/25 17:36 RDW 12.9 % (12.1-15.1) 02/18/25 17:36 Plt Count 250 10^3/cmm (157-399) 02/18/25 17:36 MPV 9.8 fL (7.4-10.4) 02/18/25 17:36 Neut % (Auto) 71.5 % 02/18/25 17:36 Lymph % (Auto) 22.0 % 02/18/25 17:36 [place] % (Auto) 4.7 % 02/18/25 17:36 Eos % (Auto) 0.7 % 02/18/25 17:36 Baso % (Auto) 0.7 % 02/18/25 17:36 Neut # (Auto) 3.84 10^3/uL (1.8-7.7) 02/18/25 17:36 Lymph # (Auto) 1.2 10^3/uL (0.8-4.8) 02/18/25 17:36 [place] # (Auto) 0.3 10^3/uL (0.2-0.9) 02/18/25 17:36 Eos # (Auto) 0.0 10^3/uL (0.0-0.8) 02/18/25 17:36 Baso # (Auto) 0.0 10^3/uL (0.0-0.1) 02/18/25 17:36 Nucleated RBC % (auto) 0 % 02/18/25 17:36 Nucleated RBCs # 0.0 /100WBC 02/18/25 17:36 D-Dimer <= 0.27 ug/mLFEU (0-0.59) 02/18/25 17:36 Specimen Type Arterial 02/18/25 17:36 Sample Site Heel, left 02/18/25 17:36 ABG pH 7.20 (7.35-7.45) L 02/18/25 17:36 ABG pCO2 29.3 mmHg (35-45) L 02/18/25 17:36 ABG pO2 96.2 mmHg (80.0-100.0) 02/18/25 17:36 ABG PO2/FiO2 Ratio 458 02/18/25 17:36 ABG HCO3 11.5 mmol/L (22-26) L 02/18/25 17:36 ABG Base Excess -15.1 mmol/L (-2.0-2.0) L 02/18/25 17:36 Jefferson Test Pos 02/18/25 17:36 Hematocrit 43.7 % (42-52) 02/18/25 17:36 O2 Delivery Device Room air 02/18/25 17:36 FiO2 21.0 % 02/18/25 17:36 Financial Cost Analyst ID [email or web address] 02/18/25 17:36 Sodium 137 mmol/L (136-145) 02/18/25 17:36 Potassium 5.3 mmol/L (3.5-5.1) H 02/18/25 17:36 Chloride 96 mmol/L (98-107) L 02/18/25 17:36 Carbon Dioxide 11 mmol/L (22-29) L 02/18/25 17:36 Anion Gap 35.3 (5-19) H 02/18/25 17:36 BUN 26 mg/dL (8-23) H 02/18/25 17:36 Creatinine 0.9 mg/dL (0.7-1.2) 02/18/25 17:36 GFR Calculation 84.7 mL/min (90-130) L 02/18/25 17:36 Glucose 260 mg/dL (65-115) H 02/18/25 17:36 POC Glucose 265 mg/dL (70-110) H 02/18/25 17:09 Calculated Osmolality 298 mOsm/kg (285-295) H 02/18/25 17:36 Calcium 9.6 mg/dL (8.5-10.5) 02/18/25 17:36 Total Bilirubin 0.3 mg/dL (0.15-1.2) 02/18/25 17:36 AST 13 U/L (0-40) 02/18/25 17:36 ALT 13 U/L (0-41) 02/18/25 17:36 Alkaline Phosphatase 77 U/L (40-130) 02/18/25 17:36 Troponin T Baseline 8 ng/L (0-15) 02/18/25 17:36 Total Protein 7.2 g/dL (6.6-8.7) 02/18/25 17:36 Albumin 4.7 g/dL (3.5-5.2) 02/18/25 17:36 Globulin 2.5 g/dL (1.3-4.6) 02/18/25 17:36 All radiology interpretation(s) finalized by discharge EKG Data EKG 1: I personally reviewed and interpreted this EKG as follows: EKG interpretation date: 02/18/25 EKG interpretation time: 17:12 Interpretation: sinus tach hr [address] elevation qrs 89 qtc 385 Critical Care Time 2 Critical Care Time: Critical Care Time: Yes Total Critical Care Time: 35 Attestation: The high probability of a clinically significant, sudden or life threatening deterioration of the patient's endocrine system(s) required my full and direct attention, intervention and personal management. The critical care time is as shown. This time is in addition to time spent performing any reported procedures but includes the following: [x] Data and vital sign review and interpretation [x] Patient assessment, examination and intervention [x] Documentation [x] Medication orders and management Discharge Plan Discharge Patient Disposition: Admitted As Inpatient Clinical Impression: DKA (diabetic ketoacidosis) Condition: Stable Coding Level of Care Code ED Command Center Analyst for Aura Durán
[2025-02-18 17:42] LABS: Hematocrit 42.3 % (37-53); Hemoglobin 13.80 g/dL (11.27-16.99); Mean Corpuscular HGB Conc 32.6 g/dL (30-55); Mean Corpuscular Hemoglobin 29.2 pg (27-33); Mean Corpuscular Volume 89.6 fl (82-101); Nucleated Red Blood Cells % 0 %; Platelet Count 250 10^3/cmm (157-399); Red Blood Count 4.72 10^6/uL (3.85-5.65); White Blood Count 5.37 10^3/uL (3.29-11.43)
[2025-02-18 17:47] LABS: ABG PCO2 29.3 mmHg (35-45); ABG PH Result 7.20 (7.35-7.45); Arterial Blood Gas Hematocrit 43.7 % (42-52); Blood Gas Allen Test Pos; Blood Gas Sample Site Heel, left; Blood Gas Sample Type Arterial; HCO3 ABG 11.5 mmol/L (22-26); PO2 ABG 96.2 mmHg (80.0-100.0)
[2025-02-18 17:48] LABS: Blood Gas Operator Identificat WQLCI; PO2 FiO2 Ratio Arterial Blood 458
[2025-02-18] MEDS: ondansetron 2 mg/ML SDV 2 mL 4 MG IVP (17:49)
[2025-02-18] MEDS: morphine 4 mg/mL SDV 1 mL IVP (17:51)
[2025-02-18 18:00] LABS: Troponin(5th) Baseline 8 ng/L (0-15)
[2025-02-18 18:03] LABS: Alanine Aminotransferase 13 U/L (0-41); Albumin Level 4.7 g/dL (3.5-5.2); Alkaline Phosphatase 77 U/L (40-130); Anion Gap 35.3 (5-19); Aspartate Amino Transferase 13 U/L (0-40); Blood Urea Nitrogen 26 mg/dL (8-23); Calcium 9.6 mg/dL (8.5-10.5); Carbon Dioxide 11 mmol/L (22-29); Chloride 96 mmol/L (98-107); Creatinine Clr Calc Pharmacy 68.2005; Globulin 2.5 g/dL (1.3-4.6); Glucose 260 mg/dL (65-115); Osmolality Calculated 298 mOsm/kg (285-295); Potassium 5.3 mmol/L (3.5-5.1); Sodium 137 mmol/L (136-145); Total Protein 7.2 g/dL (6.6-8.7)
[2025-02-18] MEDS: INSULIN REGULAR IN 0.9 % NACL 100 UNIT/100 ML BAG 5.5 UNIT IV (18:32)
--- NOTE | 2025-02-18 19:05 | P.HP_ITS ---
Providers/Chief Complaint 2 Admitting Physician: David Howell MD Primary Care Provider: Hannah Jin Chief Complaint: high blood sugar, high hr, off balance History of Present Illness Wiliam Rogers Jr is a 64 year old male With diabetes since age 49. He states he was initially on pills but it made him sick. He has been on insulin starting age 49s and his initial weight when he developed diabetes was 220 pounds. He is now down to 136 pounds last week and 129 pounds today. Patient denies feeling sick but has had high blood sugars all month. He shows me on his glucometer 30- day average three 8514-day average 386 7-day average 4093-day average 505. Patient tells me that he takes 60 units of Lantus daily but his sliding scale is only 5 units for 500, 4 units for 400, 3 units for 300, and 2 units for 200,. He states that taking 5 units or 500 will drop him down to the 300s but not lower. He sees his doctor every 3 months but states that is what she has him on. The patient states he has tried to take the Lantus in the evening or split it in half and take it twice a day but effect is the same blood sugars are low in the morning often dropping to 60s to 90s in the a.m. but when he eats through the day if sugars are high. If sugars are below 70 he does not take his Lantus at all and that recently it was 47 so he skipped today. Patient states he had been aching all over and this is a sign of him having DKA along with feeling short of breath so he came to the emergency department and found that he is in fact in DKA. He has had some chest discomfort with breathing but denies chest heaviness Review of Systems 2 Narrative: General patient has had weight loss 7 pounds in the last 1 week he states he has been peeing a lot Cardiovascular some pleuritic chest pain but no chest heaviness leg swelling or palpitations Respiratory positive shortness of breath no cough or wheezing GI no nausea vomiting diarrhea constipation no dysuria hematuria incontinence Neuro no seizure strokes limb weakness Hematologic no history of blood clots in the legs or lungs Malignancy no history of cancer Medications/Allergies Home Medications ?Medication ?Instructions ?Recorded ?Confirmed ?Last Taken ?Type aspirin 81 mg tablet,delayed 81 mg PO QAM 05/12/2009/0105/14/24 History release (Adult Aspirin Regimen) gabapentin 300 mg capsule 300 mg PO BID 06/30/2212/0605/15/24 History 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 Route 05/02/24 12/06/24 05/15/24 History (3 mL) subcutaneous pen (Novolog .COMPLEX PRN sliding scale FlexPen U-100 Insulin aspart) fenofibrate nanocrystallized 145 145 mg PO DAILY 08/1112/06/24 Unknown History mg tablet trazodone 100 mg tablet 100 mg PO BEDTIME 08/12/24 0 12/06/24 Unknown History tizanidine 2 mg tablet 2 mg PO Q8H PRN muscle spast icity 11/10/24 12/06/24 Unknown Rx #20 tabs insulin glargine 100 unit/mL (3 60 unit (0.6 mL) SUBCU T DAILY 30 01/01/25 Unknown Rx mL) subcutaneous pen (Lantus days #15 mL Solostar U-100 Insulin) Allergies Allergy/AdvReac Type Severity Reaction Status Date / Time No Known Drug Allergies Allergy Unknown Unknown Verified 12/06/24 07:23 PFSH Acute 2 PFSH: Medical History (Updated 02/18/25 @ 18:13 by Estefania Mcgowan MD) Depression Hypertension Anxiety Hyperlipidemia Chronic pain Insulin dependent diabetes mellitus Surgical History Hx of colonoscopy 18 years [place] [facility] [place] Family History Father Colon cancer Other COPD (chronic obstructive pulmonary disease) Cancer Social History (Updated 02/18/25 @ 19:12 by David Howell MD) Smoking and tobacco/nicotine status: never used tobacco/nicotine Alcohol intake: never Substance/Drug Use: never Additional social history: 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 Patient states he wants DNR status and this was confirmed today with David Howell MD on 02/18/2025 Vitals/I&O/Wt Last Vital Signs Temp 97.8 F 02/18/25 17:03 Pulse 108 H 02/18/25 18:35 Resp 16 02/18/25 17:51 BP 109/72 02/18/25 17:03 Pulse Ox 99 02/18/25 18:35 O2 Del Method Room Air 02/18/25 18:35 02/18/25 02/18/25 02/18/25 06:59 14:59 22:59 Intake Total 125 / 125 Balance 125 / 125 Weight last 48 hrs Weight 58.513 kg Physical Exam 2 Narrative: General well-developed thin male in no acute cardiopulmonary stress he is wearing sunglasses states it hurts his eyes with a light Sunglasses removed pupils are equally round and reactive to light accommodation Oropharynx clear no thrush Mallampati 1 CV regular rate and rhythm Lungs clear to auscultation bilaterally Abdomen positive bowel tones soft nontender Calves no tenderness cords pretrip edema Skin is warm and dry Mentation alert and oriented x 3 Data 02/18/25 17:36 02/18/25 17:36 A&P Assessment and plan 1. DKA (diabetic ketoacidosis): Start insulin drip with D5 NS at 150 cc an hour check BMP every 4 hours. When anion gap is closed and CO2 greater than 20 will give long-acting Lantus and convert back to sliding scale. When potassium falls below 4 add 20 mg KCl per liter to the D5 NS 2. DM type 1 (diabetes mellitus, type 1): I think the patient needs more sliding scale insulin and potentially a 12-hour NPH type shot in the morning to help with the daytime blood sugars. That may not last as long through the night to cause the hypoglycemia in the morning 3. Hypertension: Blood pressure low currently PDMP PDMP Reviewed: Not Reviewed Attestations 2 Medical Necessity Statement*: Patient is admitted to ICU with DKA on insulin drip and will require greater than 2 midnights in hospital Coding Level of Care Code 25444 Diagnoses DKA (diabetic ketoacidosis) E11.10 DM type 1 (diabetes mellitus, type 1) E10.9 Hypertension I10 Time Spent (min) 70
[2025-02-18 19:06] LABS: Ketone (Acetest) Serum Positive (Negative)
[2025-02-18 19:34] LABS: Magnesium 2.1 mg/dL (1.7-2.3); Thyroid Stimulating Hormone 0.27 uIU/mL (0.27-4.20)
[2025-02-18] MEDS: dextrose 5%-sod chloride 0.45% 1,000 ML 100 ML IV (20:38)
[2025-02-18 20:42] LABS: Troponin 5 2HR 7.17 ng/L (0-15)
[2025-02-18 20:49] LABS: Troponin 5 2HR Delta -0.83 ABS# (0-10)
[2025-02-18 21:07] LABS: Anion Gap 29.6 (5-19); Blood Urea Nitrogen 23 mg/dL (8-23); Calcium 9.1 mg/dL (8.5-10.5); Carbon Dioxide 10 mmol/L (22-29); Chloride 99 mmol/L (98-107); Creatinine Clr Calc Pharmacy 76.7255; Glucose 258 mg/dL (65-115); Osmolality Calculated 291 mOsm/kg (285-295); Potassium 4.6 mmol/L (3.5-5.1); Sodium 134 mmol/L (136-145)
--- NOTE | 2025-02-18 21:57 | PC.NURSE ---
Addendum entered by MARISA Beckman 02/18/25 22:35: Prescribed fluids running when patient was brought to floor. Original Note: Pt arrived to ICU at 2135 from ED. Alert and oriented X4.
[2025-02-18] MEDS: HYDROcodone-acetaminophen 10-325 mg Tablet 1 TAB PO (22:50)
[2025-02-18 23:56] LABS: Troponin 5 6HR 9.11 ng/L (0-15); Troponin 5 6HR Delta 1.11 ng/L (0-12)
[2025-02-18 23:58] LABS: Anion Gap 25.8 (5-19); Blood Urea Nitrogen 21 mg/dL (8-23); Calcium 8.5 mg/dL (8.5-10.5); Carbon Dioxide 12 mmol/L (22-29); Chloride 99 mmol/L (98-107); Creatinine Clr Calc Pharmacy 78.5224; Glucose 225 mg/dL (65-115); Osmolality Calculated 284 mOsm/kg (285-295); Potassium 4.8 mmol/L (3.5-5.1); Sodium 132 mmol/L (136-145)
[2025-02-19] VITALS (110 sets, daily range): BP systolic 89–124; BP diastolic 55–77; PULSE 65–92; RESP 13–28; TEMP 36.9–37.2; O2SAT 92–99
--- NOTE | 2025-02-19 00:41 | PC.NURSE ---
Confirmed with provider that I am to continue insulin drip at the rate it was running when he admitted from ED. The rate was 0.5ml/hr and no titrations have been made per titration protocol. He confirmed this and the increase in dextrose to 150ml/hr.
--- NOTE | 2025-02-19 02:06 | ECG_ITS ---
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 Measurements Intervals [place] Rate: 80 P: 59 SD: 160 QRS: -28 QRSD: 88 T: 57 QT: 371 QTc: 430 Interpretive Statements SINUS RHYTHM BORDERLINE LEFT AXIS DEVIATION [QRS AXIS < -20] POSSIBLE RIGHT VENTRICULAR CONDUCTION DELAY [RSR (QR) IN V1/V2] Compared to ECG 02/19/2025 02:06:41 No significant changes Electronically Signed On 02-19-2025 15:01:15 CDT by Evin Hernández M.D. [email or web address] [id number]
[2025-02-19] MEDS: dextrose 5%-sod chloride 0.45% 1,000 ML 150 ML IV (04:10)
[2025-02-19 04:40] LABS: Anion Gap 24.5 (5-19); Blood Urea Nitrogen 24 mg/dL (8-23); Calcium 8.3 mg/dL (8.5-10.5); Carbon Dioxide 13 mmol/L (22-29); Chloride 98 mmol/L (98-107); Creatinine Clr Calc Pharmacy 69.7977; Glucose 299 mg/dL (65-115); Magnesium 1.9 mg/dL (1.7-2.3); Osmolality Calculated 287 mOsm/kg (285-295); Potassium 4.5 mmol/L (3.5-5.1); Sodium 131 mmol/L (136-145)
--- NOTE | 2025-02-19 06:04 | ECG_ITS ---
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 Measurements Intervals [place] Rate: 89 P: 57 TX: 156 QRS: -29 QRSD: 91 T: 63 QT: 356 QTc: 433 Interpretive Statements SINUS RHYTHM BORDERLINE LEFT AXIS DEVIATION [QRS AXIS < -20] Compared to ECG 02/18/2025 17:12:54 Sinus tachycardia no longer present Atrial abnormality no longer present Left anterior fascicular block no longer present Electronically Signed On 02-19-2025 15:01:42 CDT by Evin Hernández M.D. [id number]
[2025-02-19] MEDS: HYDROcodone-acetaminophen 10-325 mg Tablet 1 TAB PO ×3 (08:10→21:50)
[2025-02-19 08:22] LABS: Anion Gap 14.9 (5-19); Blood Urea Nitrogen 22 mg/dL (8-23); Calcium 8.5 mg/dL (8.5-10.5); Carbon Dioxide 19 mmol/L (22-29); Chloride 102 mmol/L (98-107); Creatinine Clr Calc Pharmacy 78.4635; Glucose 162 mg/dL (65-115); Magnesium 1.9 mg/dL (1.7-2.3); Osmolality Calculated 281 mOsm/kg (285-295); Potassium 3.9 mmol/L (3.5-5.1); Sodium 132 mmol/L (136-145)
--- NOTE | 2025-02-19 09:03 | PC.NURSE ---
Morning labs resulted. Anion gap closed. Notified Dr. Howell, received orders for diet and Lantus. Orders placed.
[2025-02-19] MEDS: insulin glargine 100 units/1 mL 50 UNIT SUBCUT (09:14)
--- NOTE | 2025-02-19 11:08 | PC.PHAR ---
Patient states he still takes his insulin and fills at [facility] . [facility] states he hasn't filled Insulin there in a while . Last script was for a tresiba flextouch 100 on 12/04/24 25days . Patient states he takes a long and short acting , but no fill dates to date . Patient also states he takes Trazadone and last fill date is 05/01 .
[2025-02-19 11:23] LABS: Anion Gap 18.6 (5-19); Blood Urea Nitrogen 22 mg/dL (8-23); Calcium 8.3 mg/dL (8.5-10.5); Carbon Dioxide 17 mmol/L (22-29); Chloride 98 mmol/L (98-107); Creatinine Clr Calc Pharmacy 78.4635; Glucose 315 mg/dL (65-115); Magnesium 1.8 mg/dL (1.7-2.3); Osmolality Calculated 283 mOsm/kg (285-295); Potassium 4.6 mmol/L (3.5-5.1); Sodium 129 mmol/L (136-145)
--- NOTE | 2025-02-19 13:13 | P.PN_ITS ---
Vitals/I&O/Wt Last Vital Signs Temp 98.7 F 02/19/25 08:00 Pulse 86 02/19/25 12:30 Resp 16 02/19/25 12:30 BP 107/58 02/19/25 12:00 Pulse Ox 98 02/19/25 12:30 O2 Del Method Room Air 02/18/25 21:48 02/18/25 02/19/25 02/19/25 22:59 06:59 14:59 Intake Total 1140.392 / 4133.390 5753.026 / 2161.418 1060.067 / 1060.067 Output Total 600 / 600 Balance 1140.392 / 1140.392 421.026 / 2943.011 9261.067 / 1060.067 Weight last 48 hrs Weight 58.4 kg Weight 58.513 kg Weight 58.513 kg Physical Exam 2 Narrative: General well-developed thin male in no acute cardiopulmonary stress he is wearing sunglasses states it hurts his eyes with a light Sunglasses removed pupils are equally round and reactive to light accommodation Oropharynx clear no thrush Mallampati 1 CV regular rate and rhythm Lungs clear to auscultation bilaterally Abdomen positive bowel tones soft nontender Calves no tenderness cords pretrip edema Skin is warm and dry Mentation alert and oriented x 3 Data 02/18/25 17:36 02/19/25 10:55 A&P Assessment and plan 1. DKA (diabetic ketoacidosis): Start insulin drip with D5 NS at 150 cc an hour check BMP every 4 hours. When anion gap is closed and CO2 greater than 20 will give long-acting Lantus and convert back to sliding scale. When potassium falls below 4 add 20 mg KCl per liter to the D5 NS 2. DM type 1 (diabetes mellitus, type 1): I think the patient needs more sliding scale insulin and potentially a 12-hour NPH type shot in the morning to help with the daytime blood sugars. That may not last as long through the night to cause the hypoglycemia in the morning 3. Hypertension: Blood pressure low currently PDMP PDMP Reviewed: Not Reviewed Coding Level of Care Code Acute Code for Chg Fwd Diagnoses DKA (diabetic ketoacidosis) E11.10 DM type 1 (diabetes mellitus, type 1) E10.9 Hypertension I10
--- NOTE | 2025-02-19 15:39 | P.PN_ITS ---
Subjective 2 Subjective: 64-year-old male with good res ponse to insulin drip and anion gap closed to 14. CO2 is 19. With transitioning to Lantus 50 units and sliding scale and eating his gap increased to 18 and CO2 17. Patient states he feels well. He says he sees diabetic specialist but follows directions that he says is checking blood sugars after he eats and then dosing Humalog accordingly. He states he has never given insulin according to his meals. Patient states he has been up and around the room doing well Reports some abdominal discomfort but admits he has had this with DKA in the past as well Vitals/I&O/Wt Last Vital Signs Temp 98.7 F 02/19/25 08:00 Pulse 74 02/19/25 14:00 Resp 19 H 02/19/25 14:00 BP 109/70 02/19/25 14:00 Pulse Ox 93 02/19/25 14:00 O2 Del Method Room Air 02/18/25 21:48 02/19/25 02/19/25 02/19/25 06:59 14:59 22:59 Intake Total 1021.026 / 2161.418 1060.067 / 1060.067 Output Total 600 / 600 Balance 421.026 / 1057.478 1673.067 / 1060.067 Weight last 48 hrs Weight 58.4 kg Weight 58.513 kg Weight 58.513 kg Physical Exam 2 Narrative: General well-developed thin male in no acute cardiopulmonary distress CV regular rate and rhythm Lungs clear to auscultation bilaterally Abdomen positive bowel tones soft nontender Calves no tenderness cords pretibial edema Skin is warm and dry Mentation alert and oriented x 3 Data 02/18/25 17:36 02/19/25 10:55 A&P Assessment and plan 1. DKA (diabetic ketoacidosis): Essentially resolved but risk of recurrence. Give additional 20 units of Lantus now start preprandial insulin 5 units with meals plus low scale sliding scale. Change low scale sliding scale to before every meal and nightly 2. DM type 1 (diabetes mellitus, type 1): Patient will transfer the floor and will monitor his insulin regimen for 1 to 2 days as he has had 7 admissions for DKA he says 3. Hypertension: Blood pressure low currently PDMP PDMP Reviewed: Not Reviewed Attestations 2 Medical Necessity Statement*: Patient will require additional 1 to 2 days in the hospital for monitoring of insulin and clarifying regimen that will keep him safe out of the hospital Coding Level of Care Code 57741 Diagnoses DKA (diabetic ketoacidosis) E11.10 DM type 1 (diabetes mellitus, type 1) E10.9 Hypertension I10 Time Spent (min) 35
[2025-02-19] MEDS: insulin glargine 100 units/1 mL 20 UNIT SUBCUT (16:55)
--- NOTE | 2025-02-19 20:38 | PC.NURSE ---
Report called to Nancy. Patient gathered all personal belongings and confirmed he had them all in his bag. Taken up in wheelchair
[2025-02-20 00:51] VITALS: BP 108/59; PULSE 73; RESP 18; TEMP 36.8; O2SAT 98
[2025-02-20] MEDS: insulin glargine 100 units/1 mL 60 UNIT SUBCUT (07:08)
[2025-02-20 07:16] VITALS: BP 111/67; PULSE 75; RESP 17; TEMP 36.8; O2SAT 95
[2025-02-20] MEDS: HYDROcodone-acetaminophen 10-325 mg Tablet 1 TAB PO ×2 (08:00→14:53)
--- NOTE | 2025-02-20 10:21 | PC.SOCIAL ---
IMM Updated Updated pt on IMM. No questions voiced. Provided pt a copy. Initialed, dated, & timed a copy & placed in chart.
[2025-02-20 11:28] VITALS: BP 115/70; PULSE 73; RESP 18; TEMP 36.5; O2SAT 95
--- NOTE | 2025-02-20 16:01 | PM.DCS ---
Discharge Providers Date of Admission: 02/18/25 18:27 Date of Discharge: February 20, 2025 Attending Provider at Admission: David Howell MD Attending Provider at Discharge: David Howell MD Consults: None Primary Care Provider: Hannah Jin Diagnoses at Discharge Discharge Diagnosis 1. DKA (diabetic ketoacidosis): Details from hospital stay: Patient came in with DKA and blood sugars at home were greater than 500 most of the time He responded well to insulin drip in the ICU close his anion gap and was started back on Lantus 50 units. Blood sugars were running high so I gave additional 20 units then started him on 60 units in the morning. Blood sugar still high so I raised him to 65 units every morning for outpatient I have instructed the patient to take 4 to 6 units of insulin pre-meal Additionally have written for a sliding scale that he is supposed to add to the Premeal insulin and take as 1 injection of Humalog For blood sugars 0-150 no additional, for blood sugar 151-200 add 2 units, for blood sugar 201-250 add 4 units, for blood sugar 251-300 add 6 units, for blood sugar 301-350 add 8 units, for blood sugar 351-400 add 10 units and for blood sugar greater than 400 at 12 units 2. DM type 1 (diabetes mellitus, type 1): Details from hospital stay: See above insulin directions. Follow-up with Dr. Grubbs in 1 week 3. Hypertension: Details from hospital stay: Resume home blood pressure medications Reason for Visit Reason for Visit: high blood sugar, high hr, off balance Brief History: Wiliam Rogers Jr is a 64 year old male With diabetes since age 49. He states he was initially on pills but it made him sick. He has been on insulin starting age 49s and his initial weight when he developed diabetes was 220 pounds. He is now down to 136 pounds last week and 129 pounds today. Patient denies feeling sick but has had high blood sugars all month. He shows me on his glucometer 30-day average 385, 14-day average 386, 7-day average 409, 3-day average 505. Patient tells me that he takes 60 units of Lantus daily but his sliding scale is only 5 units for 500, 4 units for 400, 3 units for 300, and 2 units for 200,. He states that taking 5 units or 500 will drop him down to the 300s but not lower. He sees his doctor every 3 months but states that is what she has him on. The patient states he has tried to take the Lantus in the evening or split it in half and take it twice a day but effect is the same blood sugars are low in the morning often dropping to 60s to 90s in the a.m. but when he eats through the day if sugars are high. If sugars are below 70 he does not take his Lantus at all and that recently it was 47 so he skipped today. Patient states he had been aching all over and this is a sign of him having DKA along with feeling short of breath so he came to the emergency department and found that he is in fact in DKA. He has had some chest discomfort with breathing but denies chest heaviness Hospital Course Hospital Course Patient's anion gap closed quickly in the ICU and by next morning he was ready to transfer up to the medical floor his sugars have been running 500s the last 3 days but he had been running over 385 for the last 30 days and I think this resulted in his DKA. We transferred him to the floor and started him on Lantus. His sugars tend to run high so I have increased his Lantus. I have also instructed him to use 4 to 6 units for meals to cover the food and a sliding scale insulin to add to the Premeal insulin to take as a single injection before each meal. Physical Exam Narrative: General well-developed well-nourished male in no acute cardiopulmonary stress CV regular rate and rhythm Lungs clear to auscultation bilaterally Abdomen positive bowel tones soft nontender Calves no tenderness cords or pretibial edema Discharge Data Studies Completed and Pending Laboratory Results WBC 5.37 10^3/uL (3.29-11.43) 02/18/25 17:36 RBC 4.72 10^6/uL (3.85-5.65) 02/18/25 17:36 Hgb 13.80 g/dL (11.27-16.99) 02/18/25 17:36 Hct 42.3 % (37-53) 02/18/25 17:36 MCV 89.6 fl (82-101) 02/18/25 17:36 MCH 29.2 pg (27-33) 02/18/25 17:36 MCHC 32.6 g/dL (30-55) 02/18/25 17:36 RDW 12.9 % (12.1-15.1) 02/18/25 17:36 Plt Count 250 10^3/cmm (157-399) 02/18/25 17:36 MPV 9.8 fL (7.4-10.4) 02/18/25 17:36 Neut % (Auto) 71.5 % 02/18/25 17:36 Lymph % (Auto) 22.0 % 02/18/25 17:36 Hernando % (Auto) 4.7 % 02/18/25 17:36 Eos % (Auto) 0.7 % 02/18/25 17:36 Baso % (Auto) 0.7 % 02/18/25 17:36 Neut # (Auto) 3.84 10^3/uL (1.8-7.7) 02/18/25 17:36 Lymph # (Auto) 1.2 10^3/uL (0.8-4.8) 02/18/25 17:36 Hernando # (Auto) 0.3 10^3/uL (0.2-0.9) 02/18/25 17:36 Eos # (Auto) 0.0 10^3/uL (0.0-0.8) 02/18/25 17:36 Baso # (Auto) 0.0 10^3/uL (0.0-0.1) 02/18/25 17:36 Nucleated RBC % (auto) 0 % 02/18/25 17:36 Nucleated RBCs # 0.0 /100WBC 02/18/25 17:36 D-Dimer <= 0.27 ug/mLFEU (0-0.59) 02/18/25 17:36 Specimen Type Arterial 02/18/25 17:36 Sample Site Heel, left 02/18/25 17:36 ABG pH 7.20 (7.35-7.45) L 02/18/25 17:36 ABG pCO2 29.3 mmHg (35-45) L 02/18/25 17:36 ABG pO2 96.2 mmHg (80.0-100.0) 02/18/25 17:36 ABG PO2/FiO2 Ratio 458 02/18/25 17:36 ABG HCO3 11.5 mmol/L (22-26) L 02/18/25 17:36 ABG Base Excess -15.1 mmol/L (-2.0-2.0) L 02/18/25 17:36 Jefferson Test Pos 02/18/25 17:36 Hematocrit 43.7 % (42-52) 02/18/25 17:36 O2 Delivery Device Room air 02/18/25 17:36 FiO2 21.0 % 02/18/25 17:36 Sludge Mill Operator ID [id number] 02/18/25 17:36 Sodium 129 mmol/L (136-145) L 02/19/25 10:55 Potassium 4.6 mmol/L (3.5-5.1) 02/19/25 10:55 Chloride 98 mmol/L (98-107) 02/19/25 10:55 Carbon Dioxide 17 mmol/L (22-29) L 02/19/25 10:55 Anion Gap 18.6 (5-19) 02/19/25 10:55 BUN 22 mg/dL (8-23) 02/19/25 10:55 Creatinine 0.8 mg/dL (0.7-1.2) 02/19/25 10:55 GFR Calculation 97.0 mL/min (90-130) 02/19/25 10:55 Glucose 315 mg/dL (65-115) H 02/19/25 10:55 POC Glucose 192 mg/dL (70-110) H 02/20/25 11:35 Calculated Osmolality 283 mOsm/kg (285-295) L 02/19/25 10:55 Calcium 8.3 mg/dL (8.5-10.5) L 02/19/25 10:55 Phosphorus 2.8 mg/dL (2.5-4.5) 02/19/25 10:55 Magnesium 1.8 mg/dL (1.7-2.3) 02/19/25 10:55 Total Bilirubin 0.3 mg/dL (0.15-1.2) 02/18/25 17:36 AST 13 U/L (0-40) 02/18/25 17:36 ALT 13 U/L (0-41) 02/18/25 17:36 Alkaline Phosphatase 77 U/L (40-130) 02/18/25 17:36 Troponin T Baseline 8 ng/L (0-15) 02/18/25 17:36 Troponin T 120 Minute 7.17 ng/L (0-15) 02/18/25 20:03 Delta Troponin T -0.83 ABS# (0-10) L 02/18/25 20:03 Troponin T Hi Sens 6Hr 9.11 ng/L (0-15) 02/18/25 23:31 Troponin T Hi Sens 6Hr Delta 1.11 ng/L (0-12) 02/18/25 23:31 Total Protein 7.2 g/dL (6.6-8.7) 02/18/25 17:36 Albumin 4.7 g/dL (3.5-5.2) 02/18/25 17:36 Globulin 2.5 g/dL (1.3-4.6) 02/18/25 17:36 TSH 0.27 uIU/mL (0.27-4.20) 02/18/25 17:36 Serum Ketones Positive (Negative) H 02/18/25 17:36 Vitals Last Vital Signs Temp 97.7 F 02/20/25 11:28 Pulse 73 02/20/25 11:28 Resp 18 02/20/25 11:28 BP 115/70 02/20/25 11:28 Pulse Ox 95 02/20/25 11:28 O2 Del Method Room Air 02/20/25 00:51 Discharge Plan Discharge Patient Disposition: Home Condition: Stable Prescriptions: New insulin lispro [Humalog U-100 Insulin] 100 unit/mL Solution 1 unit SUBCUT WM&BEDTIME Qty: 10 0RF Rx Instructions: if blood sugar before meals and bedtime 0-150 no additional. if 151-200 2u, 201-250 4u, 251-300 6u 301-350 8u, 351-400 10u and over 400 12u Continued aspirin [Adult Aspirin Regimen] 81 mg tablet,delayed release (DR/EC) 81 mg PO QAM (DME) Dexcom G7 Aircraft Pilot Misc See Rx Instructions .Route Qty: 1 0RF Rx Instructions: rew once a year (DME) Dexcom G7 Sensor Device See Rx Instructions .ROUTE .MEDSUPPLY Qty: 9 0RF Rx Instructions: Change every 10days gabapentin 300 mg capsule 300 mg PO BID fenofibrate nanocrystallized 145 mg tablet 145 mg PO DAILY trazodone 100 mg tablet 100 mg PO BEDTIME hydrocodone-acetaminophen 10-325 mg tablet 1 tab PO TID atorvastatin 40 mg tablet 40 mg PO QPM sertraline 50 mg tablet 50 mg PO DAILY Changed insulin glargine [Lantus Solostar U-100 Insulin] 100 unit/mL (3 mL) insulin pen 65 unit SUBCUT DAILY 30 Days Qty: 15 4RF insulin aspart U-100 [Novolog FlexPen U-100 Insulin] 100 unit/mL (3 mL) insulin pen 4 - 6 unit SUBCUT AC Qty: 15 0RF Rx Instructions: 4 - 6 units subcutaneously before meals; Discontinued tizanidine 2 mg tablet 2 mg PO Q8H PRN (Reason: muscle spasticity) Qty: 20 0RF Discharge Order = DC NOW: Discharge Order (Routine); Ordered 02/20/25 Ordered By: David Howell Referrals: Hannah Jin FNP [Primary Care Provider, Nurse Practitioner] - 02/25/25 1:30 pm Colin Grubbs MD [Physician, Endocrinology] - 1 week Discharge Diet: Diabetic Discharge Activity: Resume usual activity Patient Instructions: Opioid Safety, Patient Portal & Eusebio Instructions Activity Restrictions/Additional Instructions: Because your blood sugars have been running 227 this morning and 192 before lunch after your insulin drip for DKA I am going to increase your Lantus to 65 units daily I want you to take between 4 and 6 units for each meal a few minutes before you start eating Also use a sliding scale for blood sugar as you check it before each meal and at bedtime and add that to the 4 to 6 units for meals and take it together For blood sugars 0-150 no additional, for blood sugar 151-200 add 2 units, for blood sugar 201-250 add 4 units, for blood sugar 251-300 add 6 units, for blood sugar 301-350 add 8 units, for blood sugar 351-400 add 10 units and for blood sugar greater than 400 at 12 units So if you are blood sugar is 275 you add 6 units to the 4 to 6 units that you going to take for your meal which would total 10 or 12 units and give that just before you eat. As we discussed you keep a log and adjust the amount of insulin you give based on this scale a little bit up or a little bit down. Take your results into Dr. Nashmia Romie MD Discharge Attestations Time Spent in Discharge Care*: greater than 30 min Time Spent in Smoking Cessation: Not a smoker Quality Metrics Clinical Quality Measures [ No reported AMI, CVA or VTE this stay] Coding Level of Care Code 12513 Diagnoses DKA (diabetic ketoacidosis) E11.10 DM type 1 (diabetes mellitus, type 1) E10.9 Hypertension I10 Time Spent (min) 35
[2025-02-20 16:03] VITALS: BP 127/73; PULSE 79; RESP 18; TEMP 36.6; O2SAT 95
--- NOTE | 2025-02-20 16:32 | PC.NURSE ---
Discharge delayed due to patient waiting for transportation
[2025-02-20 18:23] VITALS: BP 127/73; PULSE 79; RESP 18; TEMP 36.6; O2SAT 95
--- OUTSIDE RECORDS SUMMARY | 2025-02-22 10:08 | XMS_ITS | Patient Health Record ---
Author Organization [facility] Address [address] [place] [address] Care Team Providers Care Hose Inspector Name Role Phone Gary Cardona MD Primary Care Provider Unavaila Sven Morris Unavailable [phone] Migration, Provider Unavailable Unavailable Nan Hernandez Unavailable [phone] Jim, Joseph Unavailable [phone] Allergies No Known Allergies Results Component Value Reference Range Flag Notes Urine Drug Screen (cup read) - 26194 Reviewed date:02/14/2025 12:32:04 PM Interpretation: Performing Lab: Notes/Report: OPI + Urine Confirmation Panel (in strument) - 17699 Reviewed date:02/20/2025 03:07:52 PM Interpretation: Performing Lab: [...] the U.S. Food and Drug Administration. Gabapentin >14593 <225 ng/mL > This test was developed [...] Administration. Urine Drug Screen (cup read) - 13181 Reviewed date:10/11/2024 03:55:43 PM Interpretation: Performing Lab: Notes/Report: OXY + Urine Confirmation Panel (in strument) - 66310 Reviewed date:10/16/2024 01:52:55 PM Interpretation: Performing Lab: [...] the U.S. Food and Drug Administration. Gabapentin 85113 <225 ng/mL H This test was developed [...] by the U.S. Food and Drug Administration. zzzUrine Drug Screen (Gidsy by instrument) - 70276 Reviewed date:08/14/2024 12:53:49 PM Interpretation: Performing Lab: Notes/Report: Tox Results Reviewed date:10/16/2024 02:20:09 PM Interpretation: Performing Lab: Notes/Report: Tox Results Reviewed date:02/20/2025 03:25:00 PM Interpretation: Performing Lab: Notes/Report: Reason For Referral No Information Medications Medication SIG (Take, Route, Frequency, Duration) Notes Start Date End Date Status Novolin R Regular U-100 Insuln *Reorder from [employer] for eRx and Interaction Alerts* Active Citalopram *Reorder from [employer] for eRx and Interaction Alerts* Active HYDROcodone-Acetami nophen 10-325 MG Tablet 1 tablet as needed Orally every 8 hrs; Duration: 30 days As needed Do not exceed 3 per day Fill on 02-18-25 02/14/2025 03/20/2025 Active Metformin *Reorder from [employer] for eRx and Interaction Alerts* Active HYDROcodone-Acetami nophen 10-325 MG Tablet 1 tablet as needed Orally every 8 hrs; Duration: 30 days As needed Do not exceed 3 per day Fill on 03-20-25 02/14/2025 04/19/2025 Active Aspirin *Pick strength-f orm from [employer] for eRX* Active Social History Social History Additional Details Category Social Info Options Details Migrated Social History Migrated Social History Smoking - No Problems Problem Type SNOMED Code ICD Code Onset Dates Problem Status W/U Status Risk Notes Problem Chronic pain syndrome (450193297) Chronic pain syndrome (G89.4) 12/15/19 24 Active confirmed Problem Primary generalised osteoarthritis (772767252) Primary generalized (osteo)arthritis (M15.0) Active confirmed Problem Osteoarthritis (051707962) Unspecified osteoarthritis, unspecified site (M19.90) 12/15/19 24 Active confirmed Problem Solitary sacroiliitis (537358069) Sacroiliitis, not elsewhere classified (M46.1) 12/15/19 24 Active confirmed Problem Degeneration of lumbosacral intervertebral disc (10542533) Other intervertebral disc degeneration, lumbosacral region (M51.37) 12/15/19 24 Active confirmed Problem Lumbar radiculopathy (445932346) Radiculopathy, lumbar region (M54.16) 12/15/19 24 Active confirmed Problem Mononeuropathy of lower limb (244714467) Unspecified mononeuropathy of bilateral lower limbs (G57.93) 12/15/19 24 Active confirmed Problem Abnormal gait (64207488) Abnormality of gait and mobility (R26.9) Active confirmed Vital Signs Height-cm 162.56 cm 02/14/2025 Weight-kg 59.87 kg 02/14/2025 Height 64.00 in 02/14/2025 Weight 132 lbs 02/14/2025 BMI 22.66 kg/m2 02/14/2025 Encounters Encounter Location Date Provider Diagnosis [facility] [address] [address] 02/14/2025 Nan Hernandez Chronic pain syndrom e G89.4 ; Unspecified mononeuropathy of bilateral lower limbs G57.93 ; Degeneration of intervertebral disc of lumbosacral region with discogenic back pain M51.370 ; Radiculopathy, lumbar region M54.16 ; Primary generalized (osteo)arthritis M15.0 and 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 Z79.891 [facility] [address] [place] [address] 04/11/2024 Sven Hernadez [facility] [address] [place] [address] 06/07/2024 Nan Hernandez [facility] [address] [place] [address] 08/09/2024 Joseph Jim Chronic pain syndrom e G89.4 ; Unspecified mononeuropathy of bilateral lower limbs G57.93 ; Degeneration of intervertebral disc of lumbosacral region with discogenic back pain M51.370 ; Radiculopathy, lumbar region M54.16 ; Primary generalized (osteo)arthritis M15.0 and 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 Z79.891 [facility] [address] [place] [address] 10/11/2024 Nan David Chronic pain syndrom e G89.4 ; Unspecified mononeuropathy of bilateral lower limbs G57.93 ; Degeneration of intervertebral disc of lumbosacral region with discogenic back pain M51.370 ; Radiculopathy, lumbar region M54.16 ; Primary generalized (osteo)arthritis M15.0 and 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 Z79.891 [facility] [address] [place] [address] 12/12/2024 Sven Hernadez Chronic pain syndrom e G89.4 ; Unspecified mononeuropathy of bilateral lower limbs G57.93 ; Degeneration of intervertebral disc of lumbosacral region with discogenic back pain M51.370 ; Radiculopathy, lumbar region M54.16 ; Primary generalized (osteo)arthritis M15.0 ; Abnormality of gait and mobility R26.9 and senior care (current) use of opiate analgesic Z79.891 Migrated[facility]Facility 0 0 06/02/2024 Provider Migration [facility]rated[facility]Facility 0 0 06/03/2024 Provider Migration [facility] [address] [place] [address], [place] [address] 08/09/2024 Sven Hernadez [facility] [address] [place] [address] 08/14/2024 Sven Hernadez [facility] [address] [place] [address] 10/11/2024 vSen Hernadez [facility] [address] [place] [address] 02/14/2025 Sven Hernadez Radiculopathy, lumba r region M54.16 Assessments Encounter Date Diagnosis (ICD Code) Assessment [...] on the medications. He's busy working on [employer] this time of year, and he's overall doing relatively well. We will continue his medications unchanged and follow up with him thereafter. 12/12/2024 Unspecified mononeuropathy of bilateral lower limbs (ICD-10 - G57.93) 02/14/2025 Radiculopathy, lumbar region (ICD-10 - M54.16) 02/14/2025 Chronic pain syndrome (ICD-10 - G89.4) [...] effects are noted. Last UDS and [place] SECOND WORKER reviewed today. 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 Plan Of Treatment Next Appt Details Provider Name:Nan Gino oreilly, 04/18/2025 11:00:00 AM, [address] [place], [address], Insurance Providers Payer Name Payer Address Payer Phone Subscriber Number Group Number Insured Name Patient Relationship to Insured Coverage Start Date Coverage End Date [employer] Medicare Replacement [address] [address] [place] [address] [id number] Wiliam Rogers Self - patient is the insured [place] Medicare [address] [address] [place] [address] [id number] Wiliam Rogers Self - patient is the insured Medical (General) History Surgical History Surgery Date(Month/Year) left shoulder surgery
== END 2025-02-20 18:24 | disposition home or self-care (01) ==
LOC: ER 18:13 → ER IP 18:37 → ICU 21:56 → MEDSURG 02-20 12:19 → ICU 02-22 10:06 → ER IP 02-22 10:06
PROVIDERS: Internal Medicine; Admitting Provider Internal Medicine; Emergency Provider Emergency Medicine; PCP Nurse Practitioner Family; Visit Provider Internal Medicine
DX: E10.9 Type 1 diabetes mellitus without complications (principal); I10 Essential (primary) hypertension; Z79.82 Long term (current) use of aspirin; Z79.4 Long term (current) use of insulin; E78.5 Hyperlipidemia, unspecified
CPT/HCPCS: 36415; 36416; 36600; 80048; 80053; 82009; 82803; 82962; 83735; 84100; 84443; 84484; 85025; 85378; 93005; 96365; 96366; 96367; 96372; 96374; 96375; 96376; 99285; G0378; J1650; J1815; J2270; J2405; J3490; J7030; J7120; J7799; J9999

== ENCOUNTER → 2025-03-12 10:05 | Outpatient (BNVA) | payer MEDICARE, SELFPAY | PROVIDERS: PCP Nurse Practitioner Family; Visit Provider Internal Medicine | DX: E10.9 Type 1 diabetes mellitus without complications (principal); E16.2 Hypoglycemia, unspecified; E78.5 Hyperlipidemia, unspecified | CPT/HCPCS: 99214 ==

== ENCOUNTER → 2025-05-15 10:18 | Outpatient (BNVA) | payer MEDICARE, SELFPAY | PROVIDERS: PCP Nurse Practitioner Family; Visit Provider Internal Medicine | DX: E78.5 Hyperlipidemia, unspecified (principal); E10.649 Type 1 diabetes mellitus with hypoglycemia without coma; Z79.4 Long term (current) use of insulin | CPT/HCPCS: 99214 ==

== ENCOUNTER → 2025-05-30 15:24 | Outpatient (BNVA) | payer MEDICARE, SELFPAY | PROVIDERS: PCP Nurse Practitioner Family; Referring Provider Nurse Practitioner Family; Visit Provider Internal Medicine Cardiovascular Disease | DX: R07.9 Chest pain, unspecified (principal); E78.5 Hyperlipidemia, unspecified; E10.9 Type 1 diabetes mellitus without complications; M54.9 Dorsalgia, unspecified; Z79.4 Long term (current) use of insulin | CPT/HCPCS: 99204 ==

== ENCOUNTER 2025-06-02 12:33 | Emergency (ER) | payer MEDICARE, SELFPAY ==
--- OUTSIDE RECORDS SUMMARY | 2024-06-02 04:00 | XMS_ITS ---
Author Organization [facility] Address [address] [place] [address] Care Team Providers Care Senior Patient Account Representative Name Role Phone Gary Cardona MD Primary Care Provider Sven Huerta Unavailable [phone] Migration, Provider Unavailable Unavailable REASON FOR VISIT EMR-Giuseppe Encounters Encounter Location Date Provider Diagnosis Migrated_Facility 0 0 06/02/2024 Provider Migration Plan Of Treatment Medication Medication Name Sig Start Date Stop Date Notes HYDROcodone-Acetaminop hen 10-325 MG Oral Tablet 1 Tablet Every 8 Hours PRN 03/13/2024 04/12/2024 *Reorder from [facility] for eRx and Interaction Alerts* Next Appt Details Provider Name:Sven Hernadez, 06/19/2025 01:00:00 PM, [address] [place], [address], Progress Notes * Wiliam AVALOS DOB:[birth year] (64 yo M)Acc No.[id number]:06/02/2024 Patient: Wiliam RANDALL :1960 A ge:63 Y S ex:Male Address:[address] [place] [address], [id number] * Refills Stop HYDROcodone-Acetaminophen 10-325 MG Oral Tablet, 1 Tablet Every 8 Hours PRN Stop HYDROcodone-Acetaminophen 10-325 MG Oral Tablet, 1 Tablet Every 8 Hours PRN Subjective: * Chief Complaints: * E MR-Giuseppe * * Date:
--- OUTSIDE RECORDS SUMMARY | 2024-06-03 04:00 | XMS_ITS ---
Author Organization [facility] Address [address] [place] [address] Care Team Providers Care Appeals Writer Name Role Phone Gary Cardona MD Primary Care Provider UnavailSven Frost Unavailable [phone] Migration, Provider Unavailable Unavailable REASON FOR VISIT EMR-Giuseppe Medications Medication SIG (Take, Route, Frequency, Duration) Notes Start Date End Date Status Novolin R Regular U-100 Insuln *[facility]* Active Citalopram *[facility] and Interaction Alerts* Active Metformin *[facility] and Interaction Alerts* Active Aspirin *Pick strength-f orm from [facility] for [facility]* Active Social History Social History Additional Details Category Social Info Options Details Migrated Social History Migrated Social History Smoking - No Encounters Encounter Location Date Provider Diagnosis Migrated_Facility 0 0 06/03/2024 Provider Migration Plan Of Treatment Next Appt Details Provider Name:Sven Hernadez, 06/19/2025 01:00:00 PM, [address] [place], [address], Progress Notes * BHARATHTony NEWBYmartha CazaresDOB:[birth year] (64 yo M)Acc No.[id number]:06/03/2024 Patient: Wiliam RANDALL :1960 A ge:63 Y S ex:Male Address:[address] [place] [address], [phone] Subjective: * Chief Complaints: * E MR-Giuseppe * Medical History: Arthritis, D epression, D iabetes, H eadache, * Surgical History: left shoulder surgery * Family History: M igrated Family History: : Cancer. * Social History: M igrated Social History: M igrated Social History: Smoking - No. * Medications: T akingCitalopram , Notes to Pharmacist: *Reorder from [facility] for eRx and Interaction Alerts*Novolin R Regular U-100 Insuln , Notes to Pharmacist: *Reorder from [facility] for eRx and Interaction Alerts*Aspirin , Notes to Pharmacist: *Pick strength- form from [facility] for eRX*Metformin , Notes to Pharmacist: *Reorder from [facility] for eRx and Interaction Alerts*Taking Citalopram , Notes to Pharmacist: *Reorder from [facility] for eRx and Interaction Alerts*Taking Novolin R Regular U-100 Insuln , Notes to Pharmacist: *Reorder from [facility] for eRx and Interaction Alerts*Taking Aspirin , Notes to Pharmacist: *Pick strength-form from [facility] for eRX*Taking Metformin , Notes to Pharmacist: *Reorder from [facility] for eRx and Interaction Alerts* * * Date:
--- OUTSIDE RECORDS SUMMARY | 2025-04-18 06:00 | XMS_ITS ---
Author Organization [facility] Address [address] [place] [address] Care Team Providers Care Resident Physician Name Role Phone Gary Cardona MD Primary Care Provider Sven Huerta Unavailable [phone] Nan Hernandez Unavailable [phone] REASON FOR VISIT 2 Months Encounters Encounter Location Date Provider Diagnosis [facility] [place] [address] [place] [address] 04/18/2025 Nan Hernandez Chronic pain syndrom e G89.4 ; Unspecified mononeuropathy of bilateral lower limbs G57.93 ; Degeneration of intervertebral disc of lumbosacral region with discogenic back pain M51.370 ; Radiculopathy, lumbar region M54.16 ; Primary generalized (osteo)arthritis M15.0 and alf (current) use of opiate analgesic Z79.891 Assessments Encounter Date Diagnosis (ICD Code) Assessment Notes Treatment Notes Treatment Clinical Notes Section Notes 04/18/2025 Chronic pain syndrome (ICD-10 - G89.4) 04/18/2025 Unspecified mononeuropathy of bilateral lower limbs (ICD-10 - G57.93) 04/18/2025 Degeneration of intervertebral disc of lumbosacral region with discogenic back pain (ICD-10 - M51.370) 04/18/2025 Radiculopathy, lumbar region (ICD-10 - M54.16) 04/18/2025 Primary generalized (osteo)arthritis (ICD-10 - M15.0) 04/18/2025 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 No Opioid Assessment Tools Pill Count __ Last Urine Drug Screen 02/14/2025 conf Today's Rapid Urine Drug Screen 04/18/20 25 cup [place] Prescription Monitoring Program [place] PDMP, found to be consistent with treatment history, reviewed today Treatment History Test undergone in the past 0 Lumbar MRI Past medication you have taken hydrocodo ne #90 Treatments you have had 2019 LESI L4-5 Progress Notes * Wiliam AVALOS JrDOB:[birth year] (64 yo M)Acc No.[id number]:04/18/2025 Progress Notes Patient: Soren soto Wiliam Cazares Provider: DARON Aldridge :1960 A ge:64 Y S ex:Male Date:04/18/2025 Address:[address] [place], [place] [id number] Pcp:Gary Cardona MD Subjective: * Chief Complaints: * 2 Months * HPI: P ain Details: Pain Location L ower back . Quality S harp, Stabbing, Numbness . Severity of pain at its worst 10. Severity of pain at its best 10. Severity of pain on medication . Severity of average pain . Severity of pain right now 10. When did you last take your pain [...] o. O pioid Assessment Tools: Pill Count _ _. Last Urine Drug Screen 0 02/14/2025 conf. Today's Rapid Urine Drug Screen 0 04/18/2025 cup. [place] Prescription Monitoring Program [place] PDMP, found [...] with care. Pill count is accurate today. Assessment: * Assessment: 1. C hronic pain [...] (current) use of opiate analgesic - Z79.891 Billing Information: * Procedure Codes: Care Plan Details* * Electronic signature of Ama Hernandez APRN on 06/02/2025 at 12:50 PM CDT Sign off status: Pending * Provider: DARON Aldridge Date: 0 04/18/2025 Generated for Margareth Johnson on: 1 12:50 PM CDT
[2025-06-02 12:34] VITALS: BP 106/65; PULSE 82; RESP 14; TEMP 36.8; O2SAT 98
--- NOTE | 2025-06-02 12:40 | ECG_ITS ---
[facility] Test Date: 2025-06-02 Pat Name: Wiliam Rogers Jr Department: Room: Gender: Male [place]: : 1960 Requested By: Estefania Mcgowan Order Number: [id number] Reading MD: IVORY FERGUSON Measurements Intervals [place] Rate: 83 P: 62 ND: 159 QRS: -11 QRSD: 78 T: 63 QT: 347 QTc: 410 Interpretive Statements SINUS RHYTHM Compared to ECG 02/19/2025 06:04:46 No significant changes Electronically Signed On 06-02-2025 22:24:10 CDT by IVORY FERGUSON [email or web address]
[2025-06-02 12:44] LABS: Hematocrit 40.5 % (37-53); Hemoglobin 14.20 g/dL (11.27-16.99); Mean Corpuscular HGB Conc 35.1 g/dL (30-55); Mean Corpuscular Hemoglobin 29.2 pg (27-33); Mean Corpuscular Volume 83.2 fl (82-101); Nucleated Red Blood Cells % 0 %; Platelet Count 316 10^3/cmm (157-399); Red Blood Count 4.87 10^6/uL (3.85-5.65); White Blood Count 4.89 10^3/uL (3.29-11.43)
--- NOTE | 2025-06-02 12:47 | W.ED.GENADLT ---
HPI - General Adult General: Chief complaint: Weakness Stated complaint: weakness Time Seen by Provider: 06/02/25 12:34 Source: patient and EMS Mode of arrival: EMS Limitations: no limitations History of Present Illness: 64-year-old male has a history of type 1 diabetes states that over the last 2 to 3 days he just had some generalized weakness. He denies any pain anywhere denies any fevers denies any vomiting or diarrhea. States he started new blood pressure medicine today and had some low blood pressures he has normal tensive here. Related Data Home Medications ?Medication ?Instructions ?Recorded ?Confirmed aspirin 81 mg tablet,delayed 81 mg PO QAM 05/12/20 05/30/25 release (Adult Aspirin Regimen) gabapentin 300 mg capsule 300 mg PO BID 06/30/22 05/30/25 atorvastatin 40 mg tablet 40 mg PO QPM 06/28/23 05/30/25 hydrocodone 10 mg-acetaminophen 1 tab PO TID 06/28/23 05/30/25 325 mg tablet fenofibrate nanocrystallized 145 145 mg PO DAILY 08/11/24 05/30/25 mg tablet trazodone 100 mg tablet 100 mg PO BEDTIME 08/12/24 05/30/25 sertraline 50 mg tablet 50 mg PO DAILY 02/19/25 05/30/25 Previous Rx's ?Medication ?Instructions ?Recorded blood-glucose,manager organizational,cont #1 ea 11/30/22 (Dexcom G7 Candy Butcher) blood-glucose sensor (Dexcom G7 #9 ea 05/30/23 Sensor device) insulin aspart U-100 100 unit/mL 4 - 6 unit (0.04 - 0.06 mL) SUBCUT 02/20/25 (3 mL) subcutaneous pen (Novolog AC sliding scale #15 mL FlexPen U-100 Insulin aspart) insulin glargine 100 unit/mL (3 65 unit (0.65 mL) SUBCUT DAILY 30 02/20/25 mL) subcutaneous pen (Lantus days #15 mL Solostar U-100 Insulin) isosorbide mononitrate 30 mg 15 mg (1/2 x 30 mg) PO BID #90 tabs 05/30/25 tablet,extended release 24 hr Allergies Allergy/AdvReac Type Severity Reaction Status Date / Time No Known Drug Allergies Allergy Unknown Unknown Verified 12/06/24 07:23 Review of Systems Const: Reports: fatigue PFSH ED PFSH: Medical History (Updated 06/02/25 @ 14:23 by Estefania Mcgowan MD) Depression Hypertension Anxiety Hyperlipidemia Chronic pain Insulin dependent diabetes mellitus Surgical History Hx of colonoscopy 18 years ago [facility] H/O shoulder surgery Family History Father Colon cancer Other COPD (chronic obstructive pulmonary disease) Cancer Social History Smoking and tobacco/nicotine status: never used tobacco/nicotine Alcohol intake: never Substance/Drug Use: never Additional social history: 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 Patient states he wants DNR status and this was confirmed today with David Howell MD on 02/18/2025 Physical Exam Const: COMMON NORMALS: no acute distress, patient oriented x3 and healthy appearing HENMT: COMMON NORMALS: normocephalic and atraumatic HEAD & SCALP: normocephalic and atraumatic Eye: COMMON NORMALS: Equal, round and reactive pupils present and EOMs intact bilaterally PUPIL: Yes Equal, round and reactive pupils present Neck/C-Spine: COMMON NORMALS: full ROM and supple Chest: COMMONS NORMALS: normal inspection of the chest and normal palpation of entire chest wall Resp: COMMON NORMALS: normal respiratory effort, No retractions, No use of accessory muscles and clear to auscultation bilaterally AUSCULTATION: clear to auscultation bilaterally Cardio: COMMON NORMALS: regular rate, regular rhythm and No murmurs present (Cardio) RATE: regular rate RHYTHM: regular rhythm GI: COMMON NORMALS: Normal to inspection, nondistended, normoactive bowel sounds present, Soft to palpation, non-tender and no masses PALPATION: Yes Soft to palpation Extremity: COMMON NORMALS: normal to inspection and full ROM Neuro: COMMON NORMALS: patient oriented x3, moves all extremities and no focal motor deficits Psych: COMMON NORMALS: mental status grossly normal, Normal thought process present and cooperative THOUGHT PROCESS: Normal thought process present Skin: COMMON NORMALS: no rashes or lesions noted and no wounds GENERAL SKIN EXAM: no rashes or lesions noted Course Vital Signs: Vital signs: Vital Signs Temperature 98.2 F 06/02/25 12:34 Pulse Rate 82 06/02/25 12:34 Respiratory Rate 14 06/02/25 12:34 Blood Pressure 106/65 06/02/25 12:34 Pulse Oximetry 98 06/02/25 12:34 Oxygen Delivery Me thod Room Air 06/02/25 12:34 MDM - General Adult Medical Decision Making Patient presents here with generalized weakness he has been well-appearing here with normal vital signs here. Chest x-ray here shows no acute abnormalities EKG shows normal sinus rhythm heart rate [address] elevation QRS 78 QTc 397. White count normal lab work here is all normal he does feel improved after IV fluids. He did start new blood pressure medicine and states his blood pressure had been low with that I informed he needs to hold that blood pressure medicine at this time. He is to follow-up with his PCP and return if worsening he understands and agrees to plan. Medical Records I reviewed the patient's medical records. Lab Data I reviewed the patient's lab results. 06/02/25 12:39 06/02/25 12:39 Laboratory Results WBC 4.89 10^3/uL (3.29-11.43) 06/02/25 12:39 RBC 4.87 10^6/uL (3.85-5.65) 06/02/25 12:39 Hgb 14.20 g/dL (11.27-16.99) 06/02/25 12:39 Hct 40.5 % (37-53) 06/02/25 12:39 MCV 83.2 fl (82-101) 06/02/25 12:39 MCH 29.2 pg (27-33) 06/02/25 12:39 MCHC 35.1 g/dL (30-55) 06/02/25 12:39 RDW 12.8 % (12.1-15.1) 06/02/25 12:39 Plt Count 316 10^3/cmm (157-399) 06/02/25 12:39 MPV 10.4 fL (7.4-10.4) 06/02/25 12:39 Neut % (Auto) 53.6 % 06/02/25 12:39 Lymph % (Auto) 36.8 % 06/02/25 12:39 [place] % (Auto) 7.4 % 06/02/25 12:39 Eos % (Auto) 1.2 % 06/02/25 12:39 Baso % (Auto) 0.8 % 06/02/25 12:39 Neut # (Auto) 2.62 10^3/uL (1.8-7.7) 06/02/25 12:39 Lymph # (Auto) 1.8 10^3/uL (0.8-4.8) 06/02/25 12:39 [place] # (Auto) 0.4 10^3/uL (0.2-0.9) 06/02/25 12:39 Eos # (Auto) 0.1 10^3/uL (0.0-0.8) 06/02/25 12:39 Baso # (Auto) 0.0 10^3/uL (0.0-0.1) 06/02/25 12:39 Nucleated RBC % (auto) 0 % 06/02/25 12:39 Nucleated RBCs # 0.0 /100WBC 06/02/25 12:39 Sodium 136 mmol/L (136-145) 06/02/25 12:39 Potassium 4.0 mmol/L (3.5-5.1) 06/02/25 12:39 Chloride 96 mmol/L (98-107) L 06/02/25 12:39 Carbon Dioxide 22 mmol/L (22-29) 06/02/25 12:39 Anion Gap 22.0 (5-19) H 06/02/25 12:39 BUN 26 mg/dL (8-23) H 06/02/25 12:39 Creatinine 1.0 mg/dL (0.7-1.2) 06/02/25 12:39 GFR Calculation 75.0 mL/min (90-130) L 06/02/25 12:39 Glucose 127 mg/dL (65-115) H 06/02/25 12:39 POC Glucose 125 mg/dL (70-110) H 06/02/25 12:42 Calculated Osmolality 288 mOsm/kg (285-295) 06/02/25 12:39 Calcium 10.4 mg/dL (8.5-10.5) 06/02/25 12:39 Total Bilirubin 0.5 mg/dL (0.15-1.2) 06/02/25 12:39 AST 13 U/L (0-40) 06/02/25 12:39 ALT 16 U/L (0-41) 06/02/25 12:39 Alkaline Phosphatase 72 U/L (40-130) 06/02/25 12:39 Total Protein 7.6 g/dL (6.6-8.7) 06/02/25 12:39 Albumin 4.9 g/dL (3.5-5.2) 06/02/25 12:39 Globulin 2.7 g/dL (1.3-4.6) 06/02/25 12:39 Urine Color Yellow (Yellow) 06/02/25 14:06 Urine Appearance Cloudy (CLEAR) A 06/02/25 14:06 Urine pH 5.5 (5-7) 06/02/25 14:06 Ur Specific [place] 1.026 (1.005-1.030) 06/02/25 14:06 Urine Protein 2+ (Negative) A 06/02/25 14:06 Urine Glucose (UA) 3+ (Normal) H 06/02/25 14:06 Urine Ketones 1+ (Negative) H 06/02/25 14:06 Urine Blood Negative (Negative) 06/02/25 14:06 Urine Nitrate Negative (Negative) 06/02/25 14:06 Urine Bilirubin Negative (Negative) 06/02/25 14:06 Urine Urobilinogen 1.0 mg/dL (Negative) 06/02/25 14:06 Ur Leukocyte Esterase Negative (Negative) 06/02/25 14:06 Amorphous Sediment Not Reportable 06/02/25 14:06 XR interpretation done by ED provider, pending radiology final review ED provider radiology interpretation(s): cxr no acute abnormality EKG Data EKG 1: I personally reviewed and interpreted this EKG as follows: EKG interpretation date: 06/02/25 EKG interpretation time: 12:44 Interpretation: nsr hr [address] elevation qrs 78 qtc 397 Discharge Plan Discharge Patient Disposition: Home Clinical Impression: Generalized weakness Condition: Stable Prescriptions: No Action aspirin [Adult Aspirin Regimen] 81 mg tablet,delayed release (DR/EC) 81 mg PO QAM isosorbide mononitrate 30 mg tablet extended release 24 hr 15 mg PO BID Qty: 90 3RF (DME) Dexcom G7 Candy Butcher Misc See Rx Instructions .Route Qty: 1 0RF Rx Instructions: rew once a year (DME) Dexcom G7 Sensor Device See Rx Instructions .ROUTE .MEDSUPPLY Qty: 9 0RF Rx Instructions: Change every 10days gabapentin 300 mg capsule 300 mg PO BID fenofibrate nanocrystallized 145 mg tablet 145 mg PO DAILY trazodone 100 mg tablet 100 mg PO BEDTIME hydrocodone-acetaminophen 10-325 mg tablet 1 tab PO TID atorvastatin 40 mg tablet 40 mg PO QPM sertraline 50 mg tablet 50 mg PO DAILY insulin aspart U-100 [Novolog FlexPen U-100 Insulin] 100 unit/mL (3 mL) insulin pen 4 - 6 unit SUBCUT AC Qty: 15 0RF Rx Instructions: 4 - 6 units subcutaneously before meals; insulin glargine [Lantus Solostar U-100 Insulin] 100 unit/mL (3 mL) insulin pen 65 unit SUBCUT DAILY 30 Days Qty: 15 4RF Discharge Orders: Discharge ED (Routine); Ordered 06/02/25 Ordered By: Estefania Mcgowan Referrals: Hannah Jin, RESTAURANT ATTENDANT [Primary Care Provider, Nurse Practitioner] - 4-7 days Discharge Diet: Advance as tolerated Discharge Activity: Resume usual activity Patient Instructions: Weakness (ED) Print Language: [place] Coding Level of Care Code ED Central Supply Aide for Aura Durán
--- OUTSIDE RECORDS SUMMARY | 2025-06-02 12:50 | XMS_ITS | Patient Health Record ---
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 Name Role Phone Gary Cardona MD Primary Care Provider UnavailSven Frost Unavailable [phone] Migration, Provider Unavailable Unavailable Markie Sterling Unavailable [phone] Nan Hernandez Unavailable [phone] Joseph Fernandez Unavailable [phone] Allergies No Known Allergies Results Component Value Reference Range Flag Notes Tox Results Reviewed date:02/20/2025 03:25:00 PM Interpretation: Performing Lab: Notes/Report: zzzUrine Drug Screen (confir mation by instrument) - 59614 Reviewed date:08/14/2024 12:53:49 PM Interpretation: Performing Lab: Notes/Report: Urine Drug Screen (cup read) - 08661 Reviewed date:10/11/2024 03:55:43 PM Interpretation: Performing Lab: Notes/Report: OXY + Urine Confirmation Panel (in strument) - 08836 Reviewed date:10/16/2024 01:52:55 PM Interpretation: Performing Lab: [...] the U.S. Food and Drug Administration. Gabapentin 52018 <225 ng/mL H This test was developed [...] Administration. Urine Drug Screen (cup read) - 07475 Reviewed date:04/19/2025 02:54:08 PM Interpretation: Performing Lab: Notes/Report: OPI Neg Tox Results Reviewed date:10/16/2024 02:20:09 PM Interpretation: Performing Lab: Notes/Report: Urine Drug Screen (cup read) - 95172 Reviewed date:02/14/2025 12:32:04 PM Interpretation: Performing Lab: Notes/Report: OPI + Urine Confirmation Panel (in strument) - 29954 Reviewed date:02/20/2025 03:07:52 PM Interpretation: Performing Lab: [...] the U.S. Food and Drug Administration. Gabapentin >57169 <225 ng/mL > This test was developed [...] by the U.S. Food and Drug Administration. Reason For Referral No Information Medications Medication SIG (Take, Route, Frequency, Duration) Notes Start Date End Date Status Novolin R Regular U-100 Insuln *Reorder from [facility] [employer] for eRx and Interaction Alerts* Active Aspirin *Pick strength-f orm from [facility] for eRX* Active HYDROcodone-Acetami nophen 10-325 MG Tablet 1 tablet Orally every 8 hrs; Duration: 30 days As needed Do not exceed 3 per day Fill on 05/20/2025 05/20/2025 06/19/2025 Active Metformin *Reorder from [facility] for eRx and Interaction Alerts* Active Citalopram *Reorder from [facility] for eRx and Interaction Alerts* Active Social History Social History Additional Details Category Social Info Options Details Migrated Social History Migrated Social History Smoking - No Problems Problem Type SNOMED Code ICD Code Onset Dates Problem Status W/U Status Risk Notes Problem Chronic pain syndrome (819317318) Chronic pain syndrome (G89.4) 12/15/19 24 Active confirmed Problem Primary generalised osteoarthritis (524036854) Primary generalized (osteo)arthritis (M15.0) Active confirmed Problem Osteoarthritis (486940298) Unspecified osteoarthritis, unspecified site (M19.90) 12/15/19 24 Active confirmed Problem Solitary sacroiliitis (054843629) Sacroiliitis, not elsewhere classified (M46.1) 12/15/19 24 Active confirmed Problem Degeneration of lumbosacral intervertebral disc (83656395) Other intervertebral disc degeneration, lumbosacral region (M51.37) 12/15/19 24 Active confirmed Problem Lumbar radiculopathy (730682749) Radiculopathy, lumbar region (M54.16) 12/15/19 24 Active confirmed Problem Mononeuropathy of lower limb (162583843) Unspecified mononeuropathy of bilateral lower limbs (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) 12/15/19 24 Active confirmed Problem Abnormal gait (03715633) Abnormality of gait and mobility (R26.9) Active confirmed Vital Signs Height-cm 162.56 cm 04/19/2025 Weight-kg 61.69 kg 04/19/2025 Height 64.00 in 04/19/2025 Weight 136 lbs 04/19/2025 BMI 23.34 kg/m2 04/19/2025 Encounters Encounter Location Date Provider Diagnosis [facility] [address] [address] 06/07/2024 Nan Hernandez [facility] [address] [address] 08/09/2024 [facility] Chronic pain syndrom e G89.4 ; Unspecified mononeuropathy of bilateral lower limbs G57.93 ; Degeneration of intervertebral disc of lumbosacral region with discogenic back pain M51.370 ; Radiculopathy, lumbar region M54.16 ; Primary generalized (osteo)arthritis M15.0 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 Z79.891 [facility] [address] [address] 10/11/2024 Nan Hernandez Chronic pain syndrom e G89.4 ; Unspecified mononeuropathy of bilateral lower limbs G57.93 ; Degeneration of intervertebral disc of lumbosacral region with discogenic back pain M51.370 ; Radiculopathy, lumbar region M54.16 ; Primary generalized (osteo)arthritis M15.0 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 Z79.891 [facility] [place] [address] [place] [address] 12/12/2024 Sven Hernadez Chronic pain syndrom e G89.4 ; Unspecified mononeuropathy of bilateral lower limbs G57.93 ; Degeneration of intervertebral disc of lumbosacral region with discogenic back pain M51.370 ; Radiculopathy, lumbar region M54.16 ; Primary generalized (osteo)arthritis M15.0 ; Abnormality of gait and mobility R26.9 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 Z79.891 [facility] [address] [address] 02/14/2025 Nan Hernandez Chronic pain syndrom e G89.4 ; Unspecified mononeuropathy of bilateral lower limbs G57.93 ; Degeneration of intervertebral disc of lumbosacral region with discogenic back pain M51.370 ; Radiculopathy, lumbar region M54.16 ; Primary generalized (osteo)arthritis M15.0 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 Z79.891 [facility] [address] [place] [address] 04/19/2025 Nan Hernandez Chronic pain syndrom e G89.4 ; Radiculopathy, lumbar region M54.16 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 Z79.891 [facility] 0 0 06/02/2024 Provider Migration [facility] 0 06/03/2024 Provider Migration [facility] [address] [place] [address] 08/09/2024 Sven Hernadez [facility] [place] [address] [place] [address] 08/14/2024 Sven Hernadez [facility] [place] [address] [place] [address] 10/11/2024 Sven Hernadez [facility] [place] [address] [place] [address] 02/14/2025 Sven Hernadez Radiculopathy, lumba r region M54.16 [facility] [address] [place] [address] 04/19/2025 Markie Stelring Radiculopathy, lumba r region M54.16 Assessments Encounter Date Diagnosis (ICD Code) Assessment Notes Treatment Notes Treatment Clinical Notes Section Notes 10/11/2024 Chronic pain syndrome (ICD-10 - G89.4) [...] on the medications. He's busy working on [employer] this time of year, and he's overall doing relatively well. We will continue his medications unchanged and follow up with him thereafter. 12/12/2024 Unspecified mononeuropathy of bilateral lower limbs (ICD-10 - G57.93) 04/19/2025 Chronic pain syndrome (ICD-10 - G89.4) I had a nice discussion with the patient today regarding his chronic pain complaints. He continues with lower back pain as well as radicular symptoms and multiple joint pain from arthritis. He states he is doing well on his current medication regimen. He does report he dropped a mower deck on his leg and cut his leg pretty bad recently. He states that his still sore but healing. He continues to defer any updated imaging or interventional procedures. He denies any other changes since we last seen him or any untoward side effects of medication. I did discuss lifestyle modifications as well as a bowel regimen. He will continue his medication at present [...] effects are noted. 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 Patient is advised that best long-term goals include increased activity, core strengthening, proper weight management, coping strategies, avoidance of painful triggers, and targeted interventional therapy. We will see the patient for routine follow up in accordance with all clinic policies. We did remind patient today of current guidelines to decrease opioid when possible. We will continue to stress nonopioid treatment. URINE TESTING TODAY; POINT OF SERVICE Urine drug screening will be performed today to monitor compliance with opioid therapy or to serve as a baseline screen for a patient who may be a candidate for opioid therapy in the future, pending UDS results. We will monitor with in-office testing (rapid testing) today and review the results prior to dispensing prescription, as well. Patient has been made aware of this policy. 04/19/2025 Radiculopathy, lumbar region (ICD-10 - M54.16) 04/19/2025 Radiculopathy, lumbar region (ICD-10 - M54.16) 02/14/2025 Radiculopathy, lumbar region (ICD-10 - M54.16) [...] effects are noted. 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 Patient is advised that best [...] to abide by our urine testing policy. 08/09/2024 Chronic pain syndrome (ICD-10 - G89.4) [...] review his imaging and proceed accordingly. 08/09/2024 Degeneration of intervertebral disc of lumbosacral [...] to review his imaging and proceed accordingly. 02/14/2025 Unspecified mononeuropathy of bilateral lower limbs (ICD-10 - G57.93) 10/11/2024 Unspecified mononeuropathy of bilateral lower limbs (ICD-10 - G57.93) 12/12/2024 Degeneration of intervertebral disc of lumbosacral region with discogenic back pain (ICD-10 - M51.370) 04/19/2025 long-term (current) use of opiate analgesic (ICD-10 - Z79.891) 12/12/2024 Radiculopathy, lumbar region (ICD-10 - M54.16) 10/11/2024 Degeneration of intervertebral disc of lumbosacral region with discogenic back pain (ICD-10 - M51.370) 02/14/2025 Degeneration of intervertebral disc of lumbosacral region with discogenic back pain (ICD-10 - M51.370) 08/09/2024 Radiculopathy, lumbar region (ICD-10 - M54.16) [...] review his imaging and proceed accordingly. 08/09/2024 Primary generalized (osteo)arthritis (ICD-10 - M15.0) [...] to review his imaging and proceed accordingly. 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 Sven Hernadez. I, Dr. Sven Hernadez, personally performed the services described in this documentation, as scribed by INDIANA Palomares , and it is both accurate and complete. Plan Of Treatment Pending Test Test Name Order Date Schedule Confirmation 05/17/2024 Next Appt Details Provider Name:Sven Hernadez, 06/19/2025 01:00:00 PM, [address] [place], [address], Insurance Providers Payer Name Payer Address Payer Phone Subscriber Number Group Number Insured Name Patient Relationship to Insured Coverage Start Date Coverage End Date [employer] Medicare Replacement [address] [address] [place] [address] [id number] Wiliam Rogers Self - patient is the insured [place] Medicare [address] [address] [place] [address] [id number] Wiliam Rogers Self - patient is the insured Medical (General) History Surgical History Surgery Date(Month/Year) left shoulder surgery
[2025-06-02 13:02] LABS: Alanine Aminotransferase 16 U/L (0-41); Albumin Level 4.9 g/dL (3.5-5.2); Alkaline Phosphatase 72 U/L (40-130); Anion Gap 22.0 (5-19); Aspartate Amino Transferase 13 U/L (0-40); Blood Urea Nitrogen 26 mg/dL (8-23); Calcium 10.4 mg/dL (8.5-10.5); Carbon Dioxide 22 mmol/L (22-29); Chloride 96 mmol/L (98-107); Globulin 2.7 g/dL (1.3-4.6); Glucose 127 mg/dL (65-115); Osmolality Calculated 288 mOsm/kg (285-295); Potassium 4.0 mmol/L (3.5-5.1); Sodium 136 mmol/L (136-145); Total Protein 7.6 g/dL (6.6-8.7)
--- NOTE | 2025-06-02 13:30 | XRR_ITS ---
PROCEDURE INFORMATION: Exam: XR Chest Exam date and time: 06/02/2025 1:51 PM Age: 64 years old Clinical indication: Other: Weakness TECHNIQUE: Imaging protocol: Radiologic exam of the chest. Views: 1 view. COMPARISON: CR XR chest 1V portable [id number] 08/11/2024 6:40 AM FINDINGS: Lungs: Unremarkable. No consolidation. Pleural spaces: Unremarkable. No pleural effusion. No pneumothorax. Heart/Mediastinum: Unremarkable. No cardiomegaly. Bones/joints: Moderate degenerative disease of bilateral acromioclavicular joints. XR/XR chest 1V portable [id number] IMPRESSION: No acute cardiopulmonary process.
[2025-06-02 14:18] LABS: Glucose Urine UA 3+ (Normal); Nitrate Urine Negative (Negative); Specific Gravity, Urine 1.026 (1.005-1.030)
[2025-06-02 14:25] LABS: Add Urine Microscopic? YES
[2025-06-02 14:36] LABS: UA Slide Review UA Slide Review Perf
[2025-06-02 14:45] VITALS: BP 104/67; PULSE 78; RESP 17; O2SAT 96
== END 2025-06-02 14:45 | disposition home or self-care (01) ==
PROVIDERS: Emergency Provider Emergency Medicine; PCP Nurse Practitioner Family
DX: R53.1 Weakness (principal); Z79.82 Long term (current) use of aspirin; Z79.4 Long term (current) use of insulin; E78.5 Hyperlipidemia, unspecified; I10 Essential (primary) hypertension; E11.9 Type 2 diabetes mellitus without complications
CPT/HCPCS: 36416; 71045; 80053; 81001; 82962; 85025; 93005; 99285

== ENCOUNTER 2025-07-01 15:41 | Inpatient (IN) | payer MEDICARE, SELFPAY ==
[2025-07-01] VITALS (29 sets, daily range): BP systolic 104–127; BP diastolic 61–75; PULSE 87–120; RESP 2–24; TEMP 36.4–37.4; O2SAT 96–100; BMI 23.0; BMI 21.3
--- NOTE | 2025-07-01 15:46 | XRR_ITS ---
PROCEDURE INFORMATION: Exam: XR Abdomen Exam date and time: 07/01/2025 3:57 PM Age: 65 years old Clinical indication: Abdominal pain; Epigastric; Additional info: Epigastric pain TECHNIQUE: Imaging protocol: Radiologic exam of the abdomen. Views: 2 Views. Upright and supine views. COMPARISON: CT abdomen pelvis con [id number] 08/11/2024 7:35 AM FINDINGS: Lungs: Visualized lungs are unremarkable. Gastrointestinal tract: No dilated bowel loops. Extensive amount of feces in the entire colon suggesting constipation. Intraperitoneal space: There is no free intraperitoneal gas. Bones/joints: No acute osseous abnormality. XR/XR abdomen min 2V [id number] IMPRESSION: 1. No acute findings. 2. Findings suggestive of constipation.
--- NOTE | 2025-07-01 15:48 | W.ED.ABDPA2 ---
Documented by User: SUSI Villatoro 07/01/25 17:55 HPI - Abdominal Pain General: Chief Complaint: Nausea/Vomiting/Diarrhea Stated Complaint: diabetic - vomiting Time Seen by Provider: 07/01/25 15:45 History of Present Illness: Patient is a insulin-dependent diabetic diagnosed at age 49, presents to the ED with nausea, vomiting times today, with high blood glucose. Patient states this started this morning. He had 65 units of his Lantus this morning. Denies taking any short acting insulin this morning. Per EMS, blood glucose was 454 and route. IV fluids were started by EMS and Zofran 4 mg given IV. Patient does state this feels like his DKA he had February 2025 and required insulin drip. Associated Symptoms: Reports nausea and vomiting (Bilious); Denies chills, dysuria and fever(s) Related Data Home Medications ?Medication ?Instructions ?Recorded ?Confirmed aspirin 81 mg tablet,delayed 81 mg PO QAM 05/12/20 05/30/25 release (Adult Aspirin Regimen) gabapentin 300 mg capsule 300 mg PO BID 06/30/22 05/30/25 atorvastatin 40 mg tablet 40 mg PO QPM 06/28/23 05/30/25 hydrocodone 10 mg-acetaminophen 1 tab PO TID 06/28/23 05/30/25 325 mg tablet fenofibrate nanocrystallized 145 145 mg PO DAILY 08/11/24 05/30/25 mg tablet trazodone 100 mg tablet 100 mg PO BEDTIME 08/12/24 05/30/25 sertraline 50 mg tablet 50 mg PO DAILY 02/19/25 05/30/25 Previous Rx's ?Medication ?Instructions ?Recorded blood-glucose,cloth mercerizer back tender,cont #1 ea 11/30/22 (Dexcom G7 Crib Pad Maker) blood-glucose sensor (Dexcom G7 #9 ea 05/30/23 Sensor device) insulin aspart U-100 100 unit/mL 4 - 6 unit (0.04 - 0.06 mL) SUBCUT 02/20/25 (3 mL) subcutaneous pen (Novolog AC sliding scale #15 mL FlexPen U-100 Insulin aspart) insulin glargine 100 unit/mL (3 65 unit (0.65 mL) SUBCUT DAILY 30 02/20/25 mL) subcutaneous pen (Lantus days #15 mL Solostar U-100 Insulin) isosorbide mononitrate 30 mg 15 mg (1/2 x 30 mg) PO BID #90 tabs 05/30/25 tablet,extended release 24 hr Allergies Allergy/AdvReac Type Severity Reaction Status Date / Time No Known Drug Allergies Allergy Unknown Unknown Verified 12/06/24 07:23 Review of Systems General: Reports: 10 or more systems reviewed and unremarkable except in HPI and below Const: Denies: fever(s), chills, fatigue or malaise Eyes: Denies: change in vision or blurry vision ENMT: Denies: throat pain or nasal obstruction Card: Denies: chest pain or palpitations Resp: Denies: dyspnea or productive cough GI: Reports: abdominal pain (epigastrum), nausea and vomiting (Bilious) : Denies: flank pain, difficulty urinating, dysuria, urinary frequency or change in urine stream Musc: Denies: neck pain or back pain Skin/Breast: Denies: rash or pruritus Neuro: Denies: headache(s) or numbness in extremities Psych: Denies: anxiety or depression PFSH ED PFSH: Medical History (Updated 07/01/25 @ 17:24 by SUSI Villatoro) Depression Hypertension Anxiety Hyperlipidemia Chronic pain Insulin dependent diabetes mellitus Surgical History [place] [facility] Family History Father Colon cancer Other COPD (chronic obstructive pulmonary disease) Cancer Social History Smoking and tobacco/nicotine status: never used tobacco/nicotine Alcohol intake: never Substance/Drug Use: never Additional social history: 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 Patient states he wants DNR status and this was confirmed today with David Howell MD on 02/18/2025 Physical Exam Const: COMMON NORMALS: no acute distress, average body habitus, patient oriented x3, no limitations, healthy appearing, alert and well nourished HENMT: COMMON NORMALS: normocephalic, atraumatic and hearing grossly normal bilaterally HEAD & SCALP: normocephalic and atraumatic MOUTH: Normal oral and palatal mucosa present, lip normal and tongue normal Neck/C-Spine: COMMON NORMALS: full ROM, no lymphadenopathy, supple and no meningeal signs Lymph: LYMPHATIC: no lymphadenopathy noted Chest: COMMONS NORMALS: normal inspection of the chest and normal palpation of entire chest wall Resp: COMMON NORMALS: normal respiratory effort, No retractions and clear to auscultation bilaterally EFFORT & INSPECTION: Yes able to speak in complete sentences AUSCULTATION: clear to auscultation bilaterally Cardio: COMMON NORMALS: regular rate and regular rhythm RATE: regular rate RHYTHM: regular rhythm GI: COMMON NORMALS: Normal to inspection, nondistended, normoactive bowel sounds present, Soft to palpation, non-tender and No hepatosplenomegaly present PALPATION: Yes Soft to palpation and Yes No hepatosplenomegaly present : COMMON NORMALS: Yes no CVA tenderness BLADDER/KIDNEY EXAM: Yes no CVA tenderness Back/Pelvis: COMMON NORMALS: no CVA tenderness Extremity: COMMON NORMALS: normal to inspection, full ROM and capillary refill normal Neuro: COMMON NORMALS: patient oriented x3 SENSORIUM/ORIENTATION: Yes alert MENINGEAL SIGNS: Yes no meningeal signs Psych: COMMON NORMALS: mental status grossly normal, Normal thought process present and cooperative THOUGHT PROCESS: Normal thought process present Skin: COMMON NORMALS: no rashes or lesions noted and no wounds GENERAL SKIN EXAM: no rashes or lesions noted Course Reevaluation(s): Reevaluation #1: Improved Consultations: Consultation #1: [id number]: Dr. Tom nelson/approved admission to ICU/insulin drip Vital Signs: Vital signs: Vital Signs Temperature 97.6 F 07/01/25 15:48 Pulse Rate 120 H 07/01/25 15:48 Respiratory Rate 18 07/01/25 15:48 Blood Pressure 111/69 07/01/25 17:25 Pulse Oximetry 98 07/01/25 17:25 Oxygen Delivery Me thod Room Air 07/01/25 17:25 MDM - Abdominal Pain Medical Decision Making Patient is a 65-year-old insulin-dependent diabetic that presents to the ED with nausea, vomiting, and high blood sugar. EMS got 454, 434 here. Beta hydroxybutyrate, CBC, CMP, lipase all ordered. On physical examination, patient had mild epigastric tenderness. 2 view x-ray to rule out perforation is negative. He appears to have moderate to large amount of fecal content. Suspect component of gastroparesis. He is improved after Zofran 4 mg. Will obtain these routine labs, and reevaluate patient, and add additional 1 L to EMSs 1 L. Patient initially was confused regarding his long-acting and short acting insulin. He stated he had 6 insulins at home. I do wonder how much of the education is getting through to patient. He may require help with case management in order to better manage his blood glucose. He is already in contact with endocrinology. He is unsure why he did not take his NovoLog U100 this morning, however admits to consuming his Lantus. CO2 is low at 10, which indicates a acidosis, indicating DKA. Will check VBG. Repeat loading dose of insulin, and most likely start insulin drip close gap. Creatinine is slightly elevated from baseline at approximately 0.8?1.0 at 1.3. Patient stated a normal BM today, despite large amount of fecal content on my view of x-ray. Suspect component of gastroparesis associated with his nausea and vomiting. Lipase is slightly elevated at 65, questionable with underlying biliary tree association. Discussed with on-call hospitalist, and Dr. Santos, whom approved admission. Medical Records I reviewed the patient's medical records. Lab Data I reviewed the patient's lab results. 07/01/25 15:20 07/01/25 15:20 Labs/Radiology: Radiology Impressions Abdomen X-Ray 07/01/25 15:46 IMPRESSION: 1. No acute findings. 2. Findings suggestive of constipation. Laboratory Results WBC 14.24 10^3/uL (3.29-11.43) H 07/01/25 15:20 RBC 4.84 10^6/uL (3.85-5.65) 07/01/25 15:20 Hgb 14.20 g/dL (11.27-16.99) 07/01/25 15:20 Hct 44.9 % (37-53) 07/01/25 15:20 MCV 92.8 fl (82-101) 07/01/25 15:20 MCH 29.3 pg (27-33) 07/01/25 15:20 MCHC 31.6 g/dL (30-55) 07/01/25 15:20 RDW 13.4 % (12.1-15.1) 07/01/25 15:20 Plt Count 325 10^3/cmm (157-399) 07/01/25 15:20 MPV 11.3 fL (7.4-10.4) H 07/01/25 15:20 Neut % (Auto) 87.3 % 07/01/25 15:20 Lymph % (Auto) 9.9 % 07/01/25 15:20 Evangeline % (Auto) 1.4 % 07/01/25 15:20 Eos % (Auto) 0.1 % 07/01/25 15:20 Baso % (Auto) 0.5 % 07/01/25 15:20 Neut # (Auto) 12.44 10^3/uL (1.8-7.7) H 07/01/25 15:20 Lymph # (Auto) 1.4 10^3/uL (0.8-4.8) 07/01/25 15:20 Evangeline # (Auto) 0.2 10^3/uL (0.2-0.9) 07/01/25 15:20 Eos # (Auto) 0.0 10^3/uL (0.0-0.8) 07/01/25 15:20 Baso # (Auto) 0.1 10^3/uL (0.0-0.1) 07/01/25 15:20 Nucleated RBC % (auto) 0 % 07/01/25 15:20 Nucleated RBCs # 0.0 /100WBC 07/01/25 15:20 Specimen Type Not specified 07/01/25 17:15 Sample Site Not specified 07/01/25 17:15 Jefferson Test N/a 07/01/25 17:15 VBG pH 7.09 (7.32-7.42) L* 07/01/25 17:15 VBG pCO2 27.9 mmHg (41-51) L 07/01/25 17:15 VBG pO2 83.5 mmHg (25-40) H 07/01/25 17:15 VBG HCO3 8.5 mmol/L (24-28) L 07/01/25 17:15 VBG Base Excess -19.9 mmol/L (-3.0-3.0) L 07/01/25 17:15 VBG Hematocrit 40.8 % (42-52) L 07/01/25 17:15 O2 Delivery Device Not Reportable 07/01/25 17:15 Ware Server ID Adrienne 07/01/25 17:15 Sodium 138 mmol/L (136-145) 07/01/25 15:20 Potassium 5.0 mmol/L (3.5-5.1) 07/01/25 15:20 Chloride 95 mmol/L (98-107) L 07/01/25 15:20 Carbon Dioxide 10 mmol/L (22-29) L 07/01/25 15:20 Anion Gap 38.0 (5-19) H 07/01/25 15:20 BUN 30 mg/dL (8-23) H 07/01/25 15:20 Creatinine 1.3 mg/dL (0.7-1.2) H 07/01/25 15:20 GFR Calculation 55.2 mL/min (90-130) L 07/01/25 15:20 Glucose 515 mg/dL (65-115) H* 07/01/25 15:20 POC Glucose 315 mg/dL (70-110) H 07/01/25 17:34 Calculated Osmolality 315 mOsm/kg (285-295) H 07/01/25 15:20 Calcium 10.5 mg/dL (8.5-10.5) 07/01/25 15:20 Phosphorus 7.3 mg/dL (2.5-4.5) H 07/01/25 15:20 Magnesium 2.6 mg/dL (1.7-2.3) H 07/01/25 15:20 Total Bilirubin 0.3 mg/dL (0.15-1.2) 07/01/25 15:20 AST 11 U/L (0-40) 07/01/25 15:20 ALT 15 U/L (0-41) 07/01/25 15:20 Alkaline Phosphatase 85 U/L (40-130) 07/01/25 15:20 Total Protein 7.8 g/dL (6.6-8.7) 07/01/25 15:20 Albumin 4.7 g/dL (3.5-5.2) 07/01/25 15:20 Globulin 3.1 g/dL (1.3-4.6) 07/01/25 15:20 Triglycerides 133 mg/dL (0-150) 07/01/25 15:20 Lipase 65 U/L (13-60) H 07/01/25 15:20 Urine Color Yellow (Yellow) 07/01/25 16:55 Urine Appearance Clear (CLEAR) 07/01/25 16:55 Urine pH 5.0 (5-7) 07/01/25 16:55 Ur Specific [place] 1.022 (1.005-1.030) 07/01/25 16:55 Urine Protein Trace (Negative) A 07/01/25 16:55 Urine Glucose (UA) 3+ (Normal) H 07/01/25 16:55 Urine Ketones 4+ (Negative) 07/01/25 16:55 Urine Blood Negative (Negative) 07/01/25 16:55 Urine Nitrate Negative (Negative) 07/01/25 16:55 Urine Bilirubin Negative (Negative) 07/01/25 16:55 Urine Urobilinogen 0.2 mg/dL (Negative) 07/01/25 16:55 Ur Leukocyte Esterase Negative (Negative) 07/01/25 16:55 Urine RBC 0-2 /hpf (0-2) 07/01/25 16:55 Urine WBC 0-5 /hpf (0-5) 07/01/25 16:55 Ur Squamous Epith Cells 0-5 /hpf (0-5) 07/01/25 16:55 Amorphous Sediment Not Reportable 07/01/25 16:55 Urine Bacteria None seen /hpf (NONE) 07/01/25 16:55 Hyaline Casts 3.30 /lpf 07/01/25 16:55 XR interpretation done by ED provider, pending radiology final review ED provider radiology interpretation(s): non acute findings, large fecal content Discharge Plan Discharge Patient Disposition: Admitted As Inpatient Admit Provider: Jarred Santos Clinical Impression: DKA (diabetic ketoacidosis), Creatinine elevation, Elevated lipase, Leukemoid reaction Condition: Stable Coding Level of Care Code ED Brand Executive for Chg Fwd Documented by User: Estefania Mcgowan MD 07/01/25 17:33 HPI - Abdominal Pain General: Chief Complaint: Nausea/Vomiting/Diarrhea Stated Complaint: diabetic - vomiting Time Seen by Provider: 07/01/25 15:45 Related Data Home Medications ?Medication ?Instructions ?Recorded ?Confirmed aspirin 81 mg tablet,delayed 81 mg PO QAM 05/12/20 05/30/25 release (Adult Aspirin Regimen) gabapentin 300 mg capsule 300 mg PO BID 06/30/22 05/30/25 atorvastatin 40 mg tablet 40 mg PO QPM 06/28/23 05/30/25 hydrocodone 10 mg-acetaminophen 1 tab PO TID 06/28/23 05/30/25 325 mg tablet fenofibrate nanocrystallized 145 145 mg PO DAILY 08/11/24 05/30/25 mg tablet trazodone 100 mg tablet 100 mg PO BEDTIME 08/12/24 05/30/25 sertraline 50 mg tablet 50 mg PO DAILY 02/19/25 05/30/25 Previous Rx's ?Medication ?Instructions ?Recorded blood-glucose,cloth mercerizer back tender,cont #1 ea 11/30/22 (Dexcom G7 Crib Pad Maker) blood-glucose sensor (Dexcom G7 #9 ea 05/30/23 Sensor device) insulin aspart U-100 100 unit/mL 4 - 6 unit (0.04 - 0.06 mL) SUBCUT 02/20/25 (3 mL) subcutaneous pen (Novolog AC sliding scale #15 mL FlexPen U-100 Insulin aspart) insulin glargine 100 unit/mL (3 65 unit (0.65 mL) SUBCUT DAILY 30 02/20/25 mL) subcutaneous pen (Lantus days #15 mL Solostar U-100 Insulin) isosorbide mononitrate 30 mg 15 mg (1/2 x 30 mg) PO BID #90 tabs 05/30/25 tablet,extended release 24 hr Allergies Allergy/AdvReac Type Severity Reaction Status Date / Time No Known Drug Allergies Allergy Unknown Unknown Verified 12/06/24 07:23 PFS ED PFSH: Medical History (Updated 07/01/25 @ 17:24 by SUSI Villatoro) Depression Hypertension Anxiety Hyperlipidemia Chronic pain Insulin dependent diabetes mellitus Surgical History [place] of [place] [facility] [facility] [place] Family History Father Colon cancer Other COPD (chronic obstructive pulmonary disease) Cancer Social History Smoking and tobacco/nicotine status: never used tobacco/nicotine Alcohol intake: never Substance/Drug Use: never Additional social history: 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 Patient states he wants DNR status and this was confirmed today with David Howell MD on 02/18/2025 Course Vital Signs: Vital signs: Vital Signs Temperature 97.6 F 07/01/25 15:48 Pulse Rate 120 H 07/01/25 15:48 Respiratory Rate 18 07/01/25 15:48 Blood Pressure 111/69 07/01/25 17:25 Pulse Oximetry 98 07/01/25 17:25 Oxygen Delivery Me thod Room Air 07/01/25 17:25 MDM - Abdominal Pain Medical Decision Making Patient is a 65-year-old insulin-dependent diabetic that presents to the ED with nausea, vomiting, and high blood sugar. EMS got 454, 434 here. Beta hydroxybutyrate, CBC, CMP, lipase all ordered. On physical examination, patient had mild epigastric tenderness. 2 view x-ray to rule out perforation is negative. He appears to have moderate to large amount of fecal content. Suspect component of gastroparesis. He is improved after Zofran 4 mg. Will obtain these routine labs, and reevaluate patient, and add additional 1 L to EMSs 1 L. Patient initially was confused regarding his long-acting and short acting insulin. He stated he had 6 insulins at home. I do wonder how much of the education is getting through to patient. He may require help with case management in order to better manage his blood glucose. He is already in contact with endocrinology. He is unsure why he did not take his NovoLog U100 this morning, however admits to consuming his Lantus. CO2 is low at 10, which indicates a acidosis, indicating DKA. Will check VBG. Repeat loading dose of insulin, and most likely start insulin drip close gap. Creatinine is slightly elevated from baseline at approximately 0.8?1.0 at 1.3. Patient stated a normal BM today, despite large amount of fecal content on my view of x-ray. Suspect component of gastroparesis associated with his nausea and vomiting. Lipase is slightly elevated at 65, questionable with underlying biliary tree association. Discussed with on-call hospitalist, and Dr. Santos, whom approved admission. I saw patient with above midlevel agree with history and physical patient is in DKA did start patient on insulin drip will admit to ICU to Dr. Santos. critical care time 35 The high probability of a clinically significant, sudden or life threatening deterioration of the patient's endocrine system(s) required my full and direct attention, intervention and personal management. The critical care time is as shown. This time is in addition to time spent performing any reported procedures but includes the following: [x] Data and vital sign review and interpretation [x] Patient assessment, examination and intervention [x] Documentation [x] Medication orders and management Lab Data 07/01/25 15:20 07/01/25 15:20 Labs/Radiology: Radiology Impressions Abdomen X-Ray 07/01/25 15:46 IMPRESSION: 1. No acute findings. 2. Findings suggestive of constipation. Laboratory Results WBC 14.24 10^3/uL (3.29-11.43) H 07/01/25 15:20 RBC 4.84 10^6/uL (3.85-5.65) 07/01/25 15:20 Hgb 14.20 g/dL (11.27-16.99) 07/01/25 15:20 Hct 44.9 % (37-53) 07/01/25 15:20 MCV 92.8 fl (82-101) 07/01/25 15:20 MCH 29.3 pg (27-33) 07/01/25 15:20 MCHC 31.6 g/dL (30-55) 07/01/25 15:20 RDW 13.4 % (12.1-15.1) 07/01/25 15:20 Plt Count 325 10^3/cmm (157-399) 07/01/25 15:20 MPV 11.3 fL (7.4-10.4) H 07/01/25 15:20 Neut % (Auto) 87.3 % 07/01/25 15:20 Lymph % (Auto) 9.9 % 07/01/25 15:20 Evangeline % (Auto) 1.4 % 07/01/25 15:20 Eos % (Auto) 0.1 % 07/01/25 15:20 Baso % (Auto) 0.5 % 07/01/25 15:20 Neut # (Auto) 12.44 10^3/uL (1.8-7.7) H 07/01/25 15:20 Lymph # (Auto) 1.4 10^3/uL (0.8-4.8) 07/01/25 15:20 Evangeline # (Auto) 0.2 10^3/uL (0.2-0.9) 07/01/25 15:20 Eos # (Auto) 0.0 10^3/uL (0.0-0.8) 07/01/25 15:20 Baso # (Auto) 0.1 10^3/uL (0.0-0.1) 07/01/25 15:20 Nucleated RBC % (auto) 0 % 07/01/25 15:20 Nucleated RBCs # 0.0 /100WBC 07/01/25 15:20 Specimen Type Not specified 07/01/25 17:15 Sample Site Not specified 07/01/25 17:15 Jefferson Test N/a 07/01/25 17:15 VBG pH 7.09 (7.32-7.42) L* 07/01/25 17:15 VBG pCO2 27.9 mmHg (41-51) L 07/01/25 17:15 VBG pO2 83.5 mmHg (25-40) H 07/01/25 17:15 VBG HCO3 8.5 mmol/L (24-28) L 07/01/25 17:15 VBG Base Excess -19.9 mmol/L (-3.0-3.0) L 07/01/25 17:15 VBG Hematocrit 40.8 % (42-52) L 07/01/25 17:15 O2 Delivery Device Not Reportable 07/01/25 17:15 Ware Server ID Adrienne 07/01/25 17:15 Sodium 138 mmol/L (136-145) 07/01/25 15:20 Potassium 5.0 mmol/L (3.5-5.1) 07/01/25 15:20 Chloride 95 mmol/L (98-107) L 07/01/25 15:20 Carbon Dioxide 10 mmol/L (22-29) L 07/01/25 15:20 Anion Gap 38.0 (5-19) H 07/01/25 15:20 BUN 30 mg/dL (8-23) H 07/01/25 15:20 Creatinine 1.3 mg/dL (0.7-1.2) H 07/01/25 15:20 GFR Calculation 55.2 mL/min (90-130) L 07/01/25 15:20 Glucose 515 mg/dL (65-115) H* 07/01/25 15:20 POC Glucose 315 mg/dL (70-110) H 07/01/25 17:34 Calculated Osmolality 315 mOsm/kg (285-295) H 07/01/25 15:20 Calcium 10.5 mg/dL (8.5-10.5) 07/01/25 15:20 Phosphorus 7.3 mg/dL (2.5-4.5) H 07/01/25 15:20 Magnesium 2.6 mg/dL (1.7-2.3) H 07/01/25 15:20 Total Bilirubin 0.3 mg/dL (0.15-1.2) 07/01/25 15:20 AST 11 U/L (0-40) 07/01/25 15:20 ALT 15 U/L (0-41) 07/01/25 15:20 Alkaline Phosphatase 85 U/L (40-130) 07/01/25 15:20 Total Protein 7.8 g/dL (6.6-8.7) 07/01/25 15:20 Albumin 4.7 g/dL (3.5-5.2) 07/01/25 15:20 Globulin 3.1 g/dL (1.3-4.6) 07/01/25 15:20 Triglycerides 133 mg/dL (0-150) 07/01/25 15:20 Lipase 65 U/L (13-60) H 07/01/25 15:20 Urine Color Yellow (Yellow) 07/01/25 16:55 Urine Appearance Clear (CLEAR) 07/01/25 16:55 Urine pH 5.0 (5-7) 07/01/25 16:55 Ur Specific [place] 1.022 (1.005-1.030) 07/01/25 16:55 Urine Protein Trace (Negative) A 07/01/25 16:55 Urine Glucose (UA) 3+ (Normal) H 07/01/25 16:55 Urine Ketones 4+ (Negative) 07/01/25 16:55 Urine Blood Negative (Negative) 07/01/25 16:55 Urine Nitrate Negative (Negative) 07/01/25 16:55 Urine Bilirubin Negative (Negative) 07/01/25 16:55 Urine Urobilinogen 0.2 mg/dL (Negative) 07/01/25 16:55 Ur Leukocyte Esterase Negative (Negative) 07/01/25 16:55 Urine RBC 0-2 /hpf (0-2) 07/01/25 16:55 Urine WBC 0-5 /hpf (0-5) 07/01/25 16:55 Ur Squamous Epith Cells 0-5 /hpf (0-5) 07/01/25 16:55 Amorphous Sediment Not Reportable 07/01/25 16:55 Urine Bacteria None seen /hpf (NONE) 07/01/25 16:55 Hyaline Casts 3.30 /lpf 07/01/25 16:55 Critical Care Time Critical Care Time: Critical Care Time: Yes Total Critical Care Time: 35 Attestation: The high probability of a clinically significant, sudden or life threatening deterioration of the patient's endocrine system(s) required my full and direct attention, intervention and personal management. The critical care time is as shown. This time is in addition to time spent performing any reported procedures but includes the following: [x] Data and vital sign review and interpretation [x] Patient assessment, examination and intervention [x] Documentation [x] Medication orders and management Discharge Plan Discharge Patient Disposition: Admitted As Inpatient Admit Provider: Jarred Santos Clinical Impression: DKA (diabetic ketoacidosis), Creatinine elevation, Elevated lipase, Leukemoid reaction Condition: Stable Coding Level of Care Code ED Brand Executive for Aura Durán
[2025-07-01] MEDS: insulin regular-human 100 units/1 mL 10 UNIT IVP ×2 (16:01→16:56)
[2025-07-01 16:20] LABS: Hematocrit 44.9 % (37-53); Hemoglobin 14.20 g/dL (11.27-16.99); Mean Corpuscular HGB Conc 31.6 g/dL (30-55); Mean Corpuscular Hemoglobin 29.3 pg (27-33); Mean Corpuscular Volume 92.8 fl (82-101); Nucleated Red Blood Cells % 0 %; Platelet Count 325 10^3/cmm (157-399); Red Blood Count 4.84 10^6/uL (3.85-5.65); White Blood Count 14.24 10^3/uL (3.29-11.43)
[2025-07-01] MEDS: pantoprazole 40 mg SDV IVP (16:37)
[2025-07-01 16:43] LABS: Alanine Aminotransferase 15 U/L (0-41); Albumin Level 4.7 g/dL (3.5-5.2); Alkaline Phosphatase 85 U/L (40-130); Anion Gap 38.0 (5-19); Aspartate Amino Transferase 11 U/L (0-40); Blood Urea Nitrogen 30 mg/dL (8-23); Calcium 10.5 mg/dL (8.5-10.5); Carbon Dioxide 10 mmol/L (22-29); Chloride 95 mmol/L (98-107); Globulin 3.1 g/dL (1.3-4.6); Lipase 65 U/L (13-60); Osmolality Calculated 315 mOsm/kg (285-295); Potassium 5.0 mmol/L (3.5-5.1); Sodium 138 mmol/L (136-145); Total Protein 7.8 g/dL (6.6-8.7)
[2025-07-01 16:45] LABS: Glucose 515 mg/dL (65-115)
--- NOTE | 2025-07-01 16:54 | USR_ITS ---
PROCEDURE INFORMATION: Exam: US Abdomen, Limited; Right Upper Quadrant Exam date and time: 07/01/2025 5:58 PM Age: 65 years old Clinical indication: Abnormal findings; Abnormal lab test; Elevated lipase; Additional info: N/v, abdominal pain, minimally elevated lipase TECHNIQUE: Imaging protocol: Real time ultrasound of the abdomen with image documentation. Limited exam focused on the right upper quadrant. COMPARISON: CT abdomen pelvis wo con [id number] 08/11/2024 7:35 AM FINDINGS: Limitations: Technically difficult study due to overlying bowel gas. Liver: The liver has a coarse echotexture is within normal limits. Gallbladder: Gallbladder is distended with no wall thickening. Biliary ducts: Common bile duct is within normal limits measuring 3 mm in diameter. Pancreas: Pancreas is not visualized. Right kidney: Right kidney measures 10.8 x 5.7 x 5.9 cm with good corticomedullary differentiation and no hydronephrosis. Aorta: The aorta is unremarkable. Inferior vena cava: IVC is patent and within normal limits. US/US abdomen limited [id number] IMPRESSION: No acute findings.
[2025-07-01 17:05] LABS: Glucose Urine UA 3+ (Normal); Nitrate Urine Negative (Negative); Specific Gravity, Urine 1.022 (1.005-1.030)
[2025-07-01 17:08] LABS: Add Urine Microscopic? YES
[2025-07-01 17:21] LABS: Triglycerides 133 mg/dL (0-150)
[2025-07-01 17:25] LABS: Base Excess VBG -19.9 mmol/L (-3.0-3.0); Blood Gas Sample Site Not specified; Blood Gas Sample Type Not specified; HCO3 VBG 8.5 mmol/L (24-28); PCO2 VBG 27.9 mmHg (41-51); PO2 VBG 83.5 mmHg (25-40); Venous Blood Gas Hematocrit 40.8 % (42-52)
[2025-07-01 17:27] LABS: pH VBG 7.09 (7.32-7.42)
[2025-07-01 17:35] LABS: Magnesium 2.6 mg/dL (1.7-2.3)
[2025-07-01] MEDS: INSULIN REGULAR IN 0.9 % NACL 100 UNIT/100 ML BAG 6 UNIT IV (17:46)
[2025-07-01 17:55] LABS: Ketone (Acetest) Serum Positive (Negative)
--- NOTE | 2025-07-01 18:19 | PM.HP ---
Providers/Chief Complaint Admitting Physician: Jarred Santos Chief Complaint: diabetic - vomiting History of Present Illness Wiliam Rogers Jr is a 65 year old gentleman with a history of diabetes mellitus managed by endocrinology on long-acting and short-acting insulin presented to the emergency department (ED) with nausea and vomiting and a blood glucose of 515 mg/dL. Reports using long-acting insulin (Lantus or Tresiba) at home at 65 units and short-acting insulin (lispro) before meals (typically 3 units), but has experienced confusion between long-acting and short-acting insulins in the past. States he uses Lantus in the morning and short-acting insulin before meals when eating; sometimes appetite is decreased. Diet often includes oatmeal; he notes prior reduction in A1c from 11.6 to 7.5 during a period of frequent oatmeal intake. Denies missing recent insulin doses and attributes current episode possibly to sweets; indicates 4?5 days without sweets prior to presentation. Uses a continuous glucose monitor (CGM); a newly placed sensor (referred to as CR7 ) started beeping and then stopped reading after three days; plans to replace it with supplies at home. In the ED, he received intravenous (IV) fluids and ondansetron (Zofran) and was started on an insulin drip. ED data: sinus tachycardia; leukocytosis 14.24; arterial blood gas (ABG) with pH 7.09, partial pressure of carbon dioxide (CO2) 27.9, partial pressure of oxygen (PO2) 83.5, bicarbonate (HCO3) 8.5; comprehensive metabolic panel (CMP) bicarbonate 10, potassium 5, sodium 138, blood urea nitrogen (BUN) 30, creatinine 1.3; liver parameters unremarkable; lipase 65; urinalysis with 4+ ketones and 3+ glucose. Abdominal X-ray showed no acute findings; visualized lungs unremarkable; constipation noted. Code status discussion occurred; the patient wishes attempts at resuscitation (cardiopulmonary resuscitation [CPR] and intubation) if needed. Plan communicated that an intensive care unit (ICU) bed would be obtained, IV fluids continued, labs rechecked intermittently, and insulin drip continued with transition to subcutaneous insulin when appropriate. Review of Systems Const: Denies: fever(s), chills, body aches or malaise ENMT: Denies: throat pain Card: Denies: chest pain, edema, pre-syncope or dyspnea on exertion Resp: Denies: dyspnea, productive cough, change in phlegm color or hemoptysis GI: Reports: nausea and vomiting; Denies: abdominal pain, diarrhea, constipation, hematochezia or melena : Denies: flank pain, difficulty urinating, urinary frequency or hematuria Musc: Denies: back pain, joint swelling or joint redness Skin/Breast: Denies: rash or new lesions Neuro: Denies: headache(s) or confusion Medications/Allergies Home Medications ?Medication ?Instructions ?Recorded ?Confirmed ?Last Taken ?Type aspirin 81 mg tablet,delayed 81 mg PO QAM 05/12/20 05/30/25 02/17/25 History release (Adult Aspirin Regimen) gabapentin 300 mg capsule 300 mg PO BID 06/30/22 05/30/25 02/17/25 History blood-glucose,superintendent renting managing,cont #1 ea 11/30/22 05/15/25 Unknown Rx (Dexcom G7 Kitchen Hand) blood-glucose sensor (Dexcom G7 #9 ea 05/30/23 05/15/25 Unknown Rx Sensor device) atorvastatin 40 mg tablet 40 mg PO QPM 06/28/23 05/30/25 02/17/25 18:00 History hydrocodone 10 mg-acetaminophen 1 tab PO TID 06/28/23 05/30/25 02/17/25 History 325 mg tablet fenofibrate nanocrystallized 145 145 mg PO DAILY 08/11/24 05/30/25 02/17/25 History mg tablet trazodone 100 mg tablet 100 mg PO BEDTIME 08/12/24 05/30/25 Unknown History sertraline 50 mg tablet 50 mg PO DAILY 02/19/25 05/30/25 02/17/25 History insulin aspart U-100 100 unit/mL 4 - 6 unit (0.04 - 0.06 mL) SUBCUT 02/20/25 05/30/25 05/15/24 Rx (3 mL) subcutaneous pen (Novolog AC sliding scale #15 mL FlexPen U-100 Insulin aspart) insulin glargine 100 unit/mL (3 65 unit (0.65 mL) SUBCUT DAILY 30 02/20/25 05/30/25 Unknown Rx mL) subcutaneous pen (Lantus days #15 mL Solostar U-100 Insulin) isosorbide mononitrate 30 mg 15 mg (1/2 x 30 mg) PO BID #90 tabs 05/30/25 05/30/25 Unknown Rx tablet,extended release 24 hr Allergies Allergy/AdvReac Type Severity Reaction Status Date / Time No Known Drug Allergies Allergy Unknown Unknown Verified 12/06/24 07:23 PFSH Acute PFSH: Medical History Depression Hypertension Anxiety Hyperlipidemia Chronic pain Insulin dependent diabetes mellitus Surgical History Hx of colonoscopy 18 years ago [facility] [place] H/O shoulder surgery Family History Father Colon cancer Other COPD (chronic obstructive pulmonary disease) Cancer Social History Smoking and tobacco/nicotine status: never used tobacco/nicotine Alcohol intake: never Substance/Drug Use: never Additional social history: 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 Patient states he wants DNR status and this was confirmed today with David Howell MD on 02/18/2025 Vitals/I&O/Wt Last Vital Signs Temp 97.6 F 07/01/25 15:48 Pulse 113 H 07/01/25 18:06 Resp 18 07/01/25 15:48 BP 104/65 07/01/25 18:06 Pulse Ox 99 07/01/25 18:06 O2 Del Method Room Air 07/01/25 17:25 07/01/25 07/01/25 07/01/25 06:59 14:59 22:59 Intake Total 1000 / 1000 Balance 1000 / 1000 Weight last 48 hrs Weight 60.781 kg Physical Exam Const: COMMON NORMALS: patient oriented x3 and alert GENERAL APPEARANCE: cooperative ORIENTATION/CONSCIOUSNESS: Yes awake HENMT: COMMON NORMALS: oropharynx normal Neck/C-Spine: COMMON NORMALS: no JVD Resp: COMMON NORMALS: normal respiratory effort and clear to auscultation bilaterally AUSCULTATION: clear to auscultation bilaterally Cardio: COMMON NORMALS: no JVD, regular rhythm, S1 normal heart sound present, S2 normal heart sound present and No murmurs present (Cardio) RHYTHM: regular rhythm HEART SOUNDS: S1 normal heart sound present and S2 normal heart sound present GI: COMMON NORMALS: Normal to inspection, nondistended, normoactive bowel sounds present, Soft to palpation and non-tender PALPATION: Yes Soft to palpation Extremity: COMMON NORMALS: no joint enlargement and no pedal edema Neuro: COMMON NORMALS: patient oriented x3 and moves all extremities SENSORIUM/ORIENTATION: Yes alert Skin: COMMON NORMALS: no rashes or lesions noted GENERAL SKIN EXAM: no rashes or lesions noted Data 07/01/25 15:20 07/01/25 15:20 A&P Assessment and plan 1. DKA (diabetic ketoacidosis): ED blood glucose 515 mg/dL; on insulin drip and IV hydration. ABG pH 7.09, HCO3 8.5; CMP bicarbonate 10. Urinalysis with 4+ ketones and 3+ glucose. - Continue chemistry reassessments every four hours until improvement in anion gap and bicarbonate, at which point may switch back to subcutaneous insulin. - Continue IV hydration. - Continue insulin drip. - Once blood glucose is decreasing below 250, switch to dextrose-containing fluid. - Cardiac monitoring with risk of arrhythmia (with tachycardia). - Admit to ICU. - Confirms that at home he uses 65 units of Lantus every morning. Then uses about 3 units of Premeal short acting insulin 3 times daily. Has a continuous glucose monitoring device, although the sensor had recently . May have had some indiscretions with sweets recently. 2. JUAN PABLO (acute kidney injury): Creatinine 1.3, possibly prerenal with DKA, nausea vomiting, dehydration. Continue IV hydration. Monitor for risk of fluid overload. Reassess chemistry. Monitor intake output. 3. Elevated lipase: Proximal extremity nausea and vomiting. Follow-up lipase level. Plan: Leukocytosis : White blood cell count 14.24. - Continue monitoring via chemistry and lab reassessments every four hours. Sinus tachycardia : Sinus tachycardia reported in ED. - Cardiac monitoring with risk of arrhythmia. Hypertension : History of hypertension; current blood pressure soft at 104/65. - Hold antihypertensives for now (blood pressure soft at 104/65). - Monitor blood pressure. Hyperlipidemia : History of hyperlipidemia. - Continue statin for hyperlipidemia. Anxiety and depression : History of anxiety and depression. - Continue sertraline for anxiety and depression. - Trazodone at bedtime. Chronic pain : History of chronic pain. Follow-up : Ongoing inpatient management and reassessments. - Continue chemistry reassessments every four hours. - Transition back to subcutaneous insulin when anion gap and bicarbonate improve. - VTE prophylaxis with enoxaparin (Lovenox). - PPI prophylaxis with pantoprazole (Protonix). PDMP PDMP Reviewed: Not Reviewed Attestations Medical Necessity Statement*: Admission of over 2 midnights anticipated for assessment and management of acute DKA Coding Level of Care Code Critical Care >/= 30 minutes Critical care time (in minutes): 35 The high probability of a clinically significant, sudden or life threatening deterioration, as referenced in this documentation, required my full and direct attention, intervention and personal management. The critical care time shown is in addition to time spent performing any reported separately billable procedures and includes the following: [x] Data and vital sign review and interpretation [x] Patient assessment, examination and intervention [x] Medication orders and management [x] Patient/Family updates as able [x] Care Coordination and Documentation. Diagnoses DKA (diabetic ketoacidosis) E11.10 JUAN PABLO (acute kidney injury) N17.9 Elevated lipase R74.8
[2025-07-01] MEDS: dextrose 5%-sod chloride 0.45% 1,000 ML 200 ML IV (19:28)
[2025-07-01 20:27] LABS: Anion Gap 26.1 (5-19); Blood Urea Nitrogen 27 mg/dL (8-23); Calcium 9.2 mg/dL (8.5-10.5); Carbon Dioxide 13 mmol/L (22-29); Chloride 107 mmol/L (98-107); Glucose 228 mg/dL (65-115); Osmolality Calculated 306 mOsm/kg (285-295); Potassium 4.1 mmol/L (3.5-5.1); Sodium 142 mmol/L (136-145)
[2025-07-01] MEDS: D5-NS 0.45% + KCL 20 mEq 20 MEQ/1,000 ML BAG 200 MEQ IV (22:40)
[2025-07-02] VITALS (40 sets, daily range): BP systolic 96–126; BP diastolic 60–73; PULSE 74–106; RESP 2–34; TEMP 36.8; O2SAT 82–100
[2025-07-02 02:29] LABS: Anion Gap 14.2 (5-19); Blood Urea Nitrogen 23 mg/dL (8-23); Calcium 8.8 mg/dL (8.5-10.5); Carbon Dioxide 21 mmol/L (22-29); Chloride 109 mmol/L (98-107); Glucose 257 mg/dL (65-115); Osmolality Calculated 302 mOsm/kg (285-295); Potassium 4.2 mmol/L (3.5-5.1); Sodium 140 mmol/L (136-145)
[2025-07-02] MEDS: insulin glargine 100 units/1 mL 65 UNIT SUBCUT (03:36)
[2025-07-02 05:44] LABS: Hematocrit 30.4 % (37-53); Hemoglobin 10.00 g/dL (11.27-16.99); Mean Corpuscular HGB Conc 32.9 g/dL (30-55); Mean Corpuscular Hemoglobin 29.1 pg (27-33); Mean Corpuscular Volume 88.4 fl (82-101); Nucleated Red Blood Cells % 0 %; Platelet Count 192 10^3/cmm (157-399); Red Blood Count 3.44 10^6/uL (3.85-5.65); White Blood Count 9.91 10^3/uL (3.29-11.43)
[2025-07-02 06:00] LABS: Alanine Aminotransferase 9 U/L (0-41); Albumin Level 3.5 g/dL (3.5-5.2); Alkaline Phosphatase 55 U/L (40-130); Anion Gap 11.4 (5-19); Aspartate Amino Transferase 8 U/L (0-40); Blood Urea Nitrogen 19 mg/dL (8-23); Calcium 8.3 mg/dL (8.5-10.5); Carbon Dioxide 22 mmol/L (22-29); Chloride 107 mmol/L (98-107); Globulin 1.7 g/dL (1.3-4.6); Glucose 309 mg/dL (65-115); Lipase 135 U/L (13-60); Magnesium 1.9 mg/dL (1.7-2.3); Osmolality Calculated 298 mOsm/kg (285-295); Potassium 3.4 mmol/L (3.5-5.1); Sodium 137 mmol/L (136-145); Total Protein 5.2 g/dL (6.6-8.7)
--- NOTE | 2025-07-02 08:55 | PM.DCS ---
Discharge Providers Date of Admission: 07/01/25 17:45 Date of Discharge: July 02, 2025 Attending Provider at Admission: Jarred Santos Attending Provider at Discharge: Jarred Santos Diagnoses at Discharge Discharge Diagnosis 1. DKA (diabetic ketoacidosis): 2. JUAN PABLO (acute kidney injury): 3. Elevated lipase: Reason for Visit Reason for Visit: diabetic - vomiting Brief History: Wiliam Rogers Jr is a 65 year old gentleman with a history of diabetes mellitus managed by endocrinology on long-acting and short-acting insulin presented to the emergency department (ED) with nausea and vomiting and a blood glucose of 515 mg/dL. Reports using long-acting insulin (Lantus or Tresiba) at home at 65 units and short-acting insulin (lispro) before meals (typically 3 units), but has experienced confusion between long-acting and short-acting insulins in the past. States he uses Lantus in the morning and short-acting insulin before meals when eating; sometimes appetite is decreased. Diet often includes oatmeal; he notes prior reduction in A1c from 11.6 to 7.5 during a period of frequent oatmeal intake. Denies missing recent insulin doses and attributes current episode possibly to sweets; indicates 4?5 days without sweets prior to presentation. Uses a continuous glucose monitor (CGM); a newly placed sensor (referred to as CR7 ) started beeping and then stopped reading after three days; plans to replace it with supplies at home. In the ED, he received intravenous (IV) fluids and ondansetron (Zofran) and was started on an insulin drip. ED data: sinus tachycardia; leukocytosis 14.24; arterial blood gas (ABG) with pH 7.09, partial pressure of carbon dioxide (CO2) 27.9, partial pressure of oxygen (PO2) 83.5, bicarbonate (HCO3) 8.5; comprehensive metabolic panel (CMP) bicarbonate 10, potassium 5, sodium 138, blood urea nitrogen (BUN) 30, creatinine 1.3; liver parameters unremarkable; lipase 65; urinalysis with 4+ ketones and 3+ glucose. Abdominal X-ray showed no acute findings; visualized lungs unremarkable; constipation noted. Code status discussion occurred; the patient wishes attempts at resuscitation (cardiopulmonary resuscitation [CPR] and intubation) if needed. Plan communicated that an intensive care unit (ICU) bed would be obtained, IV fluids continued, labs rechecked intermittently, and insulin drip continued with transition to subcutaneous insulin when appropriate. Hospital Course Hospital Course DKA treated and resolved with IV fluid hydration, insulin drip, electrolyte replacement. Vomiting resolved. Tolerating clear liquids. He is going to set up and use sensor since the current sensor for his CGM has failed prematurely. Advised strict consistent carbohydrate diet. Discussed insulin regimen with him, continue long-acting insulin 65 units every morning, as well as 2 to 4 units of NovoLog Premeal insulin. Follow-up with endocrinology due to recurrent DKA. JUAN PABLO has resolved. Physical Exam Const: COMMON NORMALS: patient oriented x3 and alert GENERAL APPEARANCE: cooperative ORIENTATION/CONSCIOUSNESS: Yes awake HENMT: COMMON NORMALS: oropharynx normal Neck/C-Spine: COMMON NORMALS: no JVD Resp: COMMON NORMALS: normal respiratory effort and clear to auscultation bilaterally AUSCULTATION: clear to auscultation bilaterally Cardio: COMMON NORMALS: no JVD, regular rhythm, S1 normal heart sound present, S2 normal heart sound present and No murmurs present (Cardio) RHYTHM: regular rhythm HEART SOUNDS: S1 normal heart sound present and S2 normal heart sound present GI: COMMON NORMALS: Normal to inspection, nondistended, normoactive bowel sounds present, Soft to palpation and non-tender PALPATION: Yes Soft to palpation Extremity: COMMON NORMALS: no joint enlargement and no pedal edema Neuro: COMMON NORMALS: patient oriented x3 and moves all extremities SENSORIUM/ORIENTATION: Yes alert Skin: COMMON NORMALS: no rashes or lesions noted GENERAL SKIN EXAM: no rashes or lesions noted Discharge Data Studies Completed and Pending Completed Studies During Hospitalization Category Date Time Status XR abdomen min 2V [id number] Stat Exams 07/01/25 15:46 Completed US abdomen limited 35572 Stat Ultrasound 07/01/25 16:54 Completed Pending at discharge Category Date Time Status Beta-Hydroxybutyrate Routine Lab 07/01/25 15:58 Received Radiology Impressions Abdomen X-Ray 07/01/25 15:46 IMPRESSION: 1. No acute findings. 2. Findings suggestive of constipation. Abdomen Ultrasound 07/01/25 16:54 IMPRESSION: No acute findings. Laboratory Results WBC 9.91 10^3/uL (3.29-11.43) 07/02/25 05:24 RBC 3.44 10^6/uL (3.85-5.65) L 07/02/25 05:24 Hgb 10.00 g/dL (11.27-16.99) L 07/02/25 05:24 Hct 30.4 % (37-53) L D 07/02/25 05:24 MCV 88.4 fl (82-101) 07/02/25 05:24 MCH 29.1 pg (27-33) 07/02/25 05:24 MCHC 32.9 g/dL (30-55) 07/02/25 05:24 RDW 13.7 % (12.1-15.1) 07/02/25 05:24 Plt Count 192 10^3/cmm (157-399) D 07/02/25 05:24 MPV 9.8 fL (7.4-10.4) 07/02/25 05:24 Neut % (Auto) 78.8 % 07/02/25 05:24 Lymph % (Auto) 14.6 % 07/02/25 05:24 Harvey % (Auto) 6.0 % 07/02/25 05:24 Eos % (Auto) 0.1 % 07/02/25 05:24 Baso % (Auto) 0.2 % 07/02/25 05:24 Neut # (Auto) 7.81 10^3/uL (1.8-7.7) H 07/02/25 05:24 Lymph # (Auto) 1.5 10^3/uL (0.8-4.8) 07/02/25 05:24 Harvey # (Auto) 0.6 10^3/uL (0.2-0.9) 07/02/25 05:24 Eos # (Auto) 0.0 10^3/uL (0.0-0.8) 07/02/25 05:24 Baso # (Auto) 0.0 10^3/uL (0.0-0.1) 07/02/25 05:24 Nucleated RBC % (auto) 0 % 07/02/25 05:24 Nucleated RBCs # 0.0 /100WBC 07/02/25 05:24 Specimen Type Not specified 07/01/25 17:15 Sample Site Not specified 07/01/25 17:15 Jefferson Test N/a 07/01/25 17:15 VBG pH 7.09 (7.32-7.42) L* 07/01/25 17:15 VBG pCO2 27.9 mmHg (41-51) L 07/01/25 17:15 VBG pO2 83.5 mmHg (25-40) H 07/01/25 17:15 VBG HCO3 8.5 mmol/L (24-28) L 07/01/25 17:15 VBG Base Excess -19.9 mmol/L (-3.0-3.0) L 07/01/25 17:15 VBG Hematocrit 40.8 % (42-52) L 07/01/25 17:15 O2 Delivery Device Not Reportable 07/01/25 17:15 [place] Hydraulicker ID Adrienne 07/01/25 17:15 Sodium 137 mmol/L (136-145) 07/02/25 05:24 Potassium 3.4 mmol/L (3.5-5.1) L 07/02/25 05:24 Chloride 107 mmol/L (98-107) 07/02/25 05:24 Carbon Dioxide 22 mmol/L (22-29) 07/02/25 05:24 Anion Gap 11.4 (5-19) 07/02/25 05:24 BUN 19 mg/dL (8-23) 07/02/25 05:24 Creatinine 0.8 mg/dL (0.7-1.2) 07/02/25 05:24 GFR Calculation 96.7 mL/min (90-130) 07/02/25 05:24 Glucose 309 mg/dL (65-115) H 07/02/25 05:24 POC Glucose 232 mg/dL (70-110) H 07/02/25 08:16 Calculated Osmolality 298 mOsm/kg (285-295) H 07/02/25 05:24 Calcium 8.3 mg/dL (8.5-10.5) L 07/02/25 05:24 Phosphorus 1.9 mg/dL (2.5-4.5) L D 07/02/25 05:24 Magnesium 1.9 mg/dL (1.7-2.3) 07/02/25 05:24 Total Bilirubin 0.3 mg/dL (0.15-1.2) 07/02/25 05:24 AST 8 U/L (0-40) 07/02/25 05:24 ALT 9 U/L (0-41) 07/02/25 05:24 Alkaline Phosphatase 55 U/L (40-130) 07/02/25 05:24 Total Protein 5.2 g/dL (6.6-8.7) L D 07/02/25 05:24 Albumin 3.5 g/dL (3.5-5.2) 07/02/25 05:24 Globulin 1.7 g/dL (1.3-4.6) 07/02/25 05:24 Triglycerides 133 mg/dL (0-150) 07/01/25 15:20 Lipase 135 U/L (13-60) H 07/02/25 05:24 Urine Color Yellow (Yellow) 07/01/25 16:55 Urine Appearance Clear (CLEAR) 07/01/25 16:55 Urine pH 5.0 (5-7) 07/01/25 16:55 Ur Specific [place] 1.022 (1.005-1.030) 07/01/25 16:55 Urine Protein Trace (Negative) A 07/01/25 16:55 Urine Glucose (UA) 3+ (Normal) H 07/01/25 16:55 Urine Ketones 4+ (Negative) 07/01/25 16:55 Urine Blood Negative (Negative) 07/01/25 16:55 Urine Nitrate Negative (Negative) 07/01/25 16:55 Urine Bilirubin Negative (Negative) 07/01/25 16:55 Urine Urobilinogen 0.2 mg/dL (Negative) 07/01/25 16:55 Ur Leukocyte Esterase Negative (Negative) 07/01/25 16:55 Urine RBC 0-2 /hpf (0-2) 07/01/25 16:55 Urine WBC 0-5 /hpf (0-5) 07/01/25 16:55 Ur Squamous Epith Cells 0-5 /hpf (0-5) 07/01/25 16:55 Amorphous Sediment Not Reportable 07/01/25 16:55 Urine Bacteria None seen /hpf (NONE) 07/01/25 16:55 Hyaline Casts 3.30 /lpf 07/01/25 16:55 Serum Ketones Positive (Negative) H 07/01/25 15:58 Vitals Last Vital Signs Temp 98.2 F 07/02/25 07:00 Pulse 86 07/02/25 08:00 Resp 20 H 07/02/25 08:00 BP 126/73 07/02/25 08:00 Pulse Ox 100 07/02/25 08:00 O2 Del Method Room Air 07/02/25 08:00 Discharge Plan Discharge Patient Disposition: Home Condition: Stable Prescriptions: Continued aspirin [Adult Aspirin Regimen] 81 mg tablet,delayed release (DR/EC) 81 mg PO QAM isosorbide mononitrate 30 mg tablet extended release 24 hr 15 mg PO BID Qty: 90 3RF (DME) Dexcom G7 Environmental Technical Officer Misc See Rx Instructions .Route Qty: 1 0RF Rx Instructions: rew once a year (DME) Dexcom G7 Sensor Device See Rx Instructions .ROUTE .MEDSUPPLY Qty: 9 0RF Rx Instructions: Change every 10days gabapentin 300 mg capsule 300 mg PO BID fenofibrate nanocrystallized 145 mg tablet 145 mg PO DAILY trazodone 100 mg tablet 100 mg PO BEDTIME atorvastatin 80 mg tablet 80 mg PO QPM insulin glargine [Lantus Solostar U-100 Insulin] 100 unit/mL (3 mL) insulin pen 65 unit SUBCUT QAM hydrocodone-acetaminophen 10-325 mg tablet 1 tab PO TID sertraline 50 mg tablet 50 mg PO DAILY insulin aspart U-100 [Novolog FlexPen U-100 Insulin] 100 unit/mL (3 mL) insulin pen 4 - 6 unit SUBCUT AC Qty: 15 0RF Rx Instructions: Inject 4 - 6 units subcutaneously before meals; Referrals: Hannah Jin FNP [Referring, Nurse Practitioner] - 4-7 days Colin Grubbs MD [Physician, Endocrinology] - 1 week Referral Note: DKA Discharge Diet: Diabetic Patient Instructions: Diabetic Ketoacidosis (GEN), Opioid Safety, Patient Portal & Eusebio Instructions Activity Restrictions/Additional Instructions: Continue to monitor your glucose closely at home. Target blood glucose 100-150. Continue strict consistent carbohydrate diet. Set up new sensor and continue glucose monitoring. Continue insulin -continue insulin Lantus 65 units every morning. Continue insulin NovoLog 2 to 4 units before meals. Follow-up with endocrinology. Discharge Attestations Time Spent in Discharge Care*: greater than 30 min Quality Metrics Clinical Quality Measures [ No reported AMI, CVA or VTE this stay] Coding Level of Care Code 15474 Total time (in minutes) for Discharge: 45 Diagnoses DKA (diabetic ketoacidosis) E10.10 Diabetes mellitus complication detail: without coma Diabetes mellitus type: type 1 JUAN PABLO (acute kidney injury) N17.9 Elevated lipase R74.8
[2025-07-02] MEDS: potassium phosphate (mMol PO4) 15 MMOL in sodium chloride 0.9% (100 ml) 100 ML 47 MMOL IV (09:04)
--- NOTE | 2025-07-02 12:10 | PC.NURSE ---
All discharge instructions were given to the patient. IV was discontinued and a new glucose reader was placed on the patient. Patient was ambulated and was stable during discharge.
== END 2025-07-02 12:08 | disposition home or self-care (01) | DRG 638 ==
LOC: ER 17:10 → ICU 17:45
PROVIDERS: Emergency Medicine; Family Medicine; Admitting Provider Internal Medicine; Emergency Provider Physician Assistant; Visit Provider Internal Medicine
DX: E10.10 Type 1 diabetes mellitus with ketoacidosis without coma (principal); N17.9 Acute kidney failure, unspecified; R74.8 Abnormal levels of other serum enzymes; F32.A Depression, unspecified; I10 Essential (primary) hypertension; F41.9 Anxiety disorder, unspecified; E78.5 Hyperlipidemia, unspecified; G89.29 Other chronic pain; Z66 Do not resuscitate; Z79.4 Long term (current) use of insulin; Z79.82 Long term (current) use of aspirin
CPT/HCPCS: 36415; 36416; 74019; 76705; 80048; 80053; 81001; 82009; 82010; 82803; 82962; 83690; 83735; 84100; 84478; 85025; 96365; 96367; 96372; 96375; 96376; 99285; J1650; J1815; J2470; J7030; J7799; J9999

== ENCOUNTER 2025-07-12 09:29 | Inpatient (IN) | payer MEDICARE, MEDICAID, SELFPAY ==
[2025-07-12] VITALS (15 sets, daily range): BP systolic 94–124; BP diastolic 47–75; PULSE 97–128; RESP 16–26; TEMP 36.6–37.6; O2SAT 95–99; BMI 23.1
--- NOTE | 2025-07-12 09:31 | XR_ITS ---
WS: [id number] Exam: XR chest 1V portable [id number] Date/Time of Exam: 07/12/2025 9:31 AM Reason For Exam: vomiting Comparison 06/02/2025. The lungs are fully expanded and clear. Normal cardiomediastinal silhouette and regional bony elements. XR/XR chest 1V portable [id number] IMPRESSION: 1. Negative chest.
--- NOTE | 2025-07-12 09:33 | ED_ITS ---
HPI - General Adult 2 General: Chief complaint: Nausea/Vomiting/Diarrhea Stated complaint: n/v - hx of dka Source: patient and EMS Mode of arrival: EMS Limitations: no limitations History of Present Illness: 65-year-old male has had a history of di abetes been in DKA in the past. States that he been sick since last night states he had multiple episodes of vomiting and his blood sugars been running in the 3 and 400s. He denies any pain currently he denies any fevers. He denies any worsening improving factors. Associated symptoms: Reports vomiting Related Data Home Medications ?Medication ?Instructions ?Recorded ?Confirmed aspirin 81 mg tablet,delayed 81 mg PO QAM 05/12/2012/30 release (Adult Aspirin Regimen) gabapentin 300 mg capsule 300 mg PO BID 06/30/2207/12 hydrocodone 10 mg-acetaminophen 1 tab PO TID 06/28/23 07/12/25 325 mg tablet fenofibrate nanocrystallized 145 145 mg PO DAILY 08/1107/12/25 mg tablet trazodone 100 mg tablet 100 mg PO BEDTIME 08/12/24 1 09/12/24 sertraline 50 mg tablet 50 mg PO DAILY 02/19/2512/30 atorvastatin 80 mg tablet 80 mg PO QPM 07/02/25 insulin glargine 100 unit/mL (3 65 unit SUBCUT QAM 07/12/25 mL) subcutaneous pen (Lantus Solostar U-100 Insulin) evolocumab 140 mg/mL subcutaneous 140 mg SUBCUT Q14D 1 09/12/24 07/12/25 pen injector (Repruben Long[place]ick) lisinopril 2.5 mg tablet 2.5 mg PO DAILY 07/12/2512/30 Previous Rx's ?Medication ?Instructions ?Recorded 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 06 mL) SUBCUT 02/20/25 (3 mL) subcutaneous pen (Novolog AC sliding scale #15 mL FlexPen U-100 Insulin aspart) isosorbide mononitrate 30 mg 15 mg (1/2 x 30 mg) PO BI D #90 tabs 05/30/25 tablet,extended release 24 hr Allergies Allergy/AdvReac Type Severity Reaction Status Date / Time No Known Drug Allergies Allergy Unknown Unknown Verified 12/06/24 07:23 Review of Systems 2 GI: Reports: vomiting PFSH ED 2 PFSH: Medical History Depression Hypertension Anxiety Hyperlipidemia Chronic pain Insulin dependent diabetes mellitus Surgical History Hx of colonoscopy 18 years ago [facility] [place] H/O shoulder surgery Family History Father Colon cancer Other COPD (chronic obstructive pulmonary disease) Cancer Social History Smoking and tobacco/nicotine status: never used tobacco/nicotine Alcohol intake: never Substance/Drug Use: never Additional social history: 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 Patient states he wants DNR status and this was confirmed today with David Howell MD on 02/18/2025 Physical Exam 2 Const: COMMON NORMALS: patient oriented x3 HENMT: COMMON NORMALS: normocephalic and atraumatic HEAD & SCALP: n ormocephalic and atraumatic Eye: COMMON NORMALS: conjunctivae normal CONJUNCTIVA: Yes conjunctivae normal Neck/C-Spine: COMMON NORMALS: full ROM and supple Chest: COMMONS NORMALS: normal inspection of the chest Resp: COMMON NORMALS: normal respiratory effort, No retractions, No use of accessory muscles and clear to auscultation bilaterally AUSCULTATION: clear to auscultation bilaterally Cardio: COMMON NORMALS: regular rhythm and No murmurs present (Cardio) R ATE: tachycardic RHYTHM: regular rhythm GI: COMMON NORMALS: Normal to inspection, nondistended, normoactive bowel sounds present, Soft to palpation, non-tender and no masses PALPATION: Yes Soft to palpation Extremity: COMMON NORMALS: normal to inspection and full ROM Neuro: COMMON NORMALS: patient oriented x3, moves all extremities and no focal motor deficits Psych: COMMON NORMALS: mental status grossly normal, Normal thought process present and cooperative THOUGHT PROCESS: Normal thought process present Skin: COMMON NORMALS: no rashes or lesions noted and no wounds GENERAL SKIN EXAM: no rashes or lesions noted Course 2 Vital Signs: Vital signs: Vital Signs Temperature 97.8 F 07/12/25 09:30 Pulse Rate 122 H 07/12/25 10:45 Respiratory Rate 26 H 07/12/25 10:04 Blood Pressure 101/61 07/12/25 10:45 Pulse Oximetry 98 07/12/25 10:45 Oxygen Delivery Me thod Room Air 07/12/25 10:45 MDM - General Adult Medical Decision Making 65-year-old male has a history of type 1 diabetes has been here multiple times for DKA presents here with nausea vomiting was found to be in DKA again. Glucose here 707 does have a CO2 of 9. Patient was given IV fluids he started on insulin drip as well. I spoke to hospitalist and will admit to the ICU at this time. Did interpret his chest x-ray showed no acute abnormalities. EKG interpretation time 956 sinus tach heart rate [address] elevation QRS 89 QTc 375. Did go over findings with patient and informed him he is being admitted critical care time 45 minutes The high probability of a clinically significant, sudden or life threatening deterioration of the patient's endocrine system(s) required my full and direct attention, intervention and personal management. The critical care time is as shown. This time is in addition to time spent performing any reported procedures but includes the following: [x] Data and vital sign review and interpretation [x] Patient assessment, examination and intervention [x] Documentation [x] Medication orders and management Medical Records I reviewed the patient's medical records. Lab Data I reviewed the patient's lab results. 07/12/25 09:46 07/12/25 09:46 Radiology Impressions Chest X-Ray 07/12/25 09:31 IMPRESSION: 1. Negative chest. Laboratory Results WBC 22.76 10^3/uL (3.29-11.43) H 07/12/25 09:46 RBC 4.60 10^6/uL (3.85-5.65) 07/12/25 09:46 Hgb 13.50 g/dL (11.27-16.99) 07/12/25 09:46 Hct 43.0 % (37-53) 07/12/25 09:46 MCV 93.5 fl (82-101) 07/12/25 09:46 MCH 29.3 pg (27-33) 07/12/25 09:46 MCHC 31.4 g/dL (30-55) 07/12/25 09:46 RDW 13.6 % (12.1-15.1) 07/12/25 09:46 Plt Count 355 10^3/cmm (157-399) 07/12/25 09:46 MPV 10.5 fL (7.4-10.4) H 07/12/25 09:46 Neut % (Auto) 85.8 % 07/12/25 09:46 Lymph % (Auto) 8.0 % 07/12/25 09:46 [place] % (Auto) 5.1 % 07/12/25 09:46 Eos % (Auto) 0.1 % 07/12/25 09:46 Baso % (Auto) 0.4 % 07/12/25 09:46 Neut # (Auto) 19.53 10^3/uL (1.8-7.7) H 07/12/25 09:46 Lymph # (Auto) 1.8 10^3/uL (0.8-4.8) 07/12/25 09:46 [place] # (Auto) 1.2 10^3/uL (0.2-0.9) H 07/12/25 09:46 Eos # (Auto) 0.0 10^3/uL (0.0-0.8) 07/12/25 09:46 Baso # (Auto) 0.1 10^3/uL (0.0-0.1) 07/12/25 09:46 Nucleated RBC % (auto) 0 % 07/12/25 09:46 Nucleated RBCs # 0.0 /100WBC 07/12/25 09:46 Specimen Type Arterial 07/12/25 10:29 Sample Site Radial, left 07/12/25 10:29 ABG pH 7.09 (7.35-7.45) L* 07/12/25 10:29 ABG pCO2 24.9 mmHg (35-45) L 07/12/25 10:29 ABG pO2 112.0 mmHg (80.0-100.0) H 07/12/25 10:29 ABG PO2/FiO2 Ratio 533 07/12/25 10:29 ABG HCO3 7.5 mmol/L (22-26) L 07/12/25 10:29 ABG Base Excess -20.9 mmol/L (-2.0-2.0) L 07/12/25 10:29 [place] Test Pos 07/12/25 10:29 Hematocrit 38.5 % (42-52) L 07/12/25 10:29 Hgb O2 Saturation 96.2 % (95-100) 07/12/25 10: Carboxyhemoglobin 1.0 %THgb (0.4-20.1) 07/12/25 10: Methemoglobin 0.4 % (0.4-1.5) 07/12/25 10: Total Hemoglobin 12.6 g/dL (14-18) L 07/12/25 10:29 O2 Delivery Device Room air 07/12/25 10: FiO2 21.0 % 07/12/25 10:29 Lead Ramp Agent ID glc 07/12/25 10:29 Sodium 137 mmol/L (136-145) 07/12/25 09:46 Potassium 5.7 mmol/L (3.5-5.1) H 07/12/25 09:46 Chloride 87 mmol/L (98-107) L 07/12/25 09:46 Carbon Dioxide 9 mmol/L (22-29) L 07/12/25 09:46 Anion Gap 46.7 (5-19) H 07/12/25 09:46 BUN 41 mg/dL (8-23) H 07/12/25 09:46 Creatinine 1.3 mg/dL (0.7-1.2) H 07/12/25 09:46 GFR Calculation 55.2 mL/min (90-130) L 07/12/25 09:46 Glucose 707 mg/dL (65-115) H* 07/12/25 09:46 POC Glucose 593 mg/dL (70-110) H* 07/12/25 09:35 Calculated Osmolality 328 mOsm/kg (285-295) H 07/12/25 09:46 Calcium 10.8 mg/dL (8.5-10.5) H 07/12/25 09:46 Phosphorus 8.5 mg/dL (2.5-4.5) H* 07/12/25 09:46 Magnesium 2.9 mg/dL (1.7-2.3) H 07/12/25 09:46 Total Bilirubin 0.3 mg/dL (0.15-1.2) 07/12/25 09:46 AST 15 U/L (0-40) 07/12/25 09:46 ALT 33 U/L (0-41) 07/12/25 09:46 Alkaline Phosphatase 105 U/L (40-130) 07/12/25 09:46 Total Protein 7.4 g/dL (6.6-8.7) 07/12/25 09:46 Albumin 4.7 g/dL (3.5-5.2) 07/12/25 09:46 Globulin 2.7 g/dL (1.3-4.6) 07/12/25 09:46 Lipase 15 U/L (13-60) 07/12/25 09:46 Serum Ketones Positive (Negative) H 07/12/25 09:46 All radiology interpretation(s) finalized by discharge EKG Data EKG 1: I personally reviewed and interpreted this EKG as follows: EKG interpretation date: 07/12/25 EKG interpretation time: 09:56 Interpretation: sinus tach hr [address] elevation qrs 89 qtc 375 Computer generated interpretation: Chest X-Ray 07/12/25 09:31 IMPRESSION: 1. Negative chest. Critical Care Time 2 Critical Care Time: Critical Care Time: Yes Total Critical Care Time: 45 Attestation: The high probability of a clinically significant, sudden or life threatening deterioration of the patient's endocrine system(s) required my full and direct attention, intervention and personal management. The critical care time is as shown. This time is in addition to time spent performing any reported procedures but includes the following: [x] Data and vital sign review and interpretation [x] Patient assessment, examination and intervention [x] Documentation [x] Medication orders and management Discharge Plan Discharge Patient Disposition: Admitted As Inpatient Clinical Impression: DKA (diabetic ketoacidosis) Qualifiers: Diabetes mellitus type: type 1 Diabetes mellitus complication detail: without coma Qualified Code(s): E10.10 - Type 1 diabetes mellitus with ketoacidosis without coma Condition: Stable Coding Level of Care Code ED Single Fold Machine Operator for g Luis Armando
[2025-07-12] MEDS: ondansetron 2 mg/ML SDV 2 mL 4 MG IVP (09:49)
--- NOTE | 2025-07-12 09:56 | ECG_ITS ---
[facility] Test Date: 2025-07-12 Pat Name: Wiliam Rogers Department: Room: Gender: Male Client Development Manager: : 1960 Requested By: Estefania Mcgowan Order Number: [id number] Catrachito MD: Adrianne Coronado M.D. Measurements Intervals [place] Rate: 125 P: 80 PA: 158 QRS: -55 QRSD: 89 T: 81 QT: 301 QTc: 434 Interpretive Statements SINUS TACHYCARDIA POSSIBLE RIGHT VENTRICULAR CONDUCTION DELAY [RSR (QR) IN V1/V2] LEFT ANTERIOR FASCICULAR BLOCK [QRS AXIS <= -45, QR IN I, RS IN II] Compared to ECG 05/02/2024 16:14:16 Left anterior fascicular block now present Sinus rhythm no longer present Electronically Signed On 07-12-2025 18:44:51 TOP LIFT COMPRESSOR by Adrianne Coronado M.D. [id number] [email or web address]
[2025-07-12 10:00] LABS: Hematocrit 43.0 % (37-53); Hemoglobin 13.50 g/dL (11.27-16.99); Mean Corpuscular HGB Conc 31.4 g/dL (30-55); Mean Corpuscular Hemoglobin 29.3 pg (27-33); Mean Corpuscular Volume 93.5 fl (82-101); Nucleated Red Blood Cells % 0 %; Platelet Count 355 10^3/cmm (157-399); Red Blood Count 4.60 10^6/uL (3.85-5.65); White Blood Count 22.76 10^3/uL (3.29-11.43)
[2025-07-12 10:09] LABS: Ketone (Acetest) Serum Positive (Negative)
[2025-07-12 10:22] LABS: Alanine Aminotransferase 33 U/L (0-41); Albumin Level 4.7 g/dL (3.5-5.2); Alkaline Phosphatase 105 U/L (40-130); Aspartate Amino Transferase 15 U/L (0-40); Blood Urea Nitrogen 41 mg/dL (8-23); Calcium 10.8 mg/dL (8.5-10.5); Chloride 87 mmol/L (98-107); Globulin 2.7 g/dL (1.3-4.6); Lipase 15 U/L (13-60); Magnesium 2.9 mg/dL (1.7-2.3); Osmolality Calculated 328 mOsm/kg (285-295); Sodium 137 mmol/L (136-145); Total Protein 7.4 g/dL (6.6-8.7)
[2025-07-12 10:25] LABS: Anion Gap 46.7 (5-19); Potassium 5.7 mmol/L (3.5-5.1)
[2025-07-12 10:26] LABS: Carbon Dioxide 9 mmol/L (22-29); Glucose 707 mg/dL (65-115)
[2025-07-12 10:41] LABS: ABG PCO2 24.9 mmHg (35-45); Arterial Blood Gas Hematocrit 38.5 % (42-52); Blood Gas Allen Test Pos; Blood Gas Operator Identificat glc; Blood Gas Sample Site Radial, left; Blood Gas Sample Type Arterial; Carboxyhemoglobin 1.0 %THgb (0.4-20.1); HCO3 ABG 7.5 mmol/L (22-26); Methemoglobin 0.4 % (0.4-1.5); PO2 ABG 112.0 mmHg (80.0-100.0); PO2 FiO2 Ratio Arterial Blood 533
[2025-07-12 10:45] LABS: ABG PH Result 7.09 (7.35-7.45)
--- NOTE | 2025-07-12 11:02 | PC.NURSE ---
FSBG 567.
[2025-07-12] MEDS: INSULIN REGULAR IN 0.9 % NACL 100 UNIT/100 ML BAG 6 UNIT IV (11:04)
--- NOTE | 2025-07-12 11:44 | PC.NURSE ---
glucose via FS 535
--- NOTE | 2025-07-12 14:52 | CTR_ITS ---
PROCEDURE INFORMATION: Exam: CT Chest Without Contrast; Diagnostic Exam date and time: 07/12/2025 3:18 PM Age: 65 years old Clinical indication: Other: Sepsis TECHNIQUE: Imaging protocol: Diagnostic computed tomography of the chest without contrast. Radiation optimization: All CT scans at this facility use at least one of these dose optimization techniques: automated exposure control; mA and/or kV adjustment per patient size (includes targeted exams where dose is matched to clinical indication); or iterative reconstruction. COMPARISON: CR XR chest 1V portable [id number] 07/12/2025 10:06 AM RADIATION DOSE METRICS: Total DLP (mGy-cm): 505.59 FINDINGS: Limitations: Limited assessment without contrast. Thyroid: Thyroid gland appears unremarkable. No supraclavicular lymphadenopathy. Trachea: Trachea is midline in position. Central airways are clear. No significant bronchiectasis. Lungs: No airspace consolidation suspicious for a pneumonia. 4.8 mm juxtapleural nodule within the anterior aspect of the right lower lobe. This abuts the major fissure. This appears benign. 2.7 mm subpleural nodule within the anterior right lower lobe (image 35 of series 4). There are a few scattered calcified granulomas within the right and left lung which are benign. 3.8 mm pleural-based nodule within the periphery of the left lower lobe (image 45 of series 4). 4.4 mm nodule within the lateral sulcus of the left lung base (image 53 of series 4). 6 mm nodule within the right lower lobe (image 39 of series 4). 3.5 mm pleural-based nodule within the posteromedial aspect of the left lung base (image 54 of series 4). 5.5 mm nodule within the inferior aspect of the right middle lobe (image 48 of series 4). There are a few additional scattered small 3-4 mm nodules within the right and left lung. Pleural spaces: No significant pleural effusion. No pneumothorax. Heart: Heart size is normal. No pericardial effusion. Dense coronary artery calcifications are present along the proximal aspect of the left coronary artery. Mediastinal space: No mediastinal mass or fluid collection. No enlarged or suspicious mediastinal lymph nodes. No definitive hilar mass. Evaluation of the hilar structures is limited by lack of intravenous contrast. Lymph nodes: No suspicious axillary lymphadenopathy or mass. Vasculature: Mild fusiform dilatation of the ascending thoracic aorta measuring up to 3.3 cm in greatest diameter. Evaluation of the vasculature is limited by lack of intravenous contrast. Mild atherosclerotic plaque at the aortic arch. Small amount of atherosclerotic plaque extends into the origins of the great vessels. Bones/joints: No acute osseous abnormality. No suspicious lytic or sclerotic bone lesion. Multilevel degenerative changes are present throughout the spine. Arthritic changes are present at the right and left shoulder joint. Soft tissues: Unremarkable. (Reference: Jasmeet) REFERENCES: Jasmeet Doty et al. Guidelines for Management of Incidental Pulmonary Nodules Detected on CT Images: From the Fleischner Society 2017. Radiology. 2017;284(1):228-243. PROCEDURE INFORMATION: Exam: CT Abdomen And Pelvis Without Contrast Exam date and time: 07/12/2025 3:18 PM Age: 65 years old Clinical indication: Other: Sepsis TECHNIQUE: Imaging protocol: Computed tomography of the abdomen and pelvis without contrast. Radiation optimization: All CT scans at this facility use at least one of these dose optimization techniques: automated exposure control; mA and/or kV adjustment per patient size (includes targeted exams where dose is matched to clinical indication); or iterative reconstruction. COMPARISON: 1. CT abdomen pelvis wo con [id number] 08/11/2024 7:[address] abdomen pelvis w con* [id number] 07/31/2024 9:37 AM RADIATION DOSE METRICS: Total DLP (mGy-cm): 5005.59 FINDINGS: Esophagus: Thickening of the visualized distal esophagus. Diaphragm: No hiatal hernia. Liver: Mild decreased density throughout the liver in keeping with mild fatty infiltration. Liver appears unremarkable for a noncontrast evaluation. The liver surface is smooth. Gallbladder and biliary ducts: The gallbladder is unremarkable. No biliary ductal dilatation. Common bile duct is normal in caliber. Pancreas: Pancreas appears somewhat atrophic. The pancreas is otherwise unremarkable for a noncontrast evaluation. Spleen: Spleen is unremarkable for a noncontrast evaluation. Adrenal glands: The adrenal glands are unremarkable. The adrenal glands are unremarkable. Kidneys and ureters: 2.7 cm exophytic cyst along the medial margin of the upper pole of the right kidney. This is benign. No renal calculi. No hydronephrosis. No perinephric stranding or fluid collection. No contour deforming mass. Stomach and bowel: Stomach is partially distended with fluid. Apparent mild mucosal thickening along the cardia of the stomach is somewhat nonspecific. Small bowel loops are normal in caliber no evidence of a small bowel obstruction. [id number] stool burden is present. No evidence for acute colitis. Appendix: Normal appendix. Intraperitoneal space: No significant peritoneal free fluid. No free peritoneal air. Vasculature: Aorta demonstrates moderate atherosclerotic calcification. Evaluation of the vasculature is limited by lack of intravenous contrast. Atherosclerotic plaque at the origin of the celiac artery and superior mesenteric artery. Scattered atherosclerotic plaque along the iliac arteries. Lymph nodes: There are no enlarged or suspicious intra-abdominal, pelvic or retroperitoneal lymph nodes. Urinary bladder: Bladder is moderately distended. No bladder wall nodularity or bladder calculus. Reproductive: Prostate is mildly enlarged. There are a few central calcifications. Seminal vesicles appear unremarkable. Bones/joints: No acute osseous abnormality. No suspicious lytic or sclerotic bone lesion. No acute fracture. Mild degenerative changes are present throughout the spine. No areas of severe central spinal canal stenosis. Multilevel degenerative facet arthropathy. Mild arthritic changes are present at the right and left hip joint. SI joints appear symmetric. Soft tissues: Soft tissues are unremarkable as visualized. CT/[place] [id number] IMPRESSION: 1. No acute findings within the chest. No focal airspace consolidation suspicious for pneumonia. No pleural effusion. 2. Scattered small pulmonary nodules are present within the right and left lung as described. Largest measures up to 6 mm. For patients at low risk (minimal or absent history of smoking and of other known risk factors), recommend CT Chest at 6-12 months, then consider CT Chest at 18-24 months. For patients at high risk (history of smoking or of other known risk factors), recommend CT Chest at 6-12 months, then CT Chest at 18-24 months. IMPRESSION: 1. Thickening of the visualized distal esophagus. Correlate for esophagitis though esophageal mass lesions are not well excluded on CT. 2. There is otherwise no focal inflammatory process or free fluid within the abdomen or pelvis. No focal fluid collection suspicious for an abscess. No evidence of a bowel obstruction. No evidence of acute colitis or acute diverticulitis. No evidence of appendicitis. No suspicious lymphadenopathy. 3. Probable mild fatty infiltration of the liver. 4. Stomach is partially distended with fluid. Apparent mild mucosal thickening within the proximal stomach is nonspecific. 5. Bladder is moderately distended. No bladder wall thickening or nodularity. No bladder calculi. COMMENTS: Consistent with the [employer]'s Incidental Findings Committee white paper (J Am Deirdre Radiol 2018): Any incidental renal lesion less than 1 cm or classified as too small to characterize, or any incidental cystic renal lesion characterized as simple-appearing, is likely benign. No follow-up imaging is recommended for these lesions per consensus recommendations based on imaging criteria.
[2025-07-12 15:07] LABS: ABG PCO2 23.5 mmHg (35-45); ABG PH Result 7.31 (7.35-7.45); Arterial Blood Gas Hematocrit 38.9 % (42-52); Blood Gas Allen Test Pos; Blood Gas Operator Identificat glc; Blood Gas Sample Site Radial, right; Blood Gas Sample Type Arterial; HCO3 ABG 11.9 mmol/L (22-26); PO2 ABG 125.0 mmHg (80.0-100.0); PO2 FiO2 Ratio Arterial Blood 595
--- NOTE | 2025-07-12 15:39 | P.HP_ITS ---
Providers/Chief Complaint 2 Admitting Physician: radha newsome MD Chief Complaint: n/v - hx of dka History of Present Illness Wiliam Rogers Jr is a 65 year old male with past medical history of diabetes, takes about 65 units of insulin during daytime and states that he took it yesterday morning, presented to the hospital today with complaints of multiple episodes of vomiting that started last night to the point that he was vomiting his bile acids he states. He denies having any blood in the vomit. He admits to having some lightheadedness and dizziness, and abdominal cramping and pain when he was vomiting. No diarrhea. Some constipation however. No chest pain but admits to having some shortness of breath. No other complaints at this time. He denies drinking alcohol or or use of any recreational drugs or smoking. Upon presentation to the ER, found to have glucose of 707 with a bicarb of 9. EKG showed sinus tachycardia. 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 06 mL) SUBCUT 02/20/25 07/12/25 07/11/25 Rx (3 mL) subcutaneous pen (Novolog AC sliding scale #15 mL FlexPen U-100 Insulin aspart) isosorbide mononitrate 30 mg 15 mg (1/2 x 30 mg) PO BI D #90 tabs 05/30/25 07/12/25 Unknown Rx tablet,extended release 24 hr atorvastatin 80 mg tablet 80 mg PO QPM 07/02/2507/11/25 History insulin glargine 100 unit/mL (3 65 unit SUBCUT QAM 07/12/25 07/11/25 History mL) subcutaneous pen (Lantus Solostar U-100 Insulin) evolocumab 140 mg/mL subcutaneous 140 mg SUBCUT Q14D 1 09/12/24 07/12/25 Unknown History pen injector (Maryanne Longoriaick) lisinopril 2.5 mg tablet 2.5 mg PO DAILY 07/12/2512/3007/11/25 History Allergies Allergy/AdvReac Type Severity Reaction Status Date / Time No Known Drug Allergies Allergy Unknown Unknown Verified 12/06/24 07:23 PFSH Acute 2 PFSH: Medical History (Updated 07/12/25 @ 10:34 by Estefania Mcgowan MD) Depression Hypertension Anxiety Hyperlipidemia Chronic pain Insulin dependent diabetes mellitus Surgical History H[place] of colon[place] 18 [place] [facility] [place] Family History Father Colon cancer Other COPD (chronic obstructive pulmonary disease) Cancer Social History Smoking and tobacco/nicotine status: never used tobacco/nicotine Alcohol intake: never Substance/Drug Use: never Additional social history: 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 Patient states he wants DNR status and this was confirmed today with David Howell MD on 02/18/2025 Vitals/I&O/Wt Last Vital Signs Temp 97.8 F 07/12/25 09:30 Pulse 111 H 07/12/25 14:42 Resp 18 07/12/25 14:42 BP 112/75 07/12/25 14:42 Pulse Ox 97 07/12/25 14:42 O2 Del Method Room Air 07/12/25 14:42 07/12/25 07/12/25 07/12/25 06:59 14:59 22:59 Intake Total 1026.133 / 9367.455 1231 / 2025.133 Balance 1026.133 / 1528.422 7891 / 2025.133 Weight last 48 hrs Weight 61.235 kg Physical Exam 2 Narrative: Exam, awake and alert. On room air, has a strong ketotic breath HEENT normocephalic atraumatic Chest clear to auscultation bilateralLY Abdomen soft nontender nondistended bowel sounds positive Extremities warm to touch pulses no edema Neuro AO x 3, grossly normal Data 07/12/25 09:46 07/12/25 09:46 Micro: Microbiology 07/12/25 15:10 Blood Culture - Preliminary Blood SPECIMEN COLLECTED 07/12/25 15:12 Blood Culture - Preliminary Blood SPECIMEN COLLECTED A&P Assessment and plan 1. JUAN PABLO (acute kidney injury): 2. DKA (diabetic ketoacidosis): Plan: 65-year-old male with past medical history of diabetes type 1, presented to the hospital with complaints of nausea vomiting, found to be in DKA. Also found to have leukocytosis. Obtaining a CT scan of the abdomen chest pelvis. Although leukocytosis could be likely reactive to DKA as well. Patient states he has been taking his medications. -- Currently under DKA protocol, continue IV fluids, insulin drip. -- Has leukocytosis of 22.76, will start prophylactic Rocephin, pancultures however do not think has an active infection, CT chest abdomen pelvis pending. Pancultures obtained. -- Initial ABG showed pH of 7.29 however repeat pH 7.31 with bicarb of 23.5. No need for any bicarb supplementation at this time. Monitor. -- BMP Q6 -- Initial BMP with potassium of 3.4, repeat pending. Will supplement potassium at this time. As mentioned above BMP Q6 -- Beta-hydroxybutyrate 11.42 and serum ketones negative -- Check lactic acid -- IV fluids as mentioned above --Holding home dose of Lantus and NovoLog. Hyperlipidemia, resumed atorvastatin and fenofibrate History of depression, resumed sertraline Hypertension and CAD, resumed Imdur and lisinopril History of neuropathy, resume gabapentin JUAN PABLO, has resolved. Hypokalemia, repletion as above. DVT prophylaxis, Lovenox Full code PDMP PDMP Reviewed: Not Reviewed Attestations 2 Medical Necessity Statement*: Getting admitted under DKA protocol. Currently on insulin drip. Coding Level of Care Code Acute Code for Chg Fwd Diagnoses JUAN PABLO (acute kidney injury) N17.9 DKA (diabetic ketoacidosis) E11.10
[2025-07-12 15:46] LABS: Lactic Sepsis W/Reflex 2.9 mmol/L (0.5-2.2)
[2025-07-12 15:47] LABS: Reflex Lactate Order REFLEX LACTIC ORDERD
[2025-07-12] MEDS: heparin 5,000 unit/mL INJ 1 mL 5000 UNIT SUBCUT ×2 (15:57→22:53)
[2025-07-12 16:01] LABS: Anion Gap 33.4 (5-19); Blood Urea Nitrogen 38 mg/dL (8-23); Calcium 9.9 mg/dL (8.5-10.5); Carbon Dioxide 10 mmol/L (22-29); Chloride 102 mmol/L (98-107); Glucose 387 mg/dL (65-115); Magnesium 2.7 mg/dL (1.7-2.3); Osmolality Calculated 317 mOsm/kg (285-295); Potassium 4.4 mmol/L (3.5-5.1); Sodium 141 mmol/L (136-145)
[2025-07-12] MEDS: cefTRIAXone 1,000 mg SDV 1000 MG IVP (16:28)
[2025-07-12] MEDS: INSULIN REGULAR IN 0.9 % NACL 100 UNIT/100 ML BAG 14.5 UNIT IV (18:10)
[2025-07-12] MEDS: dextrose 5%-sod chloride 0.45% 1,000 ML 150 ML IV (18:10)
[2025-07-12 18:45] LABS: Lactic Acid level (Lactate) 2.0 mmol/L (0.5-2.2)
[2025-07-12 19:39] LABS: Anion Gap 18.0 (5-19); Blood Urea Nitrogen 34 mg/dL (8-23); Calcium 9.2 mg/dL (8.5-10.5); Carbon Dioxide 20 mmol/L (22-29); Chloride 110 mmol/L (98-107); Glucose 200 mg/dL (65-115); Osmolality Calculated 311 mOsm/kg (285-295); Potassium 4.0 mmol/L (3.5-5.1); Sodium 144 mmol/L (136-145)
[2025-07-12] MEDS: HYDROcodone-acetaminophen 10-325 mg Tablet 1 TAB PO (22:53)
[2025-07-12 23:23] LABS: Anion Gap 15.6 (5-19); Blood Urea Nitrogen 35 mg/dL (8-23); Calcium 8.9 mg/dL (8.5-10.5); Carbon Dioxide 22 mmol/L (22-29); Chloride 109 mmol/L (98-107); Glucose 256 mg/dL (65-115); Osmolality Calculated 311 mOsm/kg (285-295); Potassium 4.6 mmol/L (3.5-5.1); Sodium 142 mmol/L (136-145)
[2025-07-13] VITALS (18 sets, daily range): BP systolic 91–111; BP diastolic 53–65; PULSE 79–100; RESP 8–22; TEMP 36.5–37.1; O2SAT 92–98
[2025-07-13] MEDS: dextrose 5%-sod chloride 0.45% 1,000 ML 150 ML IV (00:35)
[2025-07-13 03:48] LABS: Hematocrit 30.8 % (37-53); Hemoglobin 10.20 g/dL (11.27-16.99); Mean Corpuscular HGB Conc 33.1 g/dL (30-55); Mean Corpuscular Hemoglobin 29.4 pg (27-33); Mean Corpuscular Volume 88.8 fl (82-101); Nucleated Red Blood Cells % 0 %; Platelet Count 253 10^3/cmm (157-399); Red Blood Count 3.47 10^6/uL (3.85-5.65); White Blood Count 15.92 10^3/uL (3.29-11.43)
[2025-07-13 04:09] LABS: Anion Gap 11.0 (5-19); Blood Urea Nitrogen 33 mg/dL (8-23); Calcium 8.6 mg/dL (8.5-10.5); Carbon Dioxide 26 mmol/L (22-29); Chloride 108 mmol/L (98-107); Glucose 246 mg/dL (65-115); Osmolality Calculated 307 mOsm/kg (285-295); Potassium 4.0 mmol/L (3.5-5.1); Sodium 141 mmol/L (136-145)
[2025-07-13] MEDS: HYDROcodone-acetaminophen 10-325 mg Tablet 1 TAB PO ×3 (04:16→21:01)
[2025-07-13] MEDS: insulin glargine 100 units/1 mL 65 UNIT SUBCUT (04:56)
[2025-07-13] MEDS: heparin 5,000 unit/mL INJ 1 mL 5000 UNIT SUBCUT ×2 (06:10→14:53)
[2025-07-13 06:57] LABS: Anion Gap 10.8 (5-19); Blood Urea Nitrogen 30 mg/dL (8-23); Calcium 8.5 mg/dL (8.5-10.5); Carbon Dioxide 26 mmol/L (22-29); Chloride 104 mmol/L (98-107); Glucose 184 mg/dL (65-115); Osmolality Calculated 295 mOsm/kg (285-295); Potassium 3.8 mmol/L (3.5-5.1); Sodium 137 mmol/L (136-145)
--- NOTE | 2025-07-13 13:55 | P.PN_ITS ---
Subjective 2 Subjective: Patient seen this morning in the ICU. He is a known 65-year-old diabetic patient who came yesterday with apparent DKA. This manifested symptoms of nausea and vomiting. He was admitted to the ICU, started on DKA protocol. He reports no more vomiting since admission. He has been given his home dose of Lantus this morning. Currently, her blood sugar has been below 200, and he is requesting for food. He has no new complaints. Vitals/I&O/Wt Last Vital Signs Temp 98.8 F 07/13/25 13:40 Pulse 88 07/13/25 13:00 Resp 22 H 07/13/25 13:00 BP 104/60 07/13/25 12:00 Pulse Ox 95 07/13/25 13:00 O2 Del Method Room Air 07/13/25 13:00 07/12/25 07/13/25 07/13/25 22:59 06:59 14:59 Intake Total 1435.275 / 2461.408 977.676 / 3439.084 998.233 / 998.233 Output Total 1000 / 1000 Balance 1435.275 / 2461.408 -22.324 / 2439.084 998.233 / 998.233 Weight last 48 hrs Weight 63 kg Weight 26.989 kg Weight 61.235 kg Physical Exam 2 Narrative: General: Awake and alert. Cooperative. Chest/Resp: Normal respiratory chest movts; no obvious respiratory distress. CVS: Regular heart rate and rhythm. GI: Non-distended; No obvious organomegaly. Extremities: No obvious pitting pedal edema. Skin: No obvious new rashes or new skin lesions. Data 07/13/25 03:22 07/13/25 06:32 Micro: Microbiology 07/12/25 15:10 Blood Culture - Preliminary Blood SPECIMEN COLLECTED 07/12/25 15:12 Blood Culture - Preliminary Blood SPECIMEN COLLECTED A&P Assessment and plan 1. DKA (diabetic ketoacidosis): 2. JUAN PABLO (acute kidney injury): 3. DM type 1 (diabetes mellitus, type 1): Plan: With the blood sugar levels this morning in the low 100s, I planned to discharge patient. Consequently, we fed him, while starting him on sliding scale insulin. However, repeat blood sugar about 1:30 PM showed blood sugar was in the 300s. Patient also complained of nausea. As a result, we will hold the DC plans, continue IV normal saline at 120 cc/h until tomorrow morning, and further control of nausea/vomiting with Reglan. Anticipate discharge in the morning. Continued other ongoing treatment plans. In the meantime, patient can be moved to the medical floor. PDMP PDMP Reviewed: Not Reviewed Attestations 2 Medical Necessity Statement*: Patient admitted for apparent severe clinical condition, as outlined in the Assessment & Plan section above. Patient will need up to 2 midnight stay, estimated, at least, to adequately and appropriately treat and optimally control above-named clinical conditions,. Coding Level of Care Code Acute Code for g Fwd Diagnoses DKA (diabetic ketoacidosis) E10.10 JUAN PABLO (acute kidney injury) N17.9 DM type 1 (diabetes mellitus, type 1) E10.9
[2025-07-13] MEDS: cefTRIAXone 1,000 mg SDV 1000 MG IVP (14:53)
--- NOTE | 2025-07-13 15:18 | PC.NURSE ---
Report given to [facility]. Patient transported via wheelchair. stable.
[2025-07-14] VITALS: BP 105/61; PULSE 76; RESP 15; TEMP 36.8; O2SAT 96
[2025-07-14] MEDS: HYDROcodone-acetaminophen 10-325 mg Tablet 1 TAB PO ×2 (04:37→12:24)
[2025-07-14] MEDS: insulin glargine 100 units/1 mL 60 UNIT SUBCUT (04:44)
[2025-07-14 04:46] VITALS: BP 110/61; PULSE 72; RESP 15; TEMP 36.6; O2SAT 92
[2025-07-14 07:32] VITALS: BP 104/64; PULSE 70; RESP 18; TEMP 37; O2SAT 95
--- NOTE | 2025-07-14 10:27 | P.DS_ITS ---
Discharge Providers Date of Admission: 07/12/25 12:12 Date of Discharge: July 14, 2025 Attending Provider at Admission: Iza Hopper MD Attending Provider at Discharge: Benito Toscano MD Diagnoses at Discharge Discharge Diagnosis 1. DKA (diabetic ketoacidosis): 2. JUAN PABLO (acute kidney injury): 3. DM type 1 (diabetes mellitus, type 1): 4. Pulmonary nodules/lesions, multiple: Reason for Visit Reason for Visit: Persistent nausea and vomiting Brief History: 65-year-old male with known hi story of type 1 diabetes mellitus, came to the ER with complaint of nausea and vomiting. He was found to be dehydrated, and also ketotic. Blood sugar was elevated in the 700s. He was diagnosed with DKA, therefore admitted to the ICU with insulin drip, aggressive fluid boluses, as well as other treatment for DKA. He was monitored closely. Hospital Course Hospital Course By the next morning, and the DKA was resolved. He was started on basal prandial insulin, with addition of 5 units of NovoLog with every meal. Other symptoms were treated empirically. He was therefore transferred to the medical floor, where we monitored him closely till this morning. As of this morning, blood sugar was adequately and satisfactory controlled, with blood sugars staying in reasonably below 200. Given this, he is discharged on adjusted insulin regimen of 5 units of NovoLog with every meal, in addition to the earlier/ongoing low dose sliding scale insulin. Of note, patient CT scan done in the ER showed some pulmonary nodules (chronicity of which is unknown). He is advised to follow-up with PCP on this for close monitoring, probably will repeat imaging in 6 to 12 months. See my discharge instructions and discharge orders for more details. Physical Exam Narrative: General: Awake and alert patient. Resp: No obvious respiratory distress or difficulty breathing. Skin: No obvious rashes or new skin lesions. All other physical findings essentially within normal limits. Discharge Data Studies Completed and Pending Completed Studies During Hospitalization Category Date Time Status CT chest abdomen pelvis [[place] [id number]/65821 Cat Scan 07/12/25 14:52 Completed ] Routine XR chest 1V portable 50220 Stat Exams 07/12/25 09:31 Completed Pending at discharge Category Date Time Status Blood Culture Stat Lab 07/12/25 15:10 Results Radiology Impressions Chest X-Ray 07/12/25 09:31 IMPRESSION: 1. Negative chest Chest/Abdomen/Pelvis CT 07/12/25 14:52 1. No acute findings within the chest. No focal airspace consolidation s uspicious for pneumonia. No pleural effusion. 2. Scattered small pulmonary nodules are present within the right and left lung as described. Largest measures up to 6 mm. 3. Thickening of the visualized distal esophagus. 2. There is otherwise no focal inflammatory process or free fluid within the abdomen or pelvis. No focal fluid collection suspicious for an abscess. No evidence of a bowel obstruction. No evidence of acute colitis or acute diverticulitis. No evidence of appendicitis. No suspicious lymphadenopathy. 3. Probable mild fatty infiltration of the liver. 4. Stomach is partially distended with fluid. Apparent mild mucosal thickening within the proximal stomach is nonspecific. 5. Bladder is moderately distended. No bladder wall thickening or nodularity. No bladder calculi. Vitals Last Vital Signs Temp 98.6 F 07/14/25 07:32 Pulse 70 07/14/25 07:32 Resp 18 07/14/25 07:32 BP 104/64 07/14/25 07:32 Pulse Ox 95 07/14/25 07:32 O2 Del Method Room Air 07/14/25 07:32 Discharge Plan Discharge Patient Disposition: Home Condition: Stable Prescriptions: New insulin aspart U-100 100 unit/mL (3 mL) insulin pen 5 unit SUBCUT .with meals Qty: 15 0RF Continued aspirin [Adult Aspirin Regimen] 81 mg tablet,delayed release (DR/EC) 81 mg PO QAM isosorbide mononitrate 30 mg tablet extended release 24 hr 15 mg PO BID Qty: 90 3RF (DME) Dexcom G7 Stand Grinder Misc See Rx Instructions .Route Qty: 1 0RF Rx Instructions: rew once a year (DME) Dexcom G7 Sensor Device See Rx Instructions .ROUTE .MEDSUPPLY Qty: 9 0RF Rx Instructions: Change every 10days gabapentin 300 mg capsule 300 mg PO BID fenofibrate nanocrystallized 145 mg tablet 145 mg PO DAILY trazodone 100 mg tablet 100 mg PO BEDTIME atorvastatin 80 mg tablet 80 mg PO QPM insulin glargine [Lantus Solostar U-100 Insulin] 100 unit/mL (3 mL) insulin pen 65 unit SUBCUT QAM hydrocodone-acetaminophen 10-325 mg tablet 1 tab PO TID sertraline 50 mg tablet 50 mg PO DAILY insulin aspart U-100 [Novolog FlexPen U-100 Insulin] 100 unit/mL (3 mL) ins ulin pen 4 - 6 unit SUBCUT AC Qty: 15 0RF Rx Instructions: Inject 4 - 6 units subcutaneously before meals and at bedtime plus sliding scale. lisinopril 2.5 mg tablet 2.5 mg PO DAILY Repatha SureClick 140 mg/mL pen injector 140 mg SUBCUT Q14D Discharge Order = DC NOW: Discharge Order (Routine); Ordered 07/14/25 Ordered By: Benito Toscano Referrals: Denis Clifton MD [Physician, Endocrinology] - 07/22/25 12:45 pm Discharge Diet: Diabetic Discharge Activity: Resume usual activity and Increase activity as tolerated Patient Instructions: Insulin Aspart, Recombinant (By injection), Diabetic Ketoacidosis (DC), Opioid Safety, Pain Management, Patient Portal & Eusebio Instructions Activity Restrictions/Additional Instructions: Follow up with your PCP within 1-2 weeks/as needed. Discharge Attestations Time Spent in Discharge Care*: less than 30 min Quality Metrics Clinical Quality Measures [ No reported AMI, CVA or VTE this stay] Coding Level of Care Code Acute Code for g Fwd Diagnoses DKA (diabetic ketoacidosis) E10.10 Diabetes mellitus complication detail: without coma Diabetes mellitus type: type 1 JUAN PABLO (acute kidney injury) N17.9 DM type 1 (diabetes mellitus, type 1) E10.9 Pulmonary nodules/lesions, multiple R91.8
[2025-07-14 11:37] VITALS: BP 110/64; PULSE 73; RESP 17; TEMP 36.8; O2SAT 95
[2025-07-14 13:01] VITALS: BP 110/64; PULSE 73; RESP 17; TEMP 36.8; O2SAT 95
== END 2025-07-14 12:55 | disposition home or self-care (01) | DRG 638 ==
LOC: ER 10:34 → ER IP 12:13 → ICU 15:24 → MEDSURG 07-13 15:37
PROVIDERS: Family Medicine; Internal Medicine; Admitting Provider Internal Medicine; Emergency Provider Emergency Medicine; Visit Provider Family Medicine
DX: E10.10 Type 1 diabetes mellitus with ketoacidosis without coma (principal); N17.9 Acute kidney failure, unspecified; Z79.4 Long term (current) use of insulin; E10.40 Type 1 diabetes mellitus with diabetic neuropathy, unspecified; R91.8 Other nonspecific abnormal finding of lung field; E86.0 Dehydration; I10 Essential (primary) hypertension; E78.5 Hyperlipidemia, unspecified; F32.A Depression, unspecified; F41.9 Anxiety disorder, unspecified; E87.6 Hypokalemia; I25.10 Atherosclerotic heart disease of native coronary artery without angina pectoris; Z79.82 Long term (current) use of aspirin
CPT/HCPCS: 36415; 36416; 36600; 71045; 71250; 74176; 80048; 80053; 82009; 82803; 82805; 82962; 83605; 83690; 83735; 84100; 85025; 87040; 93005; 96365; 96366; 96367; 96372; 96375; 99285; J0696; J1644; J1650; J1815; J2405; J3490; J7030; J7799; J9999

== ENCOUNTER → 2025-07-22 14:41 | Outpatient (BNVA) | payer MEDICARE, MEDICAID, SELFPAY | PROVIDERS: Visit Provider Internal Medicine Endocrinology, Diabetes & Metabolism | DX: E78.5 Hyperlipidemia, unspecified (principal); E10.649 Type 1 diabetes mellitus with hypoglycemia without coma | CPT/HCPCS: 99214 ==